=== PATIENT | female | born 1990 | race Hispanic/Latino ===

== ENCOUNTER 2018-04-21 14:01 | Emergency (ER) | payer BC, OTHER ==
[2018-04-21] MEDS ORDERED: IBUPROFEN 200 MG TAB PO ONE (15:35)
[2018-04-21] MEDS ORDERED: DEXAMETHASONE 10 MG/ML VIAL ONE (15:41)
--- NOTE | 2018-04-21 16:02 | EDPHYS ---
Physician Documentation [facility] Name: Domonique Mccurdy Age: 27 yrs Sex: Female : 1990 Arrival Date: 04/21/2018 Time: 14:05 Bed 28 Private MD: Deacon Cronin ED Physician Lev Thorpe HPI: 04/21 15:30 This 27 yrs old Female presents to ER via Ambulatory with complaints of ps1 Congestion, Sore Throat. 15:30 The patient presents with raw and voice change, headache, and sinus congestion. . pain ps1 rated as mild to moderate. Child has been sick with same symptoms. No remitting factors. Worse with swallowing. . 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 - Social history:: Smoking status: Patient/guardian denies using tobacco. - Ebola Screening: : Patient negative for fever greater than or equal to 101.5 degrees Fahrenheit, and additional compatible Ebola Virus Disease symptoms. ROS: 15:30 Constitutional: Negative for fever, chills, and weight loss, Eyes: Negative for injury, ps1 pain, redness, and discharge. 15:30 Cardiovascular: Negative for chest pain, palpitations, and edema, Respiratory: Negative for shortness of breath, cough, wheezing, and pleuritic chest pain, Abdomen/GI: Negative for abdominal pain, nausea, vomiting, diarrhea, and constipation, Back: Negative for injury and pain, Skin: Negative for injury, rash, and discoloration, Neuro: Negative for headache, weakness, numbness, tingling, and seizure, Psych: Negative for depression, anxiety, suicide ideation, homicidal ideation, and hallucinations. 15:30 ENT: Positive for hoarseness, sinus congestion, sore throat. Exam: 15:30 Constitutional: This is a well developed, well nourished patient who is awake, alert, ps1 and in no acute distress. Head/Face: Normocephalic, atraumatic. 15:30 Chest/axilla: Normal chest wall appearance and motion. Nontender with no deformity. No lesions are appreciated. Cardiovascular: Regular rate and rhythm. No gallops, murmurs, or rubs. Normal PMI, no JVD. No pulse deficits. Respiratory: Lungs have equal breath sounds bilaterally, clear to auscultation and percussion. No rales, rhonchi or wheezes noted. No increased work of breathing, no retractions or nasal flaring. Abdomen/GI: Soft, non-tender, with normal bowel sounds. No distension or tympany. No guarding or rebound. No evidence of tenderness throughout. Skin: Warm, dry with normal turgor. Normal color with no rashes, no lesions, and no evidence of cellulitis. MS/ Extremity: Pulses equal, no cyanosis. Neurovascular intact. Full, normal range of motion. Neuro: Awake and alert, GCS 15, oriented to person, place, time, and situation. Cranial nerves II-XII grossly intact. Sensory grossly intact. 15:30 ENT: Posterior pharynx: Tonsils: bilaterally enlarged, no exudate, no ulcerations, swelling, is not appreciated, erythema, that is moderate, exudate, is not appreciated, sinus pressure.. Vital Signs: 14:23 BP 99 / 72; Pulse 80; Resp 19; Temp 98.4; Pulse Ox 97% on R/A; Weight 57.61 kg; Height aj 5 ft. 1 in. (154.94 cm); 14:23 Body Mass Index 24.00 (57.61 kg, 154.94 cm) aj MDM: 15:30 Data reviewed: vital signs, nurses notes. ps1 16:00 Patient medically screened. ps1 04/21 15:29 Order name: Strep; Complete Time: 16:00 ps1 04/21 15:29 Order name: Throat Culture ps1 Administered Medications: 15:43 Drug: Decadron - Dexamethasone 10 mg Route: IVP; Site: Other; rk2 16:12 Follow up: Response: No adverse reaction rk2 15:43 Drug: Motrin 600 mg Route: PO; rk2 16:12 Follow up: Response: No adverse reaction rk2 Disposition: 04/21/18 16:02 Discharged to Home. Impression: Viral pharyngitis. - Condition is Stable. - Discharge Instructions: Pharyngitis. - Prescriptions for Anaprox DS 550 mg Oral Tablet - take 1 tablet by ORAL route every 12 hours As needed; 20 tablet. Prilosec 20 mg Oral Capsule - take 1 capsule by ORAL route once daily; 10 capsule. Zofran 4 mg Oral Tablet - take 1 tablet by ORAL route every 12 hours As needed; 20 tablet. - Medication Reconciliation Form, Thank You Letter, Antibiotic Education, Prescription Opioid Use form. - Follow up: Deacon Cronin MD; When: As needed; Reason: Recheck today's complaints, Continuance of care, Re-evaluation by your physician. Follow up: Emergency Department; When: As needed; Reason: Worsening of condition. - Problem is new. - Symptoms are unchanged. Signatures: Dispatcher [employer] EDRupal Ulrich RN RN Lev Rodriguez MD MD ps1 Maira Mendoza RN RN rk2 Corrections: (The following items were deleted from the chart) 16:13 16:02 04/21/2018 16:02 Discharged to Home. Impression: Viral pharyngitis. Condition is rk2 Stable. Forms are Medication Reconciliation Form, Thank You Letter, Antibiotic Education, Prescription Opioid Use. Follow up: Deacon Cronin; When: As needed; Reason: Recheck today's complaints, Continuance of care, Re-evaluation by your physician. Follow up: Emergency Department; When: As needed; Reason: Worsening of condition. Problem is new. Symptoms are unchanged. ps1
--- NOTE | 2018-04-21 16:02 | ER ---
Nurse's Notes [facility] Name: Domonique Mccurdy Age: 27 yrs Sex: Female : 1990 Arrival Date: 04/21/2018 Time: 14:05 Bed 28 Private MD: Deacon Cronin Diagnosis: Viral pharyngitis Presentation: 04/21 14:22 Presenting complaint: Patient states: Sore throat and congestion for 3 days. Transition aj of care: patient was not received from another setting of care. Onset of symptoms was April 18, 2018. Risk Assessment: Do you want to hurt yourself or someone else? Patient reports no desire to harm self or others. Care prior to arrival: None. 14:22 Method Of Arrival: Ambulatory aj 14:22 Acuity: ALVINO 4 aj 15:37 Initial Sepsis Screen: Does the patient meet any 2 criteria? No. Patient's initial rk2 sepsis screen is negative. Does the patient have a suspected source of infection? No. Patient's initial sepsis screen is negative. Triage Assessment: 14:23 General: Appears in no apparent distress. comfortable, Behavior is calm, cooperative, aj appropriate for age. Pain: Complains of pain in left aspect of posterior pharynx and right aspect of posterior pharynx. EENT: Reports nasal congestion nasal discharge pain when swallowing. Neuro: Level of Consciousness is awake, alert, obeys commands, Oriented to person, place, time, situation, Appropriate for age. Respiratory: Airway is patent Respiratory effort is even, unlabored, Respiratory pattern is regular, symmetrical, Breath sounds are clear. Respiratory: Reports cough that is. Derm: Skin is intact, is healthy with good turgor, Skin is pink, warm \T\ dry. normal. 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 - Social history:: Smoking status: Patient/guardian denies using tobacco. - Ebola Screening: : Patient negative for fever greater than or equal to 101.5 degrees Fahrenheit, and additional compatible Ebola Virus Disease symptoms. Screenin:36 Abuse screen: Denies threats or abuse. Nutritional screening: No deficits noted. rk2 Tuberculosis screening: No symptoms or risk factors identified. Fall Risk None identified. Assessment: 15:37 General: Appears in no apparent distress. well groomed, well developed, well nourished, rk2 Behavior is calm, cooperative. Pain: Complains of pain in right aspect of posterior pharynx and left aspect of posterior pharynx. Neuro: Level of Consciousness is alert, obeys commands, Oriented to person, place, time, situation. Cardiovascular: Rhythm is regular. Cardiovascular: Pulses. Cardiovascular: No deficits noted. Cardiovascular: Reports None. Cardiovascular: Denies. Cardiovascular: Denies shortness of breath. Respiratory: Airway is patent Respiratory effort is even, unlabored, Respiratory pattern is regular, symmetrical. Respiratory: Breath sounds are clear. EENT: Throat is pink Reports pain. Derm: Skin is pink, warm \T\ dry. Vital Signs: 14:23 BP 99 / 72; Pulse 80; Resp 19; Temp 98.4; Pulse Ox 97% on R/A; Weight 57.61 kg; Height aj 5 ft. 1 in. (154.94 cm); 14:23 Body Mass Index 24.00 (57.61 kg, 154.94 cm) aj ED Course: 14:05 Patient arrived in ED. bd 14:05 Deacon Cronin MD is Private Physician. mr 14:22 Triage completed. aj 14:23 Arm band placed on left wrist. Patient placed in waiting room. aj 15:02 Lev Thorpe MD is Attending Physician. ps1 15:22 Maira Mendoza RN is Primary Nurse. rk2 15:36 Patient has correct armband on for positive identification. Bed in low position. Call rk2 light in reach. 16:01 Deacon Cronin MD is Referral Physician. ps1 16:12 No provider procedures requiring assistance completed. Patient did not have IV access rk2 during this emergency room visit. Administered Medications: 15:43 Drug: Decadron - Dexamethasone 10 mg Route: IVP; Site: Other; rk2 16:12 Follow up: Response: No adverse reaction rk2 15:43 Drug: Motrin 600 mg Route: PO; rk2 16:12 Follow up: Response: No adverse reaction rk2 Outcome: 16:02 Discharge ordered by . ps1 16:12 Discharged to home ambulatory. rk2 16:12 Condition: good 16:12 Discharge instructions given to patient, Prescriptions given X 3. 16:13 Patient left the ED. rk2 Signatures: Harriet Sweeney Amanda, RN RN Madelin Chaparro Phillip, MD MD ps1 Maira Mendoza RN RN rk2
[2018-04-21 16:17] VITALS: BP 99/72; TEMP 98.4; O2SAT 97
== END 2018-04-21 16:13 | disposition home or self-care (01) ==
LOC: ER 14:01
DX: J02.8 Acute pharyngitis due to other specified organisms (principal)
CPT/HCPCS: 87070; 87081; 96374; 99283; J1100

== ENCOUNTER 2018-05-25 10:17 | Emergency (ER) | payer OTHER ==
[2018-05-25 11:21] LABS: Urine Blood TRACE (NEG); Urine Glucose NEGATIVE (NEG); Urine Protein NEGATIVE (NEG)
[2018-05-25 11:27] LABS: Urine Bacteria 20-50 /HPF (<20); Urine Culture Reflex Order NOT NEEDED; Urine Mucus HEAVY /HPF (NONE SEEN); Urine RBC <5 /HPF (NONE SEEN)
[2018-05-25] MEDS ORDERED: KETOROLAC 30 MG/ML INJ ONE (11:42)
[2018-05-25] MEDS ORDERED: CEFTRIAXONE 1000 MG/VIAL ONE (11:42)
--- NOTE | 2018-05-25 12:17 | RAD REPORT ---
EXAM DESCRIPTION: CT - Stone Protocol - 05/25/2018 12:06 pm CLINICAL HISTORY: Bilateral back and flank pain, dysuria, history of kidney stones COMPARISON: CT study April 2013 TECHNIQUE: Axial 5 mm thick images were obtained without oral or IV contrast. The [id number] span s the entirety of the system partially obscuring uppermost abdomen and lung bases. All CT scans are performed using dose optimization technique as appropriate and may include automated exposure control or mA/KV adjustment according to patient size. FINDINGS: No hydronephrosis is present. Bilateral nonobstructing caliceal calcifications are present 2-3 mm or less in size. Patient has medullary nephrocalcinosis as well. No calculi in the contracted bladder. No bladder wall thickening. No suspicious renal masses. Isodense masses and pyelonephritis are not excluded on a stone protocol CT scan. Calcifications in the pelvis are all believed to be phl eboliths although these are new from 2012. IUD is in place in a normal-sized uterus. No ovarian abnormality. Imaged portions of the liver, spleen and pancreas show no suspicious findings on non-contrast imaging . Cholecystectomy clips are present. No biliary tree dilatation. No significant adrenal finding. No active or acute bowel process. Moderate stool volume throughout the colon. No appendicitis finding s. No mass or bulky lymphadenopathy. Patient has a very small umbilical fat only hernia. No free air, fr ee fluid or inflammatory stranding. No significant bony abnormality. IMPRESSION: No hydronephrosis, obstructing calculus or acute finding. Isodense masses and pyelonephritis are not excluded on stone protocol technique. Patient has nephrocalcinosis and nonobstructing caliceal calcifications. No acute GI process.
[2018-05-25 13:44] LABS: Absolute Monocytes 0.6 K/uL (0.1-1.3); Absolute Neutrophil 4.9 K/uL (1.8-8.0); Basophils % 0.2 % (0-1.3); Eosinophils % 0.4 % (0-4.4); Hematocrit 40.6 % (36.0-45.0); Lymphocytes % 42.4 % (15.3-44.8); MCV 90.4 fL (80-100); MPV 7.2 fL (7.6-11.3); Monocytes % 6.1 % (3.3-12.3); RBC Red Blood Cell Count 4.49 M/uL (3.86-4.86)
[2018-05-25 14:05] LABS: BUN Blood Urea Nitrogen 12 mg/dL (7-18); Bicarbonate 26 mmol/L (21-32); Glucose Level 82 mg/dL (74-106); Potassium 3.1 mmol/L (3.5-5.1); Sodium Level 138 mmol/L (136-145)
--- NOTE | 2018-05-25 14:33 | EDPHYS ---
Physician Documentation [facility] Name: Domonique Mccurdy Age: 27 yrs Sex: Female : 1990 Arrival Date: 05/25/2018 Time: 10:19 Bed 19 Private MD: Deacon Cronin ED Physician Aidan Moore HPI: 05/25 11:28 This 27 yrs old Female presents to ER via Ambulatory with complaints of snw Possible Kidney Stone. 11:28 Onset: The symptoms/episode began/occurred 6 day(s) ago, and became persistent today. snw Associated signs and symptoms: Pertinent positives: right flank pain and then pain began wrapping around to low abd, perineal area. Modifying factors: the patient symptoms are aggravated by pressure. The patient has experienced similar episodes in the past. The patient has not recently seen a physician. last kidney stone in September 2017. 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 - Social history:: Smoking status: Patient/guardian denies using tobacco. - Ebola Screening: : Patient denies travel to an Ebola-affected area in the 21 days before illness onset. ROS: 11:28 Constitutional: Negative for fever, chills, and weight loss, Eyes: Negative for injury, snw pain, redness, and discharge, ENT: Negative for injury, pain, and discharge, Neck: Negative for injury, pain, and swelling, Cardiovascular: Negative for chest pain, palpitations, and edema, Respiratory: Negative for shortness of breath, cough, wheezing, and pleuritic chest pain, : Negative for injury, bleeding, discharge, and swelling, MS/Extremity: Negative for injury and deformity, Skin: Negative for injury, rash, and discoloration, Neuro: Negative for headache, weakness, numbness, tingling, and seizure. 11:28 Abdomen/GI: Positive for abdominal pain, nausea, of the suprapubic area. 11:28 Back: Positive for pain at rest, flank pain, on the right. Exam: 11:27 Constitutional: This is a well developed, well nourished patient who is awake, alert, snw and in no acute distress. Head/Face: Normocephalic, atraumatic. Eyes: Pupils equal round and reactive to light, extra-ocular motions intact. Lids and lashes normal. Conjunctiva and sclera are non-icteric and not injected. Cornea within normal limits. Periorbital areas with no swelling, redness, or edema. ENT: Nares patent. No nasal discharge, no septal abnormalities noted. Tympanic membranes are normal and external auditory canals are clear. Oropharynx with no redness, swelling, or masses, exudates, or evidence of obstruction, uvula midline. Mucous membranes moist. Neck: Trachea midline, no thyromegaly or masses palpated, and no cervical lymphadenopathy. Supple, full range of motion without nuchal rigidity, or vertebral point tenderness. No Meningismus. Chest/axilla: Normal chest wall appearance and motion. Nontender with no deformity. No lesions are appreciated. Cardiovascular: Regular rate and rhythm with a normal S1 and S2. No gallops, murmurs, or rubs. Normal PMI, no JVD. No pulse deficits. Respiratory: Lungs have equal breath sounds bilaterally, clear to auscultation and percussion. No rales, rhonchi or wheezes noted. No increased work of breathing, no retractions or nasal flaring. Skin: Warm, dry with normal turgor. Normal color with no rashes, no lesions, and no evidence of cellulitis. MS/ Extremity: Pulses equal, no cyanosis. Neurovascular intact. Full, normal range of motion. Neuro: Awake and alert, GCS 15, oriented to person, place, time, and situation. Cranial nerves II-XII grossly intact. Motor strength 5/5 in all extremities. Sensory grossly intact. Cerebellar exam normal. Normal gait. 11:27 Abdomen/GI: Inspection: abdomen appears normal, Bowel sounds: normal, Palpation: soft, in all quadrants, mild abdominal tenderness, moderate abdominal tenderness, in the suprapubic area. 11:27 Back: ROM is normal, CVA tenderness, that is mild, is noted on the right. Vital Signs: 10:50 BP 119 / 83; Pulse 62; Resp 16; Temp 98.2(O); Pulse Ox 98% on R/A; Weight 58.06 kg (R); aj1 Height 5 ft. 1 in. (154.94 cm) (R); Pain 6/10; 12:04 BP 125 / 80; Pulse 42; Resp 18; Pulse Ox 99% on R/A; Pain 7/10; em 12:56 BP 117 / 82; Pulse 77; Resp 18; Temp 98.2; Pulse Ox 100% on R/A; Pain 3/10; em 14:01 BP 117 / 78; Pulse 64; Resp 16; Pulse Ox 99% on R/A; em 10:50 Body Mass Index 24.19 (58.06 kg, 154.94 cm) aj1 MDM: 11:04 Patient medically screened. snw 14:33 Data reviewed: vital signs, nurses notes. Data interpreted: Pulse oximetry: on room air snw is 99 %. Interpretation: normal. Counseling: I had a detailed discussion with the patient and/or guardian regarding: the historical points, exam findings, and any diagnostic results supporting the discharge/admit diagnosis, lab results, radiology results, the need for outpatient follow up, to return to the emergency department if symptoms worsen or persist or if there are any questions or concerns that arise at home. Special discussion: Based on the patient's Hx, exam, and Dx evaluation, there is no indication for emergent surgery or inpatient Tx. It is understood by the patient/guardian that if the Sx's persist or worsen they need to return immediately for re-evaluation. Based on the history and exam findings, there is no indication for further emergent testing or inpatient evaluation. I discussed with the patient/guardian the need to see the primary care provider for further evaluation of the symptoms. I discussed with the patient/guardian the need to see the urologist for further evaluation of the symptoms. 05/25 11:04 Order name: Urine Culture snw 05/25 11:04 Order name: Urine Microscopic Only; Complete Time: 11: snw 05/25 11:08 Order name: Urine Dipstick--Ancillary (enter results); Complete Time: 11: em1 05/25 11:08 Order name: Urine --Ancillary (enter results); Complete Time: 11: em1 05/25 12:38 Order name: CBC with Diff; Complete Time: 13:56 snw 05/25 12:38 Order name: Pth,Intact; Complete Time: 15:06 snw 05/25 11:04 Order name: Urine Test (obtain specimen); Complete Time: 11:07 snw 05/25 11:04 Order name: Urine Dipstick-Ancillary (obtain specimen); Complete Time: 11:07 snw 05/25 11:26 Order name: Stone Protocol CT; Complete Time: 12:24 snw 05/25 12:38 Order name: TSH; Complete Time: 14:22 snw 05/25 12:38 Order name: Chem 7; Complete Time: 14:22 snw Administered Medications: 11:45 Drug: TORadol 60 mg Route: IM; Site: left gluteus; em 12:20 Follow up: Response: No adverse reaction; Pain is decreased em 12:11 Drug: Rocephin (cefTRIAXone) 1 grams Route: IM; Site: left gluteus; em 12:49 Follow up: Response: No adverse reaction em 14:58 Drug: K-Lyte Effervescent Tablet 50 mEq Route: PO; em 15:05 Follow up: Response: No adverse reaction em Disposition: 17:29 Co-signature as Attending Physician, Aidan Moore MD. rn Disposition: 05/25/18 14:32 Discharged to Home. Impression: Urinary tract infection, site not specified, Nephrocalcinosis. - Condition is Stable. - Discharge Instructions: Back Pain, Adult, Potassium Content of Foods, Urinary Tract Infection, Abdominal Pain, Women, Hypokalemia. - Prescriptions for Diclofenac Sodium 75 mg Oral Tablet Sustained Release - take 1 tablet by ORAL route 2 times per day; 30 tablet. cefpodoxime 200 mg Oral Tablet - take 1 tablet by ORAL route every 12 hours for 10 days with food; 20 tablet. - Medication Reconciliation Form, Thank You Letter, Antibiotic Education, Prescription Opioid Use form. - Follow up: Deacon Cronin MD; When: 2 - 3 days; Reason: Recheck today's complaints, Continuance of care, Re-evaluation by your physician. Follow up: Emergency Department; When: As needed; Reason: Worsening of condition. Signatures: Dispatcher [employer] Jhoana Wang RN RN aj1 Jeni Mcgee, POLITICAL CONSULTANT-C POLITICAL CONSULTANT-Csnw Edgar Bragg, MENTAL HEALTH CONSULTANT MENTAL HEALTH CONSULTANTAidan Gutiérrez MD MD pattern hanger: (The following items were deleted from the chart) 15:08 14:32 05/25/2018 14:32 Discharged to Home. Impression: Urinary tract infection, site em not specified; Nephrocalcinosis. Condition is Stable. Forms are Medication Reconciliation Form, Thank You Letter, Antibiotic Education, Prescription Opioid Use. Follow up: Deacon Cronin; When: 2 - 3 days; Reason: Recheck today's complaints, Continuance of care, Re-evaluation by your physician. Follow up: Emergency Department; When: As needed; Reason: Worsening of condition. snw
--- NOTE | 2018-05-25 14:33 | ER ---
Nurse's Notes [facility] Name: Domonique Mccurdy Age: 27 yrs Sex: Female : 1990 Arrival Date: 05/25/2018 Time: 10:19 Bed 19 Private MD: Deacon Cronin Diagnosis: Urinary tract infection, site not specified;Nephrocalcinosis Presentation: 05/25 10:47 Presenting complaint: Patient states: "I think I might have kidney stones, I've had aj1 them before" Reports back pain, dark urine and dysuria for the past week. Transition of care: patient was not received from another setting of care. Onset of symptoms was May 18, 2018. Risk Assessment: Do you want to hurt yourself or someone else? Patient reports no desire to harm self or others. Initial Sepsis Screen: Does the patient meet any 2 criteria? No. Patient's initial sepsis screen is negative. Does the patient have a suspected source of infection? No. Patient's initial sepsis screen is negative. Care prior to arrival: None. 10:47 Method Of Arrival: Ambulatory aj1 10:47 Acuity: ALVINO 3 aj1 Triage Assessment: 10:50 General: Appears in no apparent distress. uncomfortable, Behavior is calm, cooperative, aj1 appropriate for age. Pain: Pain currently is 6 out of 10 on a pain scale. GI: Reports nausea. : Reports burning with urination. 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 - Social history:: Smoking status: Patient/guardian denies using tobacco. - Ebola Screening: : Patient denies travel to an Ebola-affected area in the 21 days before illness onset. Screenin:52 Abuse screen: Denies threats or abuse. Nutritional screening: No deficits noted. em Tuberculosis screening: No symptoms or risk factors identified. Fall Risk None identified. Assessment: 11:20 General: Appears in no apparent distress. comfortable, Behavior is calm, cooperative. em Pain: Complains of pain in suprapubic area Pain does not radiate. Pain currently is 6 out of 10 on a pain scale. Neuro: Level of Consciousness is awake, alert, obeys commands, Oriented to person, place, time, situation. Cardiovascular: Capillary refill < 3 seconds Patient's skin is warm and dry. Respiratory: Airway is patent Respiratory effort is even, unlabored, Respiratory pattern is regular, symmetrical. GI: Abdomen is flat, Bowel sounds present X 4 quads. Abd is soft X 4 quads Abdomen is tender to palpation in right lower quadrant and left lower quadrant. : Urine is clear, Reports burning with urination, pain in suprapubic area urinary frequency, Patient is sexually active. EENT: No signs and/or symptoms were reported regarding the EENT system. Derm: Skin is intact, Skin is pink, warm \\T\\ dry. Musculoskeletal: Range of motion: intact in all extremities. 11:25 General: The previous assessment is accurate. Call light remains within reach. . ss 12:20 Reassessment: Patient appears in no apparent distress at this time. Patient and/or em family updated on plan of care and expected duration. Pain level reassessed. Patient is alert, oriented x 3, equal unlabored respirations, skin warm/dry/pink. pt wheeled to CT via wheelchair. 12:43 Reassessment: Patient appears in no apparent distress at this time. Patient and/or em family updated on plan of care and expected duration. Pain level reassessed. Patient is alert, oriented x 3, equal unlabored respirations, skin warm/dry/pink. rates pain 3/10. 13:40 Reassessment: Patient appears in no apparent distress at this time. Patient and/or em family updated on plan of care and expected duration. Pain level reassessed. Patient is alert, oriented x 3, equal unlabored respirations, skin warm/dry/pink. 14:40 Reassessment: Patient appears in no apparent distress at this time. Patient and/or em family updated on plan of care and expected duration. Pain level reassessed. Patient is alert, oriented x 3, equal unlabored respirations, skin warm/dry/pink. Patient states feeling better. Vital Signs: 10:50 BP 119 / 83; Pulse 62; Resp 16; Temp 98.2(O); Pulse Ox 98% on R/A; Weight 58.06 kg (R); aj1 Height 5 ft. 1 in. (154.94 cm) (R); Pain 6/10; 12:04 BP 125 / 80; Pulse 42; Resp 18; Pulse Ox 99% on R/A; Pain 7/10; em 12:56 BP 117 / 82; Pulse 77; Resp 18; Temp 98.2; Pulse Ox 100% on R/A; Pain 3/10; em 14:01 BP 117 / 78; Pulse 64; Resp 16; Pulse Ox 99% on R/A; em 10:50 Body Mass Index 24.19 (58.06 kg, 154.94 cm) aj1 ED Course: 10:19 Patient arrived in ED. as 10:21 Deacon Cronin MD is Private Physician. as 10:28 [facility] snw 10:28 Aidan Moore MD is Attending Physician. snw 10:50 Triage completed. aj1 10:50 Arm band placed on Patient placed in an exam room. aj1 10:58 Edgar Bragg LVN is Primary Nurse. em 11:20 Patient has correct armband on for positive identification. Placed in gown. Bed in low em position. Call light in reach. 11:20 No provider procedures requiring assistance completed. em 12:01 CT completed. Patient moved to CT via wheelchair. Patient moved back from CT. cw1 12:[address] In Process Unspecified. EDMS 13:00 Initial lab(s) drawn, by me, sent to lab. jp3 14:00 Initial lab(s) drawn, by me, sent to lab. Inserted saline lock: 22 gauge in left em antecubital area, using aseptic technique. Blood collected. 14:30 Deacon Cronin MD is Referral Physician. snw 15:04 IV discontinued, intact, bleeding controlled, No redness/swelling at site. Pressure em dressing applied. Administered Medications: 11:45 Drug: TORadol 60 mg Route: IM; Site: left gluteus; em 12:20 Follow up: Response: No adverse reaction; Pain is decreased em 12:11 Drug: Rocephin (cefTRIAXone) 1 grams Route: IM; Site: left gluteus; em 12:49 Follow up: Response: No adverse reaction em 14:58 Drug: K-Lyte Effervescent Tablet 50 mEq Route: PO; em 15:05 Follow up: Response: No adverse reaction em Outcome: 14:32 Discharge ordered by MD. butchre 15:04 Discharged to home ambulatory. em 15:04 Condition: good 15:04 Discharge instructions given to patient, Instructed on discharge instructions, follow up and referral plans. medication usage, Demonstrated understanding of instructions, follow-up care, medications, Prescriptions given X 2. 15:08 Patient left the ED. em Signatures: Dispatcher [employer] Jhoana Wang RN RN aj1 Jeni Mcgee, EMT I/85-C EMT I/85-Csnw Edgar Bragg, LUSTER APPLICATOR LUSTER APPLICATOR em Kassy Anton Shelby, RN RN Leatha Erazo cw1 Best Barraza jp3 Corrections: (The following items were deleted from the chart) 11:53 10:50 BP 119 / 83; Pulse 62bpm; Resp 16bpm; Pulse Ox 88% RA; Temp 98.2F Oral; 58.06 kg aj1 Reported; Height 5 ft. 1 in. Reported; BMI: 24.1; Pain 6/10; aj1
[2018-05-25] MEDS ORDERED: POTASSIUM 25 MEQ EFFERV TAB ONE (14:51)
[2018-05-25 15:18] VITALS: TEMP 98.2
[2018-05-25 15:21] VITALS: BP 117/78; O2SAT 99
== END 2018-05-25 15:08 | disposition home or self-care (01) ==
LOC: ER 10:17
DX: N39.0 Urinary tract infection, site not specified (principal); E83.59 Other disorders of calcium metabolism; N29 Other disorders of kidney and ureter in diseases classified elsewhere; Z87.442 Personal history of urinary calculi
CPT/HCPCS: 36415; 74176; 76377; 80048; 81003; 81015; 81025; 83970; 84443; 85025; 87086; 87088; 96372; 99284

== ENCOUNTER 2018-09-02 13:43 | Emergency (ER) | payer OTHER, SELFPAY ==
--- NOTE | 2018-09-02 15:28 | EDPHYS ---
Physician Documentation [facility] Name: Domonique Mccurdy Age: 28 yrs Sex: Female : 1990 Arrival Date: 09/02/2018 Time: 13:47 Bed 17 Private MD: Deacon Cronin ED Physician Joselito Galvez HPI: 09/02 15:15 This 28 yrs old Female presents to ER via Ambulatory with complaints of Cough, kb Congestion, Sore Throat. 15:15 The patient or guardian reports cough, that is intermittent, described as moderate, kb with no sputum. Onset: The symptoms/episode began/occurred 4 day(s) ago. Severity of symptoms: At their worst the symptoms were mild, moderate, in the emergency department the symptoms are unchanged. Modifying factors: The symptoms are alleviated by nothing, the symptoms are aggravated by nothing. Associated signs and symptoms: Pertinent positives: rhinorrhea, sore throat, Pertinent negatives: chest pain, diarrhea, ear ache, fever, nausea, vomiting. The patient has not experienced similar symptoms in the past. The patient has not recently seen a physician. 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 - Social history:: Smoking status: Patient/guardian denies using tobacco. - Ebola Screening: : No symptoms or risks identified at this time. ROS: 15:15 Constitutional: Negative for fever, chills, and weight loss, Neck: Negative for injury, kb pain, and swelling, Cardiovascular: Negative for chest pain, palpitations, and edema, Abdomen/GI: Negative for abdominal pain, nausea, vomiting, diarrhea, and constipation, Back: Negative for injury and pain, : Negative for injury, bleeding, discharge, and swelling, MS/Extremity: Negative for injury and deformity, Skin: Negative for injury, rash, and discoloration, Neuro: Negative for headache, weakness, numbness, tingling, and seizure. 15:15 ENT: Positive for rhinorrhea, sinus congestion. 15:15 Respiratory: Positive for cough, Negative for dyspnea on exertion, hemoptysis, orthopnea, pleurisy, shortness of breath, sputum production, wheezing. Exam: 15:27 Constitutional: This is a well developed, well nourished patient who is awake, alert, kb and in no acute distress. Head/Face: Normocephalic, atraumatic. ENT: Nares patent. No nasal discharge, no septal abnormalities noted. Tympanic membranes are normal and external auditory canals are clear. Oropharynx with no redness, swelling, or masses, exudates, or evidence of obstruction, uvula midline. Mucous membranes moist. Neck: Trachea midline, no thyromegaly or masses palpated, and no cervical lymphadenopathy. Supple, full range of motion without nuchal rigidity, or vertebral point tenderness. No Meningismus. Chest/axilla: Normal chest wall appearance and motion. Nontender with no deformity. No lesions are appreciated. Cardiovascular: Regular rate and rhythm with a normal S1 and S2. No gallops, murmurs, or rubs. Normal PMI, no JVD. No pulse deficits. Respiratory: Lungs have equal breath sounds bilaterally, clear to auscultation and percussion. No rales, rhonchi or wheezes noted. No increased work of breathing, no retractions or nasal flaring. Abdomen/GI: Soft, non-tender, with normal bowel sounds. No distension or tympany. No guarding or rebound. No evidence of tenderness throughout. Skin: Warm, dry with normal turgor. Normal color with no rashes, no lesions, and no evidence of cellulitis. MS/ Extremity: Pulses equal, no cyanosis. Neurovascular intact. Full, normal range of motion. Neuro: Awake and alert, GCS 15, oriented to person, place, time, and situation. Cranial nerves II-XII grossly intact. Motor strength 5/5 in all extremities. Sensory grossly intact. Cerebellar exam normal. Normal gait. 15:28 Head/face: Sinus tenderness, that is mild, is located over the right frontal sinus and kb left frontal sinus. Vital Signs: 14:00 BP 116 / 76; Pulse 96; Resp 16 S; Temp 98.4(TE); Pulse Ox 100% on R/A; Weight 62.14 kg aa5 (R); Height 5 ft. 1 in. (154.94 cm) (R); Pain 3/10; 15:27 BP 120 / 75; Pulse 82; Resp 16; Temp 98.2; Pulse Ox 100% ; jl7 14:00 Body Mass Index 25.89 (62.14 kg, 154.94 cm) aa5 MDM: 14:06 Patient medically screened. kb 15:27 Data reviewed: vital signs, nurses notes. Data interpreted: Pulse oximetry: on room air kb is 100 %. Interpretation: normal. Counseling: I had a detailed discussion with the patient and/or guardian regarding: the historical points, exam findings, and any diagnostic results supporting the discharge/admit diagnosis, lab results, the need for outpatient follow up, a family practitioner, to return to the emergency department if symptoms worsen or persist or if there are any questions or concerns that arise at home. 09/02 14:39 Order name: Flu; Complete Time: 15:14 kb 09/02 14:39 Order name: Strep; Complete Time: 15:04 kb 09/02 15:08 Order name: Throat Culture EDMS Administered Medications: No medications were administered Disposition: 09/03 07:33 Co-signature as Attending Physician, Joselito Galvez MD I agree with the assessment and philip plan of care. Disposition: 09/02/18 15:27 Discharged to Home. Impression: Acute sinusitis. - Condition is Stable. - Discharge Instructions: Sinusitis, Adult, [id number]. - Medication Reconciliation Form, Thank You Letter, Antibiotic Education, Prescription Opioid Use form. - Follow up: Emergency Department; When: As needed; Reason: Worsening of condition. Follow up: Private Physician; When: 2 - 3 days; Reason: Recheck today's complaints, Continuance of care, Re-evaluation by your physician. Signatures: Dispatcher [employer] EDWY Val Smith, LISA DAY-Joselito Benitez MD MD cha Calderon, Audri, RN RN aa5 Tay Romo RN RN jl7 Corrections: (The following items were deleted from the chart) 09/02 14:00 13:59 PMHx: IUD; aa5 aa5 15:35 15:27 09/02/2018 15:27 Discharged to Home. Impression: Acute sinusitis. Condition is jl7 Stable. Forms are Medication Reconciliation Form, Thank You Letter, Antibiotic Education, Prescription Opioid Use. Follow up: Emergency Department; When: As needed; Reason: Worsening of condition. Follow up: Private Physician; When: 2 - 3 days; Reason: Recheck today's complaints, Continuance of care, Re-evaluation by your physician. kb
--- NOTE | 2018-09-02 15:28 | ER ---
Nurse's Notes [facility] Name: Domonique Mccurdy Age: 28 yrs Sex: Female : 1990 Arrival Date: 09/02/2018 Time: 13:47 Bed 17 Private MD: Deacon Cronin Diagnosis: Acute sinusitis Presentation: 09/02 13:58 Presenting complaint: Patient states: cough, congestion, and sore throat that began aa5 . Pt states "I'm coughing up greenish stuff". Pt states "I've had a couple positive test". Transition of care: patient was not received from another setting of care. Onset of symptoms was August 2018. Risk Assessment: Do you want to hurt yourself or someone else? Patient reports no desire to harm self or others. Initial Sepsis Screen: Does the patient meet any 2 criteria? No. Patient's initial sepsis screen is negative. Does the patient have a suspected source of infection? No. Patient's initial sepsis screen is negative. Care prior to arrival: None. 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 - Social history:: Smoking status: Patient/guardian denies using tobacco. - Ebola Screening: : No symptoms or risks identified at this time. Screenin:20 Abuse screen: Denies threats or abuse. Denies injuries from another. Nutritional jl7 screening: No deficits noted. Tuberculosis screening: No symptoms or risk factors identified. Fall Risk None identified. Assessment: 14:20 General: Appears in no apparent distress. uncomfortable, Behavior is calm, cooperative, jl7 appropriate for age. Pain: Complains of pain in forehead, right eye, nose and left eye. Neuro: Level of Consciousness is awake, alert, obeys commands, Oriented to person, place, time, situation. Cardiovascular: Heart tones S1 S2 present Patient's skin is warm and dry. Respiratory: Airway is patent Respiratory effort is even, unlabored, Respiratory pattern is regular, symmetrical, Breath sounds are clear bilaterally. EENT: Throat is clear is reddened. Derm: Skin is pink, warm \\T\\ dry. 15:27 Reassessment: Patient appears in no apparent distress at this time. No changes from jl7 previously documented assessment. Patient and/or family updated on plan of care and expected duration. Pain level reassessed. Patient is alert, oriented x 3, equal unlabored respirations, skin warm/dry/pink. Vital Signs: 14:00 BP 116 / 76; Pulse 96; Resp 16 S; Temp 98.4(TE); Pulse Ox 100% on R/A; Weight 62.14 kg aa5 (R); Height 5 ft. 1 in. (154.94 cm) (R); Pain 3/10; 15:27 BP 120 / 75; Pulse 82; Resp 16; Temp 98.2; Pulse Ox 100% ; jl7 14:00 Body Mass Index 25.89 (62.14 kg, 154.94 cm) aa5 ED Course: 13:47 Patient arrived in ED. mr 13:48 Deacon Cronin MD is Private Physician. mr 13:58 Val Smith FNP-C is [facility]. kb 13:58 Joselito Galvez MD is Attending Physician. kb 13:59 Triage completed. aa5 13:59 Arm band placed on. aa5 14:03 Tay Romo RN is Primary Nurse. jl7 14:20 Patient has correct armband on for positive identification. Bed in low position. Call jl7 light in reach. Side rails up X 1. Pulse ox on. NIBP on. 14:20 Flu and/or RSV swab sent to lab. Strep swab sent to lab. jl7 15:34 No provider procedures requiring assistance completed. Patient did not have IV access jl7 during this emergency room visit. Administered Medications: No medications were administered Outcome: 15:27 Discharge ordered by MD. kb 15:34 Discharged to home ambulatory. jl7 15:34 Condition: stable 15:34 Discharge instructions given to patient, Instructed on discharge instructions, follow up and referral plans. Demonstrated understanding of instructions, follow-up care. 15:35 Patient left the ED. jl7 Signatures: Val Smith FNP-C FNP-Liseth Monahan Laxmi Montemayor RN RN aa5 Tay Romo RN RN jl7 Corrections: (The following items were deleted from the chart) : 13:58 Presenting complaint: Patient states: cough, congestion, and sore throat that aa5 began . Pt states "I'm coughing up greenish stuff" aa5 13:59 PMHx: IUD; aa5 aa5
[2018-09-02 15:46] VITALS: O2SAT 100
[2018-09-02 15:48] VITALS: BP 120/75; TEMP 98.2
== END 2018-09-02 15:35 | disposition home or self-care (01) ==
LOC: ER 13:43
DX: J01.90 Acute sinusitis, unspecified (principal)
CPT/HCPCS: 87070; 87081; 87804; 99283

== ENCOUNTER 2020-01-27 15:05 | Emergency (ER) | payer SELFPAY ==
--- OUTSIDE RECORDS SUMMARY | 2020-01-27 15:07 | XMS REPORT ---
:1990 [facility] Address [address] [place] [address] [address] [place] [address] Care Team Providers Name Role Phone Unavailable Unavailable Unavailable Problems This patient has no known problems. Allergies, Adverse Reactions, Alerts This patient has no known allergies or adverse reactions. Medications This patient has no known medications. Encounters Start End Encounter Admission Attending Care Care Encounter Date/Time Date/Time Type Type Clinicians Facility Department ID 2019-12-17 2019-12-17 Emergency E [id number] 13:20:00 13:20:00
--- OUTSIDE RECORDS SUMMARY | 2020-01-27 15:13 | XMS REPORT | Summary of Care ---
:1990 Author Organization [address] [address] Care Team Providers Name Role Phone Deacon Cronin [employer] Diamond Serrano MD Primary Care Provider Reason for Visit Reason Comments Refill Request Encounter Details Date Type Department Care Team Description 12/07/2019 Refill [facility] Domonique Malagon PA-C Refill Request [address] [place] [address] [place] [address] [place] [address] Allergies No Known Allergiesdocumented as of this encounter (statuses as of 12/09/2019) Medications Medication Sig Dispensed Refills Start Date End Date Status norethindrone-ethin Take 1 tablet 3 Package 3 09/01/2019 Active yl estradiol by mouth (LOESTRIN 1/20, daily. 21,) 1-20 mg-mcg per tablet buPROPion 75 mg Take 2 tabs 40 tablet 0 10/13/2019 Active tabletIndications: by mouth daily. depression clonazePAM 0.5 mg TAKE 1/2 TO 1 0 10/28/2019 Active tablet TABLET BY MOUTH TWICE A DAY NEEDED FOR ANXIETY benzonatate Take 2 60 capsule 0 11/28/2019 Active (TESSALON PERLES) capsules by 100 mg mouth 3 capsuleIndications: (three) times Rhinosinusitis daily as needed for Cough. FLUoxetine 20 mg Take 1 30 capsule 0 12/09/2019 Active capsuleIndications: capsule by mouth daily. depression FLUoxetine 20 mg Take 1 30 capsule 0 10/20/2019 12/09/19 Discontinued capsuleIndications: capsule by 20 (Reorder) mouth daily. depression documented as of this encounter (statuses as of 12/09/2019) Active Problems Problem Noted Date Encounter for IUD insertion 12/04/2019 Obesity (BMI 30-39.9) 05/04/2019 Urinary tract infection without hematuria, site unspecified 08/14/2017 Subacute vaginitis 03/20/2017 BV (bacterial vaginosis) 02/09/2017 History of herpes genitalis 10/21/2016 Vaginal discharge 07/28/2016 Vaginal itching 07/28/2016 Presence of of 52 mg levonorgestrel-releasing intrauterine device (IUD) 2015 documented as of this encounter (statuses as of 12/09/2019) Resolved Problems Problem Noted Date Resolved Date High-risk in third trimester 07/14/2019 08/21/2019 37 weeks gestation of 07/14/2019 10/14/2019 34 weeks gestation of 06/03/2019 10/14/2019 Decreased movements in third trimester 06/03/2019 10/14/2019 Previous delivery affecting 06/03/2019 10/14/2019 GDM, class A2 06/03/2019 10/14/2019 Headache in , antepartum, third trimester 06/03/2019 10/14/2019 Karol vaginitis 07/28/2016 02/08/2017 documented as of this encounter (statuses as of 12/09/2019) Immunizations Name Administration Dates Next Due Influenza Virus Vaccine - Whole 10/04/2009 TDAP (ADACEL) VACCINE 05/12/2019 Td 05/10/2018 documented as of this encounter Social History Tobacco Use Types Packs/Day Years Used Date Never Smoker Smokeless Tobacco: Never Used Alcohol Use Drinks/Week oz/Week Comments No 6 Standard drinks or equivalent 6.0 not while Financial Resource Strain Answer Date Recorded How hard is it for you to pay for the very basics like Not hard at all 2018 food, housing, medical care, and heating? Food Insecurity Answer Date Recorded Within the past 12 months, you worried that your food would Never true 2018 run out before you got money to buy more. Within the past 12 months, the food you bought just didn't Never true 2018 last and you didn't have money to get more. Transportation Needs Answer Date Recorded In the past 12 months, has lack of transportation kept you from No 07/14/2019 medical appointments or from getting medications? In the past 12 months, has lack of transportation kept you from No 07/14/2019 meetings, work, or getting things needed for daily living? Sex Assigned at Date Recorded Not on file Job Start Date Occupation Industry Not on file Not on file Not on file Travel History Travel Start Travel End No recent travel history available. documented as of this encounter Last Filed Vital Signs Not on filedocumented in this encounter Plan of Treatment Date Type Specialty Care Team Description 01/15/2020 Office Visit [facility] Vane Neri, CNP [address] [place], [place] [id number] Health Maintenance Due Date Last Done Comments EYE EXAM 2002 LDL-C 2002 URINE MICROALBUMIN 2002 FOOT EXAM 2010 PAP SMEAR 2013 09/28/2009 HgA1C 06/10/2019 12/11/2018, 08/09/2017 CREATININE (SERUM) 05/04/2020 05/04/2019, 01/15/2019, 12/06/2018, Additional history exists INFLUENZA VACCINE (#1) 2020 10/04/2009 Postponed from 07/27/2019 (Refused) PNEUMOCOCCAL 0-64 YEARS 12/04/2020 Postponed from COMBINED SERIES (1 of 1 - 1998 (Refused) PPSV23) DTaP,Tdap,and Td Vaccines 05/12/2029 05/12/2019, 05/10/2018 (2 - Td) documented as of this encounter Results Not on filedocumented in this encounter Visit Diagnoses Diagnosis depression Mental disorders of mother, complicating , childbirth, or the puerperium, unspecified as to episode of care documented in this encounter Insurance Payer Benefit Plan Subscriber ID Effective Phone Address Type / Group [facility] xxxxxxxxx 2019-Pres [phone] Medicaid WOMEN ent [address] [place] [address] documented as of this encounter
--- OUTSIDE RECORDS SUMMARY | 2020-01-27 15:13 | XMS REPORT | Summary of Care ---
:1990 Author Organization [facility] Address [address] [place] [address] Care Team Providers Name Role Phone Deacon Cornin Uziel Insurance Hmo Diamond Serrano MD Primary Care Provider Reason for Visit Reason Comments Assessment PP depression medicine not working Encounter Details Date Type Department Care Team Description 12/16/[address] [facility]- Vane Neri Assessment (PP Bessie Adorno, [facility] depression medicine [address] [place] not working) [facility] [address] [place], [place] [id number] Allergies No Known Allergiesdocumented as of this encounter (statuses as of 12/16/2019) Medications Medication Sig Dispensed Refills Start Date End Date Status norethindrone-ethinyl Take 1 tablet by 3 Package 3 09/01/2019 Active estradiol (LOESTRIN mouth daily. 12/15, ,) 1-20 mg-mcg per tablet buPROPion 75 mg Take 2 tabs by 40 tablet 0 10/13/2019 Active tabletIndications: mouth daily. depression clonazePAM 0.5 mg TAKE 1/2 TO 1 0 10/28/2019 Active tablet TABLET BY MOUTH TWICE A DAY NEEDED FOR ANXIETY benzonatate (TESSALON Take 2 capsules 60 capsule 0 11/28/2019 Active PERLES) 100 mg by mouth 3 capsuleIndications: (three) times Rhinosinusitis daily as needed for Cough. FLUoxetine 20 mg Take 1 capsule 30 capsule 0 12/09/2019 Active capsuleIndications: by mouth daily. depression documented as of this encounter (statuses as of 12/16/2019) Active Problems Problem Noted Date Encounter for IUD insertion 12/04/2019 Obesity (BMI 30-39.9) 05/04/2019 Urinary tract infection without hematuria, site unspecified 08/14/2017 Subacute vaginitis 03/20/2017 BV (bacterial vaginosis) 02/09/2017 History of herpes genitalis 10/21/2016 Vaginal discharge 07/28/2016 Vaginal itching 07/28/2016 Presence of of 52 mg levonorgestrel-releasing intrauterine device (IUD) 2015 documented as of this encounter (statuses as of 12/16/2019) Resolved Problems Problem Noted Date Resolved Date High-risk in third trimester 07/14/2019 08/21/2019 37 weeks gestation of 07/14/2019 10/14/2019 34 weeks gestation of 06/03/2019 10/14/2019 Decreased movements in third trimester 06/03/2019 10/14/2019 Previous delivery affecting 06/03/2019 10/14/2019 GDM, class A2 06/03/2019 10/14/2019 Headache in , antepartum, third trimester 06/03/2019 10/14/2019 Karol vaginitis 07/28/2016 02/08/2017 documented as of this encounter (statuses as of 12/16/2019) Immunizations Name Administration Dates Next Due Influenza [...] [facility]ell[facility] Vane Neri, CNP [address] [place] [address] [phone] Health Maintenance Due Date Last Done Comments [...] Results Not on filedocumented in this encounter Insurance Payer Benefit Plan Subscriber ID Effective Phone Address Type / Group Dates [facility] xxxxxxxxx 2019-Pres [phone] Medicaid WOMEN ent [address] [place] [address] documented as of this encounter
--- OUTSIDE RECORDS SUMMARY | 2020-01-27 15:13 | XMS REPORT | Summary of Care ---
:1990 Author Organization [facility] - [facility] Address [address] [place] [address] Care Team Providers Name Role Phone Deacon Cronin Insurance Hmo Diamond Serrano MD Primary Care Provider Reason for Referral Radiology Services (STAT) Status Reason Specialty Diagnoses / Referred By Referred To Procedures Contact Contact New Request Diagnostic Diagnoses Cough Malaise Aufderheide, Mickie Radiology Procedures XR CHEST 2 VW MD Shanti [address] [place] [address]. [place] [address] Reason for Visit Reason Comments Sore Throat Cough Auth/Cert Status Reason Specialty Diagnoses / Referred By Referred To Procedures Contact Contact [facility] [address] [place] [address] [place] [address] Encounter Details Date Type Department Care Team Description 01/13/2020 Emergency [facility]-Emergency Aufderheide, Mickie Cough (Primary Dx); Department MD iLnus Moser; [address] [place] [address] [place] [address]. Sore throat; [place], [place] [id number] [place] [address] Viral syndrome [phone] [address] Allergies No Known Allergiesdocumented as of this encounter (statuses as of 01/13/2020) Medications Medication Sig Dispensed Refills Start Date [...] as of this encounter (statuses as of 01/13/2020) Active Problems Problem Noted Date Encounter for IUD insertion 12/04/2019 Obesity (BMI 30-39.9) 05/04/2019 Urinary tract infection without hematuria, site unspecified 08/14/2017 Subacute vaginitis 03/20/2017 BV (bacterial vaginosis) 02/09/2017 History of herpes genitalis 10/21/2016 Vaginal discharge 07/28/2016 Vaginal itching 07/28/2016 Presence of of 52 mg levonorgestrel-releasing intrauterine device (IUD) 2015 documented as of this encounter (statuses as of 01/13/2020) Resolved Problems Problem Noted Date Resolved Date High-risk in third trimester 07/14/2019 08/21/2019 37 weeks gestation of 07/14/2019 10/14/2019 34 weeks gestation of 06/03/2019 10/14/2019 Decreased movements in third trimester 06/03/2019 10/14/2019 Previous delivery affecting 06/03/2019 10/14/2019 GDM, class A2 06/03/2019 10/14/2019 Headache in , antepartum, third trimester 06/03/2019 10/14/2019 Karol vaginitis 07/28/2016 02/08/2017 documented as of this encounter (statuses as of 01/13/2020) Immunizations Name Administration Dates Next Due Influenza [...] of this encounter Last Filed Vital Signs Vital Sign Reading Time Taken Comments Blood Pressure 119/75 01/13/2020 3:54 PM VACUUM CLEANER OPERATOR Pulse 104 01/13/2020 3:54 PM VACUUM CLEANER OPERATOR Temperature 36.8 C (98.2 F) 01/13/2020 3:54 PM VACUUM CLEANER OPERATOR Respiratory Rate 20 01/13/2020 3:54 PM VACUUM CLEANER OPERATOR Oxygen Saturation 98% 01/13/2020 3:54 PM VACUUM CLEANER OPERATOR Inhaled Oxygen Concentration - - Weight 65.3 kg (144 lb) 01/13/2020 3:54 PM VACUUM CLEANER OPERATOR Height - - Body Mass Index 27.21 12/04/2019 9:26 AM VACUUM CLEANER OPERATOR documented in this encounter Discharge Instructions InstructionsMickie Stevens MD - 01/13/2020DIAGNOSIS 1. Viral syndrome NO LIFE-THREATENING FINDINGS ON TODAY'S EXAM. RECOMMEND FOLLOW-UP WITH A PRIMARY CARE PROVIDER OR SPECIALIST IN 3-5 DAYS, ESPECIALLY IF NO IMPROVEMENT IN SYMPTOMS. MAY FOLLOW-UP WITH A PROVIDER OF YOUR CHOICE, SUCH : IF YOU WISH TO FOLLOW-UP WITHIN THE [facility], MAY TRY THESE OPTIONS (CLINIC APPOINTMENTS AVAILABLE ON [id number] BASIS): 1. SCHEDULE AN APPOINTMENT ONLINE AT [facility] 2. OR CALL THE [facility] ACCESS CENTER AT OR 3. OR CALL YOUR [facility] PHYSICIAN'S OFFICE DIRECTLY IF YOU ARE ALREADY AN ESTABLISHED [facility] PATIENT. RETURN TO ER FOR WORSENING OF SYMPTOMS. AttachmentsThe following attachments cannot be sent through Care Everywhere.Viral Syndrome (Adult) (Icelandic)documented in this encounter Plan of Treatment Date Type Specialty Care Team Description 01/15/2020 Office Visit [facility]ell[facility] Vane Neri, CNP [address] [place] [address] [phone] Name Type Priority Associated Diagnoses Date/Time THROAT CULTURE LAB STAT Cough 01/13/2020 4:08 PM VACUUM CLEANER OPERATOR Malaise Sore throat Name Type Priority Associated Diagnoses Order Schedule THROAT CULTURE LAB Routine Cough ONCE for 1 Occurrences Malaise starting 01/13/2020 until Sore throat 01/13/2020 Health Maintenance Due Date Last Done Comments [...] - Td) documented as of this encounter Procedures Procedure Name Priority Date/Time Associated Diagnosis Comments XR CHEST 2 VW STAT 01/13/2020 5:01 PM Cough Results for this VACUUM CLEANER OPERATOR Malaise procedure are in the results section. POCT TEST BEL 01/13/2020 4:41 PM Cough Results for this VACUUM CLEANER OPERATOR procedure are in the results section. ADC,CLC OR LCC ONLY STAT 01/13/2020 4:08 PM Cough Results for this - INFLUENZA A & B VACUUM CLEANER OPERATOR Malaise procedure are in DIRECT ANTIGEN the results section. RAPID STREP SCREEN STAT 01/13/2020 4:08 PM Cough Results for this FOR GROUP A VACUUM CLEANER OPERATOR Malaise procedure are in Sore throat the results section. NOTICE OF PRIVACY Routine 01/13/2020 3:45 PM PRACTICES VACUUM CLEANER OPERATOR CONSENT/REFUSAL FOR Routine 01/13/2020 3:44 PM DIAGNOSIS AND VACUUM CLEANER OPERATOR TREATMENT documented in this encounter Results XR CHEST 2 VW (01/13/2020 5:01 PM VACUUM CLEANER OPERATOR) Specimen Narrative Performed At HISTORY: Cough. PACS/VR/DOSE TECHNIQUE: PA and lateral views of the chest are obtained. Comparison is made with 11/20/2015 study. FINDINGS: No acute pneumonia detected. No pneumothorax or pleural effusion or pulmonary congestion. Cardiomediastinal contour appears normal. CONCLUSIONS: No signs of acute cardiopulmonary disease. Procedure Note [facility], Radiant Results Inft User - 01/13/2020 5:08 PM VACUUM CLEANER OPERATOR HISTORY: Cough. TECHNIQUE: PA and lateral views of the chest are obtained. Comparison is made with 11/20/2015 study. FINDINGS: No acute pneumonia detected. No pneumothorax or pleural effusion or pulmonary congestion. Cardiomediastinal contour appears normal. CONCLUSIONS: No signs of acute cardiopulmonary disease. Performing Organization Address [facility] [place] Phone Number PACS/VR/DOSE POCT TEST (01/13/2020 4:41 PM VACUUM CLEANER OPERATOR) POCT PREG Negative On board controls acceptable Yes with C Line POCT PREG LOT # [id number] POCT PREG TEST DATE 06/25/2021 Specimen Urine - URINE, CLEAN CATCH ADC,CLC OR LCC ONLY - INFLUENZA A & B DIRECT ANTIGEN (01/13/2020 4:08 PM VACUUM CLEANER OPERATOR) Influenza A Negative Negative [facility] Influenza B Negative Negative [facility] Specimen Swab - NARE, LEFT SIDE Performing Organization Address [facility]/Zipcode Phone Number [facility] CLIA: [id number], [address] [place] [address] RAPID STREP SCREEN FOR GROUP A (01/13/2020 4:08 PM VACUUM CLEANER OPERATOR) Streptococcus pyogenes Negative Negative [facility] (group A) antigen HOSPITAL LAB[facility]ORY Specimen Swab - THROAT Performing Organization Address [facility] Phone Number [facility] CLIA: [id number], [address] [place] [address] documented in this encounter Visit Diagnoses Diagnosis Cough - Primary Malaise Other malaise and fatigue Sore throat Acute pharyngitis Viral syndrome Unspecified viral infection, in conditions classified elsewhere and of unspecified site documented in this encounter Administered Medications Medication Order MAR Action Action Date Dose Rate Site acetaminophen (TYLENOL) tablet Given 01/13/2020 4:23 PM VACUUM CLEANER OPERATOR 1,000 mg 1,000 mg 1,000 mg, Oral, ONCE, 1 dose, 01/13/20 at 1730, BEL documented in this encounter
--- OUTSIDE RECORDS SUMMARY | 2020-01-27 15:13 | XMS REPORT | Summary of Care ---
:1990 Author Organization [facility] Address [address] [place] [address] Care Team Providers Name Role Phone Deacon Cronin Uziel Insurance Hmo Diamond Serrano MD Primary Care Provider Reason for Visit Auth/Cert Status Reason Specialty Diagnoses / Procedures Referred By Contact Referred To Contact [place] [facility] Rad Thr [address] [place] [address] Encounter Details Date Type Department Care Team Description 12/30/2019 Hospital Encounter [facility] Harley Posada MD CENTER [address] [facility] [id number] [address] [place] [address] [place] [address] Allergies No Known Allergiesdocumented as of this encounter (statuses as of 01/06/2020) Medications Medication Sig Dispensed Refills Start Date [...] as of this encounter (statuses as of 01/06/2020) Active Problems Problem Noted Date Encounter for IUD insertion 12/04/2019 Obesity (BMI 30-39.9) 05/04/2019 Urinary tract infection without hematuria, site unspecified 08/14/2017 Subacute vaginitis 03/20/2017 BV (bacterial vaginosis) 02/09/2017 History of herpes genitalis 10/21/2016 Vaginal discharge 07/28/2016 Vaginal itching 07/28/2016 Presence of of 52 mg levonorgestrel-releasing intrauterine device (IUD) 2015 documented as of this encounter (statuses as of 01/06/2020) Resolved Problems Problem Noted Date Resolved Date High-risk in third trimester 07/14/2019 08/21/2019 37 weeks gestation of 07/14/2019 10/14/2019 34 weeks gestation of 06/03/2019 10/14/2019 Decreased movements in third trimester 06/03/2019 10/14/2019 Previous delivery affecting 06/03/2019 10/14/2019 GDM, class A2 06/03/2019 10/14/2019 Headache in , antepartum, third trimester 06/03/2019 10/14/2019 Karol vaginitis 07/28/2016 02/08/2017 documented as of this encounter (statuses as of 01/06/2020) Immunizations Name Administration Dates Next Due Influenza [...] [facility]ellites Vane Neri, CNP [address] [place] [address] [phone] Health Maintenance Due Date Last Done Comments [...]
--- OUTSIDE RECORDS SUMMARY | 2020-01-27 15:13 | XMS REPORT | Summary of Care ---
:1990 Author Organization [facility] - [facility] Address [address] [place] [address] Care Team Providers Name Role Phone Deacon Cronin Uziel Insurance Hmo Diamond Serrano MD Primary Care Provider Encounter Details Date Type Department Care Team Description 12/30/2019 Orders Only [facility] Doctor Unassigned, No [address] [facility] [place] [address] [address] [place] [address] Allergies No Known Allergiesdocumented as of this encounter (statuses as of 01/07/2020) Medications Medication Sig Dispensed Refills Start Date [...] as of this encounter (statuses as of 01/07/2020) Active Problems Problem Noted Date Encounter for IUD insertion 12/04/2019 Obesity (BMI 30-39.9) 05/04/2019 Urinary tract infection without hematuria, site unspecified 08/14/2017 Subacute vaginitis 03/20/2017 BV (bacterial vaginosis) 02/09/2017 History of herpes genitalis 10/21/2016 Vaginal discharge 07/28/2016 Vaginal itching 07/28/2016 Presence of of 52 mg levonorgestrel-releasing intrauterine device (IUD) 2015 documented as of this encounter (statuses as of 01/07/2020) Resolved Problems Problem Noted Date Resolved Date High-risk in third trimester 07/14/2019 08/21/2019 37 weeks gestation of 07/14/2019 10/14/2019 34 weeks gestation of 06/03/2019 10/14/2019 Decreased movements in third trimester 06/03/2019 10/14/2019 Previous delivery affecting 06/03/2019 10/14/2019 GDM, class A2 06/03/2019 10/14/2019 Headache in , antepartum, third trimester 06/03/2019 10/14/2019 Karol vaginitis 07/28/2016 02/08/2017 documented as of this encounter (statuses as of 01/07/2020) Immunizations Name Administration Dates Next Due Influenza [...] [facility]ell[facility] Vane Neri, CNP [address] [place] [address] [phone] Health Maintenance Due Date Last Done Comments EYE EXAM 2002 LDL-C 2002 URINE MICROALBUMIN 2002 FOOT EXAM 2010 PAP SMEAR 2013 09/28/2009 HgA1C 06/10/2019 12/11/2018, 08/09/2017 CREATININE (SERUM) 05/04/2020 05/04/2019, 01/15/2019, 12/06/2018, Additional history exists INFLUENZA VACCINE (#1) 2020 10/04/2009 Postponed from 07/27/2019 (Refused) PNEUMOCOCCAL 0-64 YEARS 12/04/2020 Postponed from COMBINED SERIES (1 of - 1998 (Refused) PPSV23) DTaP,Tdap,and Td Vaccines 05/12/2029 05/12/2019, 05/10/2018 (2 - Td) documented as of this encounter Procedures Procedure Name Priority Date/Time Associated Diagnosis Comments NON [facility] Routine 12/30/2019 12:01 AM DOCUMENTATION PORCELAIN FINISHER documented in this encounter Results Not on filedocumented in this encounter Insurance Payer Benefit Plan Subscriber ID Effective Phone Address Type / Group Dates [facility] [place] [id number] xxxxxxxxx 2019-Pres [phone] [address] Medicaid WOMEN ent [address] [place] [address] documented as of this encounter
--- OUTSIDE RECORDS SUMMARY | 2020-01-27 15:14 | XMS REPORT | Summary of Care ---
:1990 Author Organization [facility] Address [address] [place] [address] Care Team Providers Name Role Phone Deacon Cronin Uziel Insurance H[employer] Diamond Serrano MD Primary Care Provider Reason for Visit Reason Comments INTRAUTERINE DEVICE Follow Up Encounter Details Date Type Department Care Team Description 01/15/2020 Office Visit [facility]- Vane Neri Other general counseling and advice for contraceptive management (Primary Dx); [facility] ([facility]) in place [address] [facility] [address] [facility] [address] [place], [place] [address] Allergies No Known Allergiesdocumented as of this encounter (statuses as of 01/15/2020) Medications Medication Sig Dispensed Refills Start Date End Date Status norethindrone-ethinyl Take 1 tablet by 3 Package 3 09/01/2019 Active estradiol (LOESTRIN mouth daily. 12/15, ,) 1-20 mg-mcg per tablet buPROPion 75 mg Take 2 tabs by 40 tablet 0 10/13/2019 Active tabletIndications: mouth daily. depression clonazePAM 0.5 mg TAKE 11/27 TO 1 0 10/28/2019 Active tablet TABLET [...] as of this encounter (statuses as of 01/15/2020) Active Problems Problem Noted Date Other general counseling and advice for contraceptive management 01/15/2020 IUD (intrauterine device) in place 12/04/2019 Obesity (BMI 30-39.9) 05/04/2019 Urinary tract infection without hematuria, site unspecified 08/14/2017 Subacute vaginitis 03/20/2017 BV (bacterial vaginosis) 02/09/2017 History of herpes genitalis 10/21/2016 Vaginal discharge 07/28/2016 Vaginal itching 07/28/2016 Presence of of 52 mg levonorgestrel-releasing intrauterine device (IUD) 2015 documented as of this encounter (statuses as of 01/15/2020) Resolved Problems Problem Noted Date Resolved Date High-risk in third trimester 07/14/2019 08/21/2019 37 weeks gestation of 07/14/2019 10/14/2019 34 weeks gestation of 06/03/2019 10/14/2019 Decreased movements in third trimester 06/03/2019 10/14/2019 Previous delivery affecting 06/03/2019 10/14/2019 GDM, class A2 06/03/2019 10/14/2019 Headache in , antepartum, third trimester 06/03/2019 10/14/2019 Karol vaginitis 07/28/2016 02/08/2017 documented as of this encounter (statuses as of 01/15/2020) Immunizations Name Administration Dates Next Due Influenza [...] Sign Reading Time Taken Comments Blood Pressure 114/72 01/15/2020 8:55 AM MANAGER ENVIRONMENTAL HEALTH Pulse 76 01/15/2020 8:55 AM MANAGER ENVIRONMENTAL HEALTH Temperature 36.6 C (97.8 F) 01/15/2020 8:55 AM MANAGER ENVIRONMENTAL HEALTH Respiratory Rate 16 01/15/2020 8:55 AM MANAGER ENVIRONMENTAL HEALTH Oxygen Saturation - - Inhaled Oxygen Concentration - - Weight 67.6 kg (149 lb 1 oz) 01/15/2020 8:55 AM MANAGER ENVIRONMENTAL HEALTH Height 154.9 cm (5' 1") 01/15/2020 8:55 AM MANAGER ENVIRONMENTAL HEALTH Body Mass Index 28.17 01/15/2020 8:55 AM MANAGER ENVIRONMENTAL HEALTH documented in this encounter Progress Notes Vane Neri, WHCNP - 01/15/2020 8:15 AM CST Chief complaint: Chief Complaint Patient presents with INTRAUTERINE DEVICE Follow Up HPI: the patient is here for IUD check. She reports she is doing well and is pleased with her form of control method. She does report that she has been bleeding since placement but reports old blood. Histories OB History Para Term AB Living 4 2 2 0 1 2 SAB TAB Ectopic Multiple Live Births 1 0 0 0 2 # Outcome Date GA Lbr Ashutosh/2nd Weight Sex Delivery Anes PTL Lv 4 Term 01/12/15 9 lb 13 oz (4.451 kg) F SEC MARILU Complications: Gestational diabetes 3 Term 05/19/10 7 lb 13 oz (3.544 kg) F VAGINAL Y MARILU 2 1 SAB Past Medical History: Diagnosis Date Anemia During Anxiety Karol vaginitis 07/28/2016 Chlamydia Cyst of ovary Genital herpes Gonorrhea HPV (human papilloma virus) anogenital infection Kidney infection kidney abscess in HS Ovarian cyst Pap smear abnormality of cervix HPV Pregestational diabetes mellitus, modified White class H in STD (sexually transmitted disease) Family History Problem Relation Age of Onset Other - see comments Mother Crohn's, ulcerative colitis, IBS Hypertension Father Other - see comments Brother IBS Diabetes Maternal Grandmother Cancer Maternal Grandmother Lung and Brain Psychiatry Maternal Grandmother Bipolar Depression Maternal Grandmother Lung Cancer Maternal Grandmother Brain Cancer Maternal Grandmother Diabetes Paternal Grandmother Diabetes Paternal Grandfather Arthritis NoFHx Asthma NoFHx defects NoFHx Genetic NoFHx Breast Cancer NoFHx Colon Cancer NoFHx Ovarian Cancer NoFHx Uterine Cancer NoFHx Heart NoFHx High cholesterol NoFHx Mental retardation NoFHx Neurological NoFHx Osteoporosis NoFHx Family Status Relation Name Status Mo Alive Fa Alive Bro (Not Specified) MGMo (Not Specified) PGMo (Not Specified) PGFa (Not Specified) NoFHx (Not Specified) Past Surgical History: Procedure Laterality Date SECTION 01/12/2015 CHOLECYSTECTOMY 05/19/2015 Social History Socioeconomic History Marital status: Single Spouse name: Not on file Number of children: 2 Years of education: Not on file Highest education level: Not on file Occupational History Not on file Social Needs Financial resource strain: Not hard at all Food insecurity: Worry: Never true Inability: Never true Transportation needs: Medical: No Non-medical: No Tobacco Use Smoking status: Never Smoker Smokeless tobacco: Never Used Substance and Sexual Activity Alcohol use: No Alcohol/week: 6.0 standard drinks Types: 6 Standard drinks or equivalent per week Comment: not while Drug use: No Sexual activity: Yes Partners: Male control/protection: IUD, None Comment: Robinson- boyfriend- 1 year Lifestyle Physical activity: Days per week: Not on file Minutes per session: Not on file Stress: Not on file Relationships Social connections: Talks on phone: Not on file Gets together: Not on file Attends congregation service: Not on file Active member of club or organization: Not on file Attends meetings of clubs or organizations: Not on file Relationship status: Not on file Intimate partner violence: Fear of current or ex partner: Not on file Emotionally abused: Not on file Physically abused: Not on file Forced sexual activity: Not on file Other Topics Concern Not on file Social History Narrative Denies domestic violence or abuse Social History Substance and Sexual Activity Sexual Activity Yes Partners: Male control/protection: IUD, None Comment: Robinson- boyfriend- 1 year Labs No new labs and Admission on 01/13/2020, Discharged on 01/13/2020 Component Date Value Streptococcus pyogenes (* 01/13/2020 Negative Influenza A 01/13/2020 Negative Influenza B 01/13/2020 Negative Throat Culture 01/13/2020 No Beta-Hemolytic Streptococcus isolated at 24 hours POCT PREG 01/13/2020 Negative On board controls accept* 01/13/2020 Yes POCT PREG LOT # 01/13/2020 [id number] POCT PREG TEST DA* 01/13/2020 06/25/2021 Office Visit on 12/04/2019 Component Date Value POCT PREG 12/04/2019 Negative On board controls accept* 12/04/2019 Yes Radiology No new radiology. Allergies Domonique has No Known Allergies. Medications Domonique has a current medication list which includes the following prescription(s): fluoxetine, benzonatate, clonazepam, bupropion, and norethindrone-ethinyl estradiol. Review of Systems Constitutional: Negative. HENT: Negative. Eyes: Negative. Respiratory: Negative. Breasts: Negative. Cardiovascular: Negative. Gastrointestinal: Negative. Genitourinary: Positive for vaginal bleeding. Musculoskeletal: Negative. Skin: Negative. Neurological: Negative. Psychiatric/Behavioral: Negative. Endocrine: Endocrine negative BP 114/72 (BP Location: Right arm, Patient Position: Sitting, BP CUFF SIZE: Adult Medium) | Pulse 76 | Temp 36.6 C (97.8 F) (Oral) | Resp 16 | Ht 5 ' 1" (1.549 m) | Wt 149 lb 1 oz (67.6 kg) | LMP 12/04/2019 (Approximate) | BMI 28.17 kg/m Pregravid BMI: Could not be calculated Physical Exam Vitals reviewed. Constitutional: She is oriented to person, place, and time. She appears well- developed and well-nourished. Her body habitus is normal. Cardiovascular: Regular rate and rhythm. No peripheral edema present. Pulmonary/Chest: Normal inspiratory effort. Neuro/Psychiatric: She has a normal mood and affect. She is oriented to person, place, and time. External genitalia: Normal external genitalia appropriate for age. Normal hair distribution. No labial lesion. Urethral meatus: Normal urethral meatus size, location and no lesion. No prolapse present. Normal urethral meatus Urethra: Normal urethra. No urethral tenderness, no mass and no urethral scarring palpated. Vagina:Normal vagina. No lesion inspected. Normal estrogen effect. Normal support. No abnormal vaginal discharge found. Scant old blood noted in vaginal canal Cervix: Normal cervix. No lesion. No tenderness and no discharge present. IUD strings present Uterus: Uterus is normal size, normal contour, normal position and non-tender. Normal uterus Assessment/Plan Return to clinic in 7 months for WWE or sooner as needed Other general counseling and advice for contraceptive management (primary encounter diagnosis) IUD (intrauterine device) in place Comment: i nplace Plan: as needed mgmt This visit did not involve counseling and coordination that comprised more than 50% of the visit time. ADRIAN Hassan 01/15/2020 9:46 AM documented in this encounter Plan of Treatment Date Type Specialty Care Team Description 08/16/2020 Office Visit [facility] Vane Neri [facility]NP [address] [place] [address] [phone] Health Maintenance Due Date Last Done Comments FOOT EXAM 2010 PAP SMEAR 2013 09/28/2009 HgA1C 06/10/2019 12/11/2018, 08/09/2017 EYE EXAM 01/16/2020 Postponed from 2002 (Alternative Guidelines) CREATININE (SERUM) 05/04/2020 05/04/2019, 01/15/2019, 12/06/2018, Additional history exists INFLUENZA VACCINE (#1) 2020 10/04/2009 Postponed from 07/27/2019 (Refused) PNEUMOCOCCAL 0-64 YEARS 12/04/2020 Postponed from COMBINED SERIES (1 of 1 - 1998 (Refused) PPSV23) LDL-C 01/15/2021 Postponed from 2002 (Alternative Guidelines) URINE MICROALBUMIN 01/15/2021 Postponed from 2002 (Alternative Guidelines) DTaP,Tdap,and Td Vaccines 05/12/2029 05/12/2019, 05/10/2018 (2 - Td) documented as of this encounter Results Not on filedocumented in this encounter Visit Diagnoses Diagnosis Other general counseling and advice for contraceptive management - Primary IUD (intrauterine device) in place Presence of intrauterine contraceptive device documented in this encounter Insurance Payer Benefit Plan Subscriber ID Effective Phone Address Type / Group Dates [facility] xxxxxxxxx 2019-Pres [phone] Medicaid WOMEN ent [address] [place] [address] (Work) documented as of this encounter
--- OUTSIDE RECORDS SUMMARY | 2020-01-27 15:14 | XMS REPORT | Summary of Care ---
:1990 Author Organization [facility] Address [address] [place] [address] Care Team Providers Name Role Phone Deacon Cronin Uziel Insurance Hmo Diamond Serrano MD Primary Care Provider Reason for Visit Reason Comments INTRAUTERINE DEVICE Follow Up Encounter Details Date Type Department Care Team Description 01/15/2020 Office Visit [facility]- Vane Neri Other general counseling and advice for contraceptive management (Primary Dx); [facility] ([facility]) in place [address] [facility] [address] [facility] [address] [place], [place] [address] Allergies No Known Allergiesdocumented as of this [...] Comments Blood Pressure 114/72 01/15/2020 8:55 AM UTILITY ASSEMBLER Pulse 76 01/15/2020 8:55 AM UTILITY ASSEMBLER Temperature 36.6 C (97.8 F) 01/15/2020 8:55 AM UTILITY ASSEMBLER Respiratory Rate 16 01/15/2020 8:55 AM UTILITY ASSEMBLER Oxygen Saturation - - Inhaled Oxygen Concentration - - Weight 67.6 kg (149 lb 1 oz) 01/15/2020 8:55 AM UTILITY ASSEMBLER Height 154.9 cm (5' 1") 01/15/2020 8:55 AM UTILITY ASSEMBLER Body Mass Index 28.17 01/15/2020 8:55 AM UTILITY ASSEMBLER documented in this encounter Progress Notes Vane [...] file Gets together: Not on file Attends samaritan service: Not on file Active member of [...] 01/13/2020 Yes POCT PREG LOT # 01/13/2020 [id number] POCT PREG TEST DA* 01/13/2020 06/25/2021 Office [...] Visit [facility] Vane Neri [facility] [address] [place] [address] [phone] Health Maintenance Due Date Last Done Comments [...] Effective Phone Address Type / Group Dates [facility] xxxxxxxxx 2019-Pres [phone] Medicaid WOMEN ent [address] [place] [address] (Work) documented as of this encounter
[2020-01-27] MEDS ORDERED: ONDANSETRON 4 MG (ODT) TAB ONE (15:59)
--- NOTE | 2020-01-27 16:43 | EDPHYS ---
Physician Documentation [facility] Name: Domonique Mccurdy Age: 29 yrs Sex: Female : 1990 Arrival Date: 01/27/2020 Time: 15:06 Bed 28 Private MD: Deacon Cronin ED Physician Zay Jiménez HPI: 01/26 16:00 This 29 yrs old Female presents to ER via Ambulatory with complaints of Fever, cp Vomiting/Diarrhea. 16:00 The patient reports fever, not measured (subjective). Onset: The symptoms/episode cp began/occurred this morning. Associated signs and symptoms: Pertinent positives: diarrhea, nausea, vomiting. Severity of symptoms: in the emergency department the symptoms are unchanged despite home interventions. 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 - Social history:: Smoking status: Patient denies any tobacco usage or history of. ROS: 16:05 Constitutional: Negative for fever. cp 16:05 Eyes: Negative for injury, pain, redness, and discharge. cp 16:05 ENT: Negative for drainage from ear(s), ear pain, sore throat, difficulty swallowing, difficulty handling secretions. 16:05 Cardiovascular: Negative for chest pain. 16:05 Respiratory: Negative for cough, shortness of breath, wheezing. 16:05 Abdomen/GI: Positive for nausea, vomiting, and diarrhea, Negative for constipation, hematemesis, black/tarry stool, rectal bleeding. 16:05 Skin: Negative for rash. 16:05 Neuro: Negative for altered mental status, headache, weakness. 16:05 All other systems are negative. Exam: 16:10 Constitutional: The patient appears in no acute distress, alert, awake, non-toxic, well cp developed, well nourished. 16:10 Head/Face: Normocephalic, atraumatic. cp 16:10 Eyes: Periorbital structures: appear normal, Conjunctiva: normal, no exudate, no injection, Sclera: no appreciated abnormality, Lids and lashes: appear normal, bilaterally. 16:10 ENT: External ear(s): are unremarkable, Ear canal(s): are normal, clear, TM's: are normal, no evidence of bulging, no erythema, Nose: is normal, Mouth: Lips: moist, Oral mucosa: pink and intact, moist, Posterior pharynx: is normal, airway is patent, no erythema, no exudate. 16:10 Neck: ROM/movement: is normal, is supple, without pain, no meningismus. 16:10 Chest/axilla: Inspection: normal, Palpation: is normal, no crepitus, no tenderness. 16:10 Cardiovascular: Rate: normal, Rhythm: regular. 16:10 Respiratory: the patient does not display signs of respiratory distress, Respirations: normal, no use of accessory muscles, no retractions, labored breathing, is not present, Breath sounds: are clear throughout, no decreased breath sounds, no stridor, no wheezing. 16:10 Abdomen/GI: Inspection: abdomen appears normal, Bowel sounds: active, all quadrants, Palpation: soft, in all quadrants, mild abdominal tenderness, in all quadrants, rebound tenderness, is not appreciated, voluntary guarding, is not appreciated, involuntary guarding, is not appreciated. 16:10 Back: pain, is absent, ROM is normal. 16:10 Skin: no rash present. Vital Signs: 15:29 BP 93 / 75; Pulse 98; Resp 17 S; Temp 97.2(O); Pulse Ox 97% on R/A; Weight 64.86 kg ca1 (R); Height 5 ft. 1 in. (154.94 cm) (R); 16:38 BP 101 / 68 Supine; Pulse 96; Resp 16; Pulse Ox 100% on R/A; Pain 5/10; ls4 16:39 BP 103 / 68 Sitting; Pulse 100; Resp 16; Pulse Ox 100% on R/A; ls4 16:40 BP 104 / 67 Standing; Pulse 98; Resp 16; Pulse Ox 99% on R/A; ls4 15:29 Body Mass Index 27.02 (64.86 kg, 154.94 cm) ca1 MDM: 15:52 Patient medically screened. cp 16:41 Data reviewed: vital signs, nurses notes, lab test result(s). cp 16:41 Counseling: I had a detailed discussion with the patient and/or guardian regarding: the cp historical points, exam findings, and any diagnostic results supporting the discharge/admit diagnosis, lab results, to return to the emergency department if symptoms worsen or persist or if there are any questions or concerns that arise at home. Response to treatment: the patient's symptoms have markedly improved after treatment, No vomiting observed while in ED. VSS. Orthostatics negative. Will discharge to home for continued monitoring. 01/26 15:46 Order name: Flu; Complete Time: 16:41 ls4 01/26 16:41 Interpretation: Reviewed. 01/26 16:11 Order name: Urine Dipstick--Ancillary (enter results); Complete Time: 16:30 bd 01/26 15:53 Order name: Urine Dipstick-Ancillary (obtain specimen); Complete Time: 16:03 01/26 15:53 Order name: Urine Test (obtain specimen); Complete Time: 16:03 cp 01/26 16:11 Order name: Urine --Ancillary (enter results); Complete Time: 16:30 bd 01/26 15:53 Order name: PO challenge; Complete Time: 16:09 cp 01/26 15:53 Order name: Orthostatics; Complete Time: 17:02 cp Administered Medications: 16:00 Drug: Zofran (Ondansetron) 4 mg Route: PO; ls4 Disposition: 01/27/20 16:42 Discharged to Home. Impression: Nausea and vomiting, Diarrhea, unspecified. - Condition is Stable. - Discharge Instructions: Food Choices to Help Relieve Diarrhea, Adult, Diarrhea, Adult, Nausea and Vomiting, Adult. - Prescriptions for Zofran 4 mg Oral Tablet - take 1 tablet by ORAL route every 12 hours As needed; 20 tablet. - Medication Reconciliation Form, Thank You Letter, Antibiotic Education, Prescription Opioid Use form. - Follow up: Private Physician; When: 1 - 2 days; Reason: Worsening of condition. - Problem is new. - Symptoms have improved. Addendum: 01/29/2020 10:53 Co-signature as Attending Physician, Zay Jiménez MD I agree with the assessment and t w4 plan of care. Signatures: Dispatcher [employer] Torrie Mobley RN RN iw Joselito Rivers PA PA cp Wadley, Terrence, MD MD tw4 Judy Jensen RN RN ls4 Haydee Cornell RN RN ca1 Corrections: (The following items were deleted from the chart) 01/26 17:41 16:42 01/27/2020 16:42 Discharged to Home. Impression: Nausea and vomiting; Diarrhea, iw unspecified. Condition is Stable. Forms are Medication Reconciliation Form, Thank You Letter, Antibiotic Education, Prescription Opioid Use. Follow up: Private Physician; When: 1 - 2 days; Reason: Worsening of condition. Problem is new. Symptoms have improved. cp
--- NOTE | 2020-01-27 16:43 | ER ---
Nurse's Notes [facility] Name: Domonique Mccurdy Age: 29 yrs Sex: Female : 1990 Arrival Date: 01/27/2020 Time: 15:06 Bed 28 Private MD: Deacon Cronin Diagnosis: Nausea and vomiting;Diarrhea, unspecified Presentation: 01/26 15:29 Chief complaint: Patient states: Vomiting and diarrhea since 0100 today. Fever at 10.1F ca1 this morning. Coronavirus screen: The patient has NOT traveled to [place] in the past 14 days. The patient has NOT had contact with known and/or suspected case of Coronavirus. Ebola Screen: Patient negative for fever greater than or equal to 101.5 degrees Fahrenheit, and additional compatible Ebola Virus Disease symptoms Patient denies exposure to infectious person. Patient denies travel to an Ebola-affected area in the 21 days before illness onset. No symptoms or risks identified at this time. Initial Sepsis Screen: Does the patient meet any 2 criteria? No. Patient's initial sepsis screen is negative. Does the patient have a suspected source of infection? No. Patient's initial sepsis screen is negative. Risk Assessment: Do you want to hurt yourself or someone else? Patient reports no desire to harm self or others. Onset of symptoms was January 27, 2020. 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 - Social history:: Smoking status: Patient denies any tobacco usage or history of. Vital Signs: 15:29 BP 93 / 75; Pulse 98; Resp 17 S; Temp 97.2(O); Pulse Ox 97% on R/A; Weight 64.86 kg ca1 (R); Height 5 ft. 1 in. (154.94 cm) (R); 16:38 BP 101 / 68 Supine; Pulse 96; Resp 16; Pulse Ox 100% on R/A; Pain 5/10; ls4 16:39 BP 103 / 68 Sitting; Pulse 100; Resp 16; Pulse Ox 100% on R/A; ls4 16:40 BP 104 / 67 Standing; Pulse 98; Resp 16; Pulse Ox 99% on R/A; ls4 15:29 Body Mass Index 27.02 (64.86 kg, 154.94 cm) ca1 ED Course: 15:06 Patient arrived in ED. rg4 15:07 Deacon Cronin MD is Private Physician. rg4 15:31 Triage completed. ca1 15:33 Arm band placed on right wrist. ca1 15:44 Joselito Rivers PA is PHCP. cp 15:44 Zay Jiménez MD is Attending Physician. cp 15:45 Judy Jensen, RN is Primary Nurse. ls4 17:02 Diet: Patient given water. Tolerated well. ls4 Administered Medications: 16:00 Drug: Zofran (Ondansetron) 4 mg Route: PO; ls4 Outcome: 16:42 Discharge ordered by MD. cp 17:41 Patient left the ED. iw Signatures: Torrie Quiñones, RN RN iw Joselito Rivers PA PA cp Garcia, Rubi rg4 Judy Jensen, RN RN ls4 Haydee Cornell RN RN ca1
[2020-01-27 17:45] LABS: Urine Blood NEGATIVE (NEG); Urine Glucose NEGATIVE (NEG); Urine Protein NEGATIVE (NEG); Urine Specific Gravity >1.030 (1.005-1.030)
[2020-01-27 18:43] VITALS: TEMP 97.2
[2020-01-27 18:46] VITALS: BP 104/67; O2SAT 99
== END 2020-01-27 17:41 | disposition home or self-care (01) ==
LOC: ER 15:05
DX: R19.7 Diarrhea, unspecified (principal); Z87.442 Personal history of urinary calculi
CPT/HCPCS: 81003; 81025; 87804; 99283

== ENCOUNTER 2020-06-06 07:35 | Emergency (ER) | payer SELFPAY ==
--- OUTSIDE RECORDS SUMMARY | 2020-06-06 07:37 | XMS REPORT | Continuity of Care Document ---
:1990 Author Organization [employer] Care Team Providers Name Role Phone [employer] Unavailable Un available Problems Problem Status Onset Classification Date Comments Sourc e Date Reported Suicidal 12/20/2019 [place] ideations 0 Other mental 12/20/2019 [facility] [place] disorders 0 complicating the puerperium [facility]AL [facility] 0 [place] Medications Medication Details Route Status Patient Ordering Order Source Instructions Provider Date Benadry Notes: Inactive MH (Same as: 020 [place] Benadryl) Haldol Notes: Inactive (Same as: 020 [place] Haldol) olanzapine 10 mg, Inactive Route: PO, 020 [place] Drug form: TAB, ONCE, Dosing Weight 63.636, kg, Start date: 12/17/19 21:36:00 COMB SETTER, Stop date: 12/17/19 21:36:00 COMB SETTER Ativan 1 mg, Inactive Route: PO, 020 [place] Drug form: TAB, ONCE, Dosing Weight 63.636, kg, Priority: STAT, Start date: 12/17/19 17:05:00 COMB SETTER, Stop date: 12/17/19 17:05:00 COMB SETTER Allergies, Adverse Reactions, Alerts Substance Category Reaction Severity Reaction Status Date Comments S ource type Reported No Known Assertion Drug MH Medication allergy Lawanda and Allergies Immunizations No Data Provided for This Section Results Order Name Results Value Reference Date Interpretation Comments Jojo rce Range CHEM PANEL Glucose Lvl 121 70 - 99 12/17 [place] CHEM PANEL BUN 10 7 - 22 12/17 [place] CHEM PANEL Creatinine 0.73 0.50 - 12/17 MH Lvl 1.40 [place] CHEM PANEL Sodium Lvl 139 135 - 145 12/17 [place] CHEM PANEL Potassium Lvl 3.5 3.5 - 5.1 12/17 [place] CHEM PANEL Chloride Lvl 107 95 - 109 12/17 [place] CHEM PANEL CO2 28 24 - 32 12/17 [place] CHEM PANEL Calcium Lvl 9.4 8.5 - 10.5 12/17 [place] CHEM PANEL Total Protein 8.0 6.4 - 8.4 12/17 [place] CHEM PANEL Albumin Lvl 4.1 3.5 - 5.0 12/17 [place] CHEM PANEL ALT 19 0 - 65 12/17 [place] CHEM PANEL AST 15 0 - 37 12/17 [place] CHEM PANEL Alk Phos 79 39 - 136 12/17 [place] CHEM PANEL Bili Total 0.3 0.2 - 1.3 12/17 [place] CHEM PANEL AGAP 7.5 10.0 - 12/17 MH 20.0 [place] CHEM PANEL B/C Ratio 14 6 - 25 12/17 [place] CHEM PANEL Globulin 3.9 2.7 - 4.2 12/17 [place] CHEM PANEL A/G Ratio 1.1 0.7 - 1.6 12/17 [place] CHEM PANEL eGFR 113 12/17 Result Comment: The [place] eGFR is calculated using the CKD-EPI formula. In most young, healthy individuals the eGFR will be >90 mL/min/1.73m2 . The eGFR declines with age. An eGFR of 60-89 may be normal in some populations, particularly the elderly, for whom the CKD-EPI formula has not been extensively validated. Use of the eGFR is not recommended in the following populations:< br/>
Mona viduals with unstable creatinine concentration s, including patients and those with serious co-morbid conditions.<b r/>
Patie nts with extremes in muscle mass or diet.

The data above are obtained from the National Kidney Disease Education Program (NKDEP) which additionally recommends that when the eGFR is used in patients with extremes of body mass index for purposes of drug dosing, the eGFR should be multiplied by the estimated BMI. DRUG SCREEN U Amph Scr Negative Negative 12/17 *NA* /2019 [place] (12/17/19 1:51 PM) DRUG SCREEN U Lorenza Scr Negative Negative 12/17 *NA* [place] (12/17/19 1:51 PM) DRUG SCREEN U Benzodiaz Negative Negative 12/17 MH Scr *NA* [place] (12/17/19 1:51 PM) DRUG SCREEN U Cocaine Scr Negative Negative 12/17 MH *NA* [place] (12/17/19 1:51 PM) DRUG SCREEN U Cannab Scr Negative Negative 12/17 MH *NA* [place] (12/17/19 1:51 PM) DRUG SCREEN U Opiate Scr Negative Negative 12/17 MH *NA* [place] (12/17/19 1:51 PM) DRUG SCREEN U Negative Negative 12/17 MH Phencyclidine *NA [place] Scr (12/17/19 1:51 PM) DRUG SCREEN UDS Note See Note 12/17 MH *NA* [place] (12/17/19 1:51 PM) HEMATOLOGY WBC 6.9 3.7 - 10.4 12/17 [place] HEMATOLOGY RBC 4.50 4.20 - 12/17 MH 5.40 [place] HEMATOLOGY Hgb 13.2 12.0 - 12/17 MH 16.0 [place] HEMATOLOGY Hct 39.6 36.0 - 12/17 MH 48.0 [place] HEMATOLOGY MCV 88.1 80.0 - 12/17 MH 98.0 [place] HEMATOLOGY MCH 29.4 27.0 - 12/17 MH 31.0 [place] HEMATOLOGY MCHC 33.4 32.0 - 12/17 MH 36.0 [place] HEMATOLOGY RDW 12.6 11.5 - 12/17 MH 14.5 [place] HEMATOLOGY Platelet 304 133 - 450 12/17 [place] HEMATOLOGY MPV 6.9 7.4 - 10.4 12/17 [place] HEMATOLOGY Segs 57.3 45.0 - 12/17 MH 75.0 [place] HEMATOLOGY Lymphocytes 36.8 20.0 - 12/17 MH 40.0 [place] HEMATOLOGY Monocytes 4.0 2.0 - 12.0 12/17 [place] HEMATOLOGY Eosinophils 1.5 0.0 - 4.0 12/17 [place] HEMATOLOGY Basophils 0.4 0.0 - 1.0 12/17 [place] HEMATOLOGY Neutrophils # 3.9 1.5 - 8.1 12/17 [place] HEMATOLOGY Lymphocytes # 2.5 1.0 - 5.5 12/17 [place] HEMATOLOGY Monocytes # 0.3 0.0 - 0.8 12/17 [place] HEMATOLOGY Eosinophils # 0.1 0.0 - 0.5 12/17 [place] TOXICOLOGY Acetaminoph <2 10 - 20 12/17 MH Lvl (12/17/19 1:51 PM) [place] TOXICOLOGY Ethanol Lvl <3 12/17 [place] TOXICOLOGY Etoh (%) <0.003 12/17 [place] TOXICOLOGY Salicylate <1.7 0.0 - 30.0 12/17 Lvl [place] URINE CHEM U Preg Negative Negative 12/17 (12/17/19 1:51 PM) [place] Pathology Reports No Data Provided for This Section Diagnostic Reports No Data Provided for This Section Consultation Notes No Data Provided for This Section Discharge Summaries No Data Provided for This Section History and Physicals No Data Provided for This Section Vital Signs Vital Sign Value Date Comments Source Systolic (mm Hg) 100 12/18/2019 [facility] Diastolic (mm Hg) 64 12/18/2019 [place] Respitory Rate 18 12/18/2019 [facility] Temperature Oral (F) 97.9 F 12/18/2019 [facility] Temperature Oral (F) 97.7 F 12/18/2019 [facility] Heart Rate 58 12/18/2019 [facility] Respitory Rate 16 12/18/2019 [facility] Systolic (mm Hg) 114 12/18/2019 [facility] Diastolic (mm Hg) 76 12/18/2019 [place] Temperature Oral (F) 98.5 F 12/18/2019 [facility] Heart Rate 80 12/18/2019 [place] Respitory Rate 16 12/18/2019 [facility] Systolic (mm Hg) 132 12/18/2019 [facility] Diastolic (mm Hg) 90 12/18/2019 [place] Heart Rate 76 12/18/2019 [facility] Height 154.94 cm 12/17/2019 [facility] BMI Calculated 26.51 12/17/2019 [facility] Weight 63.636 12/17/2019 [facility] Encounters Location Location Encounter Encounter Reason Attending ADM DC Stat us Source Details Type Number For Provider Date Date [facility] [id number] Jacqueline 12/17 12/18 LARRY Chu /2019 [facility] Outpatient [id number] Reggie 12/18 Active [facility] /2019 [place] Procedures No Data Provided for This Section Assessment and Plan No Data Provided for This Section Plan of Care No Data Provided for This Section Social History Social History Date Source Social History TypeResponse 12/18/2019 [facility] Alcohol Current Sexual Sexually active: No. Substance Abuse Use: None. Smoking Status Never smoker; Exposure to Tobacco Smoke None; Cigarette Smoking Last 365 Days No; Reg Smoking Cessation Counseling No entered on: 12/18/19 Family History No Data Provided for This Section Advance Directives No Data Provided for This Section Functional Status No Data Provided for This Section
--- OUTSIDE RECORDS SUMMARY | 2020-06-06 07:38 | XMS REPORT | Continuity of Care Document ---
:1990 Author Organization [facility] t Address [address] [place] [address] Care Team Providers Name Role Phone Kyree Gupta Attending Clinician Kimberley Attending Clinician Problems Condition Condition Condition Status Onset Resolution Last Treating Co mments Source Name Details Category Date Date Treatment Clinician Date SUICIIDAL Diagnosis Active 2019-12-17 [facility] IDEATION - 14:29:00 l 10:00: [place] SUICIIDAL 00 IDEATION Active 12/16/2019 [facility] S[place] Suicidal Problem 2019-12-20 2019-12-20 Memoria ideations 12-18 22:34:25 22:34:25 l Suicidal 18:00: Brett n ideations 00 12/18/2019 12/20/2019 Manuel Other Problem 2019-12-20 2019-12-20 M emoria mental 12-18 22:34:25 22:34:25 l disorders Other 18:00: Brett n complicati mental 00 ng the disorders puerperium complicati ng the puerperium 12/18/2019 12/20/2019 Manuel Allergies, Adverse Reactions, Alerts Allergy Allergy Status Severity Reaction(s) Onset Inactive Treating Comm ents Source Name Type Date Date Clinician No Known No Known Active Memori a Medicati Medicati l on on [place] Allergdelta Allergie s s Social History Social Habit Start Date Stop Date Quantity Comments Source Social History 2019-12-18 2019-12-18 [facility] Sara bolden 20:18:36 20:18:36 Medications Ordered Filled Start Stop Current Ordering Indication Dosage Frequency Signature Comments Components Source Medication Medication Date Date Medication? Clinician (SIG) Name Name Benadryl No Notes: Memoria 12-18 (Same as: l 07:40: Benadryl) [place] 00 Haldol No Notes: Memoria 12-18 (Same as: l 07:39: Haldol) olanzapine No 10 mg, Memor ia 12-18 Route: PO, l 03:36: Drug form: [place] 00 TAB, ONCE, Dosing Weight 63.636, kg, Start date: 12/17/19 21:36:00 COAL MINER, Stop date: 12/17/19 21:36:00 COAL MINER Ativan No 1 mg, Memoria 12-17 Route: PO, l 23:05: Drug form: [place] 00 TAB, ONCE, Dosing Weight 63.636, kg, Priority: STAT, Start date: 12/17/19 17:05:00 COAL MINER, Stop date: 12/17/19 17:05:00 COAL MIN[place] Vital Signs Vital Name Observation Time Observation Value Comments Source Systolic (mm Hg) 2019-12-18 17:15:00 Richard rial [place] Diastolic (mm Hg) 2019-12-18 17:15:00 Mem orial [place] Respitory Rate 2019-12-18 17:15:00 Memori al [place] Temperature Oral (F) 2019-12-18 17:15:00 97.9 F [facility] [place] Temperature Oral (F) 2019-12-18 08:30:00 97.7 F [facility] [place] Heart Rate 2019-12-18 08:30:00 [facility] [place] Respitory Rate 2019-12-18 08:30:00 Memori al [place] Systolic (mm Hg) 2019-12-18 08:30:00 Richard rial [place] Diastolic (mm Hg) 2019-12-18 08:30:00 Mem orial [place] Temperature Oral (F) 2019-12-18 04:52:00 98.5 F [facility] [place] Heart Rate 2019-12-18 04:52:00 [facility] [place] Respitory Rate 2019-12-18 04:52:00 Memori al [place] Systolic (mm Hg) 2019-12-18 04:52:00 Richard rial [place] Diastolic (mm Hg) 2019-12-18 04:52:00 Mino De León Heart Rate 2019-12-18 01:26:00 [place] Height 2019-12-17 19:28:00 154.94 cm [facility] [place] BMI Calculated 2019-12-17 19:28:00 Maik Swanann Weight 2019-12-17 19:28:00 [facility] [place] Procedures This patient has no known procedures. Encounters Start End Encounter Admission Attending Care Care Encounter Source Date/Time Date/Time Type Type Clinicians Facility Department ID 2020-01-15 2020-01-15 Office [facility], [facility] [id number] 08:41:20 09:23:33 Visit Vane Adorno [employer] [id number] [facility] [id number] MATERNAL [id number] & CHILD [address] [place] [address] 2019-12-17 2019-12-18 Outpatient [facility] [id number] 13:20:11 12:20:00 , Jacqueline 00 2019-12-17 2019-12-17 Emergency E [facility] [id number] [facility]BL 13:20:00 13:20:00 Results Test Description Test Time Test Comments Results Result Comments Source CHEM PANEL 2019-12-17 121 [facility] nn 19:51:00 CHEM PANEL 2019-12-17 10 [facility] nn 19:51:00 CHEM PANEL 2019-12-17 0.73 [facility] nn 19:51:00 CHEM PANEL 2019-12-17 139 [facility] nn 19:51:00 CHEM PANEL 2019-12-17 3.5 [facility] nn 19:51:00 CHEM PANEL 2019-12-17 107 [facility] nn 19:51:00 CHEM PANEL 2019-12-17 28 [facility] nn 19:51:00 CHEM PANEL 2019-12-17 9.4 [facility] nn 19:51:00 CHEM PANEL 2019-12-17 8.0 [facility] nn 19:51:00 CHEM PANEL 2019-12-17 4.1 [facility] nn 19:51:00 CHEM PANEL 2019-12-17 19 [facility] nn 19:51:00 CHEM PANEL 2019-12-17 15 [facility] nn 19:51:00 CHEM PANEL 2019-12-17 79 [facility] nn 19:51:00 CHEM PANEL 2019-12-17 0.3 [facility] nn 19:51:00 CHEM PANEL 2019-12-17 7.5 [facility] nn 19:51:00 CHEM PANEL 2019-12-17 19:51:00 Test Item Value Reference Range Interpretation Comme nts B/C Ratio (test code = B/C Ratio) 14 1 6-25 [facility] [id number] 19:51:003.9[facility]ann[facility] PANEL 2019-12-17 19:51:00 Test Item Value Reference Range Interpretation Comments A/G Ratio (test code = A/G Ratio) 1.1 1 0.7-1.6 [facility] [id number] 19:51:54371Hdxghiqj HermannDRUG SCREEN 2019-12-17 19:51:00Negative *NA*(12/17/19 1:51 PM)[facility] 2019-12-17 19:51:00Negative *NA*(12/17/19 1:51 PM)[facility] 2019-12-17 19:51:00Negative *NA*(12/17/19 1:51 PM)[facility] 2019-12-17 19:51:00Negative *NA*(12/17/19 1:51 PM)[facility] 2019-12-17 19:51:00Negative *NA*(12/17/19 1:51 PM)[facility] 2019-12-17 19:51:00Negative *NA*(12/17/19 1:51 PM)[facility]EN 2019-12-17 19:51:00Negative *NA*(12/17/19 1:51 PM)[facility] SCREEN 2019-12-17 19:51:00See Note *NA*(12/17/19 1:51 PM)[facility]annHEMATOLOGY 2019-12-17 19:51:006.9[facility] BpmdoswLJDJIYSCGG8141-92-09 19:51:004.50[facility] XlkudtrIDPDSRRUNF2021-08-84 19:51:0013.2[facility] IshcbxiJSNRHTYPEW2430-68-15 19:51:0039.6[facility] YimywqaAIPBYTEVHN7273-02-42 19:51:0088.1[facility] [place] [id number] 19:51:00 Test Item Value Reference Range Interpretation Comments MCH (test code = MCH) 29.4 pg 27.0-31.0 [facility] [id number] 19:51:0033.4[facility] HermannHEMATOLOGY 2019-12-17 19:51:0012.6[facility] ZxavzthNIAFURVEQG3353-64-27 19:51:68708Igroqhui MawbabwLANJMHBJLH0481-39-58 19:51:006.9[facility] HluppsfBKSSGFBGQJ9887-00-08 19:51:0057.3[facility] AxqmxrcLESBLYRBTB5252-71-93 19:51:0036.8[facility] [place] VWMFVISMRL8572-14-23 19:51:004.0[facility] BoreykuYJAHCZJTJT8389-36-95 19:51:001.5 [facility] YntwscyDURRJCWHAR2227-30-32 19:51:000.4[facility]annHEMATOLOGY 2019-12-17 19:51:003.9[facility] RitkxmvDCKKUCJPHD1023-36-56 19:51:002.5[facility] GqnsnadKTTHMVGONI5110-82-53 19:51:000.3[facility] VmbfgvbEFTIQQVASQ4694-03-89 19:51:000.1[facility] KbvofkvYVOSJZUCSS4218-58-12 19:51:00<2 (12/17/19 1:51 PM) [facility] XiwxvnhGPRTWIGEQP5322-53-02 19:51:00<3[facility] HermannTOXICOLOGY 2019-12-17 19:51:00<0.003[facility] NvioupvPCTHHRERLK4542-26-34 19:51:00<1.7 [facility] HermannURINE [id number] 19:51:00Negative (12/17/19 1:51 PM)[facility] [place]
[2020-06-06 08:18] LABS: Urine Blood TRACE (NEG); Urine Glucose TRACE (NEG); Urine Protein NEGATIVE (NEG); Urine Specific Gravity 1.025 (1.005-1.030)
--- NOTE | 2020-06-06 08:19 | EDPHYS ---
Physician Documentation [facility] Name: Domonique Mccurdy Age: 29 yrs Sex: Female : 1990 Arrival Date: 06/06/2020 Time: 07:36 Bed 23 Private MD: ED Physician Aidan Moore HPI: 06/06 08:06 This 29 yrs old Female presents to ER via Unassigned with complaints of rn Urinary Problem. 08:06 The patient presents with urinary symptoms, dysuria, frequency. Onset: The rn symptoms/episode began/occurred 3 day(s) ago. Modifying factors: The symptoms are alleviated by nothing, the symptoms are aggravated by urinating. Severity of symptoms: At their worst the symptoms were mild, in the emergency department the symptoms are unchanged. The patient has experienced similar episodes in the past. The patient has not recently seen a physician. Reports increased urinary frequency and urgency with dysuria, began 3 days ago, no fever or back pain, + suprapubic pain, taking AZO, feels like getting worse, no vomiting/diarrhea/anorexia. . Historical: - Allergies: 08:31 No Known Allergies; iw - PMHx: 08:31 Kidney stones; Post depression; iw - Immunization history:: Adult Immunizations up to date. - Family history:: not pertinent. - Social history:: Smoking status: Patient denies any tobacco usage or history of. - Hospitalizations: : No recent hospitalization is reported. ROS: 08:06 Constitutional: Negative for fever, chills, and weight loss, Abdomen/GI: Negative for rn nausea, vomiting, diarrhea, and constipation, Back: Negative for injury and pain, : Negative for injury, bleeding, discharge, and swelling. Exam: 08:06 Constitutional: This is a well developed, well nourished patient who is awake, alert, rn and in no acute distress. Ambulatory to room without difficulty or assistance. Abdomen/GI: soft, + mild suprapubic tenderness, no RLQ or LLQ tenderness/guarding/peritoneal signs. Vital Signs: 08:30 BP 113 / 79; Pulse 87; Resp 16 S; Temp 98.0; Pulse Ox 99% on R/A; iw MDM: 07:38 Patient medically screened. rn 08:17 Differential diagnosis: urinary tract infection. Data reviewed: vital signs, nurses rn notes, lab test result(s), urinalysis, and as a result, I will discharge patient. Counseling: I had a detailed discussion with the patient and/or guardian regarding: the historical points, exam findings, and any diagnostic results supporting the discharge/admit diagnosis, lab results, the need for outpatient follow up, to return to the emergency department if symptoms worsen or persist or if there are any questions or concerns that arise at home. Special discussion: I discussed with the patient/guardian in detail that at this point there is no indication for admission to the hospital. It is understood, however, that if the symptoms persist or worsen the patient needs to return immediately for re-evaluation. 06/06 08:06 Order name: Urine Culture rn 06/06 08:06 Order name: Urine Microscopic Only rn 06/06 08:06 Order name: Urine Test (obtain specimen); Complete Time: 08:18 rn 06/06 08:06 Order name: Urine Dipstick-Ancillary (obtain specimen); Complete Time: 08:18 rn 06/06 08:14 Order name: Urine --Ancillary (enter results) mt 06/06 08:14 Order name: Urine Dipstick--Ancillary (enter results) mt Administered Medications: No medications were administered Disposition: 06/06/20 08:18 Discharged to Home. Impression: Urinary tract infection, site not specified. - Condition is Stable. - Discharge Instructions: Urinary Tract Infection, Adult. - Prescriptions for Pyridium 200 mg Oral Tablet - take 1 tablet by ORAL route every 8 hours for 3 days; 9 tablet. Macrobid 100 mg Oral Capsule - take 1 capsule by ORAL route every 12 hours for 10 days; 20 capsule. - Medication Reconciliation Form, Thank You Letter, Antibiotic Education, Prescription Opioid Use form. - Follow up: Private Physician; When: As needed; Reason: Recheck today's complaints, Re-evaluation by your physician. - Problem is new. - Symptoms are unchanged. Signatures: Dispatcher [employer] Torrie Mobley RN RN iw Nieto, Roman, MD MD physician general internal medicine: (The following items were deleted from the chart) 08:31 08:18 06/06/2020 08:18 Discharged to Home. Impression: Urinary tract infection, site iw not specified. Condition is Stable. Discharge Instructions: Urinary Tract Infection, Adult. Prescriptions for Pyridium 200 mg Oral Tablet - take 1 tablet by ORAL route every 8 hours for 3 days; 9 tablet, Macrobid 100 mg Oral Capsule - take 1 capsule by ORAL route every 12 hours for 10 days; 20 capsule. and Forms are Medication Reconciliation Form, Thank You Letter, Antibiotic Education, Prescription Opioid Use. Follow up: Private Physician; When: As needed; Reason: Recheck today's complaints, Re-evaluation by your physician. Problem is new. Symptoms are unchanged. rn
--- NOTE | 2020-06-06 08:32 | ER ---
Nurse's Notes [facility] Name: Domonique Mccurdy Age: 29 yrs Sex: Female : 1990 Arrival Date: 06/06/2020 Time: 07:36 Bed 23 Private MD: Diagnosis: Urinary tract infection, site not specified Presentation: 06/06 08:30 Chief complaint: Patient states: burning with urination and frequency. Coronavirus iw screen: Proceed with normal triage. Patient denies a cough. Patient denies shortness of breath or difficulty breathing. Patient denies measured and/or subjective temperature greater than 100.4F prior to today's visit. Patient denies travel on a cruise ship or to a country the [facility] currently lists as an affected area. Patient denies contact with known and/or suspected case of COVID-19. Ebola Screen: Patient negative for fever greater than or equal to 101.5 degrees Fahrenheit, and additional compatible Ebola Virus Disease symptoms Patient denies exposure to infectious person. Patient denies travel to an Ebola-affected area in the 21 days before illness onset. No symptoms or risks identified at this time. Initial Sepsis Screen: Does the patient meet any 2 criteria? No. Patient's initial sepsis screen is negative. Does the patient have a suspected source of infection? No. Patient's initial sepsis screen is negative. Risk Assessment: Do you want to hurt yourself or someone else? Patient reports no desire to harm self or others. Onset of symptoms. 08:30 Method Of Arrival: Ambulatory iw 08:30 Acuity: ALVINO 4 iw Triage Assessment: 08:30 General: Appears in no apparent distress. Behavior is calm, cooperative. iw Historical: - Allergies: 08:31 No Known Allergies; iw - PMHx: 08:31 Kidney stones; Post depression; iw - Immunization history:: Adult Immunizations up to date. - Family history:: not pertinent. - Social history:: Smoking status: Patient denies any tobacco usage or history of. - Hospitalizations: : No recent hospitalization is reported. Screenin:30 Abuse screen: Denies threats or abuse. Denies injuries from another. Nutritional iw screening: No deficits noted. Tuberculosis screening: No symptoms or risk factors identified. Fall Risk None identified. Assessment: 08:15 General: Appears in no apparent distress. comfortable, Behavior is calm, cooperative. iw Pain: Complains of pain in suprapubic area. Neuro: Level of Consciousness is awake, alert, obeys commands, Oriented to person, place, time, situation, Moves all extremities. Full function. GI: Patient currently denies nausea, vomiting. : Reports burning with urination, pain in suprapubic area with urination. Derm: Skin is intact, is healthy with good turgor. Musculoskeletal: Range of motion: intact in all extremities. Vital Signs: 08:30 BP 113 / 79; Pulse 87; Resp 16 S; Temp 98.0; Pulse Ox 99% on R/A; iw ED Course: 07:36 Patient arrived in ED. as 07:37 Aidan Moore MD is Attending Physician. rn 08:05 Patient has correct armband on for positive identification. iw 08:15 Arm band placed on. iw 08:30 Torrie Quiñones RN is Primary Nurse. iw 08:30 No provider procedures requiring assistance completed. Patient did not have IV access iw during this emergency room visit. 19:44 Triage completed. iw Administered Medications: No medications were administered Outcome: 08:18 Discharge ordered by . rn 08:30 Discharged to home ambulatory. iw 08:30 Condition: good 08:30 Discharge instructions given to patient, Instructed on discharge instructions, follow up and referral plans. Demonstrated understanding of instructions, follow-up care, medications, Prescriptions given X 2. 08:31 Patient left the ED. iw Addendum: 06/09/2020 07:18 Addendum: Culture Results: Positive urine culture. No further action required. Bacteria e b sensitive to prescribed antibiotic. Signatures: Kassy Anton Irene, RN RN Aidan Moore MD MD rn Botello, Elizabeth eb
[2020-06-06 08:48] LABS: Urine Bacteria >50 /HPF (<20); Urine Culture Reflex Order NOT NEEDED; Urine RBC <5 /HPF (NONE SEEN)
[2020-06-06 09:06] VITALS: BP 113/79; TEMP 98; O2SAT 99
== END 2020-06-06 08:31 | disposition home or self-care (01) ==
LOC: ER 07:35
DX: N39.0 Urinary tract infection, site not specified (principal)
CPT/HCPCS: 81003; 81015; 81025; 87077; 87086; 87088; 87186; 99282

== ENCOUNTER 2020-08-27 23:07 | Emergency (ER) | payer SELFPAY ==
--- NOTE | 2020-08-27 23:28 | EDPHYS ---
Physician Documentation [facility] Name: Domonique Mccurdy Age: 30 yrs Sex: Female : 1990 Arrival Date: 08/27/2020 Time: 23:11 Bed Waiting Private MD: Deacon Cronin ED Physician Joselito Galvez HPI: 08/27 23:33 This 30 yrs old Female presents to ER via Ambulatory with complaints of jr8 Vaginal Itching. 23:33 Onset: The symptoms/episode began/occurred gradually, 1 day(s) ago. Modifying factors: jr8 The symptoms are alleviated by nothing, the symptoms are aggravated by nothing. Associated signs and symptoms: The patient has no apparent associated signs or symptoms. Severity of symptoms: At their worst the symptoms were mild, in the emergency department the symptoms are unchanged. The patient has not experienced similar symptoms in the past. The patient has been recently seen by a physician: the patient's primary care provider. Patient currently on Abx for infection. Stated that she is almost done with PCN course but now having vaginal itching with mild white discharge . 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 - Social history:: Smoking status: Patient denies any tobacco usage or history of. ROS: 23:33 Eyes: Negative for injury, pain, redness, and discharge, ENT: Negative for injury, jr8 pain, and discharge, Neck: Negative for injury, pain, and swelling, Cardiovascular: Negative for chest pain, palpitations, and edema, Respiratory: Negative for shortness of breath, cough, wheezing, and pleuritic chest pain, Abdomen/GI: Negative for abdominal pain, nausea, vomiting, diarrhea, and constipation, Back: Negative for injury and pain, MS/Extremity: Negative for injury and deformity, Skin: Negative for injury, rash, and discoloration, Neuro: Negative for headache, weakness, numbness, tingling, and seizure. 23:33 : Positive for vaginal discharge, vaginal itching. Exam: 23:33 Constitutional: This is a well developed, well nourished patient who is awake, alert, jr8 and in no acute distress. Cardiovascular: Regular rate and rhythm with a normal S1 and S2. No gallops, murmurs, or rubs. Normal PMI, no JVD. No pulse deficits. Respiratory: Lungs have equal breath sounds bilaterally, clear to auscultation and percussion. No rales, rhonchi or wheezes noted. No increased work of breathing, no retractions or nasal flaring. Abdomen/GI: Soft, non-tender, with normal bowel sounds. No distension or tympany. No guarding or rebound. No evidence of tenderness throughout. Back: No spinal tenderness. No costovertebral tenderness. Full range of motion. Skin: Warm, dry with normal turgor. Normal color with no rashes, no lesions, and no evidence of cellulitis. MS/ Extremity: Pulses equal, no cyanosis. Neurovascular intact. Full, normal range of motion. Neuro: Awake and alert, GCS 15, oriented to person, place, time, and situation. Cranial nerves II-XII grossly intact. Motor strength 5/5 in all extremities. Sensory grossly intact. Cerebellar exam normal. Normal gait. Vital Signs: 23:22 BP 130 / 77; Pulse 80; Resp 14 S; Temp 98.3(O); Pulse Ox 99% on R/A; bb MDM: 23:26 Data reviewed: vital signs, nurses notes, and as a result, I will discharge patient. [facility] Data interpreted: Pulse oximetry: on room air is 99 %. Interpretation: normal. Counseling: I had a detailed discussion with the patient and/or guardian regarding: the historical points, exam findings, and any diagnostic results supporting the discharge/admit diagnosis, the need for outpatient follow up, a family practitioner, to return to the emergency department if symptoms worsen or persist or if there are any questions or concerns that arise at home. 23:27 Patient medically screened. 8 Administered Medications: 23:31 Drug: DiFLUcan 150 mg Route: PO; bb Disposition: 08/27/20 23:27 Discharged to Home. Impression: Candidiasis of vulva and vagina. - Condition is Stable. - Discharge Instructions: Vaginal Yeast Infection, Adult. - Prescriptions for Clotrimazole 3 Day 2 % Vaginal Cream - insert 1 applicatorful by VAGINAL route At bedtime for 3 days; 3 Syringe. - Medication Reconciliation Form, Thank You Letter, Antibiotic Education, Prescription Opioid Use form. - Follow up: Deacon Cronin MD; When: As needed; Reason: Recheck today's complaints, Continuance of care, Re-evaluation by your physician. - Problem is new. - Symptoms are unchanged. Addendum: 08/30/2020 07:09 Co-signature as Attending Physician, Joselito Galvez MD I agree with the assessment and c marcus plan of care. Signatures: Joselito Galvez MD MD cha Ballard, Brenda, RN RN bb Cesar Martinez, PA PA jr8 Corrections: (The following items were deleted from the chart) 08/27 23:31 23:27 08/27/2020 23:27 Discharged to Home. Impression: Candidiasis of vulva and vagina. bb Condition is Stable. Forms are Medication Reconciliation Form, Thank You Letter, Antibiotic Education, Prescription Opioid Use. Follow up: Deacon Cronin; When: As needed; Reason: Recheck today's complaints, Continuance of care, Re-evaluation by your physician. Problem is new. Symptoms are unchanged. jr8
--- NOTE | 2020-08-27 23:28 | ER ---
Nurse's Notes [facility] Name: Domonique Mccurdy Age: 30 yrs Sex: Female : 1990 Arrival Date: 08/27/2020 Time: 23:11 Bed Waiting Private MD: Deacon Cronin Diagnosis: Candidiasis of vulva and vagina Presentation: 08/27 23:22 Chief complaint: Patient states: she is on penicillian and thinks she has a yeast bb infection with a lot of itching and thick cottage-cheese like discharge. Coronavirus screen: At this time, the client does not indicate any symptoms associated with coronavirus-19. Ebola Screen: No symptoms or risks identified at this time. Initial Sepsis Screen: Does the patient meet any 2 criteria? No. Patient's initial sepsis screen is negative. Does the patient have a suspected source of infection? No. Patient's initial sepsis screen is negative. Risk Assessment: Do you want to hurt yourself or someone else? Patient reports no desire to harm self or others. Onset of symptoms was August 27, 2020. 23:22 Method Of Arrival: Ambulatory bb 23:22 Acuity: ALVINO 5 bb Triage Assessment: 23:25 General: Appears in no apparent distress. Behavior is calm, cooperative. Pain: Denies bb pain. Neuro: Level of Consciousness is awake, alert, obeys commands, Oriented to person, place, time, situation. Cardiovascular: No deficits noted. Respiratory: Respiratory effort is even, unlabored, Respiratory pattern is regular. GI: No signs and/or symptoms were reported involving the gastrointestinal system. : Reports vaginal itching. Derm: Skin is pink, warm \T\ dry. Musculoskeletal: Circulation, motion, and sensation intact. 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 - Social history:: Smoking status: Patient denies any tobacco usage or history of. Screenin:26 Abuse screen: Denies threats or abuse. Nutritional screening: No deficits noted. bb Tuberculosis screening: No symptoms or risk factors identified. Fall Risk None identified. Assessment: 23:26 Reassessment: No changes from previously documented assessment. see triage assessment. bb Cesar MOY in triage for pt evaluation. Vital Signs: 23:22 BP 130 / 77; Pulse 80; Resp 14 S; Temp 98.3(O); Pulse Ox 99% on R/A; bb ED Course: 23:11 Patient arrived in ED. am2 23:11 Deacon Cronin MD is Private Physician. am2 23:24 Triage completed. bb 23:25 Arm band placed on . bb 23: Cesar Martinez PA is PHCP. jr8 23: Joselito Galvez MD is Attending Physician. jr8 23: Deacon Cronin MD is Referral Physician. jr8 23: Patient has correct armband on for positive identification. bb 23:26 No provider procedures requiring assistance completed. Patient did not have IV access bb during this emergency room visit. Administered Medications: : Drug: DiFLUcan 150 mg Route: PO; bb Outcome: :27 Discharge ordered by . jr8 23: Discharged to home ambulatory. bb 23:31 Condition: stable 23:31 Discharge instructions given to patient, Instructed on discharge instructions, follow up and referral plans. medication usage, Demonstrated understanding of instructions, follow-up care, medications, Prescriptions given X 1. 23:31 Patient left the ED. bb Signatures: Trudi Ye RN RN Cesar Stephens PA PA jr8 Rupal Begum am2
[2020-08-27] MEDS ORDERED: FLUCONAZOLE 100 MG TAB ONE (23:41)
[2020-08-27 23:46] VITALS: BP 130/77; TEMP 98.3; O2SAT 99
--- OUTSIDE RECORDS SUMMARY | 2020-09-01 22:14 | XMS REPORT | Continuity of Care Document ---
:1990 Author Organization [employer] Care Team Providers Name Role Phone [employer] Unavailable Un available Problems Problem Status Onset Classification Date Comments Sourc e Date Reported Suicidal 12/20/2019 [place] ideations 0 Other mental 12/20/2019 [facility] [place] disorders 0 complicating the puerperium SU[facility]IIDAL [facility] 0 [place] Medications Medication Details Route Status Patient Ordering Order Source Instructions Provider Date Benadry Notes: Inactive MH (Same as: [address] [place] Benadryl) Haldol Notes: Inactive (Same as: [address] [place] Haldol) olanzapine 10 mg, Inactive Route: PO, [address] [place] Drug form: TAB, ONCE, Dosing Weight 63.636, kg, Start date: 12/17/19 21:36:00 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 PRODUCT 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, Stop date: 12/17/19 21:36:00 SENIOR PRODUCT CONSULTANT Ativan 1 mg, Inactive Route: PO, 0[address] [place] Drug form: TAB, ONCE, Dosing Weight 63.636, kg, Priority: STAT, Start date: 12/17/19 17:05:00 SENIOR PRODUCT CONSULTANT, Stop date: 12/17/19 17:05:00 SENIOR PRODUCT CONSULTANT Allergies, Adverse Reactions, Alerts Substance Category Reaction Severity Reaction Status Date Comments S ource type Reported No Known Assertion Drug MH Medication allergy Lawanda and Allergies Immunizations No Data Provided for This Section Results Order Name Results Value Reference Date Interpretation Comments Jojo rce Range CHEM PANEL Glucose Lvl 121 70 - 99 12/17 [place] CHEM PANEL BUN 10 7 - 22 12/17 [place] CHEM PANEL Creatinine 0.73 0.50 - 12/17 MH Lvl 1.40 [place] CHEM PANEL Sodium Lvl 139 135 - 145 12/17 [place] CHEM PANEL Potassium Lvl 3.5 3.5 - 5.1 12/17 [place] CHEM PANEL Chloride Lvl 107 95 - 109 12/17 [place] CHEM PANEL CO2 28 24 - 32 12/17 [place] CHEM PANEL Calcium Lvl 9.4 8.5 - 10.5 12/17 [place] CHEM PANEL Total Protein 8.0 6.4 - 8.4 12/17 [place] CHEM PANEL Albumin Lvl 4.1 3.5 - 5.0 12/17 [place] CHEM PANEL ALT 19 0 - 65 12/17 [place] CHEM PANEL AST 15 0 - 37 12/17 [place] CHEM PANEL Alk Phos 79 39 - 136 12/17 [place] CHEM PANEL Bili Total 0.3 0.2 - 1.3 12/17 [place] CHEM PANEL AGAP 7.5 10.0 - 12/17 MH 20.0 /2019 [place] CHEM PANEL B/C Ratio 14 6 - 25 12/17 [place] CHEM PANEL Globulin 3.9 2.7 - 4.2 12/17 [place] CHEM PANEL A/G Ratio 1.1 0.7 - 1.6 12/17 [place] CHEM PANEL eGFR 113 12/17 Result Comment: The [place] eGFR is calculated using the CKD-EPI formula. [...] Amph Scr Negative Negative 12/17 *NA* /2019 [place] (12/17/19 1:51 PM) DRUG SCREEN U Lorenza Scr Negative Negative 12/17 MH *NA* [place] (12/17/19 1:51 PM) DRUG SCREEN U Benzodiaz Negative Negative 12/17 MH Scr *NA* [place] (12/17/19 1:51 PM) DRUG SCREEN U Cocaine Scr Negative Negative 12/17 MH *NA* [place] (12/17/19 1:51 PM) DRUG SCREEN U Cannab Scr Negative Negative 12/17 MH *NA* [place] (12/17/19 1:51 PM) DRUG SCREEN U Opiate Scr Negative Negative 12/17 MH *NA* [place] (12/17/19 1:51 PM) DRUG SCREEN U Negative Negative 12/17 MH Phencyclidine *NA [place] Scr (12/17/19 1:51 PM) DRUG SCREEN UDS Note See Note 12/17 MH *NA* [place] (12/17/19 1:51 PM) HEMATOLOGY WBC 6.9 3.7 - 10.4 12/17 [place] HEMATOLOGY RBC 4.50 4.20 - 12/17 MH 5.40 [place] HEMATOLOGY Hgb 13.2 12.0 - 12/17 MH 16.0 [place] HEMATOLOGY Hct 39.6 36.0 - 12/17 MH 48.0 [place] HEMATOLOGY MCV 88.1 80.0 - 12/17 MH 98.0 [place] HEMATOLOGY MCH 29.4 27.0 - 12/17 MH 31.0 [place] HEMATOLOGY MCHC 33.4 32.0 - 12/17 MH 36.0 [place] HEMATOLOGY RDW 12.6 11.5 - 12/17 MH 14.5 [place] HEMATOLOGY Platelet 304 133 - 450 12/17 [place] HEMATOLOGY MPV 6.9 7.4 - 10.4 12/17 [place] HEMATOLOGY Segs 57.3 45.0 - 12/17 MH 75.0 [place] HEMATOLOGY Lymphocytes 36.8 20.0 - 12/17 MH 40.0 [place] HEMATOLOGY Monocytes 4.0 2.0 - 12.0 12/17 [place] HEMATOLOGY Eosinophils 1.5 0.0 - 4.0 12/17 [place] HEMATOLOGY Basophils 0.4 0.0 - 1.0 12/17 [place] HEMATOLOGY Neutrophils # 3.9 1.5 - 8.1 12/17 [place] HEMATOLOGY Lymphocytes # 2.5 1.0 - 5.5 12/17 [place] HEMATOLOGY Monocytes # 0.3 0.0 - 0.8 12/17 [place] HEMATOLOGY Eosinophils # 0.1 0.0 - 0.5 12/17 [place] TOXICOLOGY Acetaminoph <2 10 - 20 12/17 Lvl (12/17/19 1:51 PM) [facility] nd TOXICOLOGY Ethanol Lvl <3 12/17 [place] TOXICOLOGY Etoh (%) <0.003 12/17 [place] TOXICOLOGY Salicylate <1.7 0.0 - 30.0 12/17 Lvl [place] URINE CHEM U Preg Negative Negative 12/17 (12/17/19 1:51 PM) [place] [facility] Pathology Reports No Data Provided for This Section Diagnostic Reports No Data Provided for This Section Consultation Notes No Data Provided for This Section Discharge Summaries No Data Provided for This Section History and Physicals No Data Provided for This Section Vital Signs Vital Sign Value Date Comments Source Systolic (mm Hg) 100 12/18/2019 [facility] Diastolic (mm Hg) 64 12/18/2019 [place] Respitory Rate 18 12/18/2019 [facility] Temperature Oral (F) 97.9 F 12/18/2019 [facility] Temperature Oral (F) 97.7 F 12/18/2019 [facility] Heart Rate 58 12/18/2019 [facility] Respitory Rate 16 12/18/2019 [facility] Systolic (mm Hg) 114 12/18/2019 [facility] Diastolic (mm Hg) 76 12/18/2019 [place] Temperature Oral (F) 98.5 F 12/18/2019 [facility] Heart Rate 80 12/18/2019 [place] Respitory Rate 16 12/18/2019 [facility] Systolic (mm Hg) 132 12/18/2019 [facility] Diastolic (mm Hg) 90 12/18/2019 [place] Heart Rate 76 12/18/2019 [facility] Height 154.94 cm 12/17/2019 [facility] BMI Calculated 26.51 12/17/2019 [facility] Weight 63.636 12/17/2019 [facility] Encounters Location Location Encounter Encounter Reason Attending ADM DC Stat us Source Details Type Number For Provider Date Date [facility] [id number] Jacqueline 12/17 12/18 LARRY Chu /2019 [facility] Outpatient [id number] Reggie 12/18 Active [facility] /2019 [place] Procedures No Data Provided for This Section Assessment and Plan No Data Provided for This Section Plan of Care No Data Provided for This Section Social History Social History Date Source Social History TypeResponse 12/18/2019 [facility] Alcohol Current Sexual Sexually active: No. Substance [...]
--- OUTSIDE RECORDS SUMMARY | 2020-09-01 22:14 | XMS REPORT | Continuity of Care Document ---
:1990 Author Organization [facility] t Address [address] [place] [address] Care Team Providers Name Role Phone Kyree Gupta Attending Clinician Kimberley Attending Clinician Problems Condition Condition Condition Status Onset Resolution Last Treating Co mments Source Name Details Category Date Date Treatment Clinician Date SUICIIDAL Diagnosis Active 2019-12-17 [facility] IDEATION 12-16 14:29:00 l 10:00: Sarthak SUICIIDAL 00 IDEATION Active 12/16/2019 [facility] [place] Suicidal Problem 2019-12-20 2019-12-20 [facility] ideations 1- 22:34:25 22:34:25 l Suicidal 18:00: Brett n ideations 00 12/18/2019 12/20/2019 Manuel Other Problem 2019-12-20 2019-12-20 M emoria mental - 22:34:25 22:34:25 l disorders Other 18:00: Brett n complicati mental 00 ng the disorders puerperium complicati ng the puerperium 12/18/2019 12/20/2019 [facility] Allergies, Adverse Reactions, Alerts Allergy Allergy Status Severity Reaction(s) Onset Inactive Treating Comm ents Source Name Type Date Date Clinician No Known No Known Active [facility] a Medicati Medicati l on on Sarthak Jacobo s s Social History Social Habit Start Date Stop Date Quantity Comments Source Social History 2019-12-18 2019-12-18 [facility] 20:18:36 20:18:36 Medications Ordered Filled Start Stop Current Ordering Indication Dosage Frequency Signature Comments Components Source Medication Medication Date Date Medication? 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, Stop date: 12/17/19 21:36:00 KILN BURNER HELPER Ativan No 1 mg, [facility] 12-17 Route: PO, l 23:05: Drug form: [place] 00 TAB, ONCE, Dosing Weight 63.636, kg, Priority: STAT, Start date: 12/17/19 17:05:00 KILN BURNER HELPER, Stop date: 12/17/19 17:05:00 KILN BURNER HELPER Vital Signs Vital Name Observation Time Observation Value Comments Source Systolic (mm Hg) 2019-12-18 17:15:00 Richard rial [place] Diastolic (mm Hg) 2019-12-18 17:15:00 Mem orial [place] Respitory Rate 2019-12-18 17:15:00 [facility] [place] Temperature Oral (F) 2019-12-18 17:15:00 97.9 F [facility] Temperature Oral (F) 2019-12-18 08:30:00 97.7 F [facility] [place] Heart Rate 2019-12-18 08:30:00 [facility] Respitory Rate 2019-12-18 08:30:00 Memori al [place] Systolic (mm Hg) 2019-12-18 08:30:00 Richard rial [place] Diastolic (mm Hg) 2019-12-18 08:30:00 Mem orial [place] Temperature Oral (F) 2019-12-18 04:52:00 98.5 F [facility] [place] Heart Rate 2019-12-18 04:52:00 [facility] [place] Respitory Rate 2019-12-18 04:52:00 Memori al [place] Systolic (mm Hg) 2019-12-18 04:52:00 Richard zora [place] Diastolic (mm Hg) 2019-12-18 04:52:00 Mem en [place] Heart Rate 2019-12-18 01:26:00 [facility] Height 2019-12-17 19:28:00 154.94 cm [facility] [place] BMI Calculated 2019-12-17 19:28:00 Maik al [place] Weight 2019-12-17 19:28:00 [facility] Procedures This patient has no known procedures. 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 [id number] [facility] [id number] MATERNAL [id number] & CHILD 107 [facility] 2019-12-17 2019-12-18 Outpatient V[facility] [id number] 13:20:11 12:20:00 , Jacqueline 00 2019-12-17 2019-12-17 [...] B/C Ratio) 14 1 6-25 [facility] [id number] 19:51:003.9[facility] PANEL 2019-12-17 19:51:00 Test Item Value Reference Range Interpretation Comments A/G Ratio (test code = A/G Ratio) 1.1 1 0.7-1.6 [facility] [id number] 19:51:25816[facility] HermannDRUG SCREEN 2019-12-17 19:51:00Negative *NA*(12/17/19 1:51 PM)[facility] 2019-12-17 19:51:00Negative *NA*(12/17/19 1:51 PM)[facility] 2019-12-17 19:51:00Negative *NA*(12/17/19 1:51 PM)[facility] 2019-12-17 19:51:00Negative *NA*(12/17/19 1:51 PM)[facility] SCREEN 2019-12-17 19:51:00Negative *NA*(12/17/19 1:51 PM)[facility] 2019-12-17 19:51:00Negative *NA*(12/17/19 1:51 PM)[facility] SCREEN 2019-12-17 19:51:00Negative *NA*(12/17/19 1:51 PM)[facility]ann[facility] SCREEN 2019-12-17 19:51:00See Note *NA*(12/17/19 1:51 PM)[facility]ann[facility]MATOLOGY 2019-12-17 19:51:006.9[facility] [id number] 19:51:004.50[facility] IhmfmvuMWSCRCIVKE7787-37-28 19:51:0013.2[facility] PcbhpzhEKTAYDYBOY2155-36-16 19:51:0039.6[facility] MaturfzVFICSRYRIP2298-13-33 19:51:0088.1[facility] [place] [id number] 19:51:00 Test Item Value Reference Range Interpretation Comments MCH (test code = MCH) 29.4 pg 27.0-31.0 [facility] [id number] 19:51:0033.4[facility]annHEMATOLOGY 2019-12-17 19:51:0012.6[facility] NeejwxoBFAAIPBALE3261-40-41 19:51:53664Shxwjkzd PtjvxljPAIRULLQGZ0531-25-75 19:51:006.9[facility] OzpvdilPPTBOKRAIE2347-51-67 19:51:0057.3[facility] RbnqpwnSCTYVOXBAH7482-53-43 19:51:0036.8[facility] GSGQVHLKUL3822-72-61 19:51:004.0[facility] QqlihqmELFUVBGIUI7057-98-45 19:51:001.5 [facility] GzjkjagBXKQTITVBN1394-32-06 19:51:000.4[facility] HermannHEMATOLOGY 2019-12-17 19:51:003.9[facility] VrwzijzBLFAVXKSFC5616-98-20 19:51:002.5[facility] QjamgfzPANWNKDXZB2350-43-01 19:51:000.3[facility] JivkettGSLSRFFHZM8889-50-56 19:51:000.1[facility] WqrcsnqBYUYLEDGKY4888-85-40 19:51:00<2 (12/17/19 1:51 PM) [facility] UfzhlsiQFRHTTQBHE5931-84-65 19:51:00<3[facility] HermannTOXICOLOGY 2019-12-17 19:51:00<0.003[facility] XqxpqhfRFHEYKDSUL9528-92-92 19:51:00<1.7 [facility] HermannURINE [id number] 19:51:00Negative (12/17/19 1:51 PM)[facility] [place]
== END 2020-08-27 23:31 | disposition home or self-care (01) ==
LOC: ER 23:07
DX: B37.3 Candidiasis of vulva and vagina (principal)
CPT/HCPCS: 99283

== ENCOUNTER 2021-02-16 15:27 | Emergency (ER) | payer SELFPAY ==
--- OUTSIDE RECORDS SUMMARY | 2021-02-16 15:30 | XMS REPORT | Continuity of Care Document ---
:1990 Author Organization [facility] t Address [address] [place] [address] Care Team Providers Name Role Phone Abhinav Ontiveros DO Attending Clinician Floresita Umana Attending Clinician Kimberley Attending Clinician Problems Condition Condition Condition Status Onset Resolution Last Treating Co mments Source Name Details Category Date Date Treatment Clinician Date SUICIIDAL Diagnosis Active 2019-12-17 Memoria IDEATION 12-16 14:29:00 l 10:00: Sarthak SUICIIDAL 00 IDEATION Active 12/16/2019 Linden De León History of Past Illness Condition Condition Condition Status Onset Resolution Last Treating Co mments Source Name Details Category Date Date Treatment Clinician Date Suicidal Problem 2019-12-20 2019-12-20 Memoria ideations 12-18 22:34:25 22:34:25 l Suicidal 18:00: Brett n ideations 00 12/18/2019 12/20/2019 Manuel Other Problem 2019-12-20 2019-12-20 M emoria mental 12-18 22:34:25 22:34:25 l disorders Other 18:00: Brett n complicati mental 00 ng the disorders puerperium complicati ng the puerperium 12/18/2019 12/20/2019 LARRY Jackson Allergies, Adverse Reactions, Alerts Allergy Allergy Status Severity Reaction(s) Onset Inactive Treating Comm ents Source Name Type Date Date Clinician No Known No Known Active Maik a Medicati Medicati l on on Sarthak Allergie Allergdelta s s Social History Social Habit Start Date Stop Date Quantity Comments Source Social History 2019-12-18 2019-12-18 [facility] 20:18:36 20:18:36 Medications Ordered Filled Start Stop Current Ordering Indication Dosage Frequency Signature Comments Components Source Medication Medication Date Date Medication? 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 RETOUCHER, Stop date: 12/17/19 21:36:00 PHOTOGRAPH RETOUCHER Ativan No 1 mg, Memoria 12-17 Route: PO, l 23:05: Drug form: Sarthak 00 TAB, ONCE, Dosing Weight 63.636, kg, Priority: STAT, Start date: 12/17/19 17:05:00 PHOTOGRAPH RETOUCHER, Stop date: 12/17/19 17:05:00 PHOTOGRAPH RETOUCHER Vital Signs Vital Name Observation Time Observation Value Comments Source Systolic (mm Hg) 2019-12-18 17:15:00 Richard rial [facility] Diastolic (mm Hg) 2019-12-18 17:15:00 Mem orial [facility] Respitory Rate 2019-12-18 17:15:00 Memori al [facility] Temperature Oral (F) 2019-12-18 17:15:00 97.9 F [facility] Temperature Oral (F) 2019-12-18 08:30:00 97.7 F [facility] Heart Rate 2019-12-18 08:30:00 [facility] Sarthak Respitory Rate 2019-12-18 08:30:00 Memori al Sarthak Systolic (mm Hg) 2019-12-18 08:30:00 Richard rial Sarthak Diastolic (mm Hg) 2019-12-18 08:30:00 Mem orial [facility] Temperature Oral (F) 2019-12-18 04:52:00 98.5 F [facility] Heart Rate 2019-12-18 04:52:00 [facility] Respitory Rate 2019-12-18 04:52:00 Memadalberto al Sarthak Systolic (mm Hg) 2019-12-18 04:52:00 Richard zora Sarthak Diastolic (mm Hg) 2019-12-18 04:52:00 Mem orial [facility] Heart Rate 2019-12-18 01:26:00 [facility] S[facility] Height 2019-12-17 19:28:00 154.94 cm [facility] BMI Calculated 2019-12-17 19:28:00 Maik al [facility] Weight 2019-12-17 19:28:00 [facility] Procedures This patient has no known procedures. Encounters Start End Encounter Admission Attending Care Care Encounter Source Date/Time Date/Time Type Type Clinicians Facility Department ID 2021-02-15 2021-02-15 Patient Weston [facility] [id number] 00:00:00 00:00:00 Outreach [facility] [id number] [facility] [id number] [place] [id number] 2021-02-07 2021-02-07 [facility] [id number] 00:00:00 00:00:00 Jose Armando Canas [employer] [id number] [facility] [id number] MATERNAL [id number] & CHILD [address] [place] [address] 2019-12-17 2019-12-18 Outpatient Kimberley [facility] [id number] 13:20:11 12:20:00 , Jacqueline 00 2019-12-17 2019-12-17 [...] B/C Ratio) 14 1 6-25 [facility] [id number] 19:51:003.9[facility] PANEL 2019-12-17 19:51:00 Test Item Value Reference Range Interpretation Comments A/G Ratio (test code = A/G Ratio) 1.1 1 0.7-1.6 [facility] [id number] 19:51:13740Alqlkxun HermannDRUG SCREEN 2019-12-17 19:51:00Negative *NA*(12/17/19 1:51 PM)[facility] 2019-12-17 19:51:00Negative *NA*(12/17/19 1:51 PM)[facility] 2019-12-17 19:51:00Negative *NA*(12/17/19 1:51 PM)[facility] 2019-12-17 19:51:00Negative *NA*(12/17/19 1:51 PM)[facility] 2019-12-17 19:51:00Negative *NA*(12/17/19 1:51 PM)[facility] 2019-12-17 19:51:00Negative *NA*(12/17/19 1:51 PM)[facility] 2019-12-17 19:51:00Negative *NA*(12/17/19 1:51 PM)[facility] SCRE[facility] 2019-12-17 19:51:00See Note *NA*(12/17/19 1:51 PM)[facility]MATOLOGY 2019-12-17 19:51:006.9[facility] ZaotwpoKDNSWHUFYV0094-75-02 19:51:004.50[facility] ViwzcdwRQBNIIVTTC9285-81-34 19:51:0013.2[facility] AqafkgkZKSNFSMEBT0445-14-01 19:51:0039.6[facility] JkwgvyoTXFOHVMVZK0293-87-15 19:51:0088.1[facility] Sarthak FORITWSFVM5624-17-27 19:51:00 Test Item Value Reference Range Interpretation Comments MCH (test code = MCH) 29.4 pg 27.0-31.0 [facility] [id number] 19:51:0033.4[facility]annHEMATOLOGY 2019-12-17 19:51:0012.6[facility] PftkjzwMUICHMVTWU3211-94-42 19:51:05119Midyjsdu NoduapgBJPCJVUSCZ7048-44-42 19:51:006.9[facility] LqvjkcbNKTKAQYLWH8498-89-11 19:51:0057.3[facility] BkfxttnCKMZMCSCTF8093-10-63 19:51:0036.8[facility] Sarthak [id number] 19:51:004.0[facility] AkdxksgAKRRSMLZAF7829-88-68 19:51:001.5 [facility] AxgqwmwVYPWAFJSQR8721-14-93 19:51:000.4[facility]annHEMATOLOGY 2019-12-17 19:51:003.9[facility] TcfcwzwOMWUZWPCFL4287-29-15 19:51:002.5[facility] MddgbwcLRHGMTIUXB8373-71-20 19:51:000.3[facility] JtvywueWCADGBQWQB0309-55-85 19:51:000.1[facility] XsinckuIKNVHCJVNQ3828-18-33 19:51:00<2 (12/17/19 1:51 PM) [facility] LzfzgcdUOKLCDXKCQ9055-81-06 19:51:00<3[facility] HermannTOXICOLOGY 2019-12-17 19:51:00<0.003[facility] YbjrvgvFWETQLMZMZ2008-62-80 19:51:00<1.7 [facility] [id number] 19:51:00Negative (12/17/19 1:51 PM)Linden De León
[2021-02-16 20:24] LABS: Urine Blood NEGATIVE (NEG); Urine Glucose NEGATIVE (NEG); Urine Protein NEGATIVE (NEG); Urine pH 6.5 (5.0-7.0)
--- NOTE | 2021-02-16 20:34 | RAD REPORT ---
EXAM DESCRIPTION: CT - Stone Protocol - 02/16/2021 8:22 pm CLINICAL HISTORY: FLANK PAIN COMPARISON: CT stone study April 2018 TECHNIQUE: Axial 3 mm thick images were obtained without oral or IV contrast. The mbyxw-xf-ohuv span s the entirety of the system including uppermost abdomen and lung bases. All CT scans are performed using dose optimization technique as appropriate and may include automated exposure control or mA/KV adjustment according to patient size. FINDINGS: No hydronephrosis is present and no obstructing ureteral calculi. Patient has bilateral no nobstructing calyx calculi and minimal nephrocalcinosis. No perinephric stranding or edema. No suspic ious renal masses. Isodense masses and pyelonephritis are not excluded on a stone protocol CT scan. N o significant adrenal finding. Urinary bladder is mostly contracted limiting evaluation. No gross beau dence for bladder wall thickening or edema. Uterus and ovaries show no suspicious findings. Ovarian d etail is limited. Trace physiologic quantity of free fluid seen. Imaged portions of the liver, spleen and pancreas show no suspicious findings on non-contrast imaging . Cholecystectomy clips are present. No biliary tree dilatation. No suspicious bowel findings. Appendix is normal. No mass or bulky lymphadenopathy. A small 12 millimeter fat only umbilical hernia present. No free ai r, pneumatosis or inflammatory stranding. No significant bony abnormality. IMPRESSION: No hydronephrosis, obstructing calculus or acute finding. Isodense masses and pyelonephritis are not excluded on stone protocol technique. Appendix is normal. No acute GI or HEEL CUTTER process.
[2021-02-16] MEDS ORDERED: KETOROLAC 30 MG/ML INJ ONE (20:46)
[2021-02-16] MEDS ORDERED: NA CHLORIDE 0.9% 500 ML ONE (20:46)
[2021-02-16 20:51] LABS: ALT/SGPT 40 U/L (12-78); AST/SGOT 28 U/L (15-37); Albumin 4.5 g/dL (3.4-5.0); Alkaline Phosphatase 62 U/L (45-117); BUN Blood Urea Nitrogen 6 mg/dL (7-18); Bicarbonate 27 mmol/L (21-32); Bilirubin Direct 0.2 mg/dL (0-0.2); Bilirubin Total 0.7 mg/dL (0.2-1.0); Glucose Level 91 mg/dL (74-106); Lipase 169 U/L (73-393); Potassium 4.1 mmol/L (3.5-5.1); Protein, Total 8.7 g/dL (6.4-8.2); Sodium Level 137 mmol/L (136-145)
[2021-02-16 21:09] LABS: Absolute Lymphocytes (CBC) 2.6 K/uL (0.7-4.9); Basophils % 0.2 % (0-1.3); Hematocrit 41.6 % (36.0-45.0); Lymphocytes % 33.6 % (15.3-44.8); MPV 7.3 fL (7.6-11.3); RBC Red Blood Cell Count 4.68 M/uL (3.86-4.86)
--- NOTE | 2021-02-16 21:18 | EDPHYS ---
Physician Documentation [facility] Name: Domonique Mccurdy Age: 30 yrs Sex: Female : 1990 Arrival Date: 02/16/2021 Time: 15:31 Bed 20 Private MD: ED Physician Joselito Galvez HPI: 02/16 21:12 This 30 yrs old Female presents to ER via Ambulatory with complaints of Flank jr8 Pain, Pelvic Pain, Nausea, Urinary Problem. 21:12 Onset: The symptoms/episode began/occurred acutely, today. Modifying factors: The jr8 symptoms are alleviated by nothing. the symptoms are aggravated by nothing. Associated signs and symptoms: The patient has no apparent associated signs or symptoms. Severity of pain: At its worst the pain was moderate in the emergency department the pain is unchanged. The patient has experienced a previous episode. The patient has been recently seen by a physician:. Patient stated that she just finished a round of Macrobid for UTI. Finished 2 days ago. Stated that she woke up this AM with bladder pressure again and now back pain. History of renal stones in past . 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 - Social history:: Smoking status: Patient denies any tobacco usage or history of. ROS: 21:12 Eyes: Negative for injury, pain, redness, and discharge, ENT: Negative for injury, jr8 pain, and discharge, Neck: Negative for injury, pain, and swelling, Cardiovascular: Negative for chest pain, palpitations, and edema, Respiratory: Negative for shortness of breath, cough, wheezing, and pleuritic chest pain, Abdomen/GI: Negative for abdominal pain, nausea, vomiting, diarrhea, and constipation, MS/Extremity: Negative for injury and deformity, Skin: Negative for injury, rash, and discoloration, Neuro: Negative for headache, weakness, numbness, tingling, and seizure. 21:12 Back: Positive for flank pain, bilaterally. 21:12 : Positive for urinary symptoms, Negative for vaginal bleeding, vaginal discharge, vaginal itching, menstrual abnormality. Exam: 21:12 Eyes: Pupils equal round and reactive to light, extra-ocular motions intact. Lids and jr8 lashes normal. Conjunctiva and sclera are non-icteric and not injected. Cornea within normal limits. Periorbital areas with no swelling, redness, or edema. ENT: Nares patent. No nasal discharge, no septal abnormalities noted. Tympanic membranes are normal and external auditory canals are clear. Oropharynx with no redness, swelling, or masses, exudates, or evidence of obstruction, uvula midline. Mucous membranes moist. Neck: Trachea midline, no thyromegaly or masses palpated, and no cervical lymphadenopathy. Supple, full range of motion without nuchal rigidity, or vertebral point tenderness. No Meningismus. Cardiovascular: Regular rate and rhythm with a normal S1 and S2. No gallops, murmurs, or rubs. Normal PMI, no JVD. No pulse deficits. Respiratory: Lungs have equal breath sounds bilaterally, clear to auscultation and percussion. No rales, rhonchi or wheezes noted. No increased work of breathing, no retractions or nasal flaring. Abdomen/GI: Soft, non-tender, with normal bowel sounds. No distension or tympany. No guarding or rebound. No evidence of tenderness throughout. Skin: Warm, dry with normal turgor. Normal color with no rashes, no lesions, and no evidence of cellulitis. MS/ Extremity: Pulses equal, no cyanosis. Neurovascular intact. Full, normal range of motion. Neuro: Awake and alert, GCS 15, oriented to person, place, time, and situation. Cranial nerves II-XII grossly intact. Motor strength 5/5 in all extremities. Sensory grossly intact. Cerebellar exam normal. Normal gait. 21:12 Back: CVA tenderness, that is mild, is noted on the left. Vital Signs: 16:16 BP 109 / 69; Pulse 74; Resp 16 S; Temp 97.3(TE); Pulse Ox 99% on R/A; Weight 61.23 kg ca1 (R); Height 5 ft. 1 in. (154.94 cm) (R); Pain 4/10; 21:23 BP 110 / 70; Pulse 81; Resp 18; Pulse Ox 99% ; ea 16:16 Body Mass Index 25.51 (61.23 kg, 154.94 cm) ca1 MDM: 19:52 Patient medically screened. philip 21:12 Data reviewed: vital signs, nurses notes, lab test result(s), radiologic studies, CT jr8 scan, and as a result, I will discharge patient. Data interpreted: Pulse oximetry: on room air is 99 %. Interpretation: normal. Counseling: I had a detailed discussion with the patient and/or guardian regarding: the historical points, exam findings, and any diagnostic results supporting the discharge/admit diagnosis, lab results, radiology results, the need for outpatient follow up, a family practitioner, to return to the emergency department if symptoms worsen or persist or if there are any questions or concerns that arise at home. Response to treatment: the patient's symptoms have markedly improved after treatment. 02/16 18:29 Order name: Urine Dipstick--Ancillary (enter results); Complete Time: 20:39 02/16 18:29 Order name: Urine --Ancillary (enter results); Complete Time: 20:39 02/16 20:11 Order name: Basic Metabolic Panel 02/16 20:11 Order name: CBC with Diff 02/16 20:11 Order name: Hepatic Function 02/16 20:11 Order name: Lipase 02/16 20:11 Order name: IV Saline Lock; Complete Time: 20:12 02/16 20:12 Order name: Stone Protocol CT; Complete Time: 20:39 02/16 20:12 Order name: Basic Metabolic Panel; Complete Time: 21:11 EDKS 02/16 20:12 Order name: Liver (Hepatic) Function; Complete Time: 21:11 EDKS 02/16 20:12 Order name: Lipase; Complete Time: 21:11 EDKS 02/16 20:12 Order name: CBC with Automated Diff; Complete Time: 21:23 EDKS 02/16 20:11 Order name: Labs collected and sent; Complete Time: 20:12 ea Administered Medications: 20:47 Drug: NS 0.9% 500 ml Route: IV; Rate: bolus; Site: right antecubital; ea 21:24 Follow up: Response: No adverse reaction; IV Status: Completed infusion; IV Intake: ea 500ml 20:48 Drug: TORadol - Ketorolac 15 mg Route: IVP; Site: right antecubital; ea 21:24 Follow up: Response: No adverse reaction ea Disposition: 02/17 07:54 Co-signature as Attending Physician, Joselito Galvez MD I agree with the assessment and philip plan of care. Disposition: 02/16/21 21:17 Discharged to Home. Impression: Dysuria, Flank pain. - Condition is Stable. - Discharge Instructions: Dysuria. - Prescriptions for Ibuprofen 800 mg Oral Tablet - take 1 tablet by ORAL route every 8 hours As needed take with food; 30 tablet. - Medication Reconciliation Form, Thank You Letter, Antibiotic Education, Prescription Opioid Use form. - Follow up: Private Physician; When: 2 - 3 days; Reason: Recheck today's complaints, Continuance of care, Re-evaluation by your physician. - Problem is new. - Symptoms have improved. Signatures: Dispatcher [employer] EDJoselito Zapata MD MD cha Roszak, Josh, PA PA jr8 Margarette Grijalva RN RN ea Acob, Cheryl, RN RN ca1 Corrections: (The following items were deleted from the chart) 02/16 21:22 21:17 02/16/2021 21:17 Discharged to Home. Impression: Dysuria. Condition is Stable. jr8 Forms are Medication Reconciliation Form, Thank You Letter, Antibiotic Education, Prescription Opioid Use. Follow up: Private Physician; When: 2 - 3 days; Reason: Recheck today's complaints, Continuance of care, Re-evaluation by your physician. Problem is new. Symptoms have improved. jr8 21:31 21:22 02/16/2021 21:17 Discharged to Home. Impression: Dysuria; Flank pain. Condition ea is Stable. Forms are Medication Reconciliation Form, Thank You Letter, Antibiotic Education, Prescription Opioid Use. Follow up: Private Physician; When: 2 - 3 days; Reason: Recheck today's complaints, Continuance of care, Re-evaluation by your physician. Problem is new. Symptoms have improved. jr8
--- NOTE | 2021-02-16 21:18 | ER ---
Nurse's Notes [facility] Name: Domonique Mccurdy Age: 30 yrs Sex: Female : 1990 Arrival Date: 02/16/2021 Time: 15:31 Bed 20 Private MD: Diagnosis: Dysuria;Flank pain Presentation: 02/16 16:16 Chief complaint: Patient states: at 0600 today, started with suprapubic pain, now on ca1 erinn flank pain. Was diagnosed of UTI 2 weeks ago, completed Macrobid . Denies fever. Coronavirus screen: Client denies travel out of the [place] in the last 14 days. At this time, the client does not indicate any symptoms associated with coronavirus-19. Ebola Screen: Patient negative for fever greater than or equal to 101.5 degrees Fahrenheit, and additional compatible Ebola Virus Disease symptoms Patient denies exposure to infectious person. Patient denies travel to an Ebola-affected area in the 21 days before illness onset. No symptoms or risks identified at this time. Initial Sepsis Screen: Does the patient meet any 2 criteria? No. Patient's initial sepsis screen is negative. Does the patient have a suspected source of infection? No. Patient's initial sepsis screen is negative. Risk Assessment: Do you want to hurt yourself or someone else? Patient reports no desire to harm self or others. Onset of symptoms was February 16, 2021. 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 - Social history:: Smoking status: Patient denies any tobacco usage or history of. Screenin:12 Abuse screen: Denies threats or abuse. Nutritional screening: No deficits noted. ea Tuberculosis screening: No symptoms or risk factors identified. Fall Risk IV access (20 points). Assessment: 20:13 General: Appears uncomfortable, Behavior is appropriate for age. Pain: Complains of ea pain in posterior aspect of right lateral abdomen, posterior aspect of left lateral abdomen and suprapubic area. Neuro: Level of Consciousness is awake, alert, obeys commands, Oriented to person, place, time. Cardiovascular: Patient's skin is warm and dry. Respiratory: Airway is patent Respiratory effort is even, unlabored, Respiratory pattern is regular, symmetrical. GI: Abdomen is non-distended. Derm: Skin is pink, warm \T\ dry. 21:21 Reassessment: Provider at bedside updating pt on plan of care. ea 21:30 Reassessment: Patient and/or family updated on plan of care and expected duration. Pain ea level reassessed. Patient is alert, oriented x 3, equal unlabored respirations, skin warm/dry/pink. Discharge instruction given to patient verbalized the understanding of instruction. Vital Signs: 16:16 BP 109 / 69; Pulse 74; Resp 16 S; Temp 97.3(TE); Pulse Ox 99% on R/A; Weight 61.23 kg ca1 (R); Height 5 ft. 1 in. (154.94 cm) (R); Pain 4/10; 21:23 BP 110 / 70; Pulse 81; Resp 18; Pulse Ox 99% ; ea 16:16 Body Mass Index 25.51 (61.23 kg, 154.94 cm) ca1 ED Course: 15:31 Patient arrived in ED. as 16:19 Triage completed. ca1 16:19 Arm band placed on right wrist. ca1 19:52 Joselito Galvez MD is Attending Physician. [facility] 19:52 Cesar Martinez [facility] jr8 19:52 Joselito Galvez MD is Attending Physician. jr8 20:00 Margarette Grijalva, SHON is Primary Nurse. ea 20:12 Patient has correct armband on for positive identification. Placed in gown. Bed in low ea position. Call light in reach. 20:12 Inserted saline lock: 22 gauge in right antecubital area, using aseptic technique. ea Blood collected. 20:[address] In Process Unspecified. EDMS 21:30 No provider procedures requiring assistance completed. IV discontinued, intact, ea bleeding controlled, No redness/swelling at site. Pressure dressing applied. Administered Medications: 20:47 Drug: NS 0.9% 500 ml Route: IV; Rate: bolus; Site: right antecubital; ea 21:24 Follow up: Response: No adverse reaction; IV Status: Completed infusion; IV Intake: ea 500ml 20:48 Drug: TORadol - Ketorolac 15 mg Route: IVP; Site: right antecubital; ea 21:24 Follow up: Response: No adverse reaction ea Intake: 21:24 IV: 500ml; Total: 500ml. ea Outcome: 21:17 Discharge ordered by MD. swift 21:30 Discharged to home ambulatory. ea 21:30 Condition: stable 21:30 Discharge instructions given to patient, Instructed on discharge instructions, follow up and referral plans. medication usage, Demonstrated understanding of instructions, follow-up care, medications. 21:31 Patient left the ED. ea Signatures: Dispatcher [employer] EDJoselito Zapata MD MD cha Martinez, Amelia as Roszak, Josh, PA PA jrMargarette Haile, RN RN Haydee Vences RN RN ca1
[2021-02-17 00:36] VITALS: BP 110/70; O2SAT 99
[2021-02-17 00:37] VITALS: TEMP 97.3
== END 2021-02-16 21:31 | disposition home or self-care (01) ==
LOC: ER 15:27
DX: R30.0 Dysuria (principal); Z87.442 Personal history of urinary calculi
CPT/HCPCS: 36415; 74176; 76377; 80048; 80076; 81003; 81025; 83690; 85025; 96361; 96374; 99284; J7040

== ENCOUNTER 2021-03-16 18:15 | Emergency (ER) | payer SELFPAY ==
--- OUTSIDE RECORDS SUMMARY | 2021-03-16 18:18 | XMS REPORT | Continuity of Care Document ---
:1990 Author Organization [facility] t Address [address] [place] [address] Care Team Providers Name Role Phone Kyree Gupta Attending Clinician Kimberley Attending Clinician Problems Condition Condition Condition Status Onset Resolution Last Treating Co mments Source Name Details Category Date Date Treatment Clinician Date SUICIIDAL Diagnosis Active 2019-12-17 Memoria IDEATION 1- 14:29:00 l 10:00: Sarthak SUICIIDAL 00 IDEATION Active 12/16/2019 [facility] Sarthak History of Past Illness Condition Condition Condition Status Onset Resolution Last Treating Co mments Source Name Details Category Date Date Treatment Clinician Date Suicidal Problem 2019-12-20 2019-12-20 Memoria ideations 1- 22:34:25 22:34:25 l Suicidal 18:00: Brett n ideations 00 12/18/2019 12/20/2019 Manuel Other Problem 2019-2019-12-20 2019-12-20 M emoria mental 1- 22:34:25 22:34:25 l disorders Other 18:00: Brett raymond complicati mental 00 ng the disorders puerperium complicati ng the puerperium 12/18/2019 12/20/2019 Manuel Allergies, Adverse Reactions, Alerts Allergy Allergy Status Severity Reaction(s) Onset Inactive Treating Comm ents Source Name Type Date Date Clinician No Known No Known Active Memori a Medicati Medicati l on on Sarthak Allergie Allergie s s Social History Social Habit Start Date Stop Date Quantity Comments Source Social History 2019-12-18 2019-12-18 [facility] 20:18:36 20:18:36 Medications Ordered Filled Start Stop Current Ordering Indication Dosage Frequency Signature Comments Components Source Medication Medication Date Date Medication? Clinician (SIG) Name Name Benadryl No Notes: Memoria 12-18 (Same as: l 07:40: Benadryl) [place] Haldol No Notes: Memoria 12-18 (Same as: l 07:39: Haldol) olanzapine No 10 mg, Memor ia 12-18 Route: PO, l 03:36: Drug form: [place] 00 TAB, ONCE, Dosing Weight 63.636, kg, Start date: 12/17/19 21:36:00 MOLDER PUNCH, Stop date: 12/17/19 21:36:00 MOLDER PUNCH Ativan No 1 mg, Memoria 12-17 Route: PO, l 23:05: Drug form: [place] 00 TAB, ONCE, Dosing Weight 63.636, kg, Priority: STAT, Start date: 12/17/19 17:05:00 MOLDER PUNCH, Stop date: 12/17/19 17:05:00 MOLDER PUNCH Vital Signs Vital Name Observation Time Observation Value Comments Source Systolic (mm Hg) 2019-12-18 17:15:00 Richard rial Sarthak Diastolic (mm Hg) 2019-12-18 17:15:00 Mem orial [place] Respitory Rate 2019-12-18 17:15:00 Memori al Sarthak Temperature Oral (F) 2019-12-18 17:15:00 97.9 F [facility] [place] Temperature Oral (F) 2019-12-18 08:30:00 97.7 F [facility] [place] Heart Rate 2019-12-18 08:30:00 [facility] S[place] Respitory Rate 2019-12-18 08:30:00 Memori al S[place] Systolic (mm Hg) 2019-12-18 08:30:00 Richard rial [place] Diastolic (mm Hg) 2019-12-18 08:30:00 Mem orial [place] Temperature Oral (F) 2019-12-18 04:52:00 98.5 F [facility] [place] Heart Rate 2019-12-18 04:52:00 [facility] [place] Respitory Rate 2019-12-18 04:52:00 Maik astudillo [place] Systolic (mm Hg) 2019-12-18 04:52:00 Richard blakely [place] Diastolic (mm Hg) 2019-12-18 04:52:00 Mino gatica [place] Heart Rate 2019-12-18 01:26:00 [facility] [place] Height 2019-12-17 19:28:00 154.94 cm [facility] [place] BMI Calculated 2019-12-17 19:28:00 Maik astudillo [place] Weight 2019-12-17 19:28:00 [facility] S[facility] Procedures This patient has no known procedures. Encounters Start End Encounter Admission Attending Care Care Encounter Source Date/Time Date/Time Type Type Clinicians Facility Department ID 2021-03-16 2021-03-16 Initial [place], [facility] [id number] 13:44:39 14:45:16 Vane C MORTGAGE PROTECTION SPECIALIST [id number] Visit [facility] [id number] MATERNAL [id number] & CHILD [address] [place] [address] 2019-12-17 2019-12-18 Outpatient Vishnyakova MHPL MHPL [id number] 13:20:11 12:20:00 , Jacqueline 00 2019-12-17 2019-12-17 [...] B/C Ratio) 14 1 6-25 [facility] [id number] 19:51:003.9[facility]annCHEM PANEL 2019-12-17 19:51:00 Test Item Value Reference Range Interpretation Comments A/G Ratio (test code = A/G Ratio) 1.1 1 0.7-1.6 [facility]ann[facility]M [id number] 19:51:90169Qcdurhrh HermannDRUG SCREEN 2019-12-17 19:51:00Negative *NA*(12/17/19 1:51 PM)[facility]ann[facility] SCREEN 2019-12-17 19:51:00Negative *NA*(12/17/19 1:51 PM)[facility]ann[facility] SCREEN 2019-12-17 19:51:00Negative *NA*(12/17/19 1:51 PM)[facility]ann[facility] SCREEN 2019-12-17 19:51:00Negative *NA*(12/17/19 1:51 PM)[facility]ann[facility] SCREEN 2019-12-17 19:51:00Negative *NA*(12/17/19 1:51 PM)[facility]ann[facility] SCREEN 2019-12-17 19:51:00Negative *NA*(12/17/19 1:51 PM)[facility]annDR[facility] SCREEN 2019-12-17 19:51:00Negative *NA*(12/17/19 1:51 PM)[facility]annDRUG SCREEN 2019-12-17 19:51:00See Note *NA*(12/17/19 1:51 PM)[facility] HermannHEMATOLOGY 2019-12-17 19:51:006.9[facility] TatktbnUCGGBSKDAQ8738-39-76 19:51:004.50[facility] OrljvefKHYAXJUNMT1321-42-06 19:51:0013.2[facility] HfrxxuzNDCAPLWFPK5250-40-40 19:51:0039.6[facility] OzxurvdNMREANBSXQ6398-86-89 19:51:0088.1[facility] [place] EGFSYJYVYP6757-57-75 19:51:00 Test Item Value Reference Range Interpretation Comments MCH (test code = MCH) 29.4 pg 27.0-31.0 [facility] UsljfpyDRBYCNFSWF5185-31-25 19:51:0033.4[facility] HermannHEMATOLOGY 2019-12-17 19:51:0012.6[facility] DqddgzmUPHMZHWKZU5586-90-50 19:51:13862Kcfputqv YweggreHECKYQKHKS3562-87-68 19:51:006.9[facility] RzyssurMTMZBWWJOB8351-83-45 19:51:0057.3[facility] BlgugvzRJWMHRKLRP4612-80-44 19:51:0036.8[facility] YHVOEJZWWF9632-89-74 19:51:004.0[facility] XvvwndmMNAEQLWOHF1658-26-99 19:51:001.5 Memorial RjonoiaXHWXIFVHNJ6520-43-33 19:51:000.4[facility] HermannHEMATOLOGY 2019-12-17 19:51:003.9[facility] BxkzhpgEAJKUWVUNT1017-10-32 19:51:002.5[facility] BqdundoKIISDUPSVU3608-35-64 19:51:000.3[facility] JowjugsWYKZTTWAWW7531-41-03 19:51:000.1[facility] ExqfetnSZVCQYBIAP6794-90-43 19:51:00<2 (12/17/19 1:51 PM) Memorial LpgdeagOFUJVIDOYP9466-24-61 19:51:00<3[facility] HermannTOXICOLOGY 2019-12-17 19:51:00<0.003[facility] YfrcahjQUTNBNEFVB3307-01-95 19:51:00<1.7 [facility] HermannURINE [id number] 19:51:00Negative (1/22/20 1:51 PM)[facility]
--- NOTE | 2021-03-16 20:35 | ER ---
Nurse's Notes [facility] Name: Domonique Mccurdy Age: 30 yrs Sex: Female : 1990 Arrival Date: 03/16/2021 Time: 18:16 Bed Waiting Private MD: Diagnosis: Presentation: 03/16 18:32 Chief complaint: Patient states: Just found out she was last weekend. G4, P3. ll1 LUQ abd pain started last night at 8 pm. + nausea. No fever. L upper chest pain started at 3 pm today, constant. Coronavirus screen: Client denies travel out of the [place] in the last 14 days. At this time, the client does not indicate any symptoms associated with coronavirus-19. Ebola Screen: Patient denies travel to an Ebola-affected area in the 21 days before illness onset. Initial Sepsis Screen: Does the patient meet any 2 criteria? HR > 90 bpm. No. Patient's initial sepsis screen is negative. Does the patient have a suspected source of infection? Yes: Acute abdominal pain. Risk Assessment: Do you want to hurt yourself or someone else? Patient reports no desire to harm self or others. Onset of symptoms was March 15, 2021. 18:32 Method Of Arrival: Ambulatory ll1 18:32 Acuity: ALVINO 3 ll1 Historical: - Allergies: 18:35 No Known Allergies; ll1 - PMHx: 18:35 Kidney stones; Post depression; ll1 - PSHx: 18:35 ; Cholecystectomy; ll1 - Immunization history:: Flu vaccine is not up to date. - Social history:: Smoking status: Patient denies any tobacco usage or history of. Vital Signs: 18:32 BP 120 / 83; Pulse 93; Resp 17; Temp 97.3; Pulse Ox 97% ; Weight 60.33 kg; Height 5 ft. ll1 1 in. (154.94 cm); Pain 6/10; 18:32 Body Mass Index 25.13 (60.33 kg, 154.94 cm) ll1 ED Course: 18:16 Patient arrived in ED. as 18:35 Triage completed. ll1 18:36 Arm band placed on. ll1 18:50 EKG completed in triage. Results shown to MD. ll1 20:33 Patient's name was called from ER lobby. No response. Unable to locate patient. Will ca1 disposition as left without being seen by a provider. Administered Medications: No medications were administered Outcome: 20:34 Patient left the ED. ca1 Signatures: Kassy Anton Cheryl, RN RN ca1 Otf Pisano RN RN ll1
[2021-03-16 20:38] VITALS: BP 120/83; TEMP 97.3; O2SAT 97
== END 2021-03-16 20:34 | disposition left against medical advice (07) ==
LOC: ER 18:15
DX: Z02.9 Encounter for administrative examinations, unspecified (principal)
CPT/HCPCS: 93005; 99281

== ENCOUNTER 2021-03-31 16:29 | Emergency (ER) | payer OTHER ==
--- OUTSIDE RECORDS SUMMARY | 2021-03-31 16:33 | XMS REPORT | Continuity of Care Document ---
:1990 Author Organization [facility] t Address [address] [place] [address] Care Team Providers Name Role Phone Kyree Gupta Primary Care Physician Kyree Gupta Attending Clinician Kimberley Attending Clinician Payers Payer Name Policy Type Policy Effective Date Expiration Source Number Date MEDICAID PENDING 2021 [facility] PENDINGMEDICAID 00:00:00 [place] [facility] ical PENDINGPENDING Bran [id number] [place] [id number] [id number] 2019 [facility]-RMCHPxxxxx0 00:00:00 [facility] 954 2018-Present Bran ch [phone] [id number], [place] [address]Medicaid [place] [id number] 2021 [id number] 00:00:00 [facility] Medical [phone] Bran ch [address], [place] [address]Medicaid Problems Condition Condition Condition Status Onset Resolution Last Treating Co mments Source Name Details Category Date Date Treatment Clinician Date Multiparit Multiparit Disease Active U nivers y y 4-21 ity of 00:00: [place] [facility] History of History of Disease Active Overview : Univers gestationa gestationa 4-21 In prior ity of l diabetes l diabetes 00:00: pregnanci [place] 00 es Medical Branch History of History of Disease Active U nivers miscarriag miscarriag - it y of e e 00:00: [place] [id number] Medical Branch History of History of Disease Active Overview : Univers successful successful 03-16 Desires i ty of vaginal vaginal 00:00: repeat [place] 00 Medical after after Branch , , currently currently UTI in UTI in Disease Active Overview: Univer s - Reports ity of 00:00: currently [place] 00 on meds Medical Branch Prophylact Prophylact Disease Active U nivers ic ic 3-10 [place]y of antibiotic [place] BMI BMI Disease Active Univers 25.0-25.9, 25.0-25.9, 3-10 it y of adult adult 00:00: [place] 00 [facility] Branch SUICIIDAL Diagnosis Active 2019-12-17 Memoria IDEATION 1-21 14:29:00 l 10:00: Sarthak SUICIIDAL 00 IDEATION Active 12/16/2019 [facility] History of History of Disease Active 2015-11 U nivers herpes herpes 1-26 ity of genitalis genitalis [place] Dysuria Dysuria Disease Resolve 2021-03-16 2021-03-16 Univers d 3-10 00:00:00 19:14:51 ity of 00:00: [place] 00 Medical Branch Encounter Encounter Disease Resolve 2019-112021-03-16 2021-03-16 Univers for for d 0-28 00:00:00 19:14:53 [place]y of contracept contracept [place] paige paige 00 Medical management management Br anch , , unspecifie unspecifie d type d type Yeast Yeast Disease Resolve 2019-112021-03-16 2021-03-16 Univers vaginitis vaginitis d 0-28 00:00:00 19:14:36 ity of 00:00: [place] [address] Medical [place] Other Other Disease Resolve 2021-03-16 2021-03-16 Univers general general d 2-20 00:00:00 19:15:01 ity of counseling counseling 00:00[place] and advice and advice 00 Me dical for [facility] Branch contracept contracept paige paige management management Encounter Encounter Disease Resolve 2021-03-16 2021-03-16 Univers for IUD for IUD d 1- 00:00:00 19:14:54 ity of removal removal 00:00: [address] Obesity Obesity Disease Resolve 2021-03-16 2021-03-16 Univers (BMI (BMI d - 00:00:00 19:15:00 ity of 30-39.9) 30-39.9) 00:00: [address] Urinary Urinary Disease Resolve 2021-03-16 2021-03-16 Univers tract tract d - 00:00:00 19:14:39 [place] of infection [place] without without 00 Medical hematuria, hematuria, Br anch site site unspecifie unspecifie d d Subacute Subacute Disease Resolve 2021-03-16 2021-03-16 Univers vaginitis vaginitis d 4-25 00:00:00 19:14:40 ity of 00:00: [address] BV BV Disease Resolve 2021-03-16 2021-03-16 Univers (bacterial (bacterial d 3-17 00:00:00 19:14:41 ity of vaginosis) vaginosis) [place] 00 [facility] Vaginal Vaginal Disease Resolve 2021-03-16 2021-03-16 Univers discharge discharge d 07-28 00:00:00 19:14:38 ity of 00:: [place] [facility] Vaginal Vaginal Disease Resolve 2021-03-16 2021-03-16 Univers itching itching d 07-28 00:00:00 19:14:37 ity of 00:00: [address] Branch Presence Presence Disease Resolve 2021-03-16 2021-03-16 Univers of of 52 of of 52 d 07-28 00:00:00 19:15:04 it y of mg mg 00:00: [place] levonorges levonorges 00 Me dical trel-relea trel-relea Br anch sing sing intrauteri intrauteri ne device ne device (IUD) (IUD) 37 weeks 37 weeks Disease Resolve 2019-10-14 2019-10-14 Univers gestation gestation d 8- 00:00:00 21:22:24 ity of of of 00:00: [place] 00 [facility] 34 weeks 34 weeks Disease Resolve 2019-10-14 2019-10-14 Univers gestation gestation d 7 00:00:00 21:22:19 ity of of of 00:00: [place] 00 [facility] Decreased Decreased Disease Resolve 2019-10-14 2019-10-14 Univers d 06-03 00:00:00 21:22:29 ity of movements movements 00:00[place] in third in third 00 Medica l trimester trimester Bran ch Previous Previous Disease Resolve 2019-10-14 2019-10-14 Univers d 06-03 00:00:00 21:22:27 it y of delivery delivery 00:00: [place] affecting affecting 00 [facility] Bran ch GDM, class GDM, class Disease Resolve 2019-10-14 2019-10-14 Univers A2 A2 d 06-03 00:00:00 21:22:23 ity of 00:00: [place] 00 Medical Branch Headache Headache Disease Resolve 2019-10-14 2019-10-14 Univers in in d 06-03 00:00:00 21:22:25 ity of , , [place]:00[place] antepartum antepartum 00 Me dical , third , third Branch trimester trimester High-risk High-risk Disease Resolve 2019-08-21 2019-08-21 Univers d 8- 00:00:00 20:12:16 ity of in third in third 00:00: [place] trimester trimester 00 [facility] Karol Karol Disease Resolve 2015-0 2017-02-08 2017-02-08 Univers vaginitis vaginitis d - 00:00:00 15:08:10 ity of 00:00: [place] 00 Medical Branch History of Past Illness Condition Condition Condition Status Onset Resolution Last Treating Co mments Source Name Details Category Date Date Treatment Clinician Date Suicidal Problem 2019-12-20 2019-12-20 Memoria ideations 12-18 22:34:25 22:34:25 l Suicidal 18:00: Brett raymond ideations 00 12/18/2019 12/20/2019 [place] Other Problem 2019-12-20 2019-12-20 M emoria mental 12-18 22:34:25 22:34:25 l disorders Other 18:00: Brett raymond complicati mental 00 ng the disorders puerperium complicati ng the puerperium 12/18/2019 12/20/2019 [facility] Allergies, Adverse Reactions, Alerts Allergy Allergy Status Severity Reaction(s) Onset Inactive Treating Comm ents Source Name Type Date Date Clinician No Known No Known Active Memori a Medicati Medicati l on on [place] Allergie Allergie s s Social History Social Habit Start Date Stop Date Quantity Comments Source ASSERTION 2021-03-06 [facility] 00:00:00 [facility] Exposure to Not sure [facility] SARS-CoV-2 [facility] (event) [place] Tobacco use and 2021-03-18 2021-03-18 Never used Universit y of exposure 00:00:00 00:00:00 [facility] Alcohol intake 2021-03-18 2021-03-18 Ex-drinker [facility] 00:00:00 00:00:00 (finding) [facility] Social History 2019-12-18 2019-12-18 [facility] kimi 20:18:36 20:18:36 History [facility] 2019-07-14 2019-07-14 2 University o f Transport Non-Med 00:00:00 00:00:00 [facility] edical Branch History [facility] 2019-07-14 2019-07-14 5 University o f Financial 00:00:00 00:00:00 [place] [facility] [place] History [facility] Food 2019-07-14 2019-07-14 1 Univers ity of Worry 00:00:00 00:00:00 [place] [facility] History [facility] Food 2019-07-14 2019-07-14 1 Univers ity of Scarcity 00:00:00 00:00:00 [place] [facility] [place] History [facility] 2019-07-14 2019-07-14 2 University o f Transport Med 00:00:00 00:00:00 [place] Medic al Branch Sex [birth year] Universit y of 00:00:00 00:00:00 [facility] Smoking Status Start Date Stop Date Source Never smoker [facility] Branch Medications Ordered Filled Start Stop Current Ordering Indication Dosage Frequency Signature Comments Components Source Medication Medication Date Date Medication? Clinician (SIG) Name Name ondansetron Yes Abdominal 4mg Take 1 Univers (ZOFRAN 4-23 pain tablet by itboom of ODT) 4 mg 00:00: affecting mouth [place] disintegrat every 8 Medical ing tablet (eight) Branch hours as needed for Nausea and Vomiting (N/V). Benadryl No Notes: Memoria - (Same as: l 07:40: Benadryl) Sarthak Haldol No Notes: Memoria - (Same as: l 07:39: Haldol) Sarthak 00 olanzapine No 10 mg, Memor ia 12-18 Route: PO, l 03:36: Drug form: Sarthak 00 TAB, ONCE, Dosing Weight 63.636, kg, Start date: 12/17/19 21:36:00 TUBE FORMER OPERATOR, Stop date: 12/17/19 21:36:00 TUBE FORMER OPERATOR Ativan No 1 mg, Memoria 12-17 Route: PO, l 23:05: Drug form: Sarthak 00 TAB, ONCE, Dosing Weight 63.636, kg, Priority: STAT, Start date: 12/17/19 17:05:00 TUBE FORMER OPERATOR, Stop date: 12/17/19 17:05:00 TUBE FORMER OPERATOR Immunizations Ordered Filled Immunization Date Status Comments [facility] e Immunization Name Name TDAP (ADACEL) 2019-05-12 Completed University of VACCINE 00:00:00 [facility] Td 2018-05-10 Completed [facility] 00:00:00 [facility] Influenza Virus 2009-10-04 Completed [facility] y of Vaccine - Whole 00:00:00 [facility] [place] Vital Signs Vital Name Observation Time Observation Value Comments Source Systolic (mm Hg) 2019-12-18 17:15:00 Richard zora De León Diastolic (mm Hg) 2019-12-18 17:15:00 Mem orial S[place] Respitory Rate 2019-12-18 17:15:00 Memori al [place] Temperature Oral (F) 2019-12-18 17:15:00 97.9 F [facility] [place] Temperature Oral (F) 2019-12-18 08:30:00 97.7 F [facility] [place] Heart Rate 2019-12-18 08:30:00 [facility] [place] Respitory Rate 2019-12-18 08:30:00 Memori al [place] Systolic (mm Hg) 2019-12-18 08:30:00 Richard rial [place] Diastolic (mm Hg) 2019-12-18 08:30:00 Mem orial [place] Temperature Oral (F) 2019-12-18 04:52:00 98.5 F [facility] [place] Heart Rate 2019-12-18 04:52:00 [facility] [place] Respitory Rate 2019-12-18 04:52:00 Memori al [place] Systolic (mm Hg) 2019-12-18 04:52:00 Richard rial [place] Diastolic (mm Hg) 2019-12-18 04:52:00 Mem orial [place] Heart Rate 2019-12-18 01:26:00 [facility] [place] Height 2019-12-17 19:28:00 154.94 cm [facility] [place] BMI Calculated 2019-12-17 19:28:00 Memori al [place] Weight 2019-12-17 19:28:00 [facility] This patient has no known procedures. Plan of Care Planned Activity Planned Date Details Comments Source Future Scheduled 2029-05-12 DTaP,Tdap,and Td Univers [facility] [place] [facility] Test 00:00:00 Vaccines (2 - Td) Medical Br anch [code = DTaP,Tdap,and Td Vaccines (2 - Td)] Future Scheduled 2023-09-22 Screening for [facility] Test 00:00:00 malignant neoplasm Medical [place] of cervix (procedure) [code = 684300799] Future Scheduled 2022-02-02 Depression screening [facility] Test 00:00:00 (procedure) [code = Medical Branch 724665091] Future Scheduled 2021-07-27 [facility]00 (Season Ended) [code Medical Branch = INFLUENZA VACCINE (Season Ended)] Future Scheduled 2008 SARS-CoV-2 [facility] Test 00:00:00 (COVID-19) Vaccine [facility] [place] (1) [code = SARS-CoV-2 (COVID-19) Vaccine (1)] Encounters Start End Encounter Admission Attending Care Care Encounter Source Date/Time Date/Time Type Type Clinicians Facility Department ID 2021-03-31 2021-03-31 Telephone [facility] [id number] 00:00:00 00:00:00 Vane Adorno BILL COLLECTOR [id number] [facility] [id number] MATERNAL [id number] & CHILD 107 [facility] 2021-03-29 2021-03-29 Telephone [facility] [id number] 00:00:00 00:00:00 Vane Kyree BILL COLLECTOR [id number] [facility] [id number] MATERNAL [id number] & CHILD 107 [facility] 2019-12-17 2019-12-18 Outpatient Vishnyakova MHPL MHPL [id number] 13:20:11 12:20:00 , Jacqueline 00 2019-12-17 2019-12-17 [...] B/C Ratio) 14 1 6-25 [facility]annCHEM [id number] 19:51:003.9[facility] HermannCHEM PANEL 2019-12-17 19:51:00 Test Item Value Reference Range Interpretation Comments A/G Ratio (test code = A/G Ratio) 1.1 1 0.7-1.6 [facility]annCHEM [id number] 19:51:08925Ifwavwok HermannDRUG SCREEN 2019-12-17 19:51:00Negative *NA*(12/17/19 1:51 PM)[facility] HermannDRUG SCREEN 2019-12-17 19:51:00Negative *NA*(12/17/19 1:51 PM)[facility] HermannDRUG SCREEN 2019-12-17 19:51:00Negative *NA*(12/17/19 1:51 PM)[facility] HermannDRUG SCREEN 2019-12-17 19:51:00Negative *NA*(12/17/19 1:51 PM)[facility] HermannDRUG SCREEN 2019-12-17 19:51:00Negative *NA*(12/17/19 1:51 PM)[facility] HermannDRUG SCREEN 2019-12-17 19:51:00Negative *NA*(12/17/19 1:51 PM)[facility] HermannDRUG SCREEN 2019-12-17 19:51:00Negative *NA*(12/17/19 1:51 PM)[facility] HermannDRUG SCREEN 2019-12-17 19:51:00See Note *NA*(12/17/19 1:51 PM)[facility] HermannHEMATOLOGY 2019-12-17 19:51:006.9[facility]orial JlgvcwcVJIGXWEEER0520-00-94 19:51:004.50[facility] LaghavjSZGLDIRSDI2915-00-19 19:51:0013.2[facility] ZjmwoufRJFMFAAMLW9885-79-92 19:51:0039.6[facility] RenmudhFLHODHPVHR2385-18-48 19:51:0088.1[facility] [place] PDPWGXIBAX0905-41-31 19:51:00 Test Item Value Reference Range Interpretation Comments MCH (test code = MCH) 29.4 pg 27.0-31.0 Memorial PjeomevKVAKRNVQVP4582-44-59 19:51:0033.4[facility] HermannHEMATOLOGY 2019-12-17 19:51:0012.6[facility]orial EacktrvNDVZHJBFWG4148-26-26 19:51:32847Wdyiyokr ShwtpoiFZZMRYHPMQ5261-46-51 19:51:006.9[facility] EajeggbUITFEHTSTN1629-75-41 19:51:0057.3[facility]orial FqcwqzmRFLBLZEVWG9113-71-12 19:51:0036.8[facility] [place] ATCJWKESFY4141-17-74 19:51:004.0[facility]orial QnlquxlFLVOTXRWOU6582-30-80 19:51:001.5 Memorial HvpqthdBIXHZYVMZP8546-34-44 19:51:000.4[facility] HermannHEMATOLOGY 2019-12-17 19:51:003.9[facility] ApqljkvFLPDRDITCP5584-26-10 19:51:002.5[facility] QzodwgbWMOMRZYPFE2340-57-46 19:51:000.3[facility]orial FgwsgfzCMBJBSRVTT4984-92-37 19:51:000.1[facility] JqfcxmuOGGDPFJUDX4358-98-50 19:51:00<2 (12/17/19 1:51 PM) Memorial BsncsonVOZVOGWVZM2817-40-45 19:51:00<3[facility] HermannTOXICOLOGY 2019-12-17 19:51:00<0.003[facility] JrezqrqNNKHBXRJSU8183-44-00 19:51:00<1.7 [facility] HermannURINE [id number] 19:51:00Negative (12/17/19 1:51 PM)[facility] [place]
[2021-03-31 18:26] LABS: Urine Blood 2+ (Negative); Urine Glucose Negative (Negative); Urine Protein Negative (Negative); Urine Specific Gravity 1.025 (1.005-1.030); Urine pH 6.5 (5.0-7.0)
[2021-03-31 19:18] LABS: Absolute Lymphocytes (CBC) 2.4 K/uL (0.7-4.9); Basophils % 0.4 % (0-1.3); Hematocrit 39.2 % (36.0-45.0); Lymphocytes % 24.4 % (15.3-44.8); RBC Red Blood Cell Count 4.42 M/uL (3.86-4.86)
--- NOTE | 2021-03-31 19:43 | RAD REPORT ---
EXAM DESCRIPTION: US - Transvaginal OB - 03/31/2021 7:25 pm CLINICAL HISTORY: with vaginal bleeding COMPARISON: None. FINDINGS: The uterus measures 10 x 5 x 6 centimeters. A normal appearing gestational sac is present within the endometrium. Within this is a yolk sac and pole with a crown-rump length 4 millimet ers. Cardiac activity 113 beats per minute Right and left ovary appear normal. . The right and left adnexa unremarkable No significant free fluid is seen. IMPRESSION: Single live intrauterine with an estimated gestational age 6 weeks 2 days MEI 11/22/2021
[2021-03-31 19:46] LABS: BUN Blood Urea Nitrogen 11 mg/dL (7-18); Bicarbonate 27 mmol/L (21-32); Glucose Level 99 mg/dL (74-106); HCG, Quantitative 44204 mIU/mL (1-3); Potassium 3.9 mmol/L (3.5-5.1); Sodium Level 138 mmol/L (136-145)
--- NOTE | 2021-03-31 20:21 | ER ---
Nurse's Notes [facility] Name: Domonique Mccurdy Age: 30 yrs Sex: Female : 1990 Arrival Date: 03/31/2021 Time: 16:44 Bed 6 Private MD: Diagnosis: Threatened Presentation: 03/31 16:49 Chief complaint: Patient states: 6 weeks , vaginal bleeding since last night ca1 and cramping. Coronavirus screen: Client denies travel out of the [place] in the last 14 days. At this time, the client does not indicate any symptoms associated with coronavirus-19. Ebola Screen: Patient negative for fever greater than or equal to 101.5 degrees Fahrenheit, and additional compatible Ebola Virus Disease symptoms Patient denies exposure to infectious person. Patient denies travel to an Ebola-affected area in the 21 days before illness onset. No symptoms or risks identified at this time. Initial Sepsis Screen: Does the patient meet any 2 criteria? No. Patient's initial sepsis screen is negative. Does the patient have a suspected source of infection? No. Patient's initial sepsis screen is negative. Risk Assessment: Do you want to hurt yourself or someone else? Patient reports no desire to harm self or others. Onset of symptoms was March 31, 2021. 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 Flu vaccine is not up to date. - Social history:: Smoking status: Patient denies any tobacco usage or history of. Screenin:49 Abuse screen: Denies threats or abuse. Denies injuries from another. Nutritional ld1 screening: No deficits noted. Tuberculosis screening: No symptoms or risk factors identified. Fall Risk None identified. Assessment: 18:49 Obstetrical Assessment: General assessment: awake and alert, skin warm and dry, ld1 respirations even and unlabored, Patient reports abdominal cramping. General: Appears in no apparent distress. comfortable, Behavior is calm, cooperative, appropriate for age. Pain: Denies pain. Neuro: Level of Consciousness is awake, alert, obeys commands, Oriented to person, place, time. Cardiovascular: Capillary refill < 3 seconds Patient's skin is warm and dry. Respiratory: Airway is patent Respiratory effort is even, unlabored, Respiratory pattern is regular, symmetrical. GI: Abdomen is flat, non-distended, Reports lower abdominal pain. : Reports cramping, vaginal bleeding that is light flow, Dark kelechi colored blood. EENT: No signs and/or symptoms were reported regarding the EENT system. Derm: No signs and/or symptoms reported regarding the dermatologic system. Musculoskeletal: No signs and/or symptoms reported regarding the musculoskeletal system. 19:00 Reassessment: Patient appears in no apparent distress at this time. Patient and/or jb4 family updated on plan of care and expected duration. Pain level reassessed. Patient is alert, oriented x 3, equal unlabored respirations, skin warm/dry/pink. 20:26 Reassessment: Patient appears in no apparent distress at this time. Patient and/or jb4 family updated on plan of care and expected duration. Pain level reassessed. Patient is alert, oriented x 3, equal unlabored respirations, skin warm/dry/pink. Vital Signs: 16:49 BP 98 / 57; Pulse 85; Resp 16 S; Temp 98.9(O); Pulse Ox 100% on R/A; Weight 60.33 kg ca1 (R); Height 5 ft. 1 in. (154.94 cm) (R); Pain 4/10; 18:49 BP 110 / 73; Pulse 82; Resp 18; Temp 98.5(O); Pulse Ox 100% on R/A; Pain 0/10; ld1 20:25 Pulse 68; Resp 18; Pulse Ox 98% on R/A; jb4 16:49 Body Mass Index 25.13 (60.33 kg, 154.94 cm) ca1 ED Course: 16:44 Patient arrived in ED. ds1 16:50 Triage completed. ca1 16:50 Arm band placed on right wrist. ca1 18:11 Patient placed in an exam room, on a stretcher. ll1 18:13 Joselito Rivers PA is PHCP. cp 18:13 Joselito Galvez MD is Attending Physician. cp 18:49 Patient has correct armband on for positive identification. Bed in low position. Call ld1 light in reach. Side rails up X 1. Pulse ox on. NIBP on. Door closed. Noise minimized. Warm blanket given. 18:49 No provider procedures requiring assistance completed. ld1 18:54 Inserted saline lock: 22 gauge in right forearm, using aseptic technique. Blood ld1 collected. 19:02 Carol Ann Gaspar, SHON is Primary Nurse. ld1 19:18 Primary Nurse role handed off by Carol Ann Gaspar, SHON jb4 19:18 Yariel Stauffer, RN is Primary Nurse. jb4 19:19 Hayder Rob MD is Attending Physician. cp 19:25 US Transvaginal Ob In Process Unspecified. EDMS 20:26 IV discontinued, intact, bleeding controlled, No redness/swelling at site. Pressure jb4 dressing applied. Administered Medications: No medications were administered Outcome: 20:20 Discharge ordered by MD. cp 20:26 Discharged to home ambulatory. jb4 20:26 Condition: stable 20:26 Discharge instructions given to patient, Instructed on discharge instructions, follow up and referral plans. Demonstrated understanding of instructions, follow-up care. 20:26 Patient left the ED. jb4 Signatures: Dispatcher [employer] EDGA Paulina Ruth ds1 Joselito Rivers PA PA cp Yariel Stauffer RN RN jb4 Haydee Cornell RN RN ca1 Otf Pisano RN RN ll1 Carol Ann Gaspar RN RN ld1 Corrections: (The following items were deleted from the chart) 20:26 19:00 Reassessment: Patient appears in no apparent distress at this time. Patient jb4 and/or family updated on plan of care and expected duration. Pain level reassessed. Patient is alert, oriented x 3, equal unlabored respirations, skin warm/dry/pink. jb4
--- NOTE | 2021-03-31 20:21 | EDPHYS ---
Physician Documentation [facility] Name: Domonique Mccurdy Age: 30 yrs Sex: Female : 1990 Arrival Date: 03/31/2021 Time: 16:44 Bed 6 Private MD: ED Physician Hayder Rob HPI: 03/31 18:30 This 30 yrs old Female presents to ER via Ambulatory with complaints of cp Vaginal Bleeding, + Preg <12wks. 18:30 The patient presents to the emergency department with vaginal bleeding, that is light. cp The estimated gestational age is 6 weeks. course: care: private OB physician, Leakage of Fluid: none appreciated, Ultrasound: the patient has not had an ultrasound. Previous pregnancies: in previous pregnancies patient has had vaginal delivery, , no complications. 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 Flu vaccine is not up to date. - Social history:: Smoking status: Patient denies any tobacco usage or history of. ROS: 18:35 Constitutional: Negative for body aches, chills, fever, poor PO intake. cp 18:35 Eyes: Negative for injury, pain, redness, and discharge. cp 18:35 ENT: Negative for ear pain, sore throat, difficulty swallowing, difficulty handling secretions. 18:35 Cardiovascular: Negative for chest pain, edema, palpitations. 18:35 Respiratory: Negative for cough, shortness of breath, wheezing. 18:35 Abdomen/GI: Positive for abdominal pain, Negative for nausea, vomiting, and diarrhea. 18:35 Back: Negative for pain at rest, pain with movement, radiated pain. 18:35 : Positive for vaginal bleeding, Negative for urinary symptoms. 18:35 Neuro: Negative for dizziness, headache, weakness. 18:35 All other systems are negative. Exam: 18:40 Constitutional: The patient appears in no acute distress, alert, awake, comfortable, cp non-toxic, well developed, well nourished. 18:40 Head/Face: Normocephalic, atraumatic. cp 18:40 Eyes: Periorbital structures: appear normal, Conjunctiva: normal, no exudate, no injection, Sclera: no appreciated abnormality, Lids and lashes: appear normal, bilaterally. 18:40 ENT: External ear(s): are unremarkable, Nose: is normal, Posterior pharynx: Airway: no evidence of obstruction, patent. 18:40 Chest/axilla: Inspection: normal. 18:40 Cardiovascular: Rate: normal. 18:40 Respiratory: the patient does not display signs of respiratory distress, Respirations: normal, no use of accessory muscles, no retractions, labored breathing, is not present, Breath sounds: are clear throughout, no decreased breath sounds, no stridor, no wheezing. 18:40 Abdomen/GI: Inspection: abdomen appears normal, Bowel sounds: active, all quadrants, Palpation: soft, in all quadrants, mild abdominal tenderness, in the right lower quadrant and left lower quadrant, rebound tenderness, is not appreciated, voluntary guarding, is not appreciated, involuntary guarding, is not appreciated. 18:40 Back: pain, is absent, ROM is normal. Vital Signs: 16:49 BP 98 / 57; Pulse 85; Resp 16 S; Temp 98.9(O); Pulse Ox 100% on R/A; Weight 60.33 kg ca1 (R); Height 5 ft. 1 in. (154.94 cm) (R); Pain 4/10; 18:49 BP 110 / 73; Pulse 82; Resp 18; Temp 98.5(O); Pulse Ox 100% on R/A; Pain 0/10; ld1 20:25 Pulse 68; Resp 18; Pulse Ox 98% on R/A; jb4 16:49 Body Mass Index 25.13 (60.33 kg, 154.94 cm) ca1 MDM: 18:16 Patient medically screened. philip 19:00 Differential diagnosis: STD, ectopic . cp 20:19 Data reviewed: vital signs, nurses notes, lab test result(s), radiologic studies, cp ultrasound. Counseling: I had a detailed discussion with the patient and/or guardian regarding: the historical points, exam findings, and any diagnostic results supporting the discharge/admit diagnosis, lab results, radiology results, the need for outpatient follow up, an OB/Gyne specialist, to return to the emergency department if symptoms worsen or persist or if there are any questions or concerns that arise at home. 03/31 18:20 Order name: Quantitative Hcg 03/31 18:20 Order name: Abo/rh Typing; Complete Time: 20:16 03/31 18:20 Order name: Basic Metabolic Panel; Complete Time: 20:11 03/31 20:13 Interpretation: Reviewed. 03/31 18:20 Order name: CBC with Diff; Complete Time: 19:46 03/31 19:46 Interpretation: Normal except: MPV 7.0. 03/31 18:20 Order name: HCG, Quantitative; Complete Time: 20:11 EDMS 03/31 18:25 Order name: Urine Dipstick-Ancillary; Complete Time: 19:46 EDMS 03/31 19:46 Interpretation: Normal except: UKET 2+; UBLD 2+. 03/31 18:20 Order name: Urine Test (obtain specimen); Complete Time: 18:20 03/31 18:20 Order name: IV Saline Lock; Complete Time: 18:54 03/31 18:20 Order name: Labs collected and sent; Complete Time: 18:54 03/31 18:20 Order name: NPO; Complete Time: 19:02 03/31 18:20 Order name: Urine Dipstick-Ancillary (obtain specimen); Complete Time: 18:20 03/31 18:20 Order name: US Transvaginal Ob; Complete Time: 19:46 03/31 19:46 Interpretation: Report reviewed. cp Administered Medications: No medications were administered Disposition: 04/01 06:32 Co-signature as Attending Physician, Hayder Rob MD. [email or web address] Disposition: 03/31/21 20:20 Discharged to Home. Impression: Threatened . - Condition is Stable. - Discharge Instructions: Threatened Miscarriage, Vaginal Bleeding During , First Trimester, Pelvic Rest. - Medication Reconciliation Form, Thank You Letter, Antibiotic Education, Prescription Opioid Use form. - Follow up: Private Physician; When: 1 week; Reason: Recheck today's complaints. - Problem is new. - Symptoms have improved. Signatures: Dispatcher [employer] EDJoselito Zapata MD MD cha Page, Corey, PA PA cp Bryson, James, RN RN jb4 Haydee Cornell RN RN [facility] Hayder Rob MD MD [email or web address] Corrections: (The following items were deleted from the chart) 03/31 20:26 20:20 03/31/2021 20:20 Discharged to Home. Impression: Threatened . Condition jb4 is Stable. Forms are Medication Reconciliation Form, Thank You Letter, Antibiotic Education, Prescription Opioid Use. Follow up: Private Physician; When: 1 week; Reason: Recheck today's complaints. Problem is new. Symptoms have improved. cp
[2021-03-31 20:40] VITALS: BP 110/73; TEMP 98.5
[2021-03-31 20:42] VITALS: O2SAT 98
== END 2021-03-31 20:26 | disposition home or self-care (01) ==
LOC: ER 16:29
DX: O20.0 Threatened abortion (principal); Z87.442 Personal history of urinary calculi
CPT/HCPCS: 36415; 76817; 80048; 81003; 84702; 85025; 86900; 86901; 99284

== ENCOUNTER 2023-06-12 19:42 | Emergency (ER) | payer OTHER ==
[2023-06-12 20:15] LABS: Specific Gravity 1.016 (1.005-1.030)
[2023-06-12 20:27] LABS: Specific Gravity 1.016 (1.005-1.030); Urine Bacteria None Seen /HPF (<20); Urine Bilirubin NEGATIVE (Negative); Urine Blood Negative (Negative); Urine Clarity Extremely Turbid (Clear); Urine Color Light-Yellow (Yellow); Urine Crystals Unidentified Few /HPF (None Seen); Urine Glucose NEGATIVE (Negative); Urine Protein NEGATIVE (Negative); Urine RBC <5 /HPF (None Seen); Urine Urobilinogen Normal (Normal)
--- OUTSIDE RECORDS SUMMARY | 2023-06-12 20:31 | XMS REPORT | Continuity of Care Document ---
:1990 Author Organization [facility] t Address [address] [place] [address] [place] [id number] Care Team Providers Name Role Phone PCP, PATIENT DOES NOT HAVE A Primary Care Physician UnavailHarley Kyle Attending Clinician Unavailable Harley Posada Attending Clinician Unavailable IRMA MCGILL Attending Clinician Unavailable IRMA MCGILL Attending Clinician Unavailable KAYLYN MCGUIRE Attending Clinician Unavailable KAYLYN MCGUIRE Attending Clinician Unavailable Lab, Ang - Db Attending Clinician Unavailable Alyssa Dunne Attending Clinician Doctor Unassigned, [place] Attending Clinician Unavailable Tina Gupta Attending Clinician [phone] TINA NERI Attending Clinician Unavailable Kirit Benitez Attending Clinician Unavailable RUPAL MAYA Attending Clinician Unavailable Rupal Maya MD Attending Clinician Unknown, Attending Attending Clinician Unavailable JOSE ARMANDO SU Attending Clinician Unavailable ANSHU_BERNARDO_Khalif_G Attending Clinician Unavailable Rufino Cuadra Attending Clinician Unavailable Khalif Rufino Ann Attending Clinician [phone] ANSHU_SWHATBIC_Crissylazaro Attending Clinician Unavailable OMAGHOMI, OMAYEMI Attending Clinician Unavailable Omaghomi FOREST FIRE FIGHTER, Omayemi Attending Clinician Mana FOREST FIRE FIGHTER, Lizz Uziel Attending Clinician Kristina Mcdonald MD Attending Clinician Jame Smith MD Attending Clinician Ishmael SOL, Patricia Triplett Attending Clinician Trudy DISTILLERY WORKER GENERAL, Kaylynn Ramey Attending Clinician Yousuf Ontiveros DO Attending Clinician Georges FOREST FIRE FIGHTER, Jose Armando Canas Attending Clinician UNKNOWN, ATTENDING Attending Clinician Unavailable Stephen ULLOAP, Madelin Attending Clinician Gaudencio FOREST FIRE FIGHTER, Lesia Attending Clinician PEDRITO EDWARDS Attending Clinician Unavailable VETO LIM Attending Clinician Unavailable Rodney AIKEN, Veto Moser Attending Clinician [phone] Harley Posada MD Attending Clinician Jacqueline Chu Attending Clinician Domonique Malagon PA-C Attending Clinician Ulices Cardoza MD Attending Clinician Aamir Ruiz Attending Clinician Alba Caro RN Attending Clinician Unavailable 1, [facility] Room Attending Clinician Unavailable Sven AIKEN, Liseth Doran Attending Clinician Tiffanie AIKEN, Yariel Berg Attending Clinician Ana Lopez RN Attending Clinician Unavailable Daniel FOREST FIRE FIGHTER, Maggie Scott Attending Clinician [phone] Yasemin MCKINNEY, Yanna Canas Attending Clinician Harley Posada Admitting Clinician Unavailable IRMA MCGILL Admitting Clinician Unavailable Rufino Cuadra Admitting Clinician Unavailable ANSHU_BERNARDO_Khalif_Tanvir Admitting Clinician Unavailable ANSHU_Mary Admitting Clinician Unavailable Kristina Mcdonald MD Admitting Clinician VETO LIMA Admitting Clinician Unavailable Ulices Cardoza MD Admitting Clinician Payers Payer Name Policy Type Policy Number Effective Date Expiration Date S sanjuana MEDICAID [facility] [id number] 2021 00:00:00 MEDICAID PENDING PENDING 2021 00:00:00 [facility] [id number] 2021 CHOICE [place] STAR 00:00:00 [facility] [id number] CHOICE (MEDICAID REPLACEMENT - HMO) Problems Condition Condition Condition Status Onset Resolution Last Treating Co mments Source Name Details Category Date Date Treatment Clinician Date Early Early Disease Active Univers syphilis, syphilis, 4-20 ity of genital genital 00:00: [place] (primary) (primary) [address] [place] [address] Anxiety Anxiety Disease Active Univers about about 4-20 ity of health health 00:00: [place] [address] Medical Branch Vulval Vulval Disease Active Univers lesion lesion 4-15 ity of 00:00: [address] Branch Lymphedema Lymphedema Disease Active U nivers of of 4-15 ity of genitalia genitalia 00:00: [place] [facility] Vulvar Vulvar Disease Active Univers ulcer ulcer 4-15 ity of 00:00: [place] [address] Medical Branch Anemia Anemia Problem Active [facility] 5-21 Medical 00:00: 00 Problem Active [facility] Medical 00:00: 00 Multiparit Multiparit Disease Active U nivers y y 4-21 ity of 00:00: [place] [address] Medical Branch History of History of Disease Active Overview : Univers gestationa gestationa 4-21 Formattin ity of l diabetes l diabetes 00:00: g of this [place] 00 note Medical might be Branch different from the original. In prior pregnanci es History of History of Disease Active U nivers miscarriag miscarriag - it y of e e 00:00: Medical Branch History of History of Disease Active Overview : Univers successful successful 03-16 Formattin ity of vaginal vaginal 00:00: g of this [place] 00 note Medical after after might be Branch , , different currently currently from the original. Desires repeat UTI in UTI in Disease Active Overview: Univer s 03-16 Formattin i ty of 00:00: g of this [place] 00 note Medical might be Branch different from the original. Reports currently on meds Prophylact Prophylact Disease Active U nivers ic ic 3-10 [place] antibiotic [place] [facility] [place] BMI BMI Disease Active Univers 25.0-25.9, 25.0-25.9, 3-10 it y of adult adult 00:00: [place] [facility] BMI BMI Disease Active Univers 26.0-26.9, 26.0-26.9, 3-10 it y of adult adult 00:00: [place] [facility] Recurrent Recurrent Disease Active 2019-11 Uni vers candidiasi candidiasi 0-28 it y of s of s of 00:00: [place] vagina vagina 00 Medical Branch SUICIIDAL Diagnosis Active 2019-12-17 [facility] IDEATION SUICIIDAL 12-16 14:29:00 l IDEATION 10:00: Daniel Active 00 12/16/2019 [facility] History of History of Disease Active 2015-11 U nivers herpes herpes 1- it[place] of genital[place] genitalis [place] Vaginal Vaginal Disease Active Univers discharge discharge 9- ity of 00:00: [place] [facility] History of Past Illness Condition Condition Condition Status Onset Resolution Last Treating Co mments Source Name Details Category Date Date Treatment Clinician Date Suicidal Suicidal Problem 2019-12-20 2019-12-20 [facility] ideations ideations 1-23 22:34:25 22:34:25 l 12/18/2019 18:00: Brett raymond 12/20/2019 00 Manuel Other Other Problem 2019-12-20 2019-12-20 [facility] mental mental 1-23 22:34:25 22:34:25 l disorders disorders 18:00: Herm nabila complicati complicati 00 ng the ng the puerperium puerperium 12/18/2019 12/20/2019 [facility] Allergies, Adverse Reactions, Alerts Allergy Allergy Status Severity Reaction(s) Onset Inactive Treating Comm ents Source Name Type Date Date Clinician No Known DA Active U 2021-11 [facility] 1[facility]11 [place] [facility] No Known DA Active U 2020-11 [facility] Allergie 2-06 [place] [facility] 00:00: d 00 [facility] No Known DA Active U [facility]- [facility] l [facility] No Known DA Active U [facility] Allergie 4- [facility] 00:[facility]: [facility] 00 [facility] No Known Drug [facility] No Known No Known Active Memori a Medicati Medicati l on on Sarthak Allergie Allergie s s NO KNOWN Drug Active [facility] ALLERGIE Class ity of S [facility] Social History Social Habit Start Date Stop Date Quantity Comments Source ASSERTION 2021-03-06 [facility] 00:00:00 [facility] Alcohol intake 2023-05-06 2023-05-06 Ex-drinker [facility] 00:00:00 00:00:00 (finding) [facility] Branch Exposure to 2023-03-17 2023-03-27 Not sure [facility]-CoV-2 00:00:00 13:42:00 [facility] (event) Branch Tobacco use and 2022-09-11 2022-09-11 Smokeless tobacco Un iversity of exposure 00:00:00 00:00:00 non-user [facility] Branch Social History 2019-12-18 2019-12-18 [facility] kimi 20:18:36 20:18:36 History SDOH 2019-07-14 2019-07-14 5 University o f Financial 00:00:00 00:00:00 [place] [facility] History SDOH Food 2019-07-14 2019-07-14 1 Univers ity of Worry 00:00:00 00:00:00 [place] [facility] History SDID Food 2019-07-14 2019-07-14 1 Univers ity of Scarcity 00:00:00 00:00:00 [place] [facility] History [facility] 2019-07-14 2019-07-14 2 University o f Transport Med 00:00:00 00:00:00 [place] Medic al Branch History [facility] 2019-07-14 2019-07-14 2 University o f Transport Non-Med 00:00:00 00:00:00 [facility] edical Branch Sex Ass[birth year] At [birth year] Universit y of 00:00:00 00:00:00 [facility] Smoking Status Start Date Stop Date Source Never smoked tobacco [facility] Medications Ordered Filled Start Stop Current Ordering Indication Dosage Frequency Signature Comments Components Source Medication Medication Date Date Medication? Clinician (SIG) Name Name hydrOXYzine 2022-0 Yes [id number] May take Univers 25 mg 4-18 1-2 ity of tablet 00:00: tablets, [place] 00 orally, Medical every 6 Branch hours as needed for anxiety. hydrOXYzine 2022-0 Yes [id number] May take Univers 25 mg 4-18 1-2 ity of tablet 00:00: tablets, [place] 00 orally, Medical every 6 Branch hours as needed for anxiety. hydrOXYzine 2022-0 Yes [id number] May take Univers 25 mg 4-18 1-2 ity of tablet 00:00: tablets, [place] 00 orally, Medical every 6 Branch hours as needed for anxiety. hydrOXYzine 2022-0 Yes [id number] May take Univers 25 mg 4-18 1-2 ity of tablet 00:00: tablets, [place] 00 orally, Medical every 6 Branch hours as needed for anxiety. hydrOXYzine 2022-0 Yes [id number] May take Univers 25 mg 4-18 1-2 ity of tablet 00:00: tablets, [place] 00 orally, Medical every 6 Branch hours as needed for anxiety. hydrOXYzine 2022-0 Yes [id number] May take Univers 25 mg 4-18 1-2 ity of tablet 00:00: tablets, [place] 00 orally, Medical every 6 Branch hours as needed for anxiety. valACYclovi 3-0 Yes [id number] 1g Take 1 Univers r (VALTREX) 4-12 tablet by ity of 1 gram 00:00: mouth in [place] tablet 00 the Medical morning Branch and 1 tablet in the evening. lidocaine 2 2022-0 Yes [id number] 1mL Apply 0.5 Univers % mucosal 4-12 Inches to ity o f jelly 00:00: area(s) 3 [place] 00 (three) Medical times Branch daily as needed for Pain (scale 4-6). valACYclovi 2022-0 Yes [id number] 1g Take 1 Univers r (VALTREX) 4-12 tablet by ity of 1 gram 00:00: mouth in [place] tablet 00 the Medical morning Branch and 1 tablet in the evening. lidocaine 2 2022-0 Yes [id number] 1mL Apply 0.5 Univers % mucosal 4-12 Inches to ity o f jelly 00:00: area(s) 3 [place] 00 (three) Medical times Branch daily as needed for Pain (scale 4-6). valACYclovi 2022-0 Yes [id number] 1g Take 1 Univers r (VALTREX) 4-12 tablet by ity of 1 gram 00:00: mouth in [place] tablet 00 the Medical morning Branch and 1 tablet in the evening. lidocaine 2 2022-0 Yes [id number] 1mL Apply 0.5 Univers % mucosal 4-12 Inches to ity o f jelly 00:00: area(s) 3 [place] 00 (three) Medical times Branch daily as needed for Pain (scale 4-6). valACYclovi 2022-0 Yes [id number] 1g Take 1 Univers r (VALTREX) 4-12 tablet by ity of 1 gram 00:00: mouth in [place] tablet 00 the Medical morning Branch and 1 tablet in the evening. lidocaine 2 2022-0 Yes [id number] 1mL Apply 0.5 Univers % mucosal 4-12 Inches to ity o f jelly 00:00: area(s) 3 [place] 00 (three) Medical times Branch daily as needed for Pain (scale 4-6). valACYclovi 2022-0 Yes [id number] 1g Take 1 Univers r (VALTREX) 4-12 tablet by ity of 1 gram 00:00: mouth in [place] tablet 00 the Medical morning Branch and 1 tablet in the evening. lidocaine 2 2022-0 Yes [id number] 1mL Apply 0.5 Univers % mucosal 4-12 Inches to ity o f jelly 00:00: area(s) 3 [place] 00 (three) Medical times Branch daily as needed for Pain (scale 4-6). valACYclovi 2022-0 Yes [id number] 1g Take 1 Univers r (VALTREX) 4-12 tablet by ity of 1 gram 00:00: mouth in [place] tablet 00 the Medical morning Branch and 1 tablet in the evening. lidocaine 2 2022-0 Yes [id number] 1mL Apply 0.5 Univers % mucosal 4-12 Inches to ity o f jelly 00:00: area(s) 3 [place] 00 (three) Medical times Branch daily as needed for Pain (scale 4-6). valACYclovi 2022-0 Yes [id number] 1g Take 1 Univers r (VALTREX) 4-12 tablet by ity of 1 gram 00:00: mouth in [place] tablet 00 the Medical morning Branch and 1 tablet in the evening. lidocaine 2 2022-0 Yes [id number] 1mL Apply 0.5 Univers % mucosal 4-12 Inches to ity o f jelly 00:00: area(s) 3 [place] 00 (three) Medical times Branch daily as needed for Pain (scale 4-6). valACYclovi 2022-0 Yes [id number] 1g Take 1 Univers r (VALTREX) 4-12 tablet by ity of 1 gram 00:00: mouth in [place] tablet 00 the Medical morning Branch and 1 tablet in the evening. lidocaine 2 2022-0 Yes [id number] 1mL Apply 0.5 Univers % mucosal 4-12 Inches to ity o f jelly 00:00: area(s) 3 [place] 00 (three) Medical times Branch daily as needed for Pain (scale 4-6). valACYclovi 2022-0 Yes [id number] 1g Take 1 Univers r (VALTREX) 4-12 tablet by ity of 1 gram 00:00: mouth in [place] tablet 00 the Medical morning Branch and 1 tablet in the evening. lidocaine 2 2022-0 Yes [id number] 1mL Apply 0.5 Univers % mucosal 4-12 Inches to ity o f jelly 00:00: area(s) 3 [place] 00 (three) Medical times Branch daily as needed for Pain (scale 4-6). valACYclovi 2022-0 Yes [id number] 1g Take 1 Univers r (VALTREX) 4-12 tablet by ity of 1 gram 00:00: mouth in [place] tablet 00 the Medical morning Branch and 1 tablet in the evening. lidocaine 2 2022-0 Yes [id number] 1mL Apply 0.5 Univers % mucosal 4-12 Inches to ity o f jelly 00:00: area(s) 3 [place] 00 (three) Medical times Branch daily as needed for Pain (scale 4-6). valACYclovi 2022-0 Yes [id number] 1g Take 1 Univers r (VALTREX) 4-12 tablet by ity of 1 gram 00:00: mouth in [place] tablet 00 the Medical morning Branch and 1 tablet in the evening. lidocaine 2 2022-0 Yes [id number] 1mL Apply 0.5 Univers % mucosal 4-12 Inches to ity o f jelly 00:00: area(s) 3 [place] 00 (three) Medical times Branch daily as needed for Pain (scale 4-6). valACYclovi 2022-0 Yes [id number] 1g Take 1 Univers r (VALTREX) 4-12 tablet by ity of 1 gram 00:00: mouth in [place] tablet 00 the Medical morning Branch and 1 tablet in the evening. lidocaine 2 2022-0 Yes [id number] 1mL Apply 0.5 Univers % mucosal 4-12 Inches to ity o f jelly 00:00: area(s) 3 [place] 00 (three) Medical times Branch daily as needed for Pain (scale 4-6). valACYclovi 2022-0 Yes [id number] 1g Take 1 Univers r (VALTREX) 4-12 tablet by ity of 1 gram 00:00: mouth in [place] tablet 00 the Medical morning Branch and 1 tablet in the evening. lidocaine 2 2022-0 Yes [id number] 1mL Apply 0.5 Univers % mucosal 4-12 Inches to ity o f jelly 00:00: area(s) 3 [place] 00 (three) Medical times Branch daily as needed for Pain (scale 4-6). valACYclovi 2022-0 Yes [id number] 1g Take 1 Univers r (VALTREX) 4-12 tablet by ity of 1 gram 00:00: mouth in [place] tablet 00 the Medical morning Branch and 1 tablet in the evening. lidocaine 2 2022-0 Yes [id number] 1mL Apply 0.5 Univers % mucosal 4-12 Inches to ity o f jelly 00:00: area(s) 3 [place] 00 (three) Medical times Branch daily as needed for Pain (scale 4-6). valACYclovi 2022-0 Yes [id number] 1g Take 1 Univers r (VALTREX) 4-12 tablet by ity of 1 gram 00:00: mouth in [place] tablet 00 the Medical morning Branch and 1 tablet in the evening. lidocaine 2 Yes [id number] 1mL Apply 0.5 Univers % mucosal 4-12 Inches to ity o f jelly 00:00: area(s) 3 [place] 00 (three) Medical times Branch daily as needed for Pain (scale 4-6). valACYclovi Yes [id number] 1g Take 1 Univers r (VALTREX) 4-12 tablet by ity of 1 gram 00:00: mouth in [place] tablet 00 the Medical morning Branch and 1 tablet in the evening. lidocaine 2 Yes [id number] 1mL Apply 0.5 Univers % mucosal 4-12 Inches to ity o f jelly 00:00: area(s) 3 [place] 00 (three) Medical times Branch daily as needed for Pain (scale 4-6). valACYclovi Yes [id number] 1g Take 1 Univers r (VALTREX) 4-12 tablet by ity of 1 gram 00:00: mouth in [place] tablet 00 the Medical morning Branch and 1 tablet in the evening. valACYclovi 0 Yes [id number] 1g Take 1 Univers r (VALTREX) 4-12 tablet by ity of 1 gram 00:00: mouth in [place] tablet 00 the Medical morning Branch and 1 tablet in the evening. lidocaine 2 2022- No [id number] 1mL Apply 0.5 Univers % mucosal 4-12 06-07 Inches to ity of jelly 00:00: 00:00 area(s) 3 [place] 00 :00 (three) Medical times Branch daily as needed for Pain (scale 4-6). lidocaine 2 2022- No [id number] 1mL Apply 0.5 Univers % mucosal 4-12 06-07 Inches to ity of jelly 00:00: 00:00 area(s) 3 [place] 00 :00 (three) Medical times Branch daily as needed for Pain (scale 4-6). promethazin 2021-11 Yes [id number] 5mL Take 5 mL Univers e-dextromet 0-17 by mouth 4 it y of horphan 00:00: (four) [place] 6.25-15 00 times Medical mg/5 mL daily as Branch syrup needed for Cough. albuterol 2021-11 Yes [id number] 2.5mg Inhale 3 Univers 2.5 mg /3 0-17 mL every 4 ity of mL (0.083 00:00: (four) [place] %) 00 hours as Medical nebulizer needed for Bran ch solution Shortness of Breath. budesonide 2021-11 Yes [id number] 1mg Use 2 mL Univers 1 mg/2 mL 0-17 as ity of nebulizer 00:00: [place] solution 00 in the Medical morning. Branch promethazin 2021-11 Yes [id number] 5mL Take 5 mL Univers e-dextromet 0-17 by mouth 4 it y of horphan 00:00: (four) [place] 6.25-15 00 times Medical mg/5 mL daily as Branch syrup needed for Cough. albuterol 2021-11 Yes [id number] 2.5mg Inhale 3 Univers 2.5 mg /3 0-17 mL every 4 ity of mL (0.083 00:00: (four) [place] %) 00 hours as Medical nebulizer needed for Bran ch solution Shortness of Breath. budesonide 2021-11 Yes [id number] 1mg Use 2 mL Univers 1 mg/2 mL 0-17 as ity of nebulizer 00:00: directed [place] solution 00 in the Medical morning. Branch promethazin 2021-11 Yes [id number] 5mL Take 5 mL Univers e-dextromet 0-17 by mouth 4 it y of horphan 00:00: (four) [place] 6.25-15 00 times Medical mg/5 mL daily as Branch syrup needed for Cough. albuterol 2021-11 Yes [id number] 2.5mg Inhale 3 Univers 2.5 mg /3 0-17 mL every 4 ity of mL (0.083 00:00: (four) [place] %) 00 hours as Medical nebulizer needed for Bran ch solution Shortness of Breath. budesonide 2021-11 Yes [id number] 1mg Use 2 mL Univers 1 mg/2 mL 0-17 as ity of nebulizer 00:00: directed [place] solution 00 in the Medical morning. Branch promethazin 2021-11 Yes [id number] 5mL Take 5 mL Univers e-dextromet 0-17 by mouth 4 it y of horphan 00:00: (four) [place] 6.25-15 00 times Medical mg/5 mL daily as Branch syrup needed for Cough. albuterol 2021-11 Yes [id number] 2.5mg Inhale 3 Univers 2.5 mg /3 0-17 mL every 4 ity of mL (0.083 00:00: (four) [place] %) 00 hours as Medical nebulizer needed for Bran ch solution Shortness of Breath. budesonide 2021-11 Yes [id number] 1mg Use 2 mL Univers 1 mg/2 mL 0-17 as ity of nebulizer 00:00: directed [place] solution 00 in the Medical morning. Branch promethazin 2021-11 Yes [id number] 5mL Take 5 mL Univers e-dextromet 0-17 by mouth 4 it y of horphan 00:00: (four) [place] 6.25-15 00 times Medical mg/5 mL daily as Branch syrup needed for Cough. albuterol 2021-11 Yes [id number] 2.5mg Inhale 3 Univers 2.5 mg /3 0-17 mL every 4 ity of mL (0.083 00:00: (four) [place] %) 00 hours as Medical nebulizer needed for Bran ch solution Shortness of Breath. budesonide 2021-11 Yes [id number] 1mg Use 2 mL Univers 1 mg/2 mL 0-17 as ity of nebulizer 00:00: directed [place] solution 00 in the Medical morning. Branch promethazin 2021-11 Yes [id number] 5mL Take 5 mL Univers e-dextromet 0-17 by mouth 4 it y of horphan 00:00: (four) [place] 6.25-15 00 times Medical mg/5 mL daily as Branch syrup needed for Cough. albuterol 2021-11 Yes [id number] 2.5mg Inhale 3 Univers 2.5 mg /3 0-17 mL every 4 ity of mL (0.083 00:00: (four) [place] %) 00 hours as Medical nebulizer needed for Bran ch solution Shortness of Breath. budesonide 2021-11 Yes [id number] 1mg Use 2 mL Univers 1 mg/2 mL 0-17 as ity of nebulizer 00:00: directed [place] solution 00 in the Medical morning. Branch promethazin 2021-11 Yes [id number] 5mL Take 5 mL Univers e-dextromet 0-17 by mouth 4 it y of horphan 00:00: (four) [place] 6.25-15 00 times Medical mg/5 mL daily as Branch syrup needed for Cough. albuterol 2021-11 Yes [id number] 2.5mg Inhale 3 Univers 2.5 mg /3 0-17 mL every 4 ity of mL (0.083 00:00: (four) [place] %) 00 hours as Medical nebulizer needed for Bran ch solution Shortness of Breath. budesonide 2021-11 Yes [id number] 1mg Use 2 mL Univers 1 mg/2 mL 0-17 as ity of nebulizer 00:00: [place] solution 00 in the Medical morning. [place] promethazin 2021-11 Yes [id number] 5mL Take 5 mL Univers e-dextromet 0-17 by mouth 4 it y of horphan 00:00: (four) [place] 6.25-15 00 times Medical mg/5 mL daily as Branch syrup needed for Cough. albuterol 2021-11 Yes [id number] 2.5mg Inhale 3 Univers 2.5 mg /3 0-17 mL every 4 ity of mL (0.083 00:00: (four) [place] %) 00 hours as Medical nebulizer needed for Bran ch solution Shortness of Breath. budesonide 2021-11 Yes [id number] 1mg Use 2 mL Univers 1 mg/2 mL 0-17 as ity of nebulizer 00:00: directed [place] solution 00 in the Medical morning. [place] promethazin 2021-11 Yes [id number] 5mL Take 5 mL Univers e-dextromet 0-17 by mouth 4 it y of horphan 00:00: (four) [place] 6.25-15 00 times Medical mg/5 mL daily as Branch syrup needed for Cough. albuterol 2021-11 Yes [id number] 2.5mg Inhale 3 Univers 2.5 mg /3 0-17 mL every 4 ity of mL (0.083 00:00: (four) [place] %) 00 hours as Medical nebulizer needed for Bran ch solution Shortness of Breath. budesonide 2021-11 Yes [id number] 1mg Use 2 mL Univers 1 mg/2 mL 0-17 as ity of nebulizer 00:00: directed [place] solution 00 in the Medical morning. Branch promethazin 2021-11 Yes [id number] 5mL Take 5 mL Univers e-dextromet 0-17 by mouth 4 it y of horphan 00:00: (four) [place] 6.25-15 00 times Medical mg/5 mL daily as Branch syrup needed for Cough. albuterol 2021-11 Yes [id number] 2.5mg Inhale 3 Univers 2.5 mg /3 0-17 mL every 4 ity of mL (0.083 00:00: (four) [place] %) 00 hours as Medical nebulizer needed for Bran ch solution Shortness of Breath. budesonide 2021-11 Yes [id number] 1mg Use 2 mL Univers 1 mg/2 mL 0-17 as ity of nebulizer 00:00: directed [place] solution 00 in the Medical morning. Branch promethazin 2021-11 Yes [id number] 5mL Take 5 mL Univers e-dextromet 0-17 by mouth 4 it y of horphan 00:00: (four) [place] 6.25-15 00 times Medical mg/5 mL daily as Branch syrup needed for Cough. albuterol 2021-11 Yes [id number] 2.5mg Inhale 3 Univers 2.5 mg /3 0-17 mL every 4 ity of mL (0.083 00:00: (four) [place] %) 00 hours as Medical nebulizer needed for Bran ch solution Shortness of Breath. budesonide 2021-11 Yes [id number] 1mg Use 2 mL Univers 1 mg/2 mL 0-17 as ity of nebulizer 00:00: directed [place] solution 00 in the Medical morning. Branch promethazin 2021-11 Yes [id number] 5mL Take 5 mL Univers e-dextromet 0-17 by mouth 4 it y of horphan 00:00: (four) [place] 6.25-15 00 times Medical mg/5 mL daily as Branch syrup needed for Cough. albuterol 2021-11 Yes [id number] 2.5mg Inhale 3 Univers 2.5 mg /3 0-17 mL every 4 ity of mL (0.083 00:00: (four) [place] %) 00 hours as Medical nebulizer needed for Bran ch solution Shortness of Breath. budesonide 2021-11 Yes [id number] 1mg Use 2 mL Univers 1 mg/2 mL 0-17 as ity of nebulizer 00:00: directed [place] solution 00 in the Medical morning. Branch promethazin 2021-11 Yes [id number] 5mL Take 5 mL Univers e-dextromet 0-17 by mouth 4 it y of horphan 00:00: (four) [place] 6.25-15 00 times Medical mg/5 mL daily as Branch syrup needed for Cough. albuterol 2021-11 Yes [id number] 2.5mg Inhale 3 Univers 2.5 mg /3 0-17 mL every 4 ity of mL (0.083 00:00: (four) [place] %) 00 hours as Medical nebulizer needed for Bran ch solution Shortness of Breath. budesonide 2021-11 Yes [id number] 1mg Use 2 mL Univers 1 mg/2 mL 0-17 as ity of nebulizer 00:00: directed [place] solution 00 in the Medical morning. Branch promethazin 2021-11 Yes [id number] 5mL Take 5 mL Univers e-dextromet 0-17 by mouth 4 it y of horphan 00:00: (four) [place] 6.25-15 00 times Medical mg/5 mL daily as Branch syrup needed for Cough. albuterol 2021-11 Yes [id number] 2.5mg Inhale 3 [facility] 2.5 mg /3 0-17 mL every 4 ity of mL (0.083 00:00: (four) [place] %) 00 hours as Medical nebulizer needed for Bran ch solution Shortness of Breath. budesonide 2021-11 Yes [id number] 1mg Use 2 mL [facility] 1 mg/2 mL 0-17 [place] of nebulizer 00:00[place] 00 in [place] [facility] morning. Branch promethazin 2021-11 Yes [id number] 5mL Take 5 mL [facility] e-dextromet 0-17 by mouth 4 it y of horphan 00:00: (four) [place] 6.25-15 00 times Medical mg/5 mL daily as Branch syrup needed for Cough. albuterol 2021-11 Yes [id number] 2.5mg Inhale 3 [facility] 2.5 mg /3 0-17 mL every 4 ity of mL (0.083 00:00: (four) [place] %) 00 hours as Medical nebulizer needed for Bran ch solution Shortness of Breath. budesonide 2021-11 Yes [id number] 1mg Use 2 mL [facility] 1 mg/2 mL 0-17 as [place] of nebulizer 00:00: [place] solution 00 in the Medical morning. Branch promethazin 2021-11 Yes [id number] 5mL Take 5 mL [facility] e-dextromet 0-17 by mouth 4 it y of horphan 00:00: (four) [place] 6.25-15 00 times Medical mg/5 mL daily as Branch syrup needed for Cough. albuterol 2021-11 Yes [id number] 2.5mg Inhale 3 [facility] 2.5 mg /3 0-17 mL every 4 ity of mL (0.083 00:00: (four) [place] %) 00 hours as Medical nebulizer needed for Bran ch solution Shortness of Breath. budesonide 2021-11 Yes [id number] 1mg Use 2 mL [facility] 1 mg/2 mL 0-17 as [facility] of nebulizer 00:00: directed [place] solution 00 in the Medical morning. Branch promethazin 2021-11 Yes [id number] 5mL Take 5 mL [facility] e-dextromet 0-17 by mouth 4 it y of horphan 00:00: (four) [place] 6.25-15 00 times Medical mg/5 mL daily as Branch syrup needed for Cough. albuterol 2021-11 Yes [id number] 2.5mg Inhale 3 [facility] 2.5 mg /3 0-17 mL every 4 ity of mL (0.083 00:00: (four) [place] %) 00 hours as Medical nebulizer needed for Bran ch solution Shortness of Breath. budesonide 2021-11 Yes [id number] 1mg Use 2 mL [facility] 1 mg/2 mL 0-17 as [place] of nebulizer 00:00: [place] solution 00 in the Medical morning. Branch promethazin 2021-11 Yes [id number] 5mL Take 5 mL [facility] e-dextromet 0-17 by mouth 4 it y of horphan 00:00: (four) [place] 6.25-15 00 times Medical mg/5 mL daily as Branch syrup needed for Cough. albuterol 2021-11 Yes [id number] 2.5mg Inhale 3 [facility] 2.5 mg /3 0-17 mL every 4 ity of mL (0.083 00:00: (four) [place] %) 00 hours as Medical nebulizer needed for Bran ch solution Shortness of Breath. budesonide 2021-11 Yes [id number] 1mg Use 2 mL [facility] 1 mg/2 mL 0-17 as [facility] of nebulizer 00:00: directed [place] solution 00 in the Medical morning. Branch promethazin 2021-11 Yes [id number] 5mL Take 5 mL [facility] e-dextromet 0-17 by mouth 4 it y of horphan 00:00: (four) [place] 6.25-15 00 times Medical mg/5 mL daily as Branch syrup needed for Cough. albuterol 2021-11 Yes [id number] 2.5mg Inhale 3 [facility] 2.5 mg /3 0-17 mL every 4 ity of mL (0.083 00:00: (four) [place] %) 00 hours as Medical nebulizer needed for Bran ch solution Shortness of Breath. budesonide 2021-11 Yes [id number] 1mg Use 2 mL [facility] 1 mg/2 mL 0-17 as [facility] of nebulizer 00:00: directed [place] solution 00 in the Medical morning. Branch promethazin 2021-11 Yes [id number] 5mL Take 5 mL [facility] e-dextromet 0-17 by mouth 4 it y of horphan 00:00: (four) [place] 6.25-15 00 times Medical mg/5 mL daily as Branch syrup needed for Cough. albuterol 2021-11 Yes [id number] 2.5mg Inhale 3 [facility] 2.5 mg /3 0-17 mL every 4 ity of mL (0.083 00:00: (four) [place] %) 00 hours as Medical nebulizer needed for Bran ch solution Shortness of Breath. budesonide 2021-11 Yes [id number] 1mg Use 2 mL [facility] 1 mg/2 mL 0-17 as ity of nebulizer 00:00: directed [place] solution 00 in the Medical morning. Branch promethazin 2021-11 Yes [id number] 5mL Take 5 mL [facility] e-dextromet 0-17 by mouth 4 it y of horphan 00:00: (four) [place] 6.25-15 00 times Medical mg/5 mL daily as Branch syrup needed for Cough. albuterol 2021-11 Yes [id number] 2.5mg Inhale 3 [facility] 2.5 mg /3 0-17 mL every 4 ity of mL (0.083 00:00: (four) [place] %) 00 hours as Medical nebulizer needed for Bran ch solution Shortness of Breath. budesonide 2021-11 Yes [id number] 1mg Use 2 mL [facility] 1 mg/2 mL 0-17 as ity of nebulizer 00:00: directed [place] solution 00 in the Medical morning. Branch promethazin 2021-11 Yes [id number] 5mL Take 5 mL [facility] e-dextromet 0-17 by mouth 4 it y of horphan 00:00: (four) [place] 6.25-15 00 times Medical mg/5 mL daily as Branch syrup needed for Cough. albuterol 2021-11 Yes [id number] 2.5mg Inhale 3 [facility] 2.5 mg /3 0-17 mL every 4 ity of mL (0.083 00:00: (four) [place] %) 00 hours as Medical nebulizer needed for Bran ch solution Shortness of Breath. budesonide 2021-11 Yes [id number] 1mg Use 2 mL [facility] 1 mg/2 mL 0-17 as ity of nebulizer 00:00: directed [place] solution 00 in the Medical morning. Branch promethazin 2021-11 Yes [id number] 5mL Take 5 mL [facility] e-dextromet 0-17 by mouth 4 it y of horphan 00:00: (four) [place] 6.25-15 00 times Medical mg/5 mL daily as Branch syrup needed for Cough. albuterol 2021-11 Yes [id number] 2.5mg Inhale 3 [facility] 2.5 mg /3 0-17 mL every 4 ity of mL (0.083 00:00: (four) [place] %) 00 hours as Medical nebulizer needed for Bran ch solution Shortness of Breath. budesonide 2021-11 Yes [id number] 1mg Use 2 mL [facility] 1 mg/2 mL 0-17 as ity of nebulizer 00:00: directed [place] solution 00 in the Medical morning. Branch amoxicillin 2021-11- No [id number] 1{tbl} Take 1 [facility] -clavulanat 0-17 10-25 tablet by it y of e 00:00: 04:59 mouth in [place] (AUGMENTIN) 00 :00 the Medical 875-125 mg morning Branch per tablet and 1 tablet in the evening. Do all this for 7 days. fluconazole 2021-11- No [id number] 150mg Take 1 [facility] (DIFLUCAN) 0-17 10-18 tablet by ity of 150 mg 00:00: 04:59 mouth [place] tablet 00 :00 now for 1 Medical dose. Branch fluticasone 2020-11 Yes [id number] 1{spray Use 1 [facility] propionate 1-30 } [place] in ity o f 50 00:00: each [place] mcg/actuati 00 nostril Medic al on nasal daily. Branch spray fluticasone 2020-11 Yes [id number] 1{spray Use 1 [facility] propionate 1-30 } [place] in ity o f 50 00:00: each [place] mcg/actuati 00 nostril Medic al on nasal daily. Branch spray fluticasone 2020-11 Yes [id number] 1{spray Use 1 [facility] propionate 1-30 } [place] in ity o f 50 00:00: each [place] mcg/actuati 00 nostril Medic al on nasal daily. Branch spray fluticasone 2020-11 Yes [id number] 1{spray Use 1 [facility] propionate 1-30 } [place] in ity o f 50 00:00: each [place] mcg/actuati 00 nostril Medic al on nasal daily. Branch spray fluticasone 2020-11 Yes [id number] 1{spray Use 1 [facility] propionate 1-30 } [place] in ity o f 50 00:00: each [place] mcg/actuati 00 nostril Medic al on nasal daily. Branch spray fluticasone 2020-11 Yes [id number] 1{spray Use 1 [facility] propionate 1-30 } [place] in ity o f 50 00:00: each [place] mcg/actuati 00 nostril Medic al on nasal daily. Branch spray fluticasone 2020-11 Yes [id number] 1{spray Use 1 [facility] propionate 1-30 } [place] in ity o f 50 00:00: each [place] mcg/actuati 00 nostril Medic al on nasal daily. Branch spray fluticasone 2020-11 Yes [id number] 1{spray Use 1 [facility] propionate 1-30 } [place] in ity o f 50 00:00: each [place] mcg/actuati 00 nostril Medic al on nasal daily. Branch spray fluticasone 2020-11 Yes [id number] 1{spray Use 1 [facility] propionate 1-30 } [place] in ity o f 50 00:00: each [place] mcg/actuati 00 nostril Medic al on nasal daily. Branch spray fluticasone 2020-11 Yes [id number] 1{spray Use 1 [facility] propionate 1-30 } [place] in ity o f 50 00:00: each [place] mcg/actuati 00 nostril Medic al on nasal daily. Branch spray fluticasone 2020-11 Yes [id number] 1{spray Use 1 [facility] propionate 1-30 } [place] in ity o f 50 00:00: each [place] mcg/actuati 00 nostril Medic al on nasal daily. Branch spray fluticasone 2020-11 Yes [id number] 1{spray Use 1 [facility] propionate 1-30 } [place] in ity o f 50 00:00: each [place] mcg/actuati 00 nostril Medic al on nasal daily. Branch spray fluticasone 2020-11 Yes [id number] 1{spray Use 1 [facility] propionate 1-30 } [place] in ity o f 50 00:00: each [place] mcg/actuati 00 nostril Medic al on nasal daily. Branch spray fluticasone 2020-11 Yes [id number] 1{spray Use 1 [facility] propionate 1-30 } [place] in ity o f 50 00:00: each [place] mcg/actuati 00 nostril Medic al on nasal daily. Branch spray fluticasone 2020-11 Yes [id number] 1{spray Use 1 [facility] propionate 1-30 } [place] in ity o f 50 00:00: each [place] mcg/actuati 00 nostril Medic al on nasal daily. Branch spray fluticasone 2020-11 Yes [id number] 1{spray Use 1 [facility] propionate 1-30 } [place] in ity o f 50 00:00: each [place] mcg/actuati 00 nostril Medic al on nasal daily. Branch spray fluticasone 2020-11 Yes [id number] 1{spray Use 1 [facility] propionate 1-30 } [place] in ity o f 50 00:00: each [place] mcg/actuati 00 nostril Medic al on nasal daily. Branch spray fluticasone 2020-11 Yes [id number] 1{spray Use 1 [facility] propionate 1-30 } [place] in ity o f 50 00:00: each [place] mcg/actuati 00 nostril Medic al on nasal daily. Branch spray fluticasone 2020-11 Yes [id number] 1{spray Use 1 [facility] propionate 1-30 } [place] in ity o f 50 00:00: each [place] mcg/actuati 00 nostril Medic al on nasal daily. Branch spray fluticasone 2020-11 Yes [id number] 1{spray Use 1 [facility] propionate 1-30 } [place] in ity o f 50 00:00: each [place] mcg/actuati 00 nostril Medic al on nasal daily. Branch spray fluticasone 2020-11 Yes [id number] 1{spray Use 1 [facility] propionate 1-30 } [place] in ity o f 50 00:00: each [place] mcg/actuati 00 nostril Medic al on nasal daily. Branch spray fluticasone 2020-11 Yes [id number] 1{spray Use 1 [facility] propionate 1-30 } [place] in ity o f 50 00:00: each [place] mcg/actuati 00 nostril Medic al on nasal daily. Branch spray fluticasone 2020-11 Yes [id number] 1{spray Use 1 [facility] propionate 1-30 } [place] in ity o f 50 00:00: each [place] mcg/actuati 00 nostril Medic al on nasal daily. Branch spray fluticasone 2020-11 Yes [id number] 1{spray Use 1 [facility] propionate 1-30 } [place] in ity o f 50 00:00: each [place] mcg/actuati 00 nostril Medic al on nasal daily. Branch spray fluticasone 2020-11- No [id number] 1{spray Use 1 [facility] propionate 1-30 06-07 } [place] in ity of 50 00:00: 00:00 each [place] mcg/actuati 00 :00 nostril Medic al on nasal daily. Branch spray fluticasone 2020-11- No [id number] 1{spray Use 1 [facility] propionate 1-30 06-07 } [place] in ity of 50 00:00: 00:00 each [place] mcg/actuati 00 :00 nostril Medic al on nasal daily. Branch spray amoxicillin 2020-11- No [id number] 1{tbl} Take 1 [facility] -clavulanat 1-30 12-08 tablet by it y of e 00:00: 05:59 mouth 2 [place] (AUGMENTIN) 00 :00 (two) Medical 875-125 mg times Branch per tablet daily for 7 days. citalopram 2020-11 Yes Univers 20 mg 0-08 ity of tablet 00:00: [place] [facility] citalopram 2020-11 Yes Univers 20 mg 0-08 ity of tablet 00:00: [place] [facility] citalopram 2020-11 Yes Univers 20 mg 0-08 ity of tablet 00:00: [place] [facility] citalopram 2020-11 Yes Univers 20 mg 0-08 ity of tablet 00:00: [place] [facility] citalopram 2020-11 Yes Univers 20 mg 0-08 ity of tablet 00:00: [place] [facility] citalopram 2020-11 Yes Univers 20 mg 0-08 ity of tablet 00:00: [place] [facility] citalopram 2020-11 Yes Univers 20 mg 0-08 ity of tablet 00:00: [place] [facility] citalopram 2020-11 Yes Univers 20 mg 0-08 ity of tablet 00:00: [place] [facility] citalopram 2020-11 Yes Univers 20 mg 0-08 ity of tablet 00:00: [place] [facility] citalopram 2020-11 Yes Univers 20 mg 0-08 ity of tablet 00:00: [place] [facility] citalopram 2020-11 Yes Univers 20 mg 0-08 ity of tablet 00:00: [place] [facility] citalopram 2020-11 Yes Univers 20 mg 0-08 ity of tablet 00:00: [place] [facility] citalopram 2020-11 Yes Univers 20 mg 0-08 ity of tablet 00:00: [place] [facility] citalopram 2020-11 Yes Univers 20 mg 0-08 ity of tablet 00:00: [place] [facility] citalopram 2020-11 Yes Univers 20 mg 0-08 ity of tablet 00:00: [place] 00 Medical Branch citalopram 2020-11 Yes Univers 20 mg 0-08 ity of tablet 00:00: Medical Branch citalopram 2020-11 Yes Univers 20 mg 0-08 ity of tablet 00:00: Medical Branch citalopram 2020-11 Yes [facility] 20 mg 0-08 ity of tablet 00:00: Medical Branch citalopram 2020-11 Yes [facility] 20 mg 0-08 ity of tablet 00:00: Medical Branch citalopram 2020-11 Yes [facility] 20 mg 0-08 ity of tablet 00:00: Medical Branch citalopram 2020-11 Yes [facility] 20 mg 0-08 ity of tablet 00:00: Medical Branch citalopram 2020-11 Yes [facility] 20 mg 0-08 ity of tablet 00:00: Medical Branch citalopram 2020-11 Yes Univers 20 mg 0-08 ity of tablet 00:00: [facility] Branch citalopram 2020-11 Yes Univers 20 mg 0-08 ity of tablet 00:00: Medical Branch citalopram 2020-11- No Univer s 20 mg 0-08 06-07 ity of tablet 00:00: 00:00 [place] 00 :00 Medical Branch citalopram 2020-11- No Univer s 20 mg 0-08 06-07 ity of tablet 00:00: 00:00 [place] 00 :00 [facility] Branch ondansetron Yes [id number] 4mg Take 1 Univers (ZOFRAN 4-23 tablet by ity of ODT) 4 mg 00:00: mouth [place] disintegrat 00 every 8 Medic al ing tablet (eight) Branch hours as needed for Nausea and Vomiting (N/V). ondansetron Yes [id number] 4mg Take 1 [facility] (ZOFRAN 4-23 tablet by ity of ODT) 4 mg 00:00: mouth [place] disintegrat 00 every 8 Medic al ing tablet (eight) Branch hours as needed for Nausea and Vomiting (N/V). ondansetron Yes [id number] 4mg Take 1 [facility] (ZOFRAN 4-23 tablet by ity of ODT) 4 mg 00:00: mouth [place] disintegrat 00 every 8 Medic al ing tablet (eight) Branch hours as needed for Nausea and Vomiting (N/V). ondansetron 2020-0 Yes [id number] 4mg Take 1 [facility] (ZOFRAN 4-23 tablet by ity of ODT) 4 mg 00:00: mouth [place] disintegrat 00 every 8 Medic al ing tablet (eight) Branch hours as needed for Nausea and Vomiting (N/V). ondansetron 2020-0 Yes [id number] 4mg Take 1 [facility] (ZOFRAN 4-23 tablet by ity of ODT) 4 mg 00:00: mouth [place] disintegrat 00 every 8 Medic al ing tablet (eight) Branch hours as needed for Nausea and Vomiting (N/V). ondansetron 2020-0 Yes [id number] 4mg Take 1 [facility] (ZOFRAN 4-23 tablet by ity of ODT) 4 mg 00:00: mouth [place] disintegrat 00 every 8 Medic al ing tablet (eight) Branch hours as needed for Nausea and Vomiting (N/V). ondansetron 2020-0 Yes [id number] 4mg Take 1 Univers (ZOFRAN 4-23 tablet by ity of ODT) 4 mg 00:00: mouth [place] disintegrat 00 every 8 Medic al ing tablet (eight) Branch hours as needed for Nausea and Vomiting (N/V). ondansetron 2020-0 Yes [id number] 4mg Take 1 [facility] (ZOFRAN 4-23 tablet by ity of ODT) 4 mg 00:00: mouth [place] disintegrat 00 every 8 Medic al ing tablet (eight) Branch hours as needed for Nausea and Vomiting (N/V). ondansetron 2020-0 Yes [id number] 4mg Take 1 Univers (ZOFRAN 4-23 tablet by ity of ODT) 4 mg 00:00: mouth [place] disintegrat 00 every 8 Medic al ing tablet (eight) Branch hours as needed for Nausea and Vomiting (N/V). ondansetron 1-0 Yes [id number] 4mg Take 1 Univers (ZOFRAN 4-23 tablet by ity of ODT) 4 mg 00:00: mouth [place] disintegrat 00 every 8 Medic al ing tablet (eight) Branch hours as needed for Nausea and Vomiting (N/V). ondansetron 2020-0 Yes [id number] 4mg Take 1 [facility] (ZOFRAN 4-23 tablet by ity of ODT) 4 mg 00:00: mouth [place] disintegrat 00 every 8 Medic al ing tablet (eight) Branch hours as needed for Nausea and Vomiting (N/V). ondansetron 2020-0 Yes [id number] 4mg Take 1 [facility] (ZOFRAN 4-23 tablet by ity of ODT) 4 mg 00:00: mouth [place] disintegrat 00 every 8 Medic al ing tablet (eight) Branch hours as needed for Nausea and Vomiting (N/V). ondansetron 2020-0 Yes [id number] 4mg Take 1 Univers (ZOFRAN 4-23 tablet by ity of ODT) 4 mg 00:00: mouth [place] disintegrat 00 every 8 Medic al ing tablet (eight) Branch hours as needed for Nausea and Vomiting (N/V). ondansetron 2020-0 Yes [id number] 4mg Take 1 [facility] (ZOFRAN 4-23 tablet by ity of ODT) 4 mg 00:00: mouth [place] disintegrat 00 every 8 Medic al ing tablet (eight) Branch hours as needed for Nausea and Vomiting (N/V). ondansetron 2020-0 Yes [id number] 4mg Take 1 [facility] (ZOFRAN 4-23 tablet by ity of ODT) 4 mg 00:00: mouth [place] disintegrat 00 every 8 Medic al ing tablet (eight) Branch hours as needed for Nausea and Vomiting (N/V). ondansetron 2020-0 Yes [id number] 4mg Take 1 [facility] (ZOFRAN 4-23 tablet by ity of ODT) 4 mg 00:00: mouth [place] disintegrat 00 every 8 Medic al ing tablet (eight) Branch hours as needed for Nausea and Vomiting (N/V). ondansetron 2020-0 Yes [id number] 4mg Take 1 Univers (ZOFRAN 4-23 tablet by ity of ODT) 4 mg 00:00: mouth [place] disintegrat 00 every 8 Medic al ing tablet (eight) Branch hours as needed for Nausea and Vomiting (N/V). ondansetron 2020-0 Yes [id number] 4mg Take 1 Univers (ZOFRAN 4-23 tablet by ity of ODT) 4 mg 00:00: mouth [place] disintegrat 00 every 8 Medic al ing tablet (eight) Branch hours as needed for Nausea and Vomiting (N/V). ondansetron 2020-0 Yes [id number] 4mg Take 1 [facility] (ZOFRAN 4-23 tablet by ity of ODT) 4 mg 00:00: mouth [place] disintegrat 00 every 8 Medic al ing tablet (eight) Branch hours as needed for Nausea and Vomiting (N/V). ondansetron 2020-0 Yes [id number] 4mg Take 1 [facility] (ZOFRAN 4-23 tablet by ity of ODT) 4 mg 00:00: mouth [place] disintegrat 00 every 8 Medic al ing tablet (eight) Branch hours as needed for Nausea and Vomiting (N/V). ondansetron 2020-0 Yes [id number] 4mg Take 1 Univers (ZOFRAN 4-23 tablet by ity of ODT) 4 mg 00:00: mouth [place] disintegrat 00 every 8 Medic al ing tablet (eight) Branch hours as needed for Nausea and Vomiting (N/V). ondansetron 2020-0 Yes [id number] 4mg Take 1 [facility] (ZOFRAN 4-23 tablet by ity of ODT) 4 mg 00:00: mouth [place] disintegrat 00 every 8 Medic al ing tablet (eight) Branch hours as needed for Nausea and Vomiting (N/V). ondansetron 2020-0 Yes [id number] 4mg Take 1 [facility] (ZOFRAN 4-23 tablet by ity of ODT) 4 mg 00:00: mouth [place] disintegrat 00 every 8 Medic al ing tablet (eight) Branch hours as needed for Nausea and Vomiting (N/V). ondansetron 2020-0 Yes [id number] 4mg Take 1 [facility] (ZOFRAN 4-23 tablet by ity of ODT) 4 mg 00:00: mouth [place] disintegrat 00 every 8 Medic al ing tablet (eight) Branch hours as needed for Nausea and Vomiting (N/V). ondansetron 1-0 2023- No [id number] 4mg Take 1 [facility] (ZOFRAN 4-23 06-07 tablet by ity of ODT) 4 mg 00:00: 00:00 mouth [place] disintegrat 00 :00 every 8 Medic al ing tablet (eight) Branch hours as needed for Nausea and Vomiting (N/V). ondansetron 2022- No [id number] 4mg Take 1 Univers (ZOFRAN 4-05-02 tablet by lizz of YASMANYT) 4 mg 00:00: 00:00 mouth [place] disintegrat 00 :00 every 8 Medic al ing tablet (eight) Branch hours as needed for Nausea and Vomiting (N/V). Benadryl No Notes: [facility] 1-23 (Same as: l 07:40: Benadryl) Benadryl No Notes: [facility] 1-23 (Same as: l 07:40: Benadryl) Benadryl No Notes: [facility] 1-23 (Same as: l 07:40: Benadryl) Benadryl No Notes: [facility] 1-23 (Same as: l 07:40: Benadryl) Benadryl No Notes: [facility] 1-23 (Same as: l 07:40: Benadryl) Benadryl No Notes: [facility] 1-23 (Same as: l 07:40: Benadryl) Benadryl No Notes: [facility] 1-23 (Same as: l 07:40: Benadryl) Benadryl No Notes: [facility] 1-23 (Same as: l 07:40: Benadryl) Benadryl No Notes: [facility] 1-23 (Same as: l 07:40: Benadryl) Daniel 00 Benadryl No Notes: [facility] 1-23 (Same as: l 07:40: Benadryl) Haldol No Notes: [facility] 1-23 (Same as: l 07:39: Haldol) [place] 00 Haldol No Notes: [facility] 1-23 (Same as: l 07:39: Haldol) Haldol 0 No Notes: [facility] 1-23 (Same as: l 07:39: Haldol) [place] 00 Haldol 0 No Notes: [facility] 1-23 (Same as: l 07:39: Haldol) [place] 00 Haldol No Notes: [facility] 1-23 (Same as: l 07:39: Haldol) Sarthak 00 Haldol No Notes: [facility] 1-23 (Same as: l 07:39: Haldol) [place] 00 Haldol No Notes: [facility] 1-23 (Same as: l 07:39: Haldol) Sarthak 00 Haldol 0 No Notes: [facility] 1-23 (Same as: l 07:39: Haldol) Daniel 00 Haldol No Notes: [facility] 1-23 (Same as: l 07:39: Haldol) [place] 00 Haldol No Notes: [facility] 1-23 (Same as: l 07:39: Haldol) olanzapine 2020-0 No 10 mg, Memor ia 1 Route: PO, l 03:36: Drug form: [place] 00 TAB, ONCE, Dosing Weight 63.636, kg, Start date: 12/17/19 21:36:00 [employer]MER, Stop date: 12/17/19 21:36:00 [employer] olanzapine 2020-0 No 10 mg, Memor ia 12-18 Route: PO, l 03:36: Drug form: [place] 00 TAB, ONCE, Dosing Weight 63.636, kg, Start date: 12/17/19 21:36:00 [employer]AG SKIMMER, Stop date: 12/17/19 21:36:00 [employer] olanzapine 2020-0 No 10 mg, Memor ia 12-18 Route: PO, l 03:36: Drug form: [place] 00 TAB, ONCE, Dosing Weight 63.636, kg, Start date: 12/17/19 21:36:00 SLAG SKIMMER, Stop date: 12/17/19 21:36:00 [employer] olanzapine 2020-0 No 10 mg, Memor ia 12-18 Route: PO, l 03:36: Drug form: [place] 00 TAB, ONCE, Dosing Weight 63.636, kg, Start date: 12/17/19 21:36:00 SLAG SKIMMER, Stop date: 12/17/19 21:36:00 [employer] olanzapine 2020-0 No 10 mg, Memor ia 1-23 Route: PO, l 03:36: Drug form: [place] 00 TAB, ONCE, Dosing Weight 63.636, kg, Start date: 12/17/19 21:36:00 SL[employer] SKIMMER, Stop date: 12/17/19 21:36:00 [employer] olanzapine 2020-0 No 10 mg, Memor [facility] 1-23 Route: PO, l 03:36: Drug form: [place] 00 TAB, ONCE, Dosing Weight 63.636, kg, Start date: 12/17/19 21:36:00 [employer]IM[employer], Stop date: 12/17/19 21:36:00 [employer] olanzapine 2020-0 No 10 mg, Memor ia 1-23 Route: PO, l 03:36: Drug form: [place] 00 TAB, ONCE, Dosing Weight 63.636, kg, Start date: 12/17/19 21:36:00 [employer] SKIMMER, Stop date: 12/17/19 21:36:00 [employer] olanzapine 2020-0 No 10 mg, Memor ia 1-23 Route: PO, l 03:36: Drug form: [place] 00 TAB, ONCE, Dosing Weight 63.636, kg, Start date: 12/17/19 21:36:00 SL[employer] SKIMMER, Stop date: 12/17/19 21:36:00 [employer] olanzapine 2020-0 No 10 mg, Memor [facility] 1-23 Route: PO, l 03:36: Drug form: [place] 00 TAB, ONCE, Dosing Weight 63.636, kg, Start date: 12/17/19 21:36:00 SL[employer] SKIMMER, Stop date: 12/17/19 21:36:00 [employer] olanzapine 2020-0 No 10 mg, [facility] 1-23 Route: PO, l 03:36: Drug form: Daniel 00 TAB, ONCE, Dosing Weight 63.636, kg, Start date: 12/17/19 21:36:00 [employer] SKIMMER, Stop date: 12/17/19 21:36:00 [employer] Ativan 2020-0 No 1 mg, [facility] 1-22 Route: PO, l 23:05: Drug form: [place] 00 TAB, ONCE, Dosing Weight 63.636, kg, Priority: STAT, Start date: 12/17/19 17:05:00 [employer] SKIMMER, Stop date: 12/17/19 17:05:00 [employer] Ativan 2020-0 No 1 mg, [facility] 1-22 Route: PO, l 23:05: Drug form: [place] 00 TAB, ONCE, Dosing Weight 63.636, kg, Priority: STAT, Start date: 12/17/19 17:05:00 [employer] SKIMMER, Stop date: 12/17/19 17:05:00 [employer] Ativan 2020-0 No 1 mg, [facility] 1-22 Route: PO, l 23:05: Drug form: [place] 00 TAB, ONCE, Dosing Weight 63.636, kg, Priority: STAT, Start date: 12/17/19 17:05:00 [employer] SKIMMER, Stop date: 12/17/19 17:05:00 [employer] Ativan 2020-0 No 1 mg, [facility] 1-22 Route: PO, l 23:05: Drug form: [place] 00 TAB, ONCE, Dosing Weight 63.636, kg, Priority: STAT, Start date: 12/17/19 17:05:00 SLAG SKIMMER, Stop date: 12/17/19 17:05:00 [employer] Ativan 2020-0 No 1 mg, [facility] 1-22 Route: PO, l 23:05: Drug form: Daniel 00 TAB, ONCE, Dosing Weight 63.636, kg, Priority: STAT, Start date: 12/17/19 17:05:00 SLAG SKIMMER, Stop date: 12/17/19 17:05:00 [employer] Ativan 2020-0 No 1 mg, [facility] 1-22 Route: PO, l 23:05: Drug form: [place] 00 TAB, ONCE, Dosing Weight 63.636, kg, Priority: STAT, Start date: 12/17/19 17:05:00 SLAG SKIMMER, Stop date: 12/17/19 17:05:00 [employer] Ativan 2020-0 No 1 mg, [facility] 1-22 Route: PO, l 23:05: Drug form: [place] 00 TAB, ONCE, Dosing Weight 63.636, kg, Priority: STAT, Start date: 12/17/19 17:05:00 SLAG SKIMMER, Stop date: 12/17/19 17:05:00 [employer]MER Ativan 2020-0 No 1 mg, [facility] 1-22 Route: PO, l 23:05: Drug form: [place] 00 TAB, ONCE, Dosing Weight 63.636, kg, Priority: STAT, Start date: 12/17/19 17:05:00 SLAG SKIMMER, Stop date: 12/17/19 17:05:00 SL[employer]IMMER Ativan 2020-0 No 1 mg, [facility] 12-17 Route: PO, l 23:05: Drug form: Sarthak 00 TAB, ONCE, Dosing Weight 63.636, kg, Priority: STAT, Start date: 12/17/19 17:05:00 SLAG SKIMMER, Stop date: 12/17/19 17:05:00 SLAG SKIMMER Ativan 2020-0 No 1 mg, Memoria 12-17 Route: PO, l 23:05: Drug form: Sarthak 00 TAB, ONCE, Dosing Weight 63.636, kg, Priority: STAT, Start date: 12/17/19 17:05:00 SLAG SKIMMER, Stop date: 12/17/19 17:05:00 SLAG SKIMMER amoxicillin amoxicillin No amoxicilli [facility] [phone] [phone] Medical mg-potassiu mg-potassiu mg-potassi m m um clavulanate clavulanate clavulanat 125 mg 125 mg e 125 mg tablet tablet tablet citalopram citalopram No citalopram [facility] 20 mg 20 mg 20 mg Medical tablet Take tablet Take tablet 1 tablet 1 tablet Take 1 every day every day tablet by oral by oral every day route. route. by oral route. fluticasone fluticasone No fluticason [facility] propionate propionate e Med ical 50 50 propionate mcg/actuati mcg/actuati 50 on nasal on nasal mcg/actuat spray,suspe spray,suspe ion nasal nsion nsion spray,susp ension glyburide glyburide No glyburide [facility] 2.5 mg 2.5 mg 2.5 mg Medical tablet TAKE tablet TAKE tablet 1 TABLET BY 1 TABLET BY TAKE 1 MOUTH EVERY MOUTH EVERY TABLET BY DAY DAY MOUTH EVERY DAY nitrofurant nitrofurant No nitrofuran [facility] oin oin toin Medical macrocrysta macrocrysta macrocryst l 100 mg l 100 mg al 100 mg capsule capsule capsule ondansetron ondansetron No ondansetro [facility] HCl 4 mg HCl 4 mg n HCl 4 mg M edical tablet Take tablet Take tablet 1 tablet 1 tablet Take 1 every 8 every 8 tablet hours by hours by every 8 oral route oral route hours by as needed. as needed. oral route as needed. No Gemma via Medical promethazin promethazin No 1 Q8H promethazi [facility] e 25 mg e 25 mg ne 25 mg Medic al tablet Take tablet Take tablet 1 tablet 1 tablet Take 1 every 8 every 8 tablet hours by hours by every 8 oral route. oral route. hours by oral route. sertraline sertraline No sertraline [facility] 25 mg 25 mg 25 mg Medical tablet TAKE tablet TAKE tablet 1 TABLET BY 1 TABLET BY TAKE 1 MOUTH EVERY MOUTH EVERY TABLET BY DAY DAY MOUTH EVERY DAY Immunizations Ordered Filled Immunization Date Status Comments [facility] e Immunization Name Name SARS-COV-2 COVID-19 2021-07-06 Completed Unive rsity of PFIZER VACCINE 00:00:00 [facility] SARS-COV-2 COVID-19 2021-07-06 Completed Unive rsity of PFIZER VACCINE 00:00:00 [facility] SARS-COV-2 COVID-19 2021-07-06 Completed Unive rsity of PFIZER VACCINE 00:00:00 [facility] SARS-COV-2 COVID-19 2021-07-06 Completed Unive rsity of PFIZER VACCINE 00:00:00 [facility] SARS-COV-2 COVID-19 2021-07-06 Completed Unive rsity of PFIZER VACCINE 00:00:00 [facility] SARS-COV-2 COVID-19 2021-07-06 Completed Unive rsity of PFIZER VACCINE 00:00:00 [facility] SARS-COV-2 COVID-19 2021-07-06 Completed Unive rsity of PFIZER VACCINE 00:00:00 [facility] SARS-COV-2 COVID-19 2021-07-06 Completed Unive rsity of PFIZER VACCINE 00:00:00 [facility] SARS-COV-2 COVID-19 2021-07-06 Completed Unive rsity of PFIZER VACCINE 00:00:00 [facility] SARS-COV-2 COVID-19 2021-07-06 Completed Unive rsity of PFIZER VACCINE 00:00:00 [facility] SARS-COV-2 COVID-19 2021-07-06 Completed Unive rsity of PFIZER VACCINE 00:00:00 [facility] SARS-COV-2 COVID-19 2021-07-06 Completed Unive rsity of PFIZER VACCINE 00:00:00 [facility] SARS-COV-2 COVID-19 2021-07-06 Completed Unive rsity of PFIZER VACCINE 00:00:00 [facility] SARS-COV-2 COVID-19 2021-07-06 Completed Unive rsity of PFIZER VACCINE 00:00:00 [facility] SARS-COV-2 COVID-19 2021-07-06 Completed Unive rsity of PFIZER VACCINE 00:00:00 [facility] SARS-COV-2 COVID-19 2021-07-06 Completed Unive rsity of PFIZER VACCINE 00:00:00 [facility] SARS-COV-2 COVID-19 2021-07-06 Completed Unive rsity of PFIZER VACCINE 00:00:00 [facility] SARS-COV-2 COVID-19 2021-07-06 Completed Unive rsity of PFIZER VACCINE 00:00:00 [facility] SARS-COV-2 COVID-19 2021-07-06 Completed Unive rsity of PFIZER VACCINE 00:00:00 [facility] SARS-COV-2 COVID-19 2021-07-06 Completed Unive rsity of PFIZER VACCINE 00:00:00 [facility] SARS-COV-2 COVID-19 2021-07-06 Completed Unive rsity of PFIZER VACCINE 00:00:00 [facility] SARS-COV-2 COVID-19 2021-07-06 Completed Unive rsity of PFIZER VACCINE 00:00:00 [facility] TDAP (ADACEL) 2019-05-12 Completed University of VACCINE 00:00:00 [facility] TDAP (ADACEL) 2019-05-12 Completed University of VACCINE 00:00:00 [facility] TDAP (ADACEL) 2019-05-12 Completed University of VACCINE 00:00:00 [facility] TDAP (ADACEL) 2019-05-12 Completed University of VACCINE 00:00:00 [facility] TDAP (ADACEL) 2019-05-12 Completed University of VACCINE 00:00:00 [facility] TDAP (ADACEL) 2019-05-12 Completed University of VACCINE 00:00:00 [facility] TDAP (ADACEL) 2019-05-12 Completed University of VACCINE 00:00:00 [facility] TDAP (ADACEL) 2019-05-12 Completed University of VACCINE 00:00:00 [facility] TDAP (ADACEL) 2019-05-12 Completed University of VACCINE 00:00:00 [facility] TDAP (ADACEL) 2019-05-12 Completed University of VACCINE 00:00:00 [facility] TDAP (ADACEL) 2019-05-12 Completed University of VACCINE 00:00:00 [facility] TDAP (ADACEL) 2019-05-12 Completed University of VACCINE 00:00:00 [facility] TDAP (ADACEL) 2019-05-12 Completed University of VACCINE 00:00:00 [facility] TDAP (ADACEL) 2019-05-12 Completed University of VACCINE 00:00:00 [facility] TDAP (ADACEL) 2019-05-12 Completed University of VACCINE 00:00:00 [facility] TDAP (ADACEL) 2019-05-12 Completed University of VACCINE 00:00:00 [facility] TDAP (ADACEL) 2019-05-12 Completed University of VACCINE 00:00:00 [facility] TDAP (ADACEL) 2019-05-12 Completed University of VACCINE 00:00:00 [facility] TDAP (ADACEL) 2019-05-12 Completed University of VACCINE 00:00:00 [facility] TDAP (ADACEL) 2019-05-12 Completed University of VACCINE 00:00:00 [facility] TDAP (ADACEL) 2019-05-12 Completed University of VACCINE 00:00:00 [facility] TDAP (ADACEL) 2019-05-12 Completed University of VACCINE 00:00:00 [facility] TDAP (ADACEL) 2019-05-12 Completed University of VACCINE 00:00:00 [facility] TDAP (ADACEL) 2019-05-12 Completed University of VACCINE 00:00:00 [facility] TDAP (ADACEL) 2019-05-12 Completed University of VACCINE 00:00:00 [facility] TDAP (ADACEL) 2019-05-12 Completed University of VACCINE 00:00:00 [facility] Td 2018-05-10 Completed University of 00:00:00 [facility] Td 2018-05-10 Completed University of 00:00:00 [facility] Td 2018-05-10 Completed University of 00:00:00 [facility] Td 2018-05-10 Completed University of 00:00:00 [facility] Td 2018-05-10 Completed University of 00:00:00 [facility] Td 2018-05-10 Completed University of 00:00:00 [facility] Td 2018-05-10 Completed University of 00:00:00 [facility] TD, NOS 2018-05-10 Completed University of 00:00:00 [facility] TD, NOS 2018-05-10 Completed University of 00:00:00 [facility] TD, NOS 2018-05-10 Completed University of 00:00:00 [facility] TD, NOS 2018-05-10 Completed University of 00:00:00 [facility] TD, NOS 2018-05-10 Completed University of 00:00:00 [facility] TD, NOS 2018-05-10 Completed University of 00:00:00 [facility] TD, NOS 2018-05-10 Completed University of 00:00:00 [facility] TD, NOS 2018-05-10 Completed University of 00:00:00 [facility] TD, NOS 2018-05-10 Completed University of 00:00:00 [facility] TD, NOS 2018-05-10 Completed University of 00:00:00 [facility] TD, NOS 2018-05-10 Completed University of 00:00:00 [facility] TD, NOS 2018-05-10 Completed University of 00:00:00 [facility] TD, NOS 2018-05-10 Completed University of 00:00:00 [facility] TD, NOS 2018-05-10 Completed University of 00:00:00 [facility] TD, NOS 2018-05-10 Completed University of 00:00:00 [facility] TD, NOS 2018-05-10 Completed University of 00:00:00 [facility] TD, NOS 2018-05-10 Completed University of 00:00:00 [facility] TD, NOS 2018-05-10 Completed University of 00:00:00 [facility] TD, NOS 2018-05-10 Completed University of 00:00:00 [facility] Influenza Virus 2009-10-04 Completed Universit y of Vaccine - Whole 00:00:00 [facility] Influenza Virus 2009-10-04 Completed Universit y of Vaccine - Whole 00:00:00 [facility] Influenza Virus 2009-10-04 Completed Universit y of Vaccine - Whole 00:00:00 [facility] Influenza Virus 2009-10-04 Completed Universit y of Vaccine - Whole 00:00:00 [facility] Influenza Virus 2009-10-04 Completed Universit y of Vaccine - Whole 00:00:00 [facility] Influenza Virus 2009-10-04 Completed Universit y of Vaccine - Whole 00:00:00 [facility] Influenza Virus 2009-10-04 Completed Universit y of Vaccine - Whole 00:00:00 [facility] Vital Signs Vital Name Observation Time Observation Value Comments Source Height/Length 2019-12-31 00:22:20 Measured Systolic blood 2023-05-02 13:57:00 110 mm[Hg] Univer sity of pressure [facility] Diastolic blood 2023-05-02 13:57:00 74 mm[Hg] Unive rsity of pressure [facility] Heart rate 2023-05-02 13:57:00 76 /min Universi ty of [facility] Body temperature 2023-05-02 13:57:00 36.78 Estefanía Univ ersity of [facility] Respiratory rate 2023-05-02 13:57:00 16 /min Univ ersity of [facility] Body height 2023-05-02 13:57:00 157.5 cm Universi ty of [facility] [place] Body weight 2023-05-02 13:57:00 62.687 kg Universi ty of [facility] BMI 2023-05-02 13:57:00 25.28 kg/m2 Universi ty of [facility] Oxygen saturation in 2023-05-02 13:57:00 99 /min University Arterial blood by [facility] Pulse oximetry Branch Systolic blood 2023-03-14 17:53:00 124 mm[Hg] Univer sity of pressure [facility] Diastolic blood 2023-03-14 17:53:00 83 mm[Hg] Unive rsity of pressure [facility] Heart rate 2023-03-14 17:53:00 69 /min Universi ty of [facility] Respiratory rate 2023-03-14 17:53:00 18 /min Univ ersity of [facility] Body height 2023-03-14 17:53:00 154.9 cm Universi ty of [facility] Body weight 2023-03-14 17:53:00 62.46 kg Universi ty of [facility] BMI 2023-03-14 17:53:00 26.02 kg/m2 Universi ty of [facility] Systolic blood 2023-03-07 19:48:00 122 mm[Hg] Univer sity of pressure [facility] Diastolic blood 2023-03-07 19:48:00 85 mm[Hg] Unive rsity of pressure [facility] Heart rate 2023-03-07 19:48:00 94 /min Universi ty of [facility] Respiratory rate 2023-03-07 19:48:00 18 /min Univ ersity of [facility] Body height 2023-03-07 19:48:00 154.9 cm Universi ty of [facility] Body weight 2023-03-07 19:48:00 62.143 kg Universi ty of [facility] BMI 2023-03-07 19:48:00 25.89 kg/m2 Universi ty of [facility] Systolic blood 2022-10-26 20:09:00 135 mm[Hg] Univer sity of pressure [facility] Diastolic blood 2022-10-26 20:09:00 78 mm[Hg] Unive rsity of pressure [facility] Heart rate 2022-10-26 20:09:00 76 /min Universi ty of [facility] Body temperature 2022-10-26 20:09:00 36.78 Estefanía Univ ersity of [facility] Respiratory rate 2022-10-26 20:09:00 18 /min Univ ersity of [facility] Body height 2022-10-26 20:09:00 154.9 cm Universi ty of [facility] Body weight 2022-10-26 20:09:00 60.782 kg Universi ty of [facility] BMI 2022-10-26 20:09:00 25.32 kg/m2 Universi ty of [facility] Systolic blood 2022-09-11 18:21:00 113 mm[Hg] Univer sity of pressure [facility] Diastolic blood 2022-09-11 18:21:00 81 mm[Hg] Unive rsity of pressure [facility] Heart rate 2022-09-11 18:21:00 92 /min Universi ty of [facility] Body temperature 2022-09-11 18:21:00 36.94 Estefanía Univ ersity of [facility] Body height 2022-09-11 18:21:00 154.9 cm Universi ty of [facility] Body weight 2022-09-11 18:21:00 57.153 kg Universi ty of [facility] [place] BMI 2022-09-11 18:21:00 23.81 kg/m2 Universi ty of [facility] Oxygen saturation in 2022-09-11 18:21:00 99 /min University of Arterial blood by [facility] Pulse oximetry Branch BP Diastolic 2021-11-04 00:00:00 82 mm[Hg] Judson faulkner Height 2021-11-04 00:00:00 61 [in_i] Judson faulkner BMI (Body Mass 2021-11-04 00:00:00 32.6 kg/m2 [facility] Index) BP Systolic 2021-11-04 00:00:00 148 mm[Hg] Judson faulkner Body Weight 2021-11-04 00:00:00 172.4 [lb_av] [facility] Systolic blood 2021-10-25 15:37:00 152 mm[Hg] Univer sity of pressure [facility] Diastolic blood 2021-10-25 15:37:00 115 mm[Hg] Unive rsity of pressure [facility] Heart rate 2021-10-25 15:37:00 112 /min Universi ty of [facility] Body temperature 2021-10-25 15:37:00 37.11 Estefanía [facility] ersity of [facility] Respiratory rate 2021-10-25 15:37:00 18 /min Univ ersity of [facility] Body height 2021-10-25 15:37:00 154.9 cm Universi ty of [facility] Body weight 2021-10-25 15:37:00 76.295 kg Universi ty of [facility] BMI 2021-10-25 15:37:00 31.78 kg/m2 Universi ty of [facility] Oxygen saturation in 2021-10-25 15:37:00 97 /min University of Arterial blood by [facility] Pulse oximetry Branch Height/Length 2021-12-13 09:04:51 154.9 cm Measured Weight Dosing 2021-12-13 09:04:51 62.50 kg Height/Length 2021-12-13 09:00:41 154.9 cm Measured Weight Dosing 2021-12-13 09:00:41 62.50 kg Height/Length 2021-12-13 08:56:56 154.9 cm Measured Weight Dosing 2021-12-13 08:56:56 62.50 kg Height/Length 2021-12-13 08:56:39 154.9 cm Measured Weight Dosing 2021-12-13 08:56:39 62.50 kg Height/Length 2021-12-13 08:56:23 154.9 cm Measured Weight Dosing 2021-12-13 08:56:23 62.50 kg Systolic (mm Hg) 2019-12-18 17:15:00 Richard rial Daniel Diastolic (mm Hg) 2019-12-18 17:15:00 Mem orial Daniel Respitory Rate 2019-12-18 17:15:00 Memori al Sarthak Temperature Oral (F) 2019-12-18 17:15:00 97.9 F [facility] Temperature Oral (F) 2019-12-18 08:30:00 97.7 F [facility] Heart Rate 2019-12-18 08:30:00 [facility] Sarthak Respitory Rate 2019-12-18 08:30:00 Memori al Daniel Systolic (mm Hg) 2019-12-18 08:30:00 Richard rial Daniel Diastolic (mm Hg) 2019-12-18 08:30:00 Mem orial Daniel Temperature Oral (F) 2019-12-18 04:52:00 98.5 F [facility] Heart Rate 2019-12-18 04:52:00 [facility] Sarthak Respitory Rate 2019-12-18 04:52:00 Memori al Sarthak Systolic (mm Hg) 2019-12-18 04:52:00 Richard rial Sarthak Diastolic (mm Hg) 2019-12-18 04:52:00 Mem orial Daniel Heart Rate 2019-12-18 01:26:00 [facility] Height 2019-12-17 19:28:00 154.94 cm [facility] BMI Calculated 2019-12-17 19:28:00 Memori al Daniel Weight 2019-12-17 19:28:00 [facility] Procedures Procedure Date / Time Performing Clinician Source Performed GC & CHLAMYDIA 2023-05-02 14:10:00 [facility] HPV-THIN PREP 2023-05-02 14:10:00 Irma Mcgill [facility] TRICHOMONAS AMPLIFIED 2023-05-02 14:10:00 [facility] PAP SMEAR-LIQUID 2023-05-02 14:10:00 Irma Mcgill [facility] BASED-CP Medical Branch US PELVIS LIMITED 2023-03-27 19:25:31 Irma Mcgill [facility] HSV 1&2, VZV NAAT 2023-03-07 20:57:00 Irma Mcgill [facility] PATIENT FINANCIAL 2023-03-07 19:38:56 Doctor Unassigned, No [facility] POLICY Name [facility] ASSIGNMENT OF BENEFITS 2022-09-11 18:11:53 Doctor Unassigned, No [facility] [id number] 2021-11-07 00:00:00 [facility] [id number] 2021-11-07 00:00:00 [facility] POCT GRP A STREP 2021-10-25 00:00:00 Kaitlin Nickerson [facility] (MOLECULAR) [facility] ABDOMINAL ULTRASOUND OF 2021-10-14 00:00:00 [facility] UTERUS (GREATER OR EQUAL TO 14 WEEKS 0 DAYS) SINGLE OR FIRST FETUS Plan of Care Planned Activity Planned Date Details Comments Source Diagnostic Test 2021-11-04 00:00:00 urinalysis, dipstick [facility] Pending [code = urinalysis, dipstick] Encounters Start End Encounter Admission Attending Care Care Encounter Source Date/Time Date/Time Type Type Clinicians Facility Department ID 2021-09-26 Emergency [facility] [id number] Univers 22:39:04 ity [facility] 2021-09-25 Emergency [facility] [id number] Univers 15:07:36 ity [facility] 2021-09-25 Emergency [facility] [id number] Univers 14:51:52 ity [facility] 2021-09-25 Emergency [facility] [id number] Univers 13:38:07 ity [facility] 2021-09-24 Emergency [facility] [id number] Univers 00:52:47 ity [facility] 2019-12-30 Inpatient 1 Harley Posada [facility] [id number] 16:46:00 Halrey Posada -[id number] 4 [facility] 2023-05-02 2023-05-02 Outpatient R IRMA MCGILL [facility] B [id number] Univers 09:00:00 09:19:58 IRMA MCGILL [facility] 2023-05-02 2023-05-02 Office Nano [facility] 1.2.840.114 [id number] Univers 09:00:00 09:19:58 Visit Irma CHIANG [id number] it y of [facility] [id number] [facility] [id number] [facility] [address] Branch 2023-04-12 2023-04-12 Outpatient R KAYLYN MCGUIRE [facility] U [facility] [id number] Univers 15:00:00 15:00:00 KAYLYN MCGUIRE [facility] 2023-04-05 2023-04-05 Outpatient R IRMA MCGILL [facility] B [id number] Univers 14:00:00 14:00:00 IRMA MCGILL [facility] 2023-03-27 2023-03-27 Outpatient R IRMA MCGILL [facility] B [id number] Univers 13:42:43 23:59:00 IRMA MCGILL [facility] 2023-03-27 2023-03-27 [facility] 1.2.840.114 [id number] Univers 13:42:43 23:59:00 Encounter Irma MURPHY [id number] ity [facility] [id number] [facility] [id number] [facility] 806 Branch 2023-03-21 2023-03-21 Outpatient R IRMA MCGILL [facility] B [id number] Univers 13:00:00 13:00:00 IRMA MCGILL [facility] 2023-03-14 2023-03-14 [facility] 1.2.840.114 [id number] Univers 16:00:00 16:00:00 Visit Irma CHIANG [id number] it [place] [id number] [id number] [address] 2023-03-14 2023-03-14 Outpatient R NANOIRMA [facility] B [id number] Univers 16:00:00 13:16:03 [facility] 2023-03-13 2023-03-13 Telephone [facility] 1.2.840.11 [id number] Univers 00:00:00 00:00:00 Irma CHIANG [id number] it y [place] [facility] [id number] [facility] [id number] [address] 2023-03-13 2023-03-13 Telephone [facility] 1.2.840.11 [id number] Univers 00:00:00 00:00:00 Irma CHIANG [id number] it [id number] [id number] [address] 2023-03-13 2023-03-13 Telephone [facility] 1.2.840.11 4 [id number] Univers 00:00:00 00:00:00 Irma CHIANG [id number] it y [id number] [facility] [id number] [address] 2023-03-13 2023-03-13 Telephone [facility] 1.2.840.11 4 [id number] Univers 00:00:00 00:00:00 Irma CHIANG [id number] it y [place] [id number] [facility] [id number] [address] 2023-03-12 2023-03-12 [facility], Ang - Db [facility] 1.2.840.1 14 [id number] Univers 12:30:00 12:45:00 Visit Alyssa Lozano [id number] ity of Irma Mcgill [id number] [facility] Hospital[facility]?BLEA [id number] Ct ashely [address] MEDICAL OFFICE BUILDING 2023-03-12 2023-03-12 Outpatient R IRMA MCGILL [facility] B [id number] Univers 12:30:00 12:30:00 TRIIRMA FERNANDO itboom of [facility] 2023-03-09 2023-03-09 Patient Nano [facility] LISBETH 1.2.840.114 [id number] Univers 00:00:00 00:00:00 Secure Msg Irma CHIANG [id number] [facility] [id number] [id number] [address] 2023-03-07 2023-03-07 Outpatient R IRMA MCGILL [facility] B [id number] Univers 14:45:00 15:29:46 DULCE MARIAIRMA FERNANDO [facility] 2023-03-07 2023-03-07 Office Dulce Mariajay [facility] 1.2.840.114 [id number] Univers 14:45:00 15:29:46 Visit Irma CHIANG [id number] it y [id number] [id number] [address] 2023-03-07 2023-03-07 Orders Doctor YULY 1.2.840.114 [id number] Univers 00:00:00 00:00:00 Only Unassigned, ADRI [id number] ity of [facility] [id number] [place] [id number] [place] [address] Branch 2022-11-02 2022-11-02 [facility], Ang - Db [facility] 1.2.840.1 14 [id number] Univers 13:30:00 13:45:00 Visit Tina Neri HEALTH [id number]. 10 ity of [place] [id number] [place] as SARA?BLEA [id number] Ct ashely [address] MEDICAL OFFICE BUILDING 2022-11-02 2022-11-02 Outpatient R DARON [facility] [id number] Univers 13:30:00 13:30:00 TINA ity o f [facility] 2022-10-26 2022-10-26 Outpatient R AAKASHJASKARANJENNIFER IRMA [facility] B [id number] Univers 13:30:00 14:14:22 IRMA MCGILL [facility] 2022-10-26 2022-10-26 [facility] 1.2.840.114 [id number] Univers 13:30:00 14:14:22 Visit Irma MARIIA [id number] it [id number] [id number] [facility] [address] 2022-10-06 2022-10-06 Emergency EM Kirit Benitez [facility] [id number] [facility] 12:56:00 15:34:00 07 [facility] 2022-09-11 2022-09-11 Outpatient [facility] [id number] Univers 13:00:00 13:32:16 RUPAL zamudio [facility] 2022-09-11 2022-09-11 Urgent Rupal Maya [facility] 1.2.840.114 [id number] Univers 13:00:00 13:32:16 Care Unknown, Attending HEALTH 350.1.13.10 ity of [place] 4.2.7.2.686 Golden as SARA?BLEA [phone] Ct ashely GERMAN [address] MEDICAL OFFICE BUILDING 2022-09-11 2022-09-11 Orders Doctor YULY 1.2.840.114 [id number] Univers 00:00:00 00:00:00 Only Unassigned, ADRI 350.1.13.10 ity of [place] [facility] 4.2.7.2.686 Golden as [phone] [place] [address] [address] 2022-02-07 2022-02-07 Outpatient R GEORGES [facility] [id number] Univers 13:45:00 13:45:00 BRIANTATYLexi ity o f [facility] 2021-11-21 2021-11-21 Outpatient GC_SWHAOMC_ PRIV PRIV 506 [id number] [facility] 09:50:00 09:50:00 Anselmo [id number] [facility] 2021-11-16 2021-11-16 Jeevan [facility] 1.2.840.114 [id number] Univers 00:00:00 00:00:00 [facility] 350.1.13.10 it y of [place] 4.2.7.2.686 Golden as SARA?BLEA [id number] [address] MEDICAL OFFICE BUILDING 2021-11-04 2021-11-12 Inpatient EM RUPINDER Cuadra OBPP [id number] [facility] 20:12:00 17:41:00 [facility]ufino [facility] 2021-11-05 2021-11-05 Outpatient GC_SWHAOMC_ PRIV PRIV 506 [id number] [facility] 01:46:00 01:46:00 Anselmo [id number] [facility] 2021-11-04 2021-11-04 Outpatient GC_SWHAOMC_ PRIV PRIV 506 [id number] [facility] 02:41:00 02:41:00 Anselmo [id number] [facility] 2021-11-04 2021-11-04 Rufino [facility] [id number] [facility] 00:00:00 00:00:00 [facility] wilda Cuadra GC_BERNARDO_ MD: [address], [address], [place] [address] , Ph. 2021-11-04 2021-11-04 Outpatient Khalif, PRIV PRIV [id number] 00:00:00 00:00:00 Rufino [id number] Seth [id number] [id number] 2021-11-03 2021-11-03 Outpatient GC_SWHATBIC PRIV PRIV 506 [id number] [facility] 09:34:00 09:34:00 _Khalif [id number] Medic al 2021-10-31 2021-10-31 Emergency EL LIO Cuadra ELIANE [id number] [facility] 13:53:00 18:35:00 [facility] 2021-10-28 2021-10-28 Rufino [facility] [id number] [facility] 00:00:00 00:00:00 [facility] MIGDALIA Edwards MD: [address], [place] [address] , Ph. 2021-10-25 2021-10-25 Outpatient [facility] [id number] Univers 09:20:00 09:55:47 [facility] 2021-10-25 2021-10-25 Urgent [facility] 1.2.840.114 [id number] Univers 09:16:49 09:55:47 Care [facility] 350.1.13.10 it y [facility] 4.2.7.2.686 Golden as SARA?BLEA [phone] [address] MEDICAL OFFICE [facility] 2021-10-23 2021-10-23 Outpatient R [facility] [id number] Univers 12:40:00 13:48:12 SHERRY ity [facility] 2021-10-23 2021-10-23 Urgent Sherry Mcknight [facility] 1.2.840. 114 [id number] Univers 12:37:30 13:48:12 Care Lizz Adair [facility] 350..13.10 ity [facility] 4.2.7.2.686 Golden as SARA?BLEA [id number] [address] MEDICAL OFFICE [facility] 2021-10-15 2021-10-15 Outpatient ANSHU_BERNARDO_ PRIV PRIV [id number] [facility] 02:21:00 02:21:00 Anselmo [id number] [facility] 2021-10-14 2021-10-14 Rufino [facility] [id number] [facility] 00:00:00 00:00:00 [facility] MIGDALIA Edwards MD: [address], [place] [address] , Ph. 2021-08-17 2021-08-17 Inpatient WENDY Cuadra [facility] ELIANE [id number] [facility] 09:22:00 14:45:00 Rufino Monzon [facility] 2021-08-09 2021-08-09 Hospital Kristina Mcdonald [facility] 1.2.840.114 [id number] Univers 23:19:00 23:58:00 Encounter Katherine 350.1.13.10 ity of [place] 4.2.7.2.686 [facility] [id number] [facility] [address] 2021-06-06 2021-06-06 Orders Doctor YULY 1.2.840.114 [id number] [facility] 00:00:00 00:00:00 Only Unassigned, ADRI 350.1.13.10 ity of [place] [facility] 4.2.7.2.686 Golden as [phone] [facility] [address] 2021-04-13 2021-04-13 Outpatient R DARON [facility] [id number] [facility] 10:45:00 10:45:00 TINA presleyy o f [facility] 2021-03-31 2021-03-31 Telephone [facility] 1.2.840.114 [id number] 00:00:00 00:00:00 Tina C CONTRACT PREPARER 350.1.13.10 REGIONAL 4.2.7.2.686 MATERNAL [phone] & CHILD [address] [place] [address] 2021-03-31 2021-03-31 Telephone [facility] 1.2.840.114 [id number] Univers 00:00:00 00:00:00 Tina C CONTRACT PREPARER 350.1.13.[address] [facility] 4.2.7.2.686 Golden as MATERNAL [phone] Med ical & CHILD [address] [place] [address] 2021-03-29 2021-03-29 Telephone [facility] 1.2.840.114 [id number] 00:00:00 00:00:00 Tina C CONTRACT PREPARER 350.1.13.10 REGIONAL 4.2.7.2.686 MATERNAL [phone] & [address] 2021-03-29 2021-03-29 Telephone [facility] 1.2.840.114 [id number] Univers 00:00:00 00:00:00 Tina C CONTRACT PREPARER 350.1.13.10 ity of REGIONAL 4.2.7.2.686 Golden as MATERNAL [id number] [facility] & CHILD [address] [place] [address] 2021-03-20 2021-03-20 Emergency [facility] 1.2.371.059 [id number] Univers 16:32:00 20:26:00 Jame Katherine 350.1.13.10 i ty of [place] 4.2.7.2.686 [facility] [id number] [address] 2021-03-18 2021-03-18 Emergency [facility] 1.2.840.114 [id number] Univers 10:14:00 12:03:00 Patricia Murphy 350.1.13.10 ity of [place] 4.2.7.2.686 [facility] [phone] [address] 2021-03-18 2021-03-18 Telephone [facility] 1.2.840.114 [id number] Univers 00:00:00 00:00:00 Tina C CONTRACT PREPARER 350.1.13.10 ity of REGIONAL 4.2.7.2.686 [place] as MATERNAL [id number] [facility] & CHILD [address] [place] [address] 2021-03-16 2021-03-16 Initial [facility] 1.2.745.409 [id number] Univers 13:44:39 14:45:16 Tina C CONTRACT PREPARER 350.1.13.10 ity of Visit REGIONAL 4.2.7.2.686 [place] as MATERNAL [id number] [facility] & CHILD [address] [place] [address] 2021-03-16 2021-03-16 Outpatient R DARON [facility] [id number] Univers 13:30:00 13:30:00 TINA ity o f [facility] 2021-03-16 2021-03-16 Outpatient R DARON [facility] [id number] Univers 13:00:00 13:00:00 TINA ity o f [facility] 2021-03-16 2021-03-16 Orders Doctor YULY 1.2.840.114 [id number] Univers 00:00:00 00:00:00 Only Unassigned, ADRI 350.1.13.10 ity of [place] [facility] 4.2.7.2.686 Golden as [phone] [facility] [address] 2021-03-13 2021-03-13 Emergency [facility] 1.2.299.484 [id number] Univers 12:00:00 14:19:00 Kaylynn Ramey [place] 350.1.13.10 ity of [place].2.7.2.686 [place] [phone] [facility] [address] 2021-03-13 2021-03-13 Orders Doctor YULY 1.2.840.114 [id number] Univers 00:00:00 00:00:00 Only Unassigned, ADRI 350.1.13.10 ity of [place] [facility]OSPITAL 4.2.7.2.686 Golden as [id number] [facility] [address] 2021-02-15 2021-02-15 Patient [facility] 1.2.840.114 [id number] Univers 00:00:00 00:00:00 Outreach Yousuf PRIMARY 350.1.13.10 i ty of [facility] 4.2.7.2.686 [place] [phone] Ct dical [address] 2021-02-07 2021-02-07 Telephone [facility] 1.2.077.822 [id number] Univers 00:00:00 00:00:00 Roshunda R CONTRACT PREPARER 350.1.13.[address] [facility] 4.2.7.2.686 Golden as MATERNAL [phone] Med ical & CHILD 107 [facility] 2021-02-07 2021-02-07 Telephone [facility] 1.2.501.491 [id number] Univers 00:00:00 00:00:00 Roshunda R CONTRACT PREPARER 350.1.13.10 ity of REGIONAL 4.2.7.2.686 [place] as MATERNAL [phone] [facility] CH[facility] [address] [place] [address] 2021-02-05 2021-02-05 Outpatient R FRANCESCO [facility] [id number] Univers 16:00:00 16:00:00 ATTENDING ity of [facility] 2021-02-05 2021-02-05 Telemedici Stephen Madelin Villareal 1.2.84 0.114 [id number] Univers 15:09:01 15:39:01 ne Visit Unknown, Attending Pediatric 350.1.13 .10 ity of [place] and 4.2.7.2.686 [place] [phone] [address] 2021-02-04 2021-02-04 Telephone [facility] 1.2.840.114 [id number] Univers 00:00:00 00:00:00 Tina Adorno CONTRACT PREPARER 350.1.13.10 ity of REGIONAL 4.2.7.2.686 [place] as MATERNAL [phone] [facility] ical & CHILD [address] [place] [address] 2021-02-02 2021-02-02 Office Georges [facility] 1.2.840.114 [id number] Univers 13:44:44 14:45:42 Visit Kandimeka Floresita CONTRACT PREPARER 350.1.13.10 ity of REGIONAL 4.2.7.2.686 [place] as MATERNAL [id number] [facility] & CHILD [address] [place] [address] 2021-02-02 2021-02-02 Outpatient R GEORGES [facility] [id number] Univers 13:45:00 13:45:00 [facility] 2021-02-02 2021-02-02 Orders Doctor EMERY 1.2.840.114 [id number] Univers 00:00:00 00:00:00 Only Unassigned, ADRI 350.1.13.10 ity of [place] [facility] 4.2.7.2.686 Golden as [id number] [place] [address] [address] 2021-01-13 2021-01-13 Telephone [facility] 1.2.840.114 [id number] Univers 00:00:00 00:00:00 Tina C CONTRACT PREPARER 350.1.13.[address] [facility] 4.2.7.2.686 Golden as MATERNAL [phone] [facility] ical & CHILD [address] [place] [address] 2020-10-06 2020-10-06 Telephone [facility] 1.2.840.114 [id number] Univers 00:00:00 00:00:00 Tina C CONTRACT PREPARER 350.1.13.[address] [facility] 4.2.7.2.686 Golden as MATERNAL [id number] [facility] & [address] 2020-09-22 2020-09-22 Office [facility] 1.2.774.014 [id number] Univers 08:18:29 09:15:13 Visit Tina C CONTRACT PREPARER 350.1.13.[address] [facility] 4.2.7.2.686 Golden as MATERNAL [phone] [facility] & CHILD [address] [place] [address] 2020-09-22 2020-09-22 Outpatient R [facility] [id number] Univers 08:00:00 08:00:00 TINA ity o f [facility] 2020-09-18 2020-09-19 Emergency [facility] 1.2.840.114 [id number] Univers 18:19:00 00:41:00 [facility] 350.1.13.[address] [facility] 4.2.7.2.686 [place] [facility] [phone] [place] [address] [place] 2020-09-17 2020-09-17 Outpatient R [facility] [id number] Univers 12:45:00 12:45:00 TINA ity o f [facility] 2020-09-03 2020-09-03 Telephone [facility] 1.2.604.227 [id number] Univers 00:00:00 00:00:00 Roshunda R CONTRACT PREPARER 350.1.13.[address] [facility] 4.2.7.2.686 Golden as MATERNAL [phone] [facility] [address] [place] [address] 2020-09-02 2020-09-02 Outpatient R PEDRITO EDWARDS [facility] [id number] Univers 14:30:00 14:30:00 ity of [facility] 2020-09-02 2020-09-02 Office [facility] 1.2.840.114 [id number] Univers 09:22:30 10:03:49 Visit Jose Armando Canas CONTRACT PREPARER 350.1.13.[address] [facility] 4.2.7.2.686 Golden as MATERNAL [phone] [address] 2020-09-02 2020-09-02 Outpatient R SU [facility] [id number] Univers 09:15:00 09:15:00 JOSE ARMANDO zamudio o [facility] 2020-08-16 2020-08-16 Outpatient R [facility] [id number] Univers 09:00:00 09:00:00 TINA farooq [facility] 2020-01-15 2020-01-15 [facility] 1.2.057.424 [id number] Univers 08:41:20 09:23:33 Visit Tina Adorno CONTRACT PREPARER 350.1.13.[address] [facility] 4.2.7.2.686 Golden as MATERNAL [phone] [address] 2020-01-13 2020-01-13 Emergency X AUFDERHEIDE [facility] ERT [id number] Univers 15:56:36 18:20:00 , VETO ity of [facility] 2020-01-13 2020-01-13 [facility] 1.2.840.114 [id number] Univers 15:56:36 18:20:00 , Veto [place] 350.1.13.10 i ty of Mirella Mason 4.2.7.2.686 [facility] [phone] [address] 2019-12-30 2019-12-30 [facility] 1.2.840.114 [id number] Univers 14:44:17 23:59:00 Encounter Harley [facility]ER'S 350.1.13.10 ity of [facility] 4.2.7.2.[address] [place] [address] [phone] [facility] [address] 2019-12-30 2019-12-30 Emergency [facility] [id number] 16:46:00 16:46:00 Health system 2019-12-30 2019-12-30 Orders Doctor YULY 1.2.840.114 [id number] Univers 00:00:00 00:00:00 Only Unassigned, ADRI 350.1.13.10 it[facility] 4.2.7.2.686 [place] as [phone] [facility] [address] 2019-12-17 2019-12-18 Emergency [facility] [id number] Memoria 19:20:11 18:20:00 r Sarthak 00 l [facility] 2019-12-17 2019-12-18 Emergency [facility] [id number] Memoria 19:20:11 18:20:00 r Sarthak 00 [facility] 2019-12-18 2019-12-18 Outpatient MHIE MHIE [id number] Memoria 12:47:00 12:47:00 00 [facility] [place] 2019-12-18 2019-12-18 Outpatient MHIE MHIE [id number] Memoria 12:47:00 12:47:00 00 [facility] [place] 2019-12-17 2019-12-18 Outpatient Vishnyakova MHPL MHPL [id number] 13:20:11 12:20:00 , Jacqueline 00 2019-12-17 2019-12-17 Emergency E MHBL MHBL 7500 MHBL 13:20:00 13:20:00 2019-12-16 2019-12-16 Telephone [facility] 1.2.840.114 [id number] Univers 00:00:00 00:00:00 Tina Adorno CONTRACT PREPARER 350.1.13.[address] [facility] 4.2.7.2.686 Golden as MATERNAL [phone] Med ical & CHILD [address] [place] [address] 2019-12-07 2019-12-07 BOB Rey 1.2.456.617 [id number] Univers 00:00:00 00:00:00 Domonique SERNA 350.1.13.10 ity of [facility] 4.2.7.2.686 [place] [phone] [facility] [address] 2019-08-12 2019-08-12 Telephone [facility] 1.2.840.114 [id number] Univers 00:00:00 00:00:00 [facility] 350.1.13.10 i ty of CLINICS 4.2.7.2.686 [place] [id number] [place] [address] [place] 2019-07-17 2019-07-17 Telephone [facility] 1.2.840.114 [id number] Univers 00:00:00 00:00:00 [facility] 350.1.13.10 i ty of CLINICS 4.2.7.2.686 [place] [id number] [place] [address] [address] 2019-07-17 2019-07-17 Telephone [facility] 1.2.840.114 [id number] Univers 00:00:00 00:00:00 [facility] 350.1.13.10 i ty of CLINICS 4.2.7.2.686 [place] [id number] [place] [address] [place] 2019-07-13 2019-07-16 [facility] YULY 1.2.840.1 14 [id number] [facility] 22:23:00 12:50:00 Encounter Aamir Ruiz 350.1.13.10 ity of HOSPITAL 4.2.7.2.686 [place] as [id number] [facility] [address] 2019-07-13 2019-07-13 Nurse Roberta EMERY 1.2.840.114 [id number] Univers 00:00:00 00:00:00 Triage dAlba 350.1.13.10 ity of HOSPITAL 4.2.7.2.686 [place] as [id number] [facility] [address] 2019-07-13 2019-07-13 Orders Doctor EMERY 1.2.840.[id number] [place] [address] 00:00:00 00:00:00 Only Unassigned, ADRI 350.1.13.10 ity of [place] [facility] 4.2.7.2.686 Golden as [id number] [facility] [address] 2019-07-11 2019-07-11 Routine Cardoza, UNIVERSIT 1.2.840.114 [id number] [facility] 14:22:26 16:23:58 Ulices Berg Y HEALTH 350.1.13.10 ity of Visit CLINICS 4.2.7.2.686 [place] [id number] [facility] [address] 2019-07-11 2019-07-11 Draft Roller Picker 1, [facility] Us Room UNIVERSIT 1 .2.840.114 [id number] Univers 13:31:26 14:01:26 Visit Liseth Machuca Y HEALTH 350.1.1 3.10 ity of CLINICS 4.2.7.2.686 [place] [id number] [facility] [address] 2019-07-08 2019-07-08 Routine JAYSHREE MorenoIT 1.2.188.793 [id number] [facility] 14:17:02 16:52:35 Yariel Dove HEALTH 350.1.13.10 ity of Visit CLINICS 4.2.7.2.686 [place] [id number] [place] 619935 [place] 2019-07-06 2019-07-06 Ana Ragland 1.2.840.114 [id number] Univers 00:00:00 00:00:00 Triage ADRI 350.1.13.10 it y of HOSPITAL 4.2.7.2.686 [place] as [id number] [facility] [address] 2019-07-04 2019-07-04 Routine Ulices Cardoza UNIVERSIT 1.2.840. 114 [id number] [facility] 13:59:50 16:07:27 Maggie Sanchez Y HEALTH 350.1 .13.10 ity of Visit CLINICS 4.2.7.2.686 [place] [id number] [facility] [address] 2019-07-04 2019-07-04 Orders Doctor EMERY 1.2.840.114 [id number] Univers 00:00:00 00:00:00 Only Unassigned, ADRI 350.1.13.10 ity of [place] [facility] 4.2.7.2.686 Golden as [id number] [facility] [address] 2019-07-02 2019-07-02 Telephone Daniel UNIVERSIT 1.2.840.114 [id number] Univers 00:00:00 00:00:00 Maggie Y HEALTH 350.1.13.10 i ty of [place] CLINICS 4.2.7.2.686 [place] as [id number] [address] 2019-07-01 2019-07-01 Routine Sanchez, [facility] 1.2.840.114 [id number] Univers 13:19:01 13:34:01 Maggie Y HEALTH 350.1.13.10 ity of Visit [facility] 4.2.7.2.686 [place] as [id number] [address] 2019-06-27 2019-06-27 Routine [facility] 1.2.840.114 [id number] [facility] 14:55:33 16:20:27 Ulices W Y HEALTH 350.1.13.10 ity of Visit CLINICS 4.2.7.2.686 [place] [id number] [address] 2019-06-24 2019-06-24 [facility] 1.2.215.481 [id number] [facility] 12:02:00 13:15:00 Encounter Ulices Berg ADRI 350.1.13.10 ity of [place] 4.2.7.2.686 [place] [phone] [address] 2019-06-24 2019-06-24 Routine Yasemin, UNIVERSIT 1.2.840.114 [id number] [facility] 10:15:46 10:30:46 Yanna R Y HEALTH 350.1.13.10 ity of Visit CLINICS 4.2.7.2.686 [place] [id number] [address] 2019-06-20 2019-06-20 Routine Sanchez, UNIVERSIT 1.2.840.114 [id number] Univers 13:34:12 14:44:31 Maggie Y HEALTH 350.1.13.10 ity of Visit [place] [facility] 4.2.7.2.686 Golden as [phone] [address] Results Test Description Test Time Test Comments Results Result Comments Source UA RFLX MICR CULT IF INDICATED 2022-10-06 14:23:00 Test Item Value Reference Range Interpretation Comme nts UA COLOR (test code = COLU) YELLOW discript YEL/STRAW UA APPEARANCE (test code = APPU) CLEAR discript CLEAR UA GLUCOSE DIPSTICK (test code = DGLUU) NEGATIVE mg/dL NEG UA BILIRUBIN DIPSTICK (test code = BILU) NEGATIVE mg/dL NEG UA KETONE DIPSTICK (test code = KETU) NEGATIVE mg/dL NEG UA SPECIFIC GRAVITY (test code = SGU) >=1.030 SG 1.005-1.030 A UA BLOOD DIPSTICK (test code = TABBY) NEGATIVE mg/DL NEG UA PH DIPSTICK (test code = JOSEPH) 6.0 pH UNITS 5.0-7.0 UA PROTEIN DIPSTICK (test code = PROU) NEGATIVE mg/dL NEG UA UROBILINIOGEN DIPSTICK (test code = URO) 0.2 mg/dL <2.0 UA NITRITE DIPSTICK (test code = RITIKA) NEGATIVE SCREEN NEG UA LEUKOCYTE ESTERASE DIPSTICK (test code = LEUU) NEGATIVE Leuk/mcL NEGATIVE UA CULTURE NEEDED? (test code = UACULT) Criteria Culture CHK Indication for culture: Dysuria/[id number] 05:53:00 Test Item Value Reference Range Interpretation Comments GLUBED (test code = GLUBED) 88 mg/dL 65-110 N [id number] 06:17:00 Test Item Value Reference Range Interpretation Comments GLUBED (test code = GLUBED) 88 mg/dL 65-110 N [id number] 06:32:00 Test Item Value Reference Range Interpretation Comments GLUBED (test code = GLUBED) 76 mg/dL 65-110 N [id number] 14:30:00 Test Item Value Reference Range Interpretation Comments CREATININE (test code = CREAT) 0.5 mg/dL 0.5-1.0 N [id number] 14:30:00 Test Item Value Reference Range Interpretation Comments SGOT/AST (test code = AST) 34 units/L 15-37 N [id number] 14:30:00 Test Item Value Reference Range Interpretation Comments SGPT/ALT (test code = ALT) 26 units/L 12-78 N CBC W/AUTO [id number] 13:41:00 Test Item Value Reference Range Interpretation Comments WHITE BLOOD CELL (test code = WBC) 8.9 K/mm3 6.5-12.3 N RED BLOOD CELL (test code = RBC) 3.32 M/mm3 3.51-4.69 L HEMOGLOBIN (test code = HGB) 8.1 g/dL 10.1-13.8 L HEMATOCRIT (test code = HCT) 27.7 % 32.5-41.8 L MEAN CELL VOLUME (test code = MCV) 83.4 fL 84.6-96.6 L MEAN CELL HGB (test code = MCH) 24.4 pg 27.3-33.9 L MEAN CELL HGB CONCETRATION (test 29.2 gm/dL 32.0-34.2 L code = MCHC) RED CELL DISTRIBUTION WIDTH (test 14.2 % 12.2-16.3 N code = RDW) PLATELET COUNT (test code = PLT) 276 K/mm3 134-363 N MEAN PLATELET VOLUME (test code = 10.0 fL 9.2-12.7 N MPV) NEUTROPHIL % (test code = NT%) 50.5 % 57.9-77.3 L LYMPHOCYTE % (test code = LY%) 40.1 % 14.5-29.7 H MONOCYTE % (test code = MO%) 7.8 % 3.6-10.2 N EOSINOPHIL % (test code = EO%) 0.9 % 0.0-3.0 N BASOPHIL % (test code = BA%) 0.3 % 0.1-0.9 N NEUTROPHIL # (test code = NT#) 4.5 K/mm3 LYMPHOCYTE # (test code = LY#) 3.6 K/mm3 MONOCYTE # (test code = MO#) 0.7 K/mm3 EOSINOPHIL # (test code = EO#) 0.08 K/mm3 BASOPHIL # (test code = BA#) 0.0 K/mm3 RBC MORPHOLOGY REQUIRED (test code NORMAL NORMAL = RBCM) PLATELET MORPHOLOGY REQUIRED (test NORMAL NORMAL code = PLTMR) [id number] 05:45:00 Test Item Value Reference Range Interpretation Comments GLUBED (test code = GLUBED) 100 mg/dL 65-110 N HGB [id number] 07:27:00 Test Item Value Reference Range Interpretation Comments HEMOGLOBIN (test code = HGB) 8.2 g/dL 10.1-13.8 L HEMATOCRIT (test code = HCT) 27.1 % 32.5-41.8 L [id number] 06:28:00 Test Item Value Reference Range Interpretation Comments GLUBED (test code = GLUBED) 86 mg/dL 65-110 N [id number] 13:53:00 Test Item Value Reference Range Interpretation Comments GLUBED (test code = GLUBED) 76 mg/dL 65-110 N RUBELLA [id number] 11:54:00 Test Item Value Reference Range Interpretation Comments RUBELLA SCREEN 63.5 IUnit/ml Results >10. 0IUnits/ml (test code = are considered positive RUBSC) inaccordance wi th the CLSI guidelines and based on the [employer] S tandard for Anti-Rubell a serum as anindicator of immune status and a br eakpoint to detect mostseropositiv e persons. CBC W/AUTO [id number] 11:26:00 Test Item Value Reference Range Interpretation Comments WHITE BLOOD CELL (test code = WBC) 8.2 K/mm3 6.5-12.3 N RED BLOOD CELL (test code = RBC) 3.41 M/mm3 3.51-4.69 L HEMOGLOBIN (test code = HGB) 8.4 g/dL 10.1-13.8 L HEMATOCRIT (test code = HCT) 27.3 % 32.5-41.8 L MEAN CELL VOLUME (test code = MCV) 80.1 fL 84.6-96.6 L MEAN CELL HGB (test code = MCH) 24.6 pg 27.3-33.9 L MEAN CELL HGB CONCETRATION (test 30.8 gm/dL 32.0-34.2 L code = MCHC) RED CELL DISTRIBUTION WIDTH (test 14.0 % 12.2-16.3 N code = RDW) PLATELET COUNT (test code = PLT) 276 K/mm3 134-363 N MEAN PLATELET VOLUME (test code = 10.3 fL 9.2-12.7 N MPV) NEUTROPHIL % (test code = NT%) 64.8 % 57.9-77.3 N LYMPHOCYTE % (test code = LY%) 26.0 % 14.5-29.7 N MONOCYTE % (test code = MO%) 8.1 % 3.6-10.2 N EOSINOPHIL % (test code = EO%) 0.5 % 0.0-3.0 N BASOPHIL % (test code = BA%) 0.2 % 0.1-0.9 N NEUTROPHIL # (test code = NT#) 5.3 K/mm3 LYMPHOCYTE # (test code = LY#) 2.1 K/mm3 MONOCYTE # (test code = MO#) 0.7 K/mm3 EOSINOPHIL # (test code = EO#) 0.04 K/mm3 BASOPHIL # (test code = BA#) 0.0 K/mm3 RBC MORPHOLOGY REQUIRED (test code NORMAL NORMAL = RBCM) PLATELET MORPHOLOGY REQUIRED (test NORMAL NORMAL code = PLTMR) [id number] 09:48:00 Test Item Value Reference Range Interpretation Comments GLUBED (test code = GLUBED) 90 mg/dL 65-110 N [id number] 05:55:00 Test Item Value Reference Range Interpretation Comments GLUBED (test code = GLUBED) 80 mg/dL 65-110 N [id number] 20:43:00 Test Item Value Reference Range Interpretation Comments GLUBED (test code = GLUBED) 108 mg/dL 65-110 N [id number] 15:11:00 Test Item Value Reference Range Interpretation Comments GLUBED (test code = GLUBED) 111 mg/dL 65-110 H [id number] 09:57:00 Test Item Value Reference Range Interpretation Comments GLUBED (test code = GLUBED) 106 mg/dL 65-110 N [id number] 05:50:00 Test Item Value Reference Range Interpretation Comments GLUBED (test code = GLUBED) 97 mg/dL 65-110 N UR CREATININE CLEARANCE [id number] 01:25:00 Test Item Value Reference Range Interpretation Comments CREATININE CLEARANCE RESULT (test 160 ml/min 70-120 H code = CREATCLR) CREATININE (test code = CREAT) 0.5 mg/dL 0.5-1.0 N UR CREATININE RANDOM (test code = 89.3 mg/dL CREATU) UR VOLUME (test code = VOL) 1300 ML UR PROTEIN [id number] 01:25:00 Test Item Value Reference Range Interpretation Comments UR PROTEIN RANDOM 33.4 mg/dL (test code = PROTU) UR PROTEIN 24HR (test 434 mg/24HR 20-150 HH RESULT S CALLED TO code = [id number]) [place].READ BACK & CONFIRME D? Y.BY FDelonLAB.LGL0 11/06/21 0123.U nits for 24 HR Urine Protein have ch anged: New Units = MG/ 24HR [id number] 20:33:00 Test Item Value Reference Range Interpretation Comments GLUBED (test code = GLUBED) 112 mg/dL 65-110 H [id number] 17:05:00 Test Item Value Reference Range Interpretation Comments GLUBED (test code = GLUBED) 99 mg/dL 65-110 N [id number] 12:12:00 Test Item Value Reference Range Interpretation Comments GLUBED (test code = GLUBED) 98 mg/dL 65-110 N [id number] 08:03:00 Test Item Value Reference Range Interpretation Comments GLUBED (test code = GLUBED) 82 mg/dL 65-110 N [id number] 22:39:00 Test Item Value Reference Range Interpretation Comments GLUBED (test code = GLUBED) 83 mg/dL 65-110 N AG HEPATITIS B [id number] 21:53:00 Test Item Value Reference Range Interpretation Comments AG HEPATITIS B SURFACE (test code NONREACTIVE NONREACTIVE = HBSAG) AB HEPATITIS C [id number] 21:53:00 Test Item Value Reference Range Interpretation Comments AB HEPATITIS C (test code = NONREACTIVE NONREACTIVE HCVAB) SIGNAL TO CUTOFF (test code = <0.02 <0.80 N CUTOFF) AB [id number] 21:53:00 Test Item Value Reference Range Interpretation Comments AB TREPONEMA (test code = TREPAB) NONREACTIVE NONREACTIVE AB HIV 1 21:53:00 Test Item Value Reference Range Interpretation Comments AB HIV 1 2 (test NONREACTIVE NONREACTIVE [id number] 4th Gen HIV Ag/Ab Combo Screen COVID 19 Asymptomatic IH [id number] 21:30:00 Test Item Value Reference Range Interpretation Comments COVID 19 NEGATIVE NEGATIVE This test has b een Asymptomatic IH AG authorize d only for the (test code = detection ofpro teins from COVNONPUIAG) SARS-CoV-2, not for any other viruses orpathogens. Ne gative results should be treated as presumptive andconfirmed wi th a molecular assay , if necessary for patientmanageme nt. Negative result s do not rule out COVID- 19 andshould not b e used as the sole basis for treatment orpat ient management deci sions, including infec tion controldecision s. Negative result s should be considered i n thecontext of a patient's recent exposure s, history and thepresence of clinical signs and symptoms consis tent withCOVID-19. T his test has not been FD A cleared or approved; th e test hasbeen authori zed by FDA under an Emerge ncy Use Authorization(E UA) for use by laborato ebony certified under the CLIA thatmeet the re quirements to perform mode rate, high or waivedcomple xity tests. This hugh t is authorized for use at thePoint of Car e (POC), i.e., in patien t care settingsoperati ng under a CLIA Certificat e of Waiver, Certifi sampson ofCompliance, o r Certificate of Accreditation. This test is only authori zed for the duration of thedeclaration that circumstances e xist justifying theauthorizatio n of emergency use o f in vitro diagnostic test sfor detection and/o r diagnosis of CO VID-19 under Mrjjgwf41 4(b)(1) of the Act, 21 U.S .C. 360bbb-3(b)(1), unless theauthorizatio n is terminated or r evoked sooner. [id number] 16:04:00 Test Item Value Reference Range Interpretation Comments CREATININE (test code = CREAT) 0.5 mg/dL 0.5-1.0 N [id number] 16:04:00 Test Item Value Reference Range Interpretation Comments SGOT/AST (test code = AST) 31 units/L 15-37 N [id number] 16:04:00 Test Item Value Reference Range Interpretation Comments SGPT/ALT (test code = ALT) 28 units/L 12-78 N CBC W/AUTO [id number] 15:46:00 Test Item Value Reference Range Interpretation Comments WHITE BLOOD CELL (test code = WBC) 7.0 K/mm3 6.5-12.3 N RED BLOOD CELL (test code = RBC) 3.43 M/mm3 3.51-4.69 L HEMOGLOBIN (test code = HGB) 8.7 g/dL 10.1-13.8 L HEMATOCRIT (test code = HCT) 27.9 % 32.5-41.8 L MEAN CELL VOLUME (test code = MCV) 81.3 fL 84.6-96.6 L MEAN CELL HGB (test code = MCH) 25.4 pg 27.3-33.9 L MEAN CELL HGB CONCETRATION (test 31.2 gm/dL 32.0-34.2 L code = MCHC) RED CELL DISTRIBUTION WIDTH (test 13.8 % 12.2-16.3 N code = RDW) PLATELET COUNT (test code = PLT) 300 K/mm3 134-363 N MEAN PLATELET VOLUME (test code = 10.5 fL 9.2-12.7 N MPV) NEUTROPHIL % (test code = NT%) 67.1 % 57.9-77.3 N LYMPHOCYTE % (test code = LY%) 25.6 % 14.5-29.7 N MONOCYTE % (test code = MO%) 6.2 % 3.6-10.2 N EOSINOPHIL % (test code = EO%) 0.4 % 0.0-3.0 N BASOPHIL % (test code = BA%) 0.1 % 0.1-0.9 N NEUTROPHIL # (test code = NT#) 4.7 K/mm3 LYMPHOCYTE # (test code = LY#) 1.8 K/mm3 MONOCYTE # (test code = MO#) 0.4 K/mm3 EOSINOPHIL # (test code = EO#) 0.03 K/mm3 BASOPHIL # (test code = BA#) 0.0 K/mm3 RBC MORPHOLOGY REQUIRED (test code NORMAL NORMAL = RBCM) PLATELET MORPHOLOGY REQUIRED (test NORMAL NORMAL code = PLTMR) Urinalysis macro (dipstick) panel - [id number] 14:15:57 Test Item Value Reference Range Interpretation Comments Protein (test code = Protein) Trace Glucose (test code = Glucose) Negative [facility] MedicalStreptococcus agalactiae [Presence] in Unspecified specimen by Organism specific [id number] 00:00:00 Test Item Value Reference Range Interpretation Comments Benzthiazide [Mass/volume] in Urine positive negative A (test code = 3400-9) [facility] MedicalCOMPREHENSIVE METABOLIC [id number] 18:13:00 Test Item Value Reference Range Interpretation Comments SODIUM (test code = NA) 135 mEq/L 135-145 N POTASSIUM (test code = K) 4.2 mEq/L 3.5-5.0 N CHLORIDE (test code = CL) 101 mEq/L 100-115 N CARBON DIOXIDE (test code = CO2) 24 mEq/L 22-31 N ANION GAP (test code = GAP) 14.10 10-20 N GLUCOSE (test code = GLU) 75 mg/dL 65-110 N BLOOD UREA NITROGEN (test code = 9 mg/dL 7-18 N BUN) GLOMERULAR FILTRATION RATE (test 146 ml/min >60 N code = GFR) CREATININE (test code = CREAT) 0.5 mg/dL 0.5-1.0 N TOTAL PROTEIN (test code = PROT) 6.6 gm/dL 6.3-8.2 N ALBUMIN (test code = ALB) 2.3 gm/dL 3.4-4.8 L CALCIUM (test code = CA) 8.6 mg/dL 8.4-10.2 N BILIRUBIN TOTAL (test code = 0.3 mg/dL 0.2-1.0 N BILT) SGOT/AST (test code = AST) 22 units/L 15-37 N SGPT/ALT (test code = ALT) 18 units/L 12-78 N ALKALINE PHOSPHATASE TOTAL (test 517 units/L 46-116 H code = ALKP) URIC [id number] 18:13:00 Test Item Value Reference Range Interpretation Comments URIC ACID (test code = URIC) 4.8 mg/dL 2.6-6.0 N LACTIC DEHYDROGENASE(LDH)[id number] 18:13:00 Test Item Value Reference Range Interpretation Comments LACTIC DEHYDROGENASE(LDH) (test 267 units/L 81-234 H code = LDH) URINALYSIS [id number] 17:54:00 Test Item Value Reference Range Interpretation Comments UA COLOR (test code = COLU) YELLOW YELLOW UA APPEARANCE (test code = CLEAR CLEAR APPU) UA GLUCOSE DIPSTICK (test code NEGATIVE NEG = DGLUU) UA BILIRUBIN DIPSTICK (test NEGATIVE NEG code = BILU) UA KETONE DIPSTICK (test code NEGATIVE NEG = KETU) UA SPECIFIC GRAVITY (test code 1.015 1.001-1.035 N = SGU) UA BLOOD DIPSTICK (test code = NEG NEG TABBY) UA PH DIPSTICK (test code = 6.0 5-9 JOSEPH) UA PROTEIN DIPSTICK (test code NEGATIVE NEG = PROU) UA UROBILINIOGEN DIPSTICK NEGATIVE mg/dL NEG (test code = URO) UA NITRITE DIPSTICK (test code NEG NEG = RITIKA) UA LEUKOCYTE ESTERASE DIPSTICK NEG NEG (test code = LEUU) UA WBC (test code = WBCU) 0-2 #/hpf NONE SEEN UA RBC (test code = RBCU) 0-2 #/hpf NONE SEEN UA EPITHELIAL CELLS (test code RARE #/HPF RARE-FEW = EPIU) UA BACTERIA (test code = BACU) FEW /HPF RARE-FEW UA MUCUS (test code = MUCU) RARE NONE SEEN URINE SAMPLE: CLEAN CATCHUR PROTEIN/CREATININE [id number] 17:54:00 Test Item Value Reference Range Interpretation Comments UR PROTEIN RANDOM (test code = 19.1 mg/dL PROTU) UR CREATININE RANDOM (test 78.7 mg/dL code = CREATU) PROTEIN/CREATININE RATIO (test 242.6 mg/gcrea <200 H code = P/CRATIO) URINE SAMPLE: CLEAN CATCHCBC W/AUTO [id number] 17:40:00 Test Item Value Reference Range Interpretation Comments WHITE BLOOD CELL (test code = WBC) 8.0 K/mm3 6.5-12.3 N RED BLOOD CELL (test code = RBC) 3.66 M/mm3 3.51-4.69 N HEMOGLOBIN (test code = HGB) 9.3 g/dL 10.1-13.8 L HEMATOCRIT (test code = HCT) 29.8 % 32.5-41.8 L MEAN CELL VOLUME (test code = MCV) 81.4 fL 84.6-96.6 L MEAN CELL HGB (test code = MCH) 25.4 pg 27.3-33.9 L MEAN CELL HGB CONCETRATION (test 31.2 gm/dL 32.0-34.2 L code = MCHC) RED CELL DISTRIBUTION WIDTH (test 13.4 % 12.2-16.3 N code = RDW) PLATELET COUNT (test code = PLT) 281 K/mm3 134-363 N MEAN PLATELET VOLUME (test code = 10.2 fL 9.2-12.7 N MPV) NEUTROPHIL % (test code = NT%) 67.8 % 57.9-77.3 N LYMPHOCYTE % (test code = LY%) 24.8 % 14.5-29.7 N MONOCYTE % (test code = MO%) 6.5 % 3.6-10.2 N EOSINOPHIL % (test code = EO%) 0.1 % 0.0-3.0 N BASOPHIL % (test code = BA%) 0.3 % 0.1-0.9 N NEUTROPHIL # (test code = NT#) 5.4 K/mm3 LYMPHOCYTE # (test code = LY#) 2.0 K/mm3 MONOCYTE # (test code = MO#) 0.5 K/mm3 EOSINOPHIL # (test code = EO#) 0.01 K/mm3 BASOPHIL # (test code = BA#) 0.0 K/mm3 RBC MORPHOLOGY REQUIRED (test code NORMAL NORMAL = RBCM) PLATELET MORPHOLOGY REQUIRED (test NORMAL NORMAL code = PLTMR) Urinalysis macro (dipstick) panel - [id number] 13:49:32 Test Item Value Reference Range Interpretation Comments Protein (test code = Protein) Negative Glucose (test code = Glucose) Negative [facility] MedicalHIV 1+2 Ab+HIV1 p24 Ag [Presence] in Serum or Plasma by [id number] 00:00:00 Test Item Value Reference Range Interpretation Comments ethnicity: (test code = other ethnicity:) race: (test code = race:) white () HIV Ag/Ab (test code = HIV non-reactive non-reactive Ag/Ab) [facility] MedicalReagin Ab [Presence] in Serum by [id number] 00:00:00 Test Item Value Reference Range Interpretation Comments ethnicity: (test code = other ethnicity:) race: (test code = race:) other RPR (test code = RPR) non-reactive non-reactive [facility] MedicalPOCT GRP A STREP (MOLECULAR)2021-10-25 15:42:00 Test Item Value Reference Range Interpretation Comments POCT GP A STREP (test code = negative Negative - Negative 54600-2) [facility] - Urine 2021-10-14 14:45:15 Test Item Value Reference Range Interpretation Comments Protein (test code = Protein) Trace Glucose (test code = Glucose) Normal [facility] [id number] 12:09:00 Test Item Value Reference Range Interpretation Comments LIPASE (test code = LIP) 134 units/L 73-393 N COMPREHENSIVE METABOLIC [id number] 12:09:00 Test Item Value Reference Range Interpretation Comments SODIUM (test code = NA) 139 mEq/L 135-145 N POTASSIUM (test code = K) 3.9 mEq/L 3.5-5.0 N CHLORIDE (test code = CL) 105 mEq/L 100-115 N CARBON DIOXIDE (test code = CO2) 25 mEq/L 22-31 N ANION GAP (test code = GAP) 12.80 10-20 N GLUCOSE (test code = GLU) 94 mg/dL 65-110 N BLOOD UREA NITROGEN (test code = 8 mg/dL 7-18 N BUN) GLOMERULAR FILTRATION RATE (test 189 ml/min >60 N code = GFR) CREATININE (test code = CREAT) 0.4 mg/dL 0.5-1.0 L TOTAL PROTEIN (test code = PROT) 6.2 gm/dL 6.3-8.2 L ALBUMIN (test code = ALB) 2.7 gm/dL 3.4-4.8 L CALCIUM (test code = CA) 8.0 mg/dL 8.4-10.2 L BILIRUBIN TOTAL (test code = 0.2 mg/dL 0.2-1.0 N BILT) SGOT/AST (test code = AST) 15 units/L 15-37 N SGPT/ALT (test code = ALT) 17 units/L 12-78 N ALKALINE PHOSPHATASE TOTAL (test 100 units/L 46-116 N code = ALKP) [id number] 12:09:00 Test Item Value Reference Range Interpretation Comments AMYLASE (test code = MITCHELL) 68 units/L 30-110 N URINALYSIS [id number] 10:59:00 Test Item Value Reference Range Interpretation Comments UA COLOR (test code = COLU) YELLOW YELLOW UA APPEARANCE (test code = Slightly-Cloudy CLEAR APPU) UA GLUCOSE DIPSTICK (test NEGATIVE NEG code = DGLUU) UA BILIRUBIN DIPSTICK (test NEGATIVE NEG code = BILU) UA KETONE DIPSTICK (test code NEGATIVE NEG = KETU) UA SPECIFIC GRAVITY (test 1.024 1.001-1.035 N code = SGU) UA BLOOD DIPSTICK (test code NEG NEG = TABBY) UA PH DIPSTICK (test code = 6.0 5-9 JOSEPH) UA PROTEIN DIPSTICK (test NEGATIVE NEG code = PROU) UA UROBILINIOGEN DIPSTICK 4.0 mg/dL NEG A (test code = URO) UA NITRITE DIPSTICK (test NEG NEG code = RITIKA) UA LEUKOCYTE ESTERASE NEG NEG DIPSTICK (test code = LEUU) UA WBC (test code = WBCU) 3-5 #/hpf NONE SEEN A UA RBC (test code = RBCU) 3-5 #/hpf NONE SEEN A UA EPITHELIAL CELLS (test RARE #/HPF RARE-FEW code = EPIU) UA BACTERIA (test code = FEW /HPF RARE-FEW BACU) UA MUCUS (test code = MUCU) 1+ NONE SEEN URINE SAMPLE: CLEAN CATCHCBC W/AUTO [id number] 10:39:00 Test Item Value Reference Range Interpretation Comments WHITE BLOOD CELL (test code = WBC) 7.2 K/mm3 6.5-12.3 N RED BLOOD CELL (test code = RBC) 3.76 M/mm3 3.51-4.69 N HEMOGLOBIN (test code = HGB) 11.4 g/dL 10.1-13.8 N HEMATOCRIT (test code = HCT) 34.2 % 32.5-41.8 N MEAN CELL VOLUME (test code = MCV) 91.0 fL 84.6-96.6 N MEAN CELL HGB (test code = MCH) 30.3 pg 27.3-33.9 N MEAN CELL HGB CONCETRATION (test 33.3 gm/dL 32.0-34.2 N code = MCHC) RED CELL DISTRIBUTION WIDTH (test 12.2 % 12.2-16.3 N code = RDW) PLATELET COUNT (test code = PLT) 258 K/mm3 134-363 N MEAN PLATELET VOLUME (test code = 8.6 fL 9.2-12.7 L MPV) NEUTROPHIL % (test code = NT%) 73.1 % 57.9-77.3 N LYMPHOCYTE % (test code = LY%) 18.5 % 14.5-29.7 N MONOCYTE % (test code = MO%) 7.7 % 3.6-10.2 N EOSINOPHIL % (test code = EO%) 0.3 % 0.0-3.0 N BASOPHIL % (test code = BA%) 0.1 % 0.1-0.9 N NEUTROPHIL # (test code = NT#) 5.3 K/mm3 LYMPHOCYTE # (test code = LY#) 1.3 K/mm3 MONOCYTE # (test code = MO#) 0.6 K/mm3 EOSINOPHIL # (test code = EO#) 0.02 K/mm3 BASOPHIL # (test code = BA#) 0.0 K/mm3 RBC MORPHOLOGY REQUIRED (test code NORMAL NORMAL = RBCM) PLATELET MORPHOLOGY REQUIRED (test NORMAL NORMAL code = PLTMR) - US FET BIO PH [place] W/O [id number] 00:00:00 [facility] 1990 Sex: F Patient Name: DOMONIQUE CAPPS Unit No: [id number] EXAMS: CPT CODE: [id number] US FET BIO PH [place] W/O NST 28546 PROCEDURE INFORMATION: Exam: US Biophysical Profile Without Non-Stress Test Exam date and time: 08/17/2021 12:38 PM Age: 31 years old Clinical indication: Other: decals in office; ; Additional info: 26 weeks heart deceleration TECHNIQUE: Imaging protocol: US biophysical profile without non-stress testing. COMPARISON: CT ABD PELVIS W/O CONT 03/27/2017 10:27 AM FINDINGS: Presentation: Patel viable intrauterine gestation is demonstrated in breech presentation. Spontaneous movement is noted with regular heart rhythm and a heart rate of 128 bpm. Amniotic fluid index: The biophysical profile score of 8/8 is normal. The amniotic fluid index is 18.5 cm with the deepest pocket measuring 5.7 cm. BIOPHYSICAL PROFILE: Breathin/2 Gross body movements: 2/2 tone: 2/2 Qualitative amniotic fluid: 2/2 Biophysical Profile Score: 8/8 MATERNAL ANATOMY: Cervix: The cervical length measures 3.2 cm. The cervix is closed. IMPRESSION: The biophysical profile score of 8/8 is normal. at 1317 Reported and signed by: Noam Castillo MD CC: Fernando Bermudez III, MD; Rufino Cuadra Technologist:Mayra Sosa RDMS Probe: Trnscrbd D/ (1317) GCD.CPS Orig Print D/T: S: 08/17/2021 (13 17) [facility] NAME: LAMBERT CAPPSELLE Radiology Department PHYS: Fernando Means III, MD [address] : 1990 AGE: 31 SEX: F [place] [address] LOC: NiaELIANE PHONE #: [phone] EXAM DATE: 08/17/2021 STATUS: REG ER FAX #: [phone] RAD NO: Page 1 Signed Report Patient Name: DOMONIQUE CAPPS Unit No: [id number] EXAMS: CPT CODE: [id number] FET BIO PHPR W/O NST 49006 (Continued) [facility] NAME: KEE CAPPSDOMONIQUE Radiology DepartmentPHYS: Fernando Means III, MD [address] : 1990 AGE: 31 SEX: F [place] [address] LOC: NiaELIANE PHONE #: [phone] EXAM DATE: 08/17/2021 STATUS: REG ER FAX #: [phone] RAD NO: Page 2 Signed ReportDETW[facility] [id number] 19:51:00 Test Item Value Reference Range Interpretation Comments eGFR (test code = eGFR) 113 [facility] [id number] 19:51:00 Test Item Value Reference Range Interpretation Comments U Amph Scr (test code Negative *NA*(12/17/19 = U Amph Scr) 1:51 PM) [facility] [id number] 19:51:00 Test Item Value Reference Range Interpretation Comments U Lorenza Scr (test code Negative *NA*(12/17/19 = U Lorenza Scr) 1:51 PM) [facility] [id number] 19:51:00 Test Item Value Reference Range Interpretation Comments U Benzodiaz Scr (test Negative *NA*(12/17/19 code = U Benzodiaz Scr) 1:51 PM) [facility] [id number] 19:51:00 Test Item Value Reference Range Interpretation Comments U Cocaine Scr (test Negative *NA*(12/17/19 code = U Cocaine Scr) 1:51 PM) [facility] [id number] 19:51:00 Test Item Value Reference Range Interpretation Comments U Cannab Scr (test Negative *NA*(12/17/19 code = U Cannab Scr) 1:51 PM) [facility] [id number] 19:51:00 Test Item Value Reference Range Interpretation Comments U Opiate Scr (test Negative *NA*(12/17/19 code = U Opiate Scr) 1:51 PM) [facility] [id number] 19:51:00 Test Item Value Reference Range Interpretation Comments U Phencyclidine Scr (test Negative code = U Phencyclidine *NA*(12/17/19 1:51 Scr) PM) [facility] [id number] 19:51:00 Test Item Value Reference Range Interpretation Comments UDS Note (test code = See Note *NA*(12/17/19 UDS Note) 1:51 PM) [facility] [id number] 19:51:00 Test Item Value Reference Range Interpretation Comments WBC (test code = WBC) 6.9 3.7-10.4 [facility] [id number] 19:51:00 Test Item Value Reference Range Interpretation Comments RBC (test code = RBC) 4.50 4.20-5.40 [place] [id number] 19:51:00 Test Item Value Reference Range Interpretation Comments Hgb (test code = Hgb) 13.2 12.0-16.0 [place] 153230-01-22 19:51:00 Test Item Value Reference Range Interpretation Comments Hct (test code = Hct) 39.6 36.0-48.0 [place] 153230-01-22 19:51:00 Test Item Value Reference Range Interpretation Comments MCV (test code = MCV) 88.1 80.0-98.0 [place] 153230-01-22 19:51:00 Test Item Value Reference Range Interpretation Comments MCH (test code = MCH) 29.4 pg 27.0-31.0 [facility] [id number] 19:51:00 Test Item Value Reference Range Interpretation Comments MCHC (test code = MCHC) 33.4 32.0-36.0 [place] 153230-01-22 19:51:00 Test Item Value Reference Range Interpretation Comments RDW (test code = RDW) 12.6 11.5-14.5 [place] 153230-01-22 19:51:00 Test Item Value Reference Range Interpretation Comments Platelet (test code = Platelet) 304 133-450 [facility] C[id number] 19:51:00 Test Item Value Reference Range Interpretation Comments MPV (test code = MPV) 6.9 7.4-10.4 [place] 153230-01-22 19:51:00 Test Item Value Reference Range Interpretation Comments Segs (test code = Segs) 57.3 45.0-75.0 [facility] [id number] 19:51:00 Test Item Value Reference Range Interpretation Comments Lymphocytes (test code = Lymphocytes) 36.8 20.0-40.0 [place] 153230-01-22 19:51:00 Test Item Value Reference Range Interpretation Comments Monocytes (test code = Monocytes) 4.0 2.0-12.0 [place] [id number] 19:51:00 Test Item Value Reference Range Interpretation Comments Eosinophils (test code = 1.5 See_Comment [A utomated message] The Eosinophils) system which ge nerated this result tra nsmitted reference range : <=4.0. The reference r danyell was not used to int erpret this result as normal/abnormal . [facility] Cent[id number] 19:51:00 Test Item Value Reference Range Interpretation Comments Basophils (test code = 0.4 See_Comment [Aut omated message] The Basophils) system which ge nerated this result tra nsmitted reference range : <=1.0. The reference r danyell was not used to int erpret this result as normal/abnormal . [facility] C[id number] 19:51:00 Test Item Value Reference Range Interpretation Comments Neutrophils # (test code = Neutrophils 3.9 1.5-8.1 #) [facility] [id number] 19:51:00 Test Item Value Reference Range Interpretation Comments Lymphocytes # (test code = Lymphocytes 2.5 1.0-5.5 #) [facility] C[id number] 19:51:00 Test Item Value Reference Range Interpretation Comments Monocytes # (test code 0.3 See_Comment [Aut omated message] The = Monocytes #) system which generated this result tra nsmitted reference range : <=0.8. The reference r danyell was not used to int erpret this result as normal/abnormal . [facility] CenterWserrrzPMLWCDYHBH8416-03-94 19:51:00 Test Item Value Reference Range Interpretation Comments Eosinophils # (test code 0.1 See_Comment [A utomated message] The = Eosinophils #) system whic h generated this result tra nsmitted reference range : <=0.5. The reference r danyell was not used to int erpret this result as normal/abnormal . [id number] 19:51:00 Test Item Value Reference Range Interpretation Comments Acetaminoph Lvl (test code (12/17/19 1:51 PM) 10-20 = Acetaminoph Lvl) [place] [id number] 19:51:00 Test Item Value Reference Range Interpretation Comments Ethanol Lvl (test code = Ethanol Lvl) no gt [place] [id number] 19:51:00 Test Item Value Reference Range Interpretation Comments Etoh (%) (test code = Etoh (%)) no gt [id number] 19:51:00 Test Item Value Reference Range Interpretation Comments Salicylate Lvl (test no gt See_Comment [Autom ated message] The code = Salicylate Lvl) syste m which generated this result tra nsmitted reference range : <=30.0. The reference r danyell was not used to int erpret this result as normal/abnormal . [facility] [id number] 19:51:00 Test Item Value Reference Range Interpretation Comments U Preg (test code = U Negative (12/17/19 1:51 Preg) PM) [facility] [id number] 19:51:00 Test Item Value Reference Range Interpretation Comments Glucose Lvl (test code = Glucose Lvl) 121 70-99 [facility] [id number] 19:51:00 Test Item Value Reference Range Interpretation Comments BUN (test code = BUN) 10 7-22 [facility] LakewayAztek NetworksFORMERLY [facility], [facility] [id number] 19:51:00 Test Item Value Reference Range Interpretation Comments Creatinine Lvl (test code = Creatinine 0.73 0.50-1.40 Lvl) [facility] LakewayMorpho Technologies [id number] 19:51:00 Test Item Value Reference Range Interpretation Comments Sodium Lvl (test code = Sodium Lvl) 139 135-145 [facility]wayM[facility] [id number] 19:51:00 Test Item Value Reference Range Interpretation Comments Potassium Lvl (test code = Potassium 3.5 3.5-5.1 Lvl) [facility]wayM[facility] [id number] 19:51:00 Test Item Value Reference Range Interpretation Comments Chloride Lvl (test code = Chloride Lvl) 107 95-109 [facility] LakewayM[facility] [id number] 19:51:00 Test Item Value Reference Range Interpretation Comments CO2 (test code = CO2) 28 24-32 [facility]wayM[facility] [id number] 19:51:00 Test Item Value Reference Range Interpretation Comments Calcium Lvl (test code = Calcium Lvl) 9.4 8.5-10.5 [facility]way[facility] [id number] 19:51:00 Test Item Value Reference Range Interpretation Comments Total Protein (test code = Total 8.0 6.4-8.4 Protein) [facility]wayM[facility] [id number] 19:51:00 Test Item Value Reference Range Interpretation Comments Albumin Lvl (test code = Albumin Lvl) 4.1 3.5-5.0 [facility] [employer] [id number] 19:51:00 Test Item Value Reference Range Interpretation Comments ALT (test code = ALT) 19 See_Comment [Auto mated message] The system which ge nerated this result transmit leandro reference range : <=65. The reference range was not used to interpr et this result as elsie l/abnormal. [facility] [employer] [id number] 19:51:00 Test Item Value Reference Range Interpretation Comments AST (test code = AST) 15 See_Comment [Auto mated message] The system which ge nerated this result transmit leandro reference range : <=37. The reference range was not used to interpr et this result as elsie l/abnormal. [facility] [employer] [id number] 19:51:00 Test Item Value Reference Range Interpretation Comments Alk Phos (test code = Alk Phos) 79 39-136 [facility] [employer] [id number] 19:51:00 Test Item Value Reference Range Interpretation Comments Bili Total (test code = Bili Total) 0.3 0.2-1.3 [facility] [employer] [id number] 19:51:00 Test Item Value Reference Range Interpretation Comments AGAP (test code = AGAP) 7.5 10.0-20.0 [facility] [employer] [id number] 19:51:00 Test Item Value Reference Range Interpretation Comments B/C Ratio (test code = B/C Ratio) 14 1 6-25 [facility] [employer] [id number] 19:51:00 Test Item Value Reference Range Interpretation Comments Globulin (test code = Globulin) 3.9 2.7-4.2 [facility] [employer] [id number] 19:51:00 Test Item Value Reference Range Interpretation Comments A/G Ratio (test code = A/G Ratio) 1.1 1 0.7-1.6 [facility] [employer] [id number] 19:51:00 Test Item Value Reference Range Interpretation Comments eGFR (test code = eGFR) 113 [facility] LakewayAztek NetworksDRUG [id number] 19:51:00 Test Item Value Reference Range Interpretation Comments U Amph Scr (test code Negative *NA*(12/17/19 = U Amph Scr) 1:51 PM) [facility]wayannDR[facility] [id number] 19:51:00 Test Item Value Reference Range Interpretation Comments U Lorenza Scr (test code Negative *NA*(12/17/19 = U Lorenza Scr) 1:51 PM) [facility]wayannDR[facility] [id number] 19:51:00 Test Item Value Reference Range Interpretation Comments U Benzodiaz Scr (test Negative *NA*(12/17/19 code = U Benzodiaz Scr) 1:51 PM) [facility]wayannDR[facility] [id number] 19:51:00 Test Item Value Reference Range Interpretation Comments U Cocaine Scr (test Negative *NA*(12/17/19 code = U Cocaine Scr) 1:51 PM) [facility] [id number] 19:51:00 Test Item Value Reference Range Interpretation Comments U Cannab Scr (test Negative *NA*(12/17/19 code = U Cannab Scr) 1:51 PM) [facility] HospitalDR[facility] [id number] 19:51:00 Test Item Value Reference Range Interpretation Comments U Opiate Scr (test Negative *NA*(12/17/19 code = U Opiate Scr) 1:51 PM) [facility] HospitalDR[facility] [id number] 19:51:00 Test Item Value Reference Range Interpretation Comments U Phencyclidine Scr (test Negative code = U Phencyclidine *NA*(12/17/19 1:51 Scr) PM) [facility] HospitalDR[facility] [id number] 19:51:00 Test Item Value Reference Range Interpretation Comments UDS Note (test code = See Note *NA*(12/17/19 UDS Note) 1:51 PM) [facility] HospitalExrcsbsJXCEIGAFRU2223-12-15 19:51:00 Test Item Value Reference Range Interpretation Comments WBC (test code = WBC) 6.9 3.7-10.4 [facility] [id number] 19:51:00 Test Item Value Reference Range Interpretation Comments RBC (test code = RBC) 4.50 4.20-5.40 [facility] [id number] 19:51:00 Test Item Value Reference Range Interpretation Comments Hgb (test code = Hgb) 13.2 12.0-16.0 [facility] Hos[id number] 19:51:00 Test Item Value Reference Range Interpretation Comments Hct (test code = Hct) 39.6 36.0-48.0 [place] 153230-01-22 19:51:00 Test Item Value Reference Range Interpretation Comments MCV (test code = MCV) 88.1 80.0-98.0 [place] 153230-01-22 19:51:00 Test Item Value Reference Range Interpretation Comments MCH (test code = MCH) 29.4 pg 27.0-31.0 [place] 153230-01-22 19:51:00 Test Item Value Reference Range Interpretation Comments MCHC (test code = MCHC) 33.4 32.0-36.0 [place] 153230-01-22 19:51:00 Test Item Value Reference Range Interpretation Comments RDW (test code = RDW) 12.6 11.5-14.5 [place] [address]-01-22 19:51:00 Test Item Value Reference Range Interpretation Comments Platelet (test code = Platelet) 304 133-450 [facility] C[id number] 19:51:00 Test Item Value Reference Range Interpretation Comments MPV (test code = MPV) 6.9 7.4-10.4 [place] 153230-01-22 19:51:00 Test Item Value Reference Range Interpretation Comments Segs (test code = Segs) 57.3 45.0-75.0 [facility] [id number] 19:51:00 Test Item Value Reference Range Interpretation Comments Lymphocytes (test code = Lymphocytes) 36.8 20.0-40.0 [place] 153230-01-22 19:51:00 Test Item Value Reference Range Interpretation Comments Monocytes (test code = Monocytes) 4.0 2.0-12.0 [place] [address]-01-22 19:51:00 Test Item Value Reference Range Interpretation Comments Eosinophils (test code = 1.5 See_Comment [A utomated message] The Eosinophils) system which ge nerated this result tra nsmitted reference range : <=4.0. The reference r danyell was not used to int erpret this result as normal/abnormal . [place] 153230-01-22 19:51:00 Test Item Value Reference Range Interpretation Comments Basophils (test code = 0.4 See_Comment [Aut omated message] The Basophils) system which ge nerated this result tra nsmitted reference range : <=1.0. The reference r danyell was not used to int erpret this result as normal/abnormal . [facility] [id number] 19:51:00 Test Item Value Reference Range Interpretation Comments Neutrophils # (test code = Neutrophils 3.9 1.5-8.1 #) [facility] [id number] 19:51:00 Test Item Value Reference Range Interpretation Comments Lymphocytes # (test code = Lymphocytes 2.5 1.0-5.5 #) [facility] [id number] 19:51:00 Test Item Value Reference Range Interpretation Comments Monocytes # (test code 0.3 See_Comment [Aut omated message] The = Monocytes #) system which generated this result tra nsmitted reference range : <=0.8. The reference r danyell was not used to int erpret this result as normal/abnormal . [facility] C[id number] 19:51:00 Test Item Value Reference Range Interpretation Comments Eosinophils # (test code 0.1 See_Comment [A utomated message] The = Eosinophils #) system whic h generated this result tra nsmitted reference range : <=0.5. The reference r danyell was not used to int erpret this result as normal/abnormal . [place] [id number] 19:51:00 Test Item Value Reference Range Interpretation Comments Acetaminoph Lvl (test code (12/17/19 1:51 PM) 10-20 = Acetaminoph Lvl) [place] [id number] 19:51:00 Test Item Value Reference Range Interpretation Comments Ethanol Lvl (test code = Ethanol Lvl) no gt [id number] 19:51:00 Test Item Value Reference Range Interpretation Comments Etoh (%) (test code = Etoh (%)) no gt [facility] HospitalYbomzhjJDELLHMPSM1048-75-03 19:51:00 Test Item Value Reference Range Interpretation Comments Salicylate Lvl (test no gt See_Comment [Autom ated message] The code = Salicylate Lvl) syste m which generated this result tra nsmitted reference range : <=30.0. The reference r danyell was not used to int erpret this result as normal/abnormal . [facility] [id number] 19:51:00 Test Item Value Reference Range Interpretation Comments U Preg (test code = U Negative (12/17/19 1:51 Preg) PM) [place] [id number] 19:51:00 Test Item Value Reference Range Interpretation Comments Glucose Lvl (test code = Glucose Lvl) 121 70-99 [place] 279860-01-22 19:51:00 Test Item Value Reference Range Interpretation Comments BUN (test code = BUN) 10 7-22 [facility]2020-01-22 19:51:00 Test Item Value Reference Range Interpretation Comments Creatinine Lvl (test code = Creatinine 0.73 0.50-1.40 Lvl) [facility]2020-01-22 19:51:00 Test Item Value Reference Range Interpretation Comments Sodium Lvl (test code = Sodium Lvl) 139 135-145 [facility]2020-01-22 19:51:00 Test Item Value Reference Range Interpretation Comments Potassium Lvl (test code = Potassium 3.5 3.5-5.1 Lvl) [facility]2020-01-22 19:51:00 Test Item Value Reference Range Interpretation Comments Chloride Lvl (test code = Chloride Lvl) 107 95-109 [facility]2020-01-22 19:51:00 Test Item Value Reference Range Interpretation Comments CO2 (test code = CO2) 28 24-32 [place] 279860-01-22 19:51:00 Test Item Value Reference Range Interpretation Comments Calcium Lvl (test code = Calcium Lvl) 9.4 8.5-10.5 [facility]2020-01-22 19:51:00 Test Item Value Reference Range Interpretation Comments Total Protein (test code = Total 8.0 6.4-8.4 Protein) [facility]2020-01-22 19:51:00 Test Item Value Reference Range Interpretation Comments Albumin Lvl (test code = Albumin Lvl) 4.1 3.5-5.0 [facility]2020-01-22 19:51:00 Test Item Value Reference Range Interpretation Comments ALT (test code = ALT) 19 See_Comment [Auto mated message] The system which ge nerated this result transmit leandro reference range : <=65. The reference range was not used to interpr et this result as elsie l/abnormal. [employer] [id number] 19:51:00 Test Item Value Reference Range Interpretation Comments AST (test code = AST) 15 See_Comment [Auto mated message] The system which ge nerated this result transmit leandro reference range : <=37. The reference range was not used to interpr et this result as elsie l/abnormal. [employer] [id number] 19:51:00 Test Item Value Reference Range Interpretation Comments Alk Phos (test code = Alk Phos) 79 39-136 [facility]2020-01-22 19:51:00 Test Item Value Reference Range Interpretation Comments Bili Total (test code = Bili Total) 0.3 0.2-1.3 [facility]2020-01-22 19:51:00 Test Item Value Reference Range Interpretation Comments AGAP (test code = AGAP) 7.5 10.0-20.0 [facility]2020-01-22 19:51:00 Test Item Value Reference Range Interpretation Comments B/C Ratio (test code = B/C Ratio) 14 1 6-25 [facility]2020-01-22 19:51:00 Test Item Value Reference Range Interpretation Comments Globulin (test code = Globulin) 3.9 2.7-4.2 [facility] [employer]2020-01-22 19:51:00 Test Item Value Reference Range Interpretation Comments A/G Ratio (test code = A/G Ratio) 1.1 1 0.7-1.6 [facility] [employer] [id number] 19:51:00 Test Item Value Reference Range Interpretation Comments eGFR (test code = eGFR) 113 [facility] [employer] [id number] 19:51:00 Test Item Value Reference Range Interpretation Comments U Amph Scr (test code Negative *NA*(12/17/19 = U Amph Scr) 1:51 PM) [facility] [employer] [id number] 19:51:00 Test Item Value Reference Range Interpretation Comments U Lorenza Scr (test code Negative *NA*(12/17/19 = U Lorenza Scr) 1:51 PM) [facility] [id number] 19:51:00 Test Item Value Reference Range Interpretation Comments U Benzodiaz Scr (test Negative *NA*(12/17/19 code = U Benzodiaz Scr) 1:51 PM) [facility] [id number] 19:51:00 Test Item Value Reference Range Interpretation Comments U Cocaine Scr (test Negative *NA*(12/17/19 code = U Cocaine Scr) 1:51 PM) [facility]DR[facility] [id number] 19:51:00 Test Item Value Reference Range Interpretation Comments U Cannab Scr (test Negative *NA*(12/17/19 code = U Cannab Scr) 1:51 PM) [facility] [id number] 19:51:00 Test Item Value Reference Range Interpretation Comments U Opiate Scr (test Negative *NA*(12/17/19 code = U Opiate Scr) 1:51 PM) [facility]annDR[facility] [id number] 19:51:00 Test Item Value Reference Range Interpretation Comments U Phencyclidine Scr (test Negative code = U Phencyclidine *NA*(12/17/19 1:51 Scr) PM) [facility] [id number] 19:51:00 Test Item Value Reference Range Interpretation Comments UDS Note (test code = See Note *NA*(12/17/19 UDS Note) 1:51 PM) [facility] Ho[id number] 19:51:00 Test Item Value Reference Range Interpretation Comments WBC (test code = WBC) 6.9 3.7-10.4 [facility] HospitalRvaqhwtLBZIUEUESP6318-98-84 19:51:00 Test Item Value Reference Range Interpretation Comments RBC (test code = RBC) 4.50 4.20-5.40 [facility] LakewayRwmekmxMTGGBFMGNR4785-65-03 19:51:00 Test Item Value Reference Range Interpretation Comments Hgb (test code = Hgb) 13.2 12.0-16.0 [facility] LakewayOcumbcsHCMTSASGCH4279-24-06 19:51:00 Test Item Value Reference Range Interpretation Comments Hct (test code = Hct) 39.6 36.0-48.0 [facility] LakewayVyvssxaLCDGMPMNXP1066-04-14 19:51:00 Test Item Value Reference Range Interpretation Comments MCV (test code = MCV) 88.1 80.0-98.0 [facility] CenterKcawqqiIROSJRBSGG7074-06-66 19:51:00 Test Item Value Reference Range Interpretation Comments MCH (test code = MCH) 29.4 pg 27.0-31.0 [facility] CenterFheciyxTEOGETWEYK6453-68-65 19:51:00 Test Item Value Reference Range Interpretation Comments MCHC (test code = MCHC) 33.4 32.0-36.0 [facility] CenterOijeuyqCRFDIHNWOT8331-78-36 19:51:00 Test Item Value Reference Range Interpretation Comments RDW (test code = RDW) 12.6 11.5-14.5 [place] 153230-01-22 19:51:00 Test Item Value Reference Range Interpretation Comments Platelet (test code = Platelet) 304 133-450 [facility] CenterZgrymruMDLDLFBOAL2919-05-23 19:51:00 Test Item Value Reference Range Interpretation Comments MPV (test code = MPV) 6.9 7.4-10.4 [facility] CenterYtzknylBHEQPIFELI6395-99-02 19:51:00 Test Item Value Reference Range Interpretation Comments Segs (test code = Segs) 57.3 45.0-75.0 [facility] CenterUxkskktSSWNEJBCCN1628-35-58 19:51:00 Test Item Value Reference Range Interpretation Comments Lymphocytes (test code = Lymphocytes) 36.8 20.0-40.0 [facility] CenterFmhlwloEEDLAZNHBS0366-54-21 19:51:00 Test Item Value Reference Range Interpretation Comments Monocytes (test code = Monocytes) 4.0 2.0-12.0 [facility] CenterYgyjzkcKPXWKAFGSP6680-20-62 19:51:00 Test Item Value Reference Range Interpretation Comments Eosinophils (test code = 1.5 See_Comment [A utomated message] The Eosinophils) system which ge nerated this result tra nsmitted reference range : <=4.0. The reference r danyell was not used to int erpret this result as normal/abnormal . [place] 153230-01-22 19:51:00 Test Item Value Reference Range Interpretation Comments Basophils (test code = 0.4 See_Comment [Aut omated message] The Basophils) system which ge nerated this result tra nsmitted reference range : <=1.0. The reference r danyell was not used to int erpret this result as normal/abnormal . [place] 153230-01-22 19:51:00 Test Item Value Reference Range Interpretation Comments Neutrophils # (test code = Neutrophils 3.9 1.5-8.1 #) [facility] HospitalNurworrWQJWTJJYGC1470-31-29 19:51:00 Test Item Value Reference Range Interpretation Comments Lymphocytes # (test code = Lymphocytes 2.5 1.0-5.5 #) [facility] HospitalZkmqwzyQXOVZONELT0674-03-99 19:51:00 Test Item Value Reference Range Interpretation Comments Monocytes # (test code 0.3 See_Comment [Aut omated message] The = Monocytes #) system which generated this result tra nsmitted reference range : <=0.8. The reference r danyell was not used to int erpret this result as normal/abnormal . [facility] HospitalQoyumnaSKPOSNZLIJ2265-46-98 19:51:00 Test Item Value Reference Range Interpretation Comments Eosinophils # (test code 0.1 See_Comment [A utomated message] The = Eosinophils #) system whic h generated this result tra nsmitted reference range : <=0.5. The reference r danyell was not used to int erpret this result as normal/abnormal . [facility] HospitalVkfdfkgBEPABRAQTV4161-82-91 19:51:00 Test Item Value Reference Range Interpretation Comments Acetaminoph Lvl (test code (12/17/19 1:51 PM) 10-20 = Acetaminoph Lvl) [facility] HospitalHwyzbaxUTSAWZSQRF1879-61-50 19:51:00 Test Item Value Reference Range Interpretation Comments Ethanol Lvl (test code = Ethanol Lvl) no gt [facility] LakewayVzfkxecZKRCDLNAUT2858-92-81 19:51:00 Test Item Value Reference Range Interpretation Comments Etoh (%) (test code = Etoh (%)) no gt [facility] LakewayPusgtqlSGPZODISDM1523-36-56 19:51:00 Test Item Value Reference Range Interpretation Comments Salicylate Lvl (test no gt See_Comment [Autom ated message] The code = Salicylate Lvl) syste m which generated this result tra nsmitted reference range : <=30.0. The reference r danyell was not used to int erpret this result as normal/abnormal . [facility] HospitalURINE [id number] 19:51:00 Test Item Value Reference Range Interpretation Comments U Preg (test code = U Negative (12/17/19 1:51 Preg) PM) [place] 279860-01-22 19:51:00 Test Item Value Reference Range Interpretation Comments Glucose Lvl (test code = Glucose Lvl) 121 70-99 [place] 279860-01-22 19:51:00 Test Item Value Reference Range Interpretation Comments BUN (test code = BUN) 10 7-22 [place] 279860-01-22 19:51:00 Test Item Value Reference Range Interpretation Comments Creatinine Lvl (test code = Creatinine 0.73 0.50-1.40 Lvl) [facility]2020-01-22 19:51:00 Test Item Value Reference Range Interpretation Comments Sodium Lvl (test code = Sodium Lvl) 139 135-145 [place] 279860-01-22 19:51:00 Test Item Value Reference Range Interpretation Comments Potassium Lvl (test code = Potassium 3.5 3.5-5.1 Lvl) [place] 279860-01-22 19:51:00 Test Item Value Reference Range Interpretation Comments Chloride Lvl (test code = Chloride Lvl) 107 95-109 [facility]2020-01-22 19:51:00 Test Item Value Reference Range Interpretation Comments CO2 (test code = CO2) 28 24-32 [place] 279860-01-22 19:51:00 Test Item Value Reference Range Interpretation Comments Calcium Lvl (test code = Calcium Lvl) 9.4 8.5-10.5 [facility]2020-01-22 19:51:00 Test Item Value Reference Range Interpretation Comments Total Protein (test code = Total 8.0 6.4-8.4 Protein) [place] 279860-01-22 19:51:00 Test Item Value Reference Range Interpretation Comments Albumin Lvl (test code = Albumin Lvl) 4.1 3.5-5.0 [place] 279860-01-22 19:51:00 Test Item Value Reference Range Interpretation Comments ALT (test code = ALT) 19 See_Comment [Auto mated message] The system which ge nerated this result transmit leandro reference range : <=65. The reference range was not used to interpr et this result as elsie l/abnormal. [place] 279860-01-22 19:51:00 Test Item Value Reference Range Interpretation Comments AST (test code = AST) 15 See_Comment [Auto mated message] The system which ge nerated this result transmit leandro reference range : <=37. The reference range was not used to interpr et this result as elsie l/abnormal. [facility] [employer] [id number] 19:51:00 Test Item Value Reference Range Interpretation Comments Alk Phos (test code = Alk Phos) 79 39-136 [facility] [employer] [id number] 19:51:00 Test Item Value Reference Range Interpretation Comments Bili Total (test code = Bili Total) 0.3 0.2-1.3 [facility] [employer] [id number] 19:51:00 Test Item Value Reference Range Interpretation Comments AGAP (test code = AGAP) 7.5 10.0-20.0 [facility] [employer] [id number] 19:51:00 Test Item Value Reference Range Interpretation Comments B/C Ratio (test code = B/C Ratio) 14 1 6-25 [facility] [employer] [id number] 19:51:00 Test Item Value Reference Range Interpretation Comments Globulin (test code = Globulin) 3.9 2.7-4.2 [facility] [employer] [id number] 19:51:00 Test Item Value Reference Range Interpretation Comments A/G Ratio (test code = A/G Ratio) 1.1 1 0.7-1.6 [facility] [employer] [id number] 19:51:00 Test Item Value Reference Range Interpretation Comments eGFR (test code = eGFR) 113 [facility] [employer] [id number] 19:51:00 Test Item Value Reference Range Interpretation Comments U Amph Scr (test code Negative *NA*(12/17/19 = U Amph Scr) 1:51 PM) [facility] [employer] [id number] 19:51:00 Test Item Value Reference Range Interpretation Comments U Lorenza Scr (test code Negative *NA*(12/17/19 = U Lorenza Scr) 1:51 PM) [facility] [employer] [id number] 19:51:00 Test Item Value Reference Range Interpretation Comments U Benzodiaz Scr (test Negative *NA*(12/17/19 code = U Benzodiaz Scr) 1:51 PM) [facility] [employer] [id number] 19:51:00 Test Item Value Reference Range Interpretation Comments U Cocaine Scr (test Negative *NA*(12/17/19 code = U Cocaine Scr) 1:51 PM) [facility] [id number] 19:51:00 Test Item Value Reference Range Interpretation Comments U Cannab Scr (test Negative *NA*(12/17/19 code = U Cannab Scr) 1:51 PM) [facility]DR[facility] [id number] 19:51:00 Test Item Value Reference Range Interpretation Comments U Opiate Scr (test Negative *NA*(12/17/19 code = U Opiate Scr) 1:51 PM) [facility] [id number] 19:51:00 Test Item Value Reference Range Interpretation Comments U Phencyclidine Scr (test Negative code = U Phencyclidine *NA*(12/17/19 1:51 Scr) PM) [facility]DR[facility] [id number] 19:51:00 Test Item Value Reference Range Interpretation Comments UDS Note (test code = See Note *NA*(12/17/19 UDS Note) 1:51 PM) [facility] HospitalDpljxctTHEMQHEVYZ4073-80-36 19:51:00 Test Item Value Reference Range Interpretation Comments WBC (test code = WBC) 6.9 3.7-10.4 [facility]XwnepxsKRJWVSTMSI5185-79-36 19:51:00 Test Item Value Reference Range Interpretation Comments RBC (test code = RBC) 4.50 4.20-5.40 [facility]PjciplbWISGNLTWEG2202-84-44 19:51:00 Test Item Value Reference Range Interpretation Comments Hgb (test code = Hgb) 13.2 12.0-16.0 [facility] HospitalXtsfmxgHOXMRFYXNO9795-66-77 19:51:00 Test Item Value Reference Range Interpretation Comments Hct (test code = Hct) 39.6 36.0-48.0 [facility] LakewayIwdssqnSRRCYSQIMS5711-83-53 19:51:00 Test Item Value Reference Range Interpretation Comments MCV (test code = MCV) 88.1 80.0-98.0 [facility] HospitalDxlznreLFXWIISAGL9890-76-21 19:51:00 Test Item Value Reference Range Interpretation Comments MCH (test code = MCH) 29.4 pg 27.0-31.0 [facility] HospitalDytfsysZDXURULXNE6665-73-85 19:51:00 Test Item Value Reference Range Interpretation Comments MCHC (test code = MCHC) 33.4 32.0-36.0 [place] 153230-01-22 19:51:00 Test Item Value Reference Range Interpretation Comments RDW (test code = RDW) 12.6 11.5-14.5 [place] 153230-01-22 19:51:00 Test Item Value Reference Range Interpretation Comments Platelet (test code = Platelet) 304 133-450 [place] 153230-01-22 19:51:00 Test Item Value Reference Range Interpretation Comments MPV (test code = MPV) 6.9 7.4-10.4 [place] 153230-01-22 19:51:00 Test Item Value Reference Range Interpretation Comments Segs (test code = Segs) 57.3 45.0-75.0 [place] 153230-01-22 19:51:00 Test Item Value Reference Range Interpretation Comments Lymphocytes (test code = Lymphocytes) 36.8 20.0-40.0 [place] 153230-01-22 19:51:00 Test Item Value Reference Range Interpretation Comments Monocytes (test code = Monocytes) 4.0 2.0-12.0 [facility] CenterJhvrrijPIBJQHXECU1558-24-79 19:51:00 Test Item Value Reference Range Interpretation Comments Eosinophils (test code = 1.5 See_Comment [A utomated message] The Eosinophils) system which ge nerated this result tra nsmitted reference range : <=4.0. The reference r danyell was not used to int erpret this result as normal/abnormal . [facility] CenterRjuoqmyNNIDWVJYKE6490-60-53 19:51:00 Test Item Value Reference Range Interpretation Comments Basophils (test code = 0.4 See_Comment [Aut omated message] The Basophils) system which ge nerated this result tra nsmitted reference range : <=1.0. The reference r danyell was not used to int erpret this result as normal/abnormal . [place] 153230-01-22 19:51:00 Test Item Value Reference Range Interpretation Comments Neutrophils # (test code = Neutrophils 3.9 1.5-8.1 #) [facility] CenterEkthgdgEAVGHCRAEH9257-35-88 19:51:00 Test Item Value Reference Range Interpretation Comments Lymphocytes # (test code = Lymphocytes 2.5 1.0-5.5 #) [facility] HospitalLjzqvegBZFHNDJCAR3403-67-57 19:51:00 Test Item Value Reference Range Interpretation Comments Monocytes # (test code 0.3 See_Comment [Aut omated message] The = Monocytes #) system which generated this result tra nsmitted reference range : <=0.8. The reference r danyell was not used to int erpret this result as normal/abnormal . [facility] LakewayYcvoxtzKGLDVYJOXK5242-90-90 19:51:00 Test Item Value Reference Range Interpretation Comments Eosinophils # (test code 0.1 See_Comment [A utomated message] The = Eosinophils #) system whic h generated this result tra nsmitted reference range : <=0.5. The reference r danyell was not used to int erpret this result as normal/abnormal . [facility] HospitalKyyiooqYUTDFMPDIY1705-55-96 19:51:00 Test Item Value Reference Range Interpretation Comments Acetaminoph Lvl (test code (12/17/19 1:51 PM) 10-20 = Acetaminoph Lvl) [facility] HospitalGfvpwepUHIXTBNAHH4709-98-21 19:51:00 Test Item Value Reference Range Interpretation Comments Ethanol Lvl (test code = Ethanol Lvl) no gt [facility] LakewayUqggyrqUWGUTEPSUJ4871-27-20 19:51:00 Test Item Value Reference Range Interpretation Comments Etoh (%) (test code = Etoh (%)) no gt [facility] LakewayPkyzbhqSRSXSXBRHU1849-31-45 19:51:00 Test Item Value Reference Range Interpretation Comments Salicylate Lvl (test no gt See_Comment [Autom ated message] The code = Salicylate Lvl) syste m which generated this result tra nsmitted reference range : <=30.0. The reference r danyell was not used to int erpret this result as normal/abnormal . [facility] LakewayAztek NetworksURINE [id number] 19:51:00 Test Item Value Reference Range Interpretation Comments U Preg (test code = U Negative (12/17/19 1:51 Preg) PM) [facility] LakewayAztek NetworksCHEM [id number] 19:51:00 Test Item Value Reference Range Interpretation Comments Glucose Lvl (test code = Glucose Lvl) 121 70-99 [facility] LakewayMorpho Technologies [id number] 19:51:00 Test Item Value Reference Range Interpretation Comments BUN (test code = BUN) 10 7-22 [place] 279860-01-22 19:51:00 Test Item Value Reference Range Interpretation Comments Creatinine Lvl (test code = Creatinine 0.73 0.50-1.40 Lvl) [place] 279860-01-22 19:51:00 Test Item Value Reference Range Interpretation Comments Sodium Lvl (test code = Sodium Lvl) 139 135-145 [place] 279860-01-22 19:51:00 Test Item Value Reference Range Interpretation Comments Potassium Lvl (test code = Potassium 3.5 3.5-5.1 Lvl) [place] 279860-01-22 19:51:00 Test Item Value Reference Range Interpretation Comments Chloride Lvl (test code = Chloride Lvl) 107 95-109 [place] 279860-01-22 19:51:00 Test Item Value Reference Range Interpretation Comments CO2 (test code = CO2) 28 24-32 [place] 279860-01-22 19:51:00 Test Item Value Reference Range Interpretation Comments Calcium Lvl (test code = Calcium Lvl) 9.4 8.5-10.5 [place] 279860-01-22 19:51:00 Test Item Value Reference Range Interpretation Comments Total Protein (test code = Total 8.0 6.4-8.4 Protein) [place] 279860-01-22 19:51:00 Test Item Value Reference Range Interpretation Comments Albumin Lvl (test code = Albumin Lvl) 4.1 3.5-5.0 [place] 279860-01-22 19:51:00 Test Item Value Reference Range Interpretation Comments ALT (test code = ALT) 19 See_Comment [Auto mated message] The system which ge nerated this result transmit leandro reference range : <=65. The reference range was not used to interpr et this result as elsie l/abnormal. [place] 279860-01-22 19:51:00 Test Item Value Reference Range Interpretation Comments AST (test code = AST) 15 See_Comment [Auto mated message] The system which ge nerated this result transmit leandro reference range : <=37. The reference range was not used to interpr et this result as elsie l/abnormal. [place] 279860-01-22 19:51:00 Test Item Value Reference Range Interpretation Comments Alk Phos (test code = Alk Phos) 79 39-136 [facility] LakewayMorph[facility] Technologies [id number] 19:51:00 Test Item Value Reference Range Interpretation Comments Bili Total (test code = Bili Total) 0.3 0.2-1.3 [facility]wayM[facility] [id number] 19:51:00 Test Item Value Reference Range Interpretation Comments AGAP (test code = AGAP) 7.5 10.0-20.0 [facility] LakewayMorph[facility] Technologies [id number] 19:51:00 Test Item Value Reference Range Interpretation Comments B/C Ratio (test code = B/C Ratio) 14 1 6-25 [facility] LakewayMorph[facility] Technologies [id number] 19:51:00 Test Item Value Reference Range Interpretation Comments Globulin (test code = Globulin) 3.9 2.7-4.2 [facility]wayM[facility] [id number] 19:51:00 Test Item Value Reference Range Interpretation Comments A/G Ratio (test code = A/G Ratio) 1.1 1 0.7-1.6 [facility]wayM[facility] [id number] 19:51:00 Test Item Value Reference Range Interpretation Comments eGFR (test code = eGFR) 113 [facility] Lakewayqunb [id number] 19:51:00 Test Item Value Reference Range Interpretation Comments U Amph Scr (test code Negative *NA*(12/17/19 = U Amph Scr) 1:51 PM) [facility] Lakewayqunb [id number] 19:51:00 Test Item Value Reference Range Interpretation Comments U Lorenza Scr (test code Negative *NA*(12/17/19 = U Lorenza Scr) 1:51 PM) [facility] LakewayAztek NetworksDRUG [id number] 19:51:00 Test Item Value Reference Range Interpretation Comments U Benzodiaz Scr (test Negative *NA*(12/17/19 code = U Benzodiaz Scr) 1:51 PM) [facility] HospitalPra[facility] Bunkers [id number] 19:51:00 Test Item Value Reference Range Interpretation Comments U Cocaine Scr (test Negative *NA*(12/17/19 code = U Cocaine Scr) 1:51 PM) [facility] Lakewayqunb [id number] 19:51:00 Test Item Value Reference Range Interpretation Comments U Cannab Scr (test Negative *NA*(12/17/19 code = U Cannab Scr) 1:51 PM) [facility] LakewayannDRUG [id number] 19:51:00 Test Item Value Reference Range Interpretation Comments U Opiate Scr (test Negative *NA*(12/17/19 code = U Opiate Scr) 1:51 PM) [facility]annDR[facility] [id number] 19:51:00 Test Item Value Reference Range Interpretation Comments U Phencyclidine Scr (test Negative code = U Phencyclidine *NA*(12/17/19 1:51 Scr) PM) [facility] HospitalDR[facility] [id number] 19:51:00 Test Item Value Reference Range Interpretation Comments UDS Note (test code = See Note *NA*(12/17/19 UDS Note) 1:51 PM) [facility] HospitalBkwotphVTUDYVJUHX6147-03-33 19:51:00 Test Item Value Reference Range Interpretation Comments WBC (test code = WBC) 6.9 3.7-10.4 [facility] HospitalNachddpMOWXXJNBMK1737-46-02 19:51:00 Test Item Value Reference Range Interpretation Comments RBC (test code = RBC) 4.50 4.20-5.40 [facility] HospitalLnezhrhMWGGFUOSZA7961-02-00 19:51:00 Test Item Value Reference Range Interpretation Comments Hgb (test code = Hgb) 13.2 12.0-16.0 [facility] HospitalJhjslzgRDKBPFRJHZ8083-47-09 19:51:00 Test Item Value Reference Range Interpretation Comments Hct (test code = Hct) 39.6 36.0-48.0 [facility] LakewayLncibnkWXUNURFAVL5329-94-10 19:51:00 Test Item Value Reference Range Interpretation Comments MCV (test code = MCV) 88.1 80.0-98.0 [facility] LakewayPpxnloxAYBYPYUHML5637-85-23 19:51:00 Test Item Value Reference Range Interpretation Comments MCH (test code = MCH) 29.4 pg 27.0-31.0 [facility] LakewayIqcfucwSDAIRKKCAQ2085-29-54 19:51:00 Test Item Value Reference Range Interpretation Comments MCHC (test code = MCHC) 33.4 32.0-36.0 [facility] HospitalGvbllwlXBAPXWNALP0356-74-91 19:51:00 Test Item Value Reference Range Interpretation Comments RDW (test code = RDW) 12.6 11.5-14.5 [place] 153230-01-22 19:51:00 Test Item Value Reference Range Interpretation Comments Platelet (test code = Platelet) 304 133-450 [place] 153230-01-22 19:51:00 Test Item Value Reference Range Interpretation Comments MPV (test code = MPV) 6.9 7.4-10.4 [place] 153230-01-22 19:51:00 Test Item Value Reference Range Interpretation Comments Segs (test code = Segs) 57.3 45.0-75.0 [place] 153230-01-22 19:51:00 Test Item Value Reference Range Interpretation Comments Lymphocytes (test code = Lymphocytes) 36.8 20.0-40.0 [place] 153230-01-22 19:51:00 Test Item Value Reference Range Interpretation Comments Monocytes (test code = Monocytes) 4.0 2.0-12.0 [place] 153230-01-22 19:51:00 Test Item Value Reference Range Interpretation Comments Eosinophils (test code = 1.5 See_Comment [A utomated message] The Eosinophils) system which ge nerated this result tra nsmitted reference range : <=4.0. The reference r danyell was not used to int erpret this result as normal/abnormal . [facility] CenterXmgkwdhZBVVJLNODV4737-69-03 19:51:00 Test Item Value Reference Range Interpretation Comments Basophils (test code = 0.4 See_Comment [Aut omated message] The Basophils) system which ge nerated this result tra nsmitted reference range : <=1.0. The reference r danyell was not used to int erpret this result as normal/abnormal . [facility] CenterXimzijoKFLOMADUCJ8469-33-44 19:51:00 Test Item Value Reference Range Interpretation Comments Neutrophils # (test code = Neutrophils 3.9 1.5-8.1 #) [place] 153230-01-22 19:51:00 Test Item Value Reference Range Interpretation Comments Lymphocytes # (test code = Lymphocytes 2.5 1.0-5.5 #) [place] 153230-01-22 19:51:00 Test Item Value Reference Range Interpretation Comments Monocytes # (test code 0.3 See_Comment [Aut omated message] The = Monocytes #) system which generated this result tra nsmitted reference range : <=0.8. The reference r danyell was not used to int erpret this result as normal/abnormal . [facility] HospitalVlwgysiBPVOVGLQXT9116-67-23 19:51:00 Test Item Value Reference Range Interpretation Comments Eosinophils # (test code 0.1 See_Comment [A utomated message] The = Eosinophils #) system whic h generated this result tra nsmitted reference range : <=0.5. The reference r danyell was not used to int erpret this result as normal/abnormal . [facility] HospitalRjhrodzITRTEKOKDB4537-60-92 19:51:00 Test Item Value Reference Range Interpretation Comments Acetaminoph Lvl (test code (12/17/19 1:51 PM) 09-14 = Acetaminoph Lvl) [facility] HospitalOfaosweBTTFTEVGEY7027-28-38 19:51:00 Test Item Value Reference Range Interpretation Comments Ethanol Lvl (test code = Ethanol Lvl) no gt [facility] LakewayLzehyrqPVSSMHKXRD2406-16-98 19:51:00 Test Item Value Reference Range Interpretation Comments Etoh (%) (test code = Etoh (%)) no gt [facility] LakewayXyyqdwlXJBOWUZEWO6853-07-77 19:51:00 Test Item Value Reference Range Interpretation Comments Salicylate Lvl (test no gt See_Comment [Autom ated message] The code = Salicylate Lvl) syste m which generated this result tra nsmitted reference range : <=30.0. The reference r danyell was not used to int erpret this result as normal/abnormal . [facility] HospitalURINE [id number] 19:51:00 Test Item Value Reference Range Interpretation Comments U Preg (test code = U Negative (12/17/19 1:51 Preg) PM) [facility] LakewayAztek NetworksCHEM [id number] 19:51:00 Test Item Value Reference Range Interpretation Comments Glucose Lvl (test code = Glucose Lvl) 121 70-99 [facility]wayMorph[facility] Technologies [id number] 19:51:00 Test Item Value Reference Range Interpretation Comments BUN (test code = BUN) 10 06-16 [facility]wayM[facility] [id number] 19:51:00 Test Item Value Reference Range Interpretation Comments Creatinine Lvl (test code = Creatinine 0.73 0.50-1.40 Lvl) [facility]2020-01-22 19:51:00 Test Item Value Reference Range Interpretation Comments Sodium Lvl (test code = Sodium Lvl) 139 135-145 [place] 279860-01-22 19:51:00 Test Item Value Reference Range Interpretation Comments Potassium Lvl (test code = Potassium 3.5 3.5-5.1 Lvl) [place] 279860-01-22 19:51:00 Test Item Value Reference Range Interpretation Comments Chloride Lvl (test code = Chloride Lvl) 107 95-109 [facility]wayM[facility] [id number] 19:51:00 Test Item Value Reference Range Interpretation Comments CO2 (test code = CO2) 28 24-32 [facility] HospitalLetsmake [id number] 19:51:00 Test Item Value Reference Range Interpretation Comments Calcium Lvl (test code = Calcium Lvl) 9.4 8.5-10.5 [facility] HospitalLetsmake [id number] 19:51:00 Test Item Value Reference Range Interpretation Comments Total Protein (test code = Total 8.0 6.4-8.4 Protein) [facility]2020-01-22 19:51:00 Test Item Value Reference Range Interpretation Comments Albumin Lvl (test code = Albumin Lvl) 4.1 3.5-5.0 [facility]wayM[facility] [id number] 19:51:00 Test Item Value Reference Range Interpretation Comments ALT (test code = ALT) 19 See_Comment [Auto mated message] The system which ge nerated this result transmit leandro reference range : <=65. The reference range was not used to interpr et this result as elsie l/abnormal. [facility] HospitalLetsmake [id number] 19:51:00 Test Item Value Reference Range Interpretation Comments AST (test code = AST) 15 See_Comment [Auto mated message] The system which ge nerated this result transmit leandro reference range : <=37. The reference range was not used to interpr et this result as elsie l/abnormal. [facility] HospitalLetsmake [id number] 19:51:00 Test Item Value Reference Range Interpretation Comments Alk Phos (test code = Alk Phos) 79 39-136 [facility]wayM[facility] [id number] 19:51:00 Test Item Value Reference Range Interpretation Comments Bili Total (test code = Bili Total) 0.3 0.2-1.3 [facility]meannLetsmake VJXTJ7268-78-15 19:51:00 Test Item Value Reference Range Interpretation Comments AGAP (test code = AGAP) 7.5 10.0-20.0 [facility] LakewayannLetsmake [id number] 19:51:00 Test Item Value Reference Range Interpretation Comments B/C Ratio (test code = B/C Ratio) 14 1 6-25 [facility] LakewayannLetsmake [id number] 19:51:00 Test Item Value Reference Range Interpretation Comments Globulin (test code = Globulin) 3.9 2.7-4.2 [facility]meannLetsmake [id number] 19:51:00 Test Item Value Reference Range Interpretation Comments A/G Ratio (test code = A/G Ratio) 1.1 1 0.7-1.6 [facility] LakewayannLetsmake [id number] 19:51:00 Test Item Value Reference Range Interpretation Comments eGFR (test code = eGFR) 113 [facility] Lakewayqunb [id number] 19:51:00 Test Item Value Reference Range Interpretation Comments U Amph Scr (test code Negative *NA*(12/17/19 = U Amph Scr) 1:51 PM) [facility] LakewayAztek NetworksDRUG [id number] 19:51:00 Test Item Value Reference Range Interpretation Comments U Lorenza Scr (test code Negative *NA*(12/17/19 = U Lorenza Scr) 1:51 PM) [facility] LakewayannDRUG [id number] 19:51:00 Test Item Value Reference Range Interpretation Comments U Benzodiaz Scr (test Negative *NA*(12/17/19 code = U Benzodiaz Scr) 1:51 PM) [facility]wayannDRUG [id number] 19:51:00 Test Item Value Reference Range Interpretation Comments U Cocaine Scr (test Negative *NA*(12/17/19 code = U Cocaine Scr) 1:51 PM) [facility] LakewayannDRUG [id number] 19:51:00 Test Item Value Reference Range Interpretation Comments U Cannab Scr (test Negative *NA*(12/17/19 code = U Cannab Scr) 1:51 PM) [facility]wayannDRUG [id number] 19:51:00 Test Item Value Reference Range Interpretation Comments U Opiate Scr (test Negative *NA*(12/17/19 code = U Opiate Scr) 1:51 PM) [facility]wayannDRUG [id number] 19:51:00 Test Item Value Reference Range Interpretation Comments U Phencyclidine Scr (test Negative code = U Phencyclidine *NA*(12/17/19 1:51 Scr) PM) [facility]wayannDRUG [id number] 19:51:00 Test Item Value Reference Range Interpretation Comments UDS Note (test code = See Note *NA*(12/17/19 UDS Note) 1:51 PM) [facility] LakewayVcthnmjNHZHHXUNVI2966-40-89 19:51:00 Test Item Value Reference Range Interpretation Comments WBC (test code = WBC) 6.9 3.7-10.4 [facility] LakewayCjfxlieTOJXYMKDFM6173-65-68 19:51:00 Test Item Value Reference Range Interpretation Comments RBC (test code = RBC) 4.50 4.20-5.40 [facility] LakewayKilauisUWUUUDLZBT3823-68-90 19:51:00 Test Item Value Reference Range Interpretation Comments Hgb (test code = Hgb) 13.2 12.0-16.0 [facility] HospitalKbxeqdzDXRXGYYWBU5995-38-47 19:51:00 Test Item Value Reference Range Interpretation Comments Hct (test code = Hct) 39.6 36.0-48.0 [facility] LakewayRuiswybTFMOSACVFZ3197-17-42 19:51:00 Test Item Value Reference Range Interpretation Comments MCV (test code = MCV) 88.1 80.0-98.0 [facility] LakewayYtutksnZSSBEICQLC4370-20-21 19:51:00 Test Item Value Reference Range Interpretation Comments MCH (test code = MCH) 29.4 pg 27.0-31.0 [facility] HospitalIxzmaitGZZSKHXZXL7272-31-69 19:51:00 Test Item Value Reference Range Interpretation Comments MCHC (test code = MCHC) 33.4 32.0-36.0 [facility] HospitalNnaexncFDFWJOUMHH3316-39-04 19:51:00 Test Item Value Reference Range Interpretation Comments RDW (test code = RDW) 12.6 11.5-14.5 [facility] HospitalRukprjnPYHDAUTUYT1658-94-65 19:51:00 Test Item Value Reference Range Interpretation Comments Platelet (test code = Platelet) 304 133-450 [facility] HospitalXobwquzZVOCHWCUOS5398-91-57 19:51:00 Test Item Value Reference Range Interpretation Comments MPV (test code = MPV) 6.9 7.4-10.4 [place] 153230-01-22 19:51:00 Test Item Value Reference Range Interpretation Comments Segs (test code = Segs) 57.3 45.0-75.0 [place] 153230-01-22 19:51:00 Test Item Value Reference Range Interpretation Comments Lymphocytes (test code = Lymphocytes) 36.8 20.0-40.0 [place] 153230-01-22 19:51:00 Test Item Value Reference Range Interpretation Comments Monocytes (test code = Monocytes) 4.0 2.0-12.0 [place] 153230-01-22 19:51:00 Test Item Value Reference Range Interpretation Comments Eosinophils (test code = 1.5 See_Comment [A utomated message] The Eosinophils) system which ge nerated this result tra nsmitted reference range : <=4.0. The reference r danyell was not used to int erpret this result as normal/abnormal . [facility] CenterLrxdzcbIKIILTJKDU5635-51-50 19:51:00 Test Item Value Reference Range Interpretation Comments Basophils (test code = 0.4 See_Comment [Aut omated message] The Basophils) system which ge nerated this result tra nsmitted reference range : <=1.0. The reference r danyell was not used to int erpret this result as normal/abnormal . [facility] CenterBbmojnyWKRDALFWHC8764-82-59 19:51:00 Test Item Value Reference Range Interpretation Comments Neutrophils # (test code = Neutrophils 3.9 1.5-8.1 #) [facility] Cent[id number] 19:51:00 Test Item Value Reference Range Interpretation Comments Lymphocytes # (test code = Lymphocytes 2.5 1.0-5.5 #) [place] [id number] 19:51:00 Test Item Value Reference Range Interpretation Comments Monocytes # (test code 0.3 See_Comment [Aut omated message] The = Monocytes #) system which generated this result tra nsmitted reference range : <=0.8. The reference r danyell was not used to int erpret this result as normal/abnormal . [place] 153230-01-22 19:51:00 Test Item Value Reference Range Interpretation Comments Eosinophils # (test code 0.1 See_Comment [A utomated message] The = Eosinophils #) system whic h generated this result tra nsmitted reference range : <=0.5. The reference r danyell was not used to int erpret this result as normal/abnormal . [facility]wayTkxcndvHZUPSUAGCU0156-03-86 19:51:00 Test Item Value Reference Range Interpretation Comments Acetaminoph Lvl (test code (12/17/19 1:51 PM) 10- = Acetaminoph Lvl) [facility] HospitalHiiimgwFQZFSVIOOG3098-54-03 19:51:00 Test Item Value Reference Range Interpretation Comments Ethanol Lvl (test code = Ethanol Lvl) no gt [facility] LakewayLnfbalsZUXFTAOZZB0508-11-71 19:51:00 Test Item Value Reference Range Interpretation Comments Etoh (%) (test code = Etoh (%)) no gt [facility] LakewayAwhwkehDTMCGKBXPS2617-99-93 19:51:00 Test Item Value Reference Range Interpretation Comments Salicylate Lvl (test no gt See_Comment [Autom ated message] The code = Salicylate Lvl) syste m which generated this result tra nsmitted reference range : <=30.0. The reference r danyell was not used to int erpret this result as normal/abnormal . [facility] HospitalURINE [id number] 19:51:00 Test Item Value Reference Range Interpretation Comments U Preg (test code = U Negative (12/17/19 1:51 Preg) PM) [facility] [id number] 19:51:00 Test Item Value Reference Range Interpretation Comments Glucose Lvl (test code = Glucose Lvl) 121 70-99 [facility]wayM[facility] [id number] 19:51:00 Test Item Value Reference Range Interpretation Comments BUN (test code = BUN) 10 7-22 [facility] LakewayAztek NetworksCHEM [id number] 19:51:00 Test Item Value Reference Range Interpretation Comments Creatinine Lvl (test code = Creatinine 0.73 0.50-1.40 Lvl) [facility]wayannCHEM [id number] 19:51:00 Test Item Value Reference Range Interpretation Comments Sodium Lvl (test code = Sodium Lvl) 139 135-145 [facility]wayM[facility] [id number] 19:51:00 Test Item Value Reference Range Interpretation Comments Potassium Lvl (test code = Potassium 3.5 3.5-5.1 Lvl) [facility] [employer] [id number] 19:51:00 Test Item Value Reference Range Interpretation Comments Chloride Lvl (test code = Chloride Lvl) 107 95-109 [facility] [id number] 19:51:00 Test Item Value Reference Range Interpretation Comments CO2 (test code = CO2) 28 24-32 [facility] [id number] 19:51:00 Test Item Value Reference Range Interpretation Comments Calcium Lvl (test code = Calcium Lvl) 9.4 8.5-10.5 [facility] [employer] [id number] 19:51:00 Test Item Value Reference Range Interpretation Comments Total Protein (test code = Total 8.0 6.4-8.4 Protein) [facility] [id number] 19:51:00 Test Item Value Reference Range Interpretation Comments Albumin Lvl (test code = Albumin Lvl) 4.1 3.5-5.0 [facility] [employer] [id number] 19:51:00 Test Item Value Reference Range Interpretation Comments ALT (test code = ALT) 19 See_Comment [Auto mated message] The system which ge nerated this result transmit leandro reference range : <=65. The reference range was not used to interpr et this result as elsie l/abnormal. [facility] [employer] [id number] 19:51:00 Test Item Value Reference Range Interpretation Comments AST (test code = AST) 15 See_Comment [Auto mated message] The system which ge nerated this result transmit leandro reference range : <=37. The reference range was not used to interpr et this result as elsie l/abnormal. [facility] [employer] [id number] 19:51:00 Test Item Value Reference Range Interpretation Comments Alk Phos (test code = Alk Phos) 79 39-136 [facility] [employer] [id number] 19:51:00 Test Item Value Reference Range Interpretation Comments Bili Total (test code = Bili Total) 0.3 0.2-1.3 [facility] [employer] [id number] 19:51:00 Test Item Value Reference Range Interpretation Comments AGAP (test code = AGAP) 7.5 10.0-20.0 [facility] [employer] [id number] 19:51:00 Test Item Value Reference Range Interpretation Comments B/C Ratio (test code = B/C Ratio) 14 1 6-25 [facility] [employer] [id number] 19:51:00 Test Item Value Reference Range Interpretation Comments Globulin (test code = Globulin) 3.9 2.7-4.2 [facility] [employer] [id number] 19:51:00 Test Item Value Reference Range Interpretation Comments A/G Ratio (test code = A/G Ratio) 1.1 1 0.7-1.6 [facility] [employer] [id number] 19:51:00 Test Item Value Reference Range Interpretation Comments eGFR (test code = eGFR) 113 [facility] [employer] [id number] 19:51:00 Test Item Value Reference Range Interpretation Comments U Amph Scr (test code Negative *NA*(12/17/19 = U Amph Scr) 1:51 PM) [facility] [employer] [id number] 19:51:00 Test Item Value Reference Range Interpretation Comments U Lorenza Scr (test code Negative *NA*(12/17/19 = U Lorenza Scr) 1:51 PM) [facility] [employer] [id number] 19:51:00 Test Item Value Reference Range Interpretation Comments U Benzodiaz Scr (test Negative *NA*(12/17/19 code = U Benzodiaz Scr) 1:51 PM) [facility] [employer] [id number] 19:51:00 Test Item Value Reference Range Interpretation Comments U Cocaine Scr (test Negative *NA*(12/17/19 code = U Cocaine Scr) 1:51 PM) [facility] [employer] [id number] 19:51:00 Test Item Value Reference Range Interpretation Comments U Cannab Scr (test Negative *NA*(12/17/19 code = U Cannab Scr) 1:51 PM) [facility] [employer] [id number] 19:51:00 Test Item Value Reference Range Interpretation Comments U Opiate Scr (test Negative *NA*(12/17/19 code = U Opiate Scr) 1:51 PM) [facility] Lakewayqunb [id number] 19:51:00 Test Item Value Reference Range Interpretation Comments U Phencyclidine Scr (test Negative code = U Phencyclidine *NA*(12/17/19 1:51 Scr) PM) [facility] HospitalDR[facility] [id number] 19:51:00 Test Item Value Reference Range Interpretation Comments UDS Note (test code = See Note *NA*(12/17/19 UDS Note) 1:51 PM) [facility] HospitalQxdctmuBFAWRWEOVF8287-51-83 19:51:00 Test Item Value Reference Range Interpretation Comments WBC (test code = WBC) 6.9 3.7-10.4 [facility] LakewayIysdhhnBRLNWCYMAV4521-52-02 19:51:00 Test Item Value Reference Range Interpretation Comments RBC (test code = RBC) 4.50 4.20-5.40 [facility] LakewayEpyrydbHNPLPYWSHJ9329-80-30 19:51:00 Test Item Value Reference Range Interpretation Comments Hgb (test code = Hgb) 13.2 12.0-16.0 [facility] LakewayTfjbtdnEFYANFZZND4090-43-45 19:51:00 Test Item Value Reference Range Interpretation Comments Hct (test code = Hct) 39.6 36.0-48.0 [facility] LakewayZwdlqwpDETIQOJFTP1520-10-00 19:51:00 Test Item Value Reference Range Interpretation Comments MCV (test code = MCV) 88.1 80.0-98.0 [facility] LakewayPtrmkrnZBBCFWEOYQ6272-60-10 19:51:00 Test Item Value Reference Range Interpretation Comments MCH (test code = MCH) 29.4 pg 27.0-31.0 [facility] LakewayKnytoqdNWUYJRIRJQ5224-08-03 19:51:00 Test Item Value Reference Range Interpretation Comments MCHC (test code = MCHC) 33.4 32.0-36.0 [facility] LakewayOrwmmkbIWOUAQPIOR9994-64-53 19:51:00 Test Item Value Reference Range Interpretation Comments RDW (test code = RDW) 12.6 11.5-14.5 [facility] HospitalXnlczqiIPEBMNHVPF6064-47-95 19:51:00 Test Item Value Reference Range Interpretation Comments Platelet (test code = Platelet) 304 133-450 [facility] LakewayDsvthnuSSOAJZDVEB2101-19-77 19:51:00 Test Item Value Reference Range Interpretation Comments MPV (test code = MPV) 6.9 7.4-10.4 [facility] HospitalPooijqdSLTDZLKOXJ9713-28-35 19:51:00 Test Item Value Reference Range Interpretation Comments Segs (test code = Segs) 57.3 45.0-75.0 [facility] CenterBhuivimRVUWJEDBPX0561-00-36 19:51:00 Test Item Value Reference Range Interpretation Comments Lymphocytes (test code = Lymphocytes) 36.8 20.0-40.0 [facility] CenterUsjchnzUJOJMXLSNC9082-85-52 19:51:00 Test Item Value Reference Range Interpretation Comments Monocytes (test code = Monocytes) 4.0 2.0-12.0 [facility] CenterCwegdtcDMKUOFCIMO3269-97-95 19:51:00 Test Item Value Reference Range Interpretation Comments Eosinophils (test code = 1.5 See_Comment [A utomated message] The Eosinophils) system which ge nerated this result tra nsmitted reference range : <=4.0. The reference r danyell was not used to int erpret this result as normal/abnormal . [facility] CenterIspqudnINXXKCKTMR5848-40-50 19:51:00 Test Item Value Reference Range Interpretation Comments Basophils (test code = 0.4 See_Comment [Aut omated message] The Basophils) system which ge nerated this result tra nsmitted reference range : <=1.0. The reference r danyell was not used to int erpret this result as normal/abnormal . [facility] CenterCxyhhucBKZOLQPXLS8468-32-57 19:51:00 Test Item Value Reference Range Interpretation Comments Neutrophils # (test code = Neutrophils 3.9 1.5-8.1 #) [facility] CenterFbypwwhUBWFCUXSCQ8287-88-93 19:51:00 Test Item Value Reference Range Interpretation Comments Lymphocytes # (test code = Lymphocytes 2.5 1.0-5.5 #) [facility] CenterLswirxbSRAPXWYPIG0215-82-13 19:51:00 Test Item Value Reference Range Interpretation Comments Monocytes # (test code 0.3 See_Comment [Aut omated message] The = Monocytes #) system which generated this result tra nsmitted reference range : <=0.8. The reference r danyell was not used to int erpret this result as normal/abnormal . [facility] CenterEfalxwbTZGHFLVGLA2637-68-87 19:51:00 Test Item Value Reference Range Interpretation Comments Eosinophils # (test code 0.1 See_Comment [A utomated message] The = Eosinophils #) system whic h generated this result tra nsmitted reference range : <=0.5. The reference r danyell was not used to int erpret this result as normal/abnormal . [facility]YpsffezBJNSTNWUDL2175-29-77 19:51:00 Test Item Value Reference Range Interpretation Comments Acetaminoph Lvl (test code (12/17/19 1:51 PM) 10- = Acetaminoph Lvl) [facility] LakewayRzkrhjoUVSQVBRDGI9098-92-52 19:51:00 Test Item Value Reference Range Interpretation Comments Ethanol Lvl (test code = Ethanol Lvl) no gt [facility] LakewayQqdetxqGEGICJYWIV0118-13-79 19:51:00 Test Item Value Reference Range Interpretation Comments Etoh (%) (test code = Etoh (%)) no gt [facility] LakewayBvrtohsFZNULGVUJT9137-69-37 19:51:00 Test Item Value Reference Range Interpretation Comments Salicylate Lvl (test no gt See_Comment [Autom ated message] The code = Salicylate Lvl) syste m which generated this result tra nsmitted reference range : <=30.0. The reference r danyell was not used to int erpret this result as normal/abnormal . [facility] [id number] 19:51:00 Test Item Value Reference Range Interpretation Comments U Preg (test code = U Negative (12/17/19 1:51 Preg) PM) [facility] [employer] [id number] 19:51:00 Test Item Value Reference Range Interpretation Comments Glucose Lvl (test code = Glucose Lvl) 121 70-99 [facility] [employer] [id number] 19:51:00 Test Item Value Reference Range Interpretation Comments BUN (test code = BUN) 10 - [facility]wayM[facility] [id number] 19:51:00 Test Item Value Reference Range Interpretation Comments Creatinine Lvl (test code = Creatinine 0.73 0.50-1.40 Lvl) [facility] [employer] [id number] 19:51:00 Test Item Value Reference Range Interpretation Comments Sodium Lvl (test code = Sodium Lvl) 139 135-145 [facility] [employer] [id number] 19:51:00 Test Item Value Reference Range Interpretation Comments Potassium Lvl (test code = Potassium 3.5 3.5-5.1 Lvl) [facility] [employer] [id number] 19:51:00 Test Item Value Reference Range Interpretation Comments Chloride Lvl (test code = Chloride Lvl) 107 95-109 [facility] [employer] [id number] 19:51:00 Test Item Value Reference Range Interpretation Comments CO2 (test code = CO2) 28 24-32 [facility] HospitalLetsmake [id number] 19:51:00 Test Item Value Reference Range Interpretation Comments Calcium Lvl (test code = Calcium Lvl) 9.4 8.5-10.5 [facility] HospitalLetsmake [id number] 19:51:00 Test Item Value Reference Range Interpretation Comments Total Protein (test code = Total 8.0 6.4-8.4 Protein) [facility] HospitalLetsmake [id number] 19:51:00 Test Item Value Reference Range Interpretation Comments Albumin Lvl (test code = Albumin Lvl) 4.1 3.5-5.0 [facility]wayM[facility] [id number] 19:51:00 Test Item Value Reference Range Interpretation Comments ALT (test code = ALT) 19 See_Comment [Auto mated message] The system which ge nerated this result transmit leandro reference range : <=65. The reference range was not used to interpr et this result as elsie l/abnormal. [facility]wayM[facility] [id number] 19:51:00 Test Item Value Reference Range Interpretation Comments AST (test code = AST) 15 See_Comment [Auto mated message] The system which ge nerated this result transmit leandro reference range : <=37. The reference range was not used to interpr et this result as elsie l/abnormal. [facility] [id number] 19:51:00 Test Item Value Reference Range Interpretation Comments Alk Phos (test code = Alk Phos) 79 39-136 [facility]wayM[facility] [id number] 19:51:00 Test Item Value Reference Range Interpretation Comments Bili Total (test code = Bili Total) 0.3 0.2-1.3 [facility] [id number] 19:51:00 Test Item Value Reference Range Interpretation Comments AGAP (test code = AGAP) 7.5 10.0-20.0 [facility] HospitalLetsmake [id number] 19:51:00 Test Item Value Reference Range Interpretation Comments B/C Ratio (test code = B/C Ratio) 14 1 6-25 [facility] HospitalLetsmake [id number] 19:51:00 Test Item Value Reference Range Interpretation Comments Globulin (test code = Globulin) 3.9 2.7-4.2 [facility]wayannCHEM [id number] 19:51:00 Test Item Value Reference Range Interpretation Comments A/G Ratio (test code = A/G Ratio) 1.1 1 0.7-1.6 [facility]wayannCHEM [id number] 19:51:00 Test Item Value Reference Range Interpretation Comments eGFR (test code = eGFR) 113 [facility]wayannDR[facility] [id number] 19:51:00 Test Item Value Reference Range Interpretation Comments U Amph Scr (test code Negative *NA*(12/17/19 = U Amph Scr) 1:51 PM) [facility]wayannDRUG [id number] 19:51:00 Test Item Value Reference Range Interpretation Comments U Lorenza Scr (test code Negative *NA*(12/17/19 = U Lorenza Scr) 1:51 PM) [facility]DR[facility] [id number] 19:51:00 Test Item Value Reference Range Interpretation Comments U Benzodiaz Scr (test Negative *NA*(12/17/19 code = U Benzodiaz Scr) 1:51 PM) [facility] HospitalDR[facility] [id number] 19:51:00 Test Item Value Reference Range Interpretation Comments U Cocaine Scr (test Negative *NA*(12/17/19 code = U Cocaine Scr) 1:51 PM) [facility]DR[facility] [id number] 19:51:00 Test Item Value Reference Range Interpretation Comments U Cannab Scr (test Negative *NA*(12/17/19 code = U Cannab Scr) 1:51 PM) [facility]DR[facility] [id number] 19:51:00 Test Item Value Reference Range Interpretation Comments U Opiate Scr (test Negative *NA*(12/17/19 code = U Opiate Scr) 1:51 PM) [facility] [id number] 19:51:00 Test Item Value Reference Range Interpretation Comments U Phencyclidine Scr (test Negative code = U Phencyclidine *NA*(12/17/19 1:51 Scr) PM) [facility]DR[facility] [id number] 19:51:00 Test Item Value Reference Range Interpretation Comments UDS Note (test code = See Note *NA*(12/17/19 UDS Note) 1:51 PM) [facility] HospitalMqokltqTLAPOJWNGC8942-49-22 19:51:00 Test Item Value Reference Range Interpretation Comments WBC (test code = WBC) 6.9 3.7-10.4 [facility] CenterUytlecePLMYTFBIPX1899-91-72 19:51:00 Test Item Value Reference Range Interpretation Comments RBC (test code = RBC) 4.50 4.20-5.40 [facility] CenterSgtzfauKCWMOVVLYV5756-21-24 19:51:00 Test Item Value Reference Range Interpretation Comments Hgb (test code = Hgb) 13.2 12.0-16.0 [facility] CenterCrfauipKWLQVFOCAV3386-93-27 19:51:00 Test Item Value Reference Range Interpretation Comments Hct (test code = Hct) 39.6 36.0-48.0 [facility] CenterDmqilkfHUGLZCCTFP8067-08-43 19:51:00 Test Item Value Reference Range Interpretation Comments MCV (test code = MCV) 88.1 80.0-98.0 [facility] CenterIildodhKACQXDTUNB0625-57-57 19:51:00 Test Item Value Reference Range Interpretation Comments MCH (test code = MCH) 29.4 pg 27.0-31.0 [facility] CenterLgbzkozBBUAZHHDGJ1066-35-80 19:51:00 Test Item Value Reference Range Interpretation Comments MCHC (test code = MCHC) 33.4 32.0-36.0 [facility] CenterNrwwftgVITSRWDLVB8602-17-67 19:51:00 Test Item Value Reference Range Interpretation Comments RDW (test code = RDW) 12.6 11.5-14.5 [facility] CenterJkiibrrYUPHAQCNOD2540-27-87 19:51:00 Test Item Value Reference Range Interpretation Comments Platelet (test code = Platelet) 304 133-450 [facility] CenterFizysvgGLANPWBGCC2620-77-35 19:51:00 Test Item Value Reference Range Interpretation Comments MPV (test code = MPV) 6.9 7.4-10.4 [facility] CenterJmtbkdtDBMPVDZJLE4710-82-52 19:51:00 Test Item Value Reference Range Interpretation Comments Segs (test code = Segs) 57.3 45.0-75.0 [facility] CenterJgdrvqfZXWXIULTYU6714-25-63 19:51:00 Test Item Value Reference Range Interpretation Comments Lymphocytes (test code = Lymphocytes) 36.8 20.0-40.0 [facility] CenterKzhydejMTZFVHKLRR2288-72-86 19:51:00 Test Item Value Reference Range Interpretation Comments Monocytes (test code = Monocytes) 4.0 2.0-12.0 [facility] CenterKaqfiitBUPUYYFQWQ2911-96-59 19:51:00 Test Item Value Reference Range Interpretation Comments Eosinophils (test code = 1.5 See_Comment [A utomated message] The Eosinophils) system which ge nerated this result tra nsmitted reference range : <=4.0. The reference r danyell was not used to int erpret this result as normal/abnormal . [facility] CenterAuztteoAGRWSAPNGW9399-98-04 19:51:00 Test Item Value Reference Range Interpretation Comments Basophils (test code = 0.4 See_Comment [Aut omated message] The Basophils) system which ge nerated this result tra nsmitted reference range : <=1.0. The reference r danyell was not used to int erpret this result as normal/abnormal . [facility] CenterXdnlbyaJSKQWYFLIV9491-17-08 19:51:00 Test Item Value Reference Range Interpretation Comments Neutrophils # (test code = Neutrophils 3.9 1.5-8.1 #) [facility] CenterZfvjdcuVKHSAJTGYO2022-73-20 19:51:00 Test Item Value Reference Range Interpretation Comments Lymphocytes # (test code = Lymphocytes 2.5 1.0-5.5 #) [facility] CenterKuainkzQMQUEUXLYP0355-20-02 19:51:00 Test Item Value Reference Range Interpretation Comments Monocytes # (test code 0.3 See_Comment [Aut omated message] The = Monocytes #) system which generated this result tra nsmitted reference range : <=0.8. The reference r danyell was not used to int erpret this result as normal/abnormal . [facility] CenterIqzscesXREIACBDYY3450-75-57 19:51:00 Test Item Value Reference Range Interpretation Comments Eosinophils # (test code 0.1 See_Comment [A utomated message] The = Eosinophils #) system whic h generated this result tra nsmitted reference range : <=0.5. The reference r danyell was not used to int erpret this result as normal/abnormal . [place] [id number] 19:51:00 Test Item Value Reference Range Interpretation Comments Acetaminoph Lvl (test code (12/17/19 1:51 PM) 10-20 = Acetaminoph Lvl) [place] [id number] 19:51:00 Test Item Value Reference Range Interpretation Comments Ethanol Lvl (test code = Ethanol Lvl) no gt [facility] LakewayYimsioaQRDBGNNJYD9015-13-76 19:51:00 Test Item Value Reference Range Interpretation Comments Etoh (%) (test code = Etoh (%)) no gt [facility] LakewayXbjctejKTQNDLRCPQ0695-24-79 19:51:00 Test Item Value Reference Range Interpretation Comments Salicylate Lvl (test no gt See_Comment [Autom ated message] The code = Salicylate Lvl) syste m which generated this result tra nsmitted reference range : <=30.0. The reference r danyell was not used to int erpret this result as normal/abnormal . [facility] LakewayAztek NetworksOVERLOOK MEDICAL [facility] [id number] 19:51:00 Test Item Value Reference Range Interpretation Comments U Preg (test code = U Negative (12/17/19 1:51 Preg) PM) [facility] [employer] [id number] 19:51:00 Test Item Value Reference Range Interpretation Comments Glucose Lvl (test code = Glucose Lvl) 121 70-99 [facility] [employer] [id number] 19:51:00 Test Item Value Reference Range Interpretation Comments BUN (test code = BUN) 10 7-22 [facility] [employer] [id number] 19:51:00 Test Item Value Reference Range Interpretation Comments Creatinine Lvl (test code = Creatinine 0.73 0.50-1.40 Lvl) [facility] [employer] [id number] 19:51:00 Test Item Value Reference Range Interpretation Comments Sodium Lvl (test code = Sodium Lvl) 139 135-145 [facility] [employer] [id number] 19:51:00 Test Item Value Reference Range Interpretation Comments Potassium Lvl (test code = Potassium 3.5 3.5-5.1 Lvl) [facility] [employer] [id number] 19:51:00 Test Item Value Reference Range Interpretation Comments Chloride Lvl (test code = Chloride Lvl) 107 95-109 [facility] [employer] [id number] 19:51:00 Test Item Value Reference Range Interpretation Comments CO2 (test code = CO2) 28 24-32 [facility] [employer] [id number] 19:51:00 Test Item Value Reference Range Interpretation Comments Calcium Lvl (test code = Calcium Lvl) 9.4 8.5-10.5 [facility] [id number] 19:51:00 Test Item Value Reference Range Interpretation Comments Total Protein (test code = Total 8.0 6.4-8.4 Protein) [facility]2020-01-22 19:51:00 Test Item Value Reference Range Interpretation Comments Albumin Lvl (test code = Albumin Lvl) 4.1 3.5-5.0 [facility] [id number] 19:51:00 Test Item Value Reference Range Interpretation Comments ALT (test code = ALT) 19 See_Comment [Auto mated message] The system which ge nerated this result transmit leandro reference range : <=65. The reference range was not used to interpr et this result as elsie l/abnormal. [facility] [id number] 19:51:00 Test Item Value Reference Range Interpretation Comments AST (test code = AST) 15 See_Comment [Auto mated message] The system which ge nerated this result transmit leandro reference range : <=37. The reference range was not used to interpr et this result as elsie l/abnormal. [facility] [employer] [id number] 19:51:00 Test Item Value Reference Range Interpretation Comments Alk Phos (test code = Alk Phos) 79 39-136 [facility] [id number] 19:51:00 Test Item Value Reference Range Interpretation Comments Bili Total (test code = Bili Total) 0.3 0.2-1.3 [facility] [id number] 19:51:00 Test Item Value Reference Range Interpretation Comments AGAP (test code = AGAP) 7.5 10.0-20.0 [facility] [id number] 19:51:00 Test Item Value Reference Range Interpretation Comments B/C Ratio (test code = B/C Ratio) 14 1 6-25 [facility] [id number] 19:51:00 Test Item Value Reference Range Interpretation Comments Globulin (test code = Globulin) 3.9 2.7-4.2 [facility] [id number] 19:51:00 Test Item Value Reference Range Interpretation Comments A/G Ratio (test code = A/G Ratio) 1.1 1 0.7-1.6 [facility] [id number] 19:51:00 Test Item Value Reference Range Interpretation Comments eGFR (test code = eGFR) 113 [facility] [id number] 19:51:00 Test Item Value Reference Range Interpretation Comments U Amph Scr (test code Negative *NA*(12/17/19 = U Amph Scr) 1:51 PM) [facility] [id number] 19:51:00 Test Item Value Reference Range Interpretation Comments U Lorenza Scr (test code Negative *NA*(12/17/19 = U Lorenza Scr) 1:51 PM) [facility] [id number] 19:51:00 Test Item Value Reference Range Interpretation Comments U Benzodiaz Scr (test Negative *NA*(12/17/19 code = U Benzodiaz Scr) 1:51 PM) [facility] [id number] 19:51:00 Test Item Value Reference Range Interpretation Comments U Cocaine Scr (test Negative *NA*(12/17/19 code = U Cocaine Scr) 1:51 PM) [facility] [id number] 19:51:00 Test Item Value Reference Range Interpretation Comments U Cannab Scr (test Negative *NA*(12/17/19 code = U Cannab Scr) 1:51 PM) [facility] [id number] 19:51:00 Test Item Value Reference Range Interpretation Comments U Opiate Scr (test Negative *NA*(12/17/19 code = U Opiate Scr) 1:51 PM) [facility] [id number] 19:51:00 Test Item Value Reference Range Interpretation Comments U Phencyclidine Scr (test Negative code = U Phencyclidine *NA*(12/17/19 1:51 Scr) PM) [facility] [id number] 19:51:00 Test Item Value Reference Range Interpretation Comments UDS Note (test code = See Note *NA*(12/17/19 UDS Note) 1:51 PM) [facility] [id number] 19:51:00 Test Item Value Reference Range Interpretation Comments WBC (test code = WBC) 6.9 3.7-10.4 [facility] H[id number] 19:51:00 Test Item Value Reference Range Interpretation Comments RBC (test code = RBC) 4.50 4.20-5.40 [facility] [id number] 19:51:00 Test Item Value Reference Range Interpretation Comments Hgb (test code = Hgb) 13.2 12.0-16.0 [facility] CenterJtsyqhcNWJAAEJJHR0793-36-98 19:51:00 Test Item Value Reference Range Interpretation Comments Hct (test code = Hct) 39.6 36.0-48.0 [facility] Cent[id number] 19:51:00 Test Item Value Reference Range Interpretation Comments MCV (test code = MCV) 88.1 80.0-98.0 [facility] [id number] 19:51:00 Test Item Value Reference Range Interpretation Comments MCH (test code = MCH) 29.4 pg 27.0-31.0 [facility] C[id number] 19:51:00 Test Item Value Reference Range Interpretation Comments MCHC (test code = MCHC) 33.4 32.0-36.0 [facility] [id number] 19:51:00 Test Item Value Reference Range Interpretation Comments RDW (test code = RDW) 12.6 11.5-14.5 [facility] [id number] 19:51:00 Test Item Value Reference Range Interpretation Comments Platelet (test code = Platelet) 304 133-450 [facility] [id number] 19:51:00 Test Item Value Reference Range Interpretation Comments MPV (test code = MPV) 6.9 7.4-10.4 [facility] CenterNutiixgPLNEJENHUX4832-05-15 19:51:00 Test Item Value Reference Range Interpretation Comments Segs (test code = Segs) 57.3 45.0-75.0 [facility] [id number] 19:51:00 Test Item Value Reference Range Interpretation Comments Lymphocytes (test code = Lymphocytes) 36.8 20.0-40.0 [facility] [id number] 19:51:00 Test Item Value Reference Range Interpretation Comments Monocytes (test code = Monocytes) 4.0 2.0-12.0 [facility] [id number] 19:51:00 Test Item Value Reference Range Interpretation Comments Eosinophils (test code = 1.5 See_Comment [A utomated message] The Eosinophils) system which ge nerated this result tra nsmitted reference range : <=4.0. The reference r danyell was not used to int erpret this result as normal/abnormal . [facility] [id number] 19:51:00 Test Item Value Reference Range Interpretation Comments Basophils (test code = 0.4 See_Comment [Aut omated message] The Basophils) system which ge nerated this result tra nsmitted reference range : <=1.0. The reference r danyell was not used to int erpret this result as normal/abnormal . [facility] [id number] 19:51:00 Test Item Value Reference Range Interpretation Comments Neutrophils # (test code = Neutrophils 3.9 1.5-8.1 #) [facility] [id number] 19:51:00 Test Item Value Reference Range Interpretation Comments Lymphocytes # (test code = Lymphocytes 2.5 1.0-5.5 #) [facility] [id number] 19:51:00 Test Item Value Reference Range Interpretation Comments Monocytes # (test code 0.3 See_Comment [Aut omated message] The = Monocytes #) system which generated this result tra nsmitted reference range : <=0.8. The reference r danyell was not used to int erpret this result as normal/abnormal . [facility] CenterPibgyktDDDAFEJBQZ5316-09-45 19:51:00 Test Item Value Reference Range Interpretation Comments Eosinophils # (test code 0.1 See_Comment [A utomated message] The = Eosinophils #) system ic h generated this result tra nsmitted reference range : <=0.5. The reference r danyell was not used to int erpret this result as normal/abnormal . [place] [id number] 19:51:00 Test Item Value Reference Range Interpretation Comments Acetaminoph Lvl (test code (12/17/19 1:51 PM) 10-20 = Acetaminoph Lvl) [place] [id number] 19:51:00 Test Item Value Reference Range Interpretation Comments Ethanol Lvl (test code = Ethanol Lvl) no gt [place] [id number] 19:51:00 Test Item Value Reference Range Interpretation Comments Etoh (%) (test code = Etoh (%)) no gt [id number] 19:51:00 Test Item Value Reference Range Interpretation Comments Salicylate Lvl (test no gt See_Comment [Autom ated message] The code = Salicylate Lvl) syste m which generated this result tra nsmitted reference range : <=30.0. The reference r danyell was not used to int erpret this result as normal/abnormal . [facility] [id number] 19:51:00 Test Item Value Reference Range Interpretation Comments U Preg (test code = U Negative (12/17/19 1:51 Preg) PM) [facility] [employer] [id number] 19:51:00 Test Item Value Reference Range Interpretation Comments Glucose Lvl (test code = Glucose Lvl) 121 70-99 [facility] [id number] 19:51:00 Test Item Value Reference Range Interpretation Comments BUN (test code = BUN) 10 7-22 [facility] [id number] 19:51:00 Test Item Value Reference Range Interpretation Comments Creatinine Lvl (test code = Creatinine 0.73 0.50-1.40 Lvl) [facility] [id number] 19:51:00 Test Item Value Reference Range Interpretation Comments Sodium Lvl (test code = Sodium Lvl) 139 135-145 [facility] [id number] 19:51:00 Test Item Value Reference Range Interpretation Comments Potassium Lvl (test code = Potassium 3.5 3.5-5.1 Lvl) [facility] [id number] 19:51:00 Test Item Value Reference Range Interpretation Comments Chloride Lvl (test code = Chloride Lvl) 107 95-109 [facility] [id number] 19:51:00 Test Item Value Reference Range Interpretation Comments CO2 (test code = CO2) 28 24-32 [facility] [id number] 19:51:00 Test Item Value Reference Range Interpretation Comments Calcium Lvl (test code = Calcium Lvl) 9.4 8.5-10.5 [facility] [id number] 19:51:00 Test Item Value Reference Range Interpretation Comments Total Protein (test code = Total 8.0 6.4-8.4 Protein) [facility] [id number] 19:51:00 Test Item Value Reference Range Interpretation Comments Albumin Lvl (test code = Albumin Lvl) 4.1 3.5-5.0 [facility] [employer] [id number] 19:51:00 Test Item Value Reference Range Interpretation Comments ALT (test code = ALT) 19 See_Comment [Auto mated message] The system which ge nerated this result transmit leandro reference range : <=65. The reference range was not used to interpr et this result as elsie l/abnormal. [facility] [employer] [id number] 19:51:00 Test Item Value Reference Range Interpretation Comments AST (test code = AST) 15 See_Comment [Auto mated message] The system which ge nerated this result transmit leandro reference range : <=37. The reference range was not used to interpr et this result as elsie l/abnormal. [facility] [employer] [id number] 19:51:00 Test Item Value Reference Range Interpretation Comments Alk Phos (test code = Alk Phos) 79 39-136 [facility] [employer] [id number] 19:51:00 Test Item Value Reference Range Interpretation Comments Bili Total (test code = Bili Total) 0.3 0.2-1.3 [facility] [employer] [id number] 19:51:00 Test Item Value Reference Range Interpretation Comments AGAP (test code = AGAP) 7.5 10.0-20.0 [facility] [employer] [id number] 19:51:00 Test Item Value Reference Range Interpretation Comments B/C Ratio (test code = B/C Ratio) 14 1 6-25 [facility] [employer] [id number] 19:51:00 Test Item Value Reference Range Interpretation Comments Globulin (test code = Globulin) 3.9 2.7-4.2 [facility] [employer] [id number] 19:51:00 Test Item Value Reference Range Interpretation Comments A/G Ratio (test code = A/G Ratio) 1.1 1 0.7-1.6 [facility] [employer] [id number] 19:51:00 Test Item Value Reference Range Interpretation Comments eGFR (test code = eGFR) 113 [facility] [id number] 19:51:00 Test Item Value Reference Range Interpretation Comments U Amph Scr (test code Negative *NA*(12/17/19 = U Amph Scr) 1:51 PM) [facility] [id number] 19:51:00 Test Item Value Reference Range Interpretation Comments U Lorenza Scr (test code Negative *NA*(12/17/19 = U Lorenza Scr) 1:51 PM) [facility] [id number] 19:51:00 Test Item Value Reference Range Interpretation Comments U Benzodiaz Scr (test Negative *NA*(12/17/19 code = U Benzodiaz Scr) 1:51 PM) [facility] [id number] 19:51:00 Test Item Value Reference Range Interpretation Comments U Cocaine Scr (test Negative *NA*(12/17/19 code = U Cocaine Scr) 1:51 PM) [facility] [id number] 19:51:00 Test Item Value Reference Range Interpretation Comments U Cannab Scr (test Negative *NA*(12/17/19 code = U Cannab Scr) 1:51 PM) [facility] [id number] 19:51:00 Test Item Value Reference Range Interpretation Comments U Opiate Scr (test Negative *NA*(12/17/19 code = U Opiate Scr) 1:51 PM) [facility] [id number] 19:51:00 Test Item Value Reference Range Interpretation Comments U Phencyclidine Scr (test Negative code = U Phencyclidine *NA*(12/17/19 1:51 Scr) PM) [facility] [id number] 19:51:00 Test Item Value Reference Range Interpretation Comments UDS Note (test code = See Note *NA*(12/17/19 UDS Note) 1:51 PM) [facility] [id number] 19:51:00 Test Item Value Reference Range Interpretation Comments WBC (test code = WBC) 6.9 3.7-10.4 [facility] HospitalSnldkaiIMWUKQNLOX9579-18-20 19:51:00 Test Item Value Reference Range Interpretation Comments RBC (test code = RBC) 4.50 4.20-5.40 [facility] HospitalShxvvsdKGGKEYUUMZ7435-16-26 19:51:00 Test Item Value Reference Range Interpretation Comments Hgb (test code = Hgb) 13.2 12.0-16.0 [facility] Hosp[id number] 19:51:00 Test Item Value Reference Range Interpretation Comments Hct (test code = Hct) 39.6 36.0-48.0 [facility] [id number] 19:51:00 Test Item Value Reference Range Interpretation Comments MCV (test code = MCV) 88.1 80.0-98.0 [facility] CenterIatimegBFKRMFZPUG1868-93-63 19:51:00 Test Item Value Reference Range Interpretation Comments MCH (test code = MCH) 29.4 pg 27.0-31.0 [facility] [id number] 19:51:00 Test Item Value Reference Range Interpretation Comments MCHC (test code = MCHC) 33.4 32.0-36.0 [facility] CenterZbdpfxhMYQVSLJFJU7125-52-07 19:51:00 Test Item Value Reference Range Interpretation Comments RDW (test code = RDW) 12.6 11.5-14.5 [facility] [id number] 19:51:00 Test Item Value Reference Range Interpretation Comments Platelet (test code = Platelet) 304 133-450 [facility] [id number] 19:51:00 Test Item Value Reference Range Interpretation Comments MPV (test code = MPV) 6.9 7.4-10.4 [facility] CenterKujtzioDMRDIPLRZP1713-28-33 19:51:00 Test Item Value Reference Range Interpretation Comments Segs (test code = Segs) 57.3 45.0-75.0 [facility] CenterKhasnwgQPFEZUHLFF9496-91-78 19:51:00 Test Item Value Reference Range Interpretation Comments Lymphocytes (test code = Lymphocytes) 36.8 20.0-40.0 [facility] [id number] 19:51:00 Test Item Value Reference Range Interpretation Comments Monocytes (test code = Monocytes) 4.0 2.0-12.0 [facility] [id number] 19:51:00 Test Item Value Reference Range Interpretation Comments Eosinophils (test code = 1.5 See_Comment [A utomated message] The Eosinophils) system which ge nerated this result tra nsmitted reference range : <=4.0. The reference r danyell was not used to int erpret this result as normal/abnormal . [facility] CenterCjkejniXGFCUHZHBU6554-64-62 19:51:00 Test Item Value Reference Range Interpretation Comments Basophils (test code = 0.4 See_Comment [Aut omated message] The Basophils) system which ge nerated this result tra nsmitted reference range : <=1.0. The reference r danyell was not used to int erpret this result as normal/abnormal . [facility] CenterEbjvbryCAXPQJVLVJ2859-22-01 19:51:00 Test Item Value Reference Range Interpretation Comments Neutrophils # (test code = Neutrophils 3.9 1.5-8.1 #) [facility] CenterIwonvdtBBLGAOWXFZ5812-25-07 19:51:00 Test Item Value Reference Range Interpretation Comments Lymphocytes # (test code = Lymphocytes 2.5 1.0-5.5 #) [facility] CenterWpeoxpcJVEELQTUBN4682-00-35 19:51:00 Test Item Value Reference Range Interpretation Comments Monocytes # (test code 0.3 See_Comment [Aut omated message] The = Monocytes #) system which generated this result tra nsmitted reference range : <=0.8. The reference r danyell was not used to int erpret this result as normal/abnormal . [facility] [id number] 19:51:00 Test Item Value Reference Range Interpretation Comments Eosinophils # (test code 0.1 See_Comment [A utomated message] The = Eosinophils #) system whic h generated this result tra nsmitted reference range : <=0.5. The reference r danyell was not used to int erpret this result as normal/abnormal . [place] [id number] 19:51:00 Test Item Value Reference Range Interpretation Comments Acetaminoph Lvl (test code (12/17/19 1:51 PM) 10-20 = Acetaminoph Lvl) [place] [id number] 19:51:00 Test Item Value Reference Range Interpretation Comments Ethanol Lvl (test code = Ethanol Lvl) no gt [facility] Hospit[id number] 19:51:00 Test Item Value Reference Range Interpretation Comments Etoh (%) (test code = Etoh (%)) no gt [facility]HnbtgxbLKEVBKDLPS5153-54-57 19:51:00 Test Item Value Reference Range Interpretation Comments Salicylate Lvl (test no gt See_Comment [Autom ated message] The code = Salicylate Lvl) syste m which generated this result tra nsmitted reference range : <=30.0. The reference r danyell was not used to int erpret this result as normal/abnormal . [facility] [id number] 19:51:00 Test Item Value Reference Range Interpretation Comments U Preg (test code = U Negative (12/17/19 1:51 Preg) PM) [facility]2020-01-22 19:51:00 Test Item Value Reference Range Interpretation Comments Glucose Lvl (test code = Glucose Lvl) 121 70-99 [facility]2020-01-22 19:51:00 Test Item Value Reference Range Interpretation Comments BUN (test code = BUN) 10 7-22 [facility]2020-01-22 19:51:00 Test Item Value Reference Range Interpretation Comments Creatinine Lvl (test code = Creatinine 0.73 0.50-1.40 Lvl) [facility]2020-01-22 19:51:00 Test Item Value Reference Range Interpretation Comments Sodium Lvl (test code = Sodium Lvl) 139 135-145 [facility]2020-01-22 19:51:00 Test Item Value Reference Range Interpretation Comments Potassium Lvl (test code = Potassium 3.5 3.5-5.1 Lvl) [facility]2020-01-22 19:51:00 Test Item Value Reference Range Interpretation Comments Chloride Lvl (test code = Chloride Lvl) 107 95-109 [place] [id number] 19:51:00 Test Item Value Reference Range Interpretation Comments CO2 (test code = CO2) 28 24-32 [facility]2020-01-22 19:51:00 Test Item Value Reference Range Interpretation Comments Calcium Lvl (test code = Calcium Lvl) 9.4 8.5-10.5 [facility]2020-01-22 19:51:00 Test Item Value Reference Range Interpretation Comments Total Protein (test code = Total 8.0 6.4-8.4 Protein) [facility]2020-01-22 19:51:00 Test Item Value Reference Range Interpretation Comments Albumin Lvl (test code = Albumin Lvl) 4.1 3.5-5.0 [place] [id number] 19:51:00 Test Item Value Reference Range Interpretation Comments ALT (test code = ALT) 19 See_Comment [Auto mated message] The system which ge nerated this result transmit leandro reference range : <=65. The reference range was not used to interpr et this result as elsie l/abnormal. [facility] [employer] [id number] 19:51:00 Test Item Value Reference Range Interpretation Comments AST (test code = AST) 15 See_Comment [Auto mated message] The system which ge nerated this result transmit leandro reference range : <=37. The reference range was not used to interpr et this result as elsie l/abnormal. [facility] [employer] [id number] 19:51:00 Test Item Value Reference Range Interpretation Comments Alk Phos (test code = Alk Phos) 79 39-136 [facility] [employer] [id number] 19:51:00 Test Item Value Reference Range Interpretation Comments Bili Total (test code = Bili Total) 0.3 0.2-1.3 [facility] [employer] [id number] 19:51:00 Test Item Value Reference Range Interpretation Comments AGAP (test code = AGAP) 7.5 10.0-20.0 [facility] [employer] [id number] 19:51:00 Test Item Value Reference Range Interpretation Comments B/C Ratio (test code = B/C Ratio) 14 1 6-25 [facility] [employer] [id number] 19:51:00 Test Item Value Reference Range Interpretation Comments Globulin (test code = Globulin) 3.9 2.7-4.2 [facility] [employer] [id number] 19:51:00 Test Item Value Reference Range Interpretation Comments A/G Ratio (test code = A/G Ratio) 1.1 1 0.7-1.6 [facility] Notes Date/Time Note Provider Source 2022-10-06 13:22:00-00:00 [facility] ([facility]) EMERGENCY PROVIDER REPORT REPORT#:[id number] REPORT STATUS: Signed DATE:10/06/22 TIME:132 PATIENT: DOMONIQUE CAPPS UNIT #: [id number] ROOM/BED: : 92 AGE: 32 SEX: F PCP PHYS: Tanvir Cuadra MD SERVICE AUTHOR: Kirit Benitez DO * ALL edits or amendments must be made on the [employer]/computer document * HPI- Female General Confirmed Patient Yes Initial Greet Date/Time 10/06/22 1303 Presentation Chief Complaint Dysuria Hx Obtained From Patient )( Sudden in Onset? No Onset Occurred One week ago Symptom Duration Since onset Progression since Onset Unchanged Caused by No trauma by history Quality Burning Radiation Does not radiate. Severity: Onset Mild Severity: Current Mild Associated with Denies: Abdominal pain, Chills, Constipation, Fe jose, Nausea, Rash, Vomiting. Exacerbated by Nothing Relieved by Nothing Free Text HPI Notes Free Text HPI Notes Reports several days ago she developed a vaginal yeast infection. Took fluconazole with some improvement. Using over-th e-counter topical medication now. Denies concern for sexually transmitted inf ection. Risk- Female Risk Stratification Ectopic Risk factors reviewed Review of Systems ROS Statements Complete sys rev neg except as marked. Focused Review of Systems Constitutional Denies: Chills, Fever, Lethargy. GI Denies: Abdominal pain, Diarrhea, Nausea, Vomiti ng. Female Reports: Dysuria. Denies: Fl ank pain, Hematuria, Pelvic pain, , Urinary frequency, Urinary urgency, Urination decreased, Urination increased, Vaginal bleeding - abnl. Musculoskeletal Denies: Back pain, Extremity pain. Endocrine Denies: Polyuria, Weight loss. Skin Denies: Diaphoresis, Rash. Neurologic Denies: Change LOC, Dizziness, Focal weakness, H eadache, Numbness, Slurred speech. Past Medical History - Adult Stated Complaint BURNING WITH URINATION X 1 WEEK Allergies Coded Allergies: No Known Allergies (10/06/22) Home Medications Reported Medications SERTRALINE (ZOLOFT) 25 MG PO DAILY ESOMEPRAZOLE MAG DR (NexIUM) 40 MG PO DAILY PNV WITH FE FUMARATE/FA () 1 TAB PO CHAD Y Additional Medical History denies Past Surgical History: Reports: Cholecystectomy, , Tonsillecto my. Alcohol Use Denies EtOH use Drug Use Denies recreational drugs Other Social History Local resident Physical Exam Vital Signs Vital Signs First Documented: Result Date Time Pulse Ox 100 10/06 1355 B/P 128/82 10/06 1355 B/P Mean 97 10/06 1355 O2 Delivery Room air 10/06 1355 Temp 98.1 10/06 1355 Pulse 78 10/06 1355 Resp 17 10/06 1355 Last Documented: Result Date Time Pulse Ox 100 10/06 1532 B/P 115/79 10/06 153 B/P Mean 91 10/06 153 O2 Delivery Room air 10/06 153 Pulse 75 10/06 153 Resp 16 10/06 153 Temp 98.1 10/06 1355 Review of Vital Signs Reviewed Focused PE General/Const General/Const Awake, Alert, Well appearing Resp/Chest Respiratory/Chest Breath sounds NL, Breath soun ds = bilat, No respiratory distress, No rales, No rhonchi, No wheezing Cardiovascular Cardiovascular Heart rate NL, Regular rhythm, H eart sounds NL, Peripheral circulation NL Abdomen/GI Abdomen/GI Soft, Non-tender, No guarding, No re bound MS Back Back Inspection NL, Non-tender, No CVA tenderne ss Skin Skin Color NL, No rash, Warm, Dry, Turgor NL Additional PE MS Head Head Atraumatic, Normocephalic Eyes Eyes PERRL, EOMI Interpretation Diagnostics Lab Results Interpretation Results Laboratory Tests: 10/06 1345 Urines Urine Color (YEL/STRAW discript) YELLOW Urine Appearance (CLEAR discript) CLEAR Urine pH (5.0 - 7.0 pH UNITS) 6.0 Ur Specific [place] (1.005 - 1.030 SG) >=1.030 H Urine Protein (NEG mg/dL) NEGATIVE Urine Glucose (UA) (NEG mg/dL) NEGATIVE Urine Ketones (NEG mg/dL) NEGATIVE Urine Blood (NEG mg/DL) NEGATIVE Urine Nitrite (NEG SCREEN) NEGATIVE Urine Bilirubin (NEG mg/dL) NEGATIVE Urine Urobilinogen (<2.0 mg/dL) 0.2 Ur Leukocyte Esterase (NEGATIVE Leuk/mcL) NEGAT CYRUS Re-Evaluation MDM Re-Evaluation/Progress Re-Evaluation/Progress Text/Dict Note Remains well-appearing. No additional complaints . Physical exam unchanged. Time of Re-Eval 1435 Re-Eval Status Improved Patient Discharge Departure Vital Signs/Condition Vital Signs First Documented: Result Date Time Pulse Ox 100 10/06 135 B/P 128/82 10/06 1355 B/P Mean 97 10/06 1355 O2 Delivery Room air 10/06 1355 Temp 98.1 10/06 1355 Pulse 78 10/06 135 Resp 17 11/11 1355 Last Documented: Result Date Time Pulse Ox 100 10/06 1532 B/P 115/79 10/06 153 B/P Mean 91 10/06 1532 O2 Delivery Room air 10/06 153 Pulse 75 10/06 153 Resp 16 10/06 153 Temp 98.1 10/06 1355 All vital signs available at the time of this en try have been reviewed. Clinical Impression Clinical Impression Primary Impression: Dysuria Disposition Decision Discharge )( Discharged to Home Yes )( Time 1442 )( Date 10/06/22 Discharge/Care Plan Counseled Regarding Diagnosis, Lab resul ts, Prescriptions, Need for follow-up, When to return to ED (Auto) Prescriptions Current Visit Scripts FLUCONAZOLE (DIFLUCAN) 150 MG PO ONCE FLUCONAZOLE (DIFLUCAN) 150 MG PO ONCE #1 TAB PHENAZOPYRIDINE (PYRIDIUM) 100 MG PO Q8H PRN PRN DYSURIA PHENAZOPYRIDINE (PYRIDIUM) 100 MG PO Q8H PRN AZ N DYSURIA #6 TABS TAKE AFTER MEALS. Patient Instructions ED EDGAR VAGINITI S, ED Dysuria, Uncertain Cause (Adult) Additional Instructions Follow-up with your primary care physician in 5 to 7 days Electronically Signed by Kirit Benitez DO on at 1810 RPT #: [id number] END OF REPORT 2021-11-12 13:22:00-00:00 [facility] ([facility]) OB Postpart Progr Note REPORT#:[id number] REPORT STATUS: Signed DATE:11/12/21 TIME: 1322 PATIENT: DOMONIQUE CAPPS UNIT #: [id number] ROOM/BED: 2208-A : 92 AGE: 31 SEX: F ATTEND: Sonam Cuadra MD ADM AUTHOR: Cristian Conner MD * ALL edits or amendments must be made on the [employer]/computer document * Subjective Subjective Admission EGA: Weeks: 36 Days: 4 EGA at delivery (wks/days): 37 weeks Status/day: post (Day 4) Patient reports: Patient reports: Yes: normal lochia, pain management effective, tolerating po well, voiding well, tolerating ambulation. No: complaints. Objective Nursing Documentation Review Nursing data: The data set between the solid lines has been im ported from nursing documentation. Any exceptions have been noted be low under Provider comments. Feeding preference: Post hemorrhage risk score: High Risk for Hemorrhage. Provider comments on imported nursing data: [] General VS: Vital Signs Date Temp Pulse Resp B/P B/P Mean Pulse Ox FiO2 11/11-11/12 98.3-98.6 63-76 18-20 123-149/81-96 99.0-109.0 96-99 Last Documented: Result Date Time B/P Mean 99.0 11/12 1121 Pulse Ox 98 11/12 1121 B/P 136/81 11/12 1121 Temp 98.4 11/12 1121 Pulse 63 11/12 1121 Resp 20 11/12 1121 PATIENT WEIGHT: Weight (lb): 172 Weight (oz): Weight (kg): 78.018 Medications: Active Meds + DC'd Last 24 Hrs Sertraline HCl (ZOLOFT 50 MG TAB) 50 MG DAILY PO Calcium Gluconate (CA GLUCONATE 1 GM/10 ML VIAL) 1,000 MG BOLUS ASDIR PRN IV Undefined Medication (MAGNESIUM SULFATE 4GM/SWFI 100ML) 100 ML ASDIR IV (CKD) Undefined Medication (MAGNESIUM SULFATE 20GM/SWF I 500ML) 500 ML ASDIR IV (CKD) Labetalol HCl (NORMODYNE 100 MG/20 ML VIAL) 20 M G ONCE PRN IV Labetalol HCl (NORMODYNE 100 MG/20 ML VIAL) 40 M G ASDIR PRN IV Labetalol HCl (NORMODYNE 100 MG/20 ML VIAL) 80 M G ASDIR PRN IV Nifedipine (PROCARDIA XL 30 MG) 30 MG DAILY PO Docusate Sodium (DOCUSATE SODIUM 100 MG CAP) 200 MG BEDTIME PO Acetaminophen/Codeine Phosphate (ACETAMINOPHEN/C ODEINE TAB. #3) 2 TAB Q4H PRN PRN PO Benzocaine (AMERICAINE) 1 APPLIC DAILY PRN PRN T OPICAL (CKD) Diphtheria/Pertussis/Tetanus Vacc (ADACEL VACCIN E) 0.5 ML BEFORE DISCHG IM Docusate Sodium (DOCUSATE SODIUM 100 MG CAP) 100 MG BID PRN PRN PO Hydrocortisone/Pramoxine (ANALPRAM HC 2.5% CRM S INGLES) 1 GM ASDIR PRN TOPICAL (CKD) Ibuprofen (IBUPROFEN 600 MG TAB) 600 MG Q6H PRN PRN PO Lactated Ringer's (LACTATED RINGERS) 1,000 ML DIR IV Magnesium Hydroxide (MILK OF MAGNESIA 30 ML UD) 30 ML BID PRN PRN PO Measles/Mumps/Rubella Vaccine Live (M-M-R II VAC CINE W DILUENT) 1 VIAL BEFORE DISCHG PRN SUBQ Methylergonovine Maleate (METHERGINE 0.2 MG/ML 1 ML AMP) 0.2 MG ASDIR PRN IM Ondansetron HCl (ZOFRAN 4 MG UD TAB) 4 MG Q8H AZ N PRN PO Polyethylene Glycol (POLYETHYLENE GLYCOL PKT) 17 GM DAILY PRN PRN PO Promethazine HCl (PROMETHAZINE HCL) 25 MG Q6H AZ N PRN PO Tranexamic Acid (Tranexamic Acid) 1,000 MG ASDIR PRN IV Sodium Chloride (SODIUM CHLORIDE 0.9% 100 ML AD D-[place]) 100 ML Witch Giovana/Glycerin (A-E-R) 1 APPLIC ASDIR PRN TOPICAL Physical Exam Neuro: Exam: alert, oriented x3 Abdomen: soft, no abnormal tenderness, no guardi ng Uterus: involution appropriate, non-tender Lochia: normal Lacerations: Perineal laceration(s): None Result Findings/data: Laboratory Tests: 11/12 0550 Chemistry POC Glucose (65 - 110 mg/dL) 88 Results: no new labs, vital signs stable Diagnosis, Assessment Plan Diagnosis, Assessment Plan Assessment: nml progress, gest diabet es, no meds, preeclampsia Plan: routine care, discharge today Plan discussed with: patient Electronically Signed by Cristian Conner MD on at 1323 RPT #:[id number] END OF REPORT 2021-11-11 07:54:00-00:00 [facility] ([facility]) OB Postpart Progr Note REPORT#:[id number] REPORT STATUS: Signed DATE:11/11/21 TIME: 0754 PATIENT: DOMONIQUE CAPPS UNIT #: [id number] ROOM/BED: [address] : 92 AGE: 31 SEX: F ATTEND: Sonam Cuadra MD ADM AUTHOR: Rufino Cuadra MD * ALL edits or amendments must be made on the [employer]/computer document * Subjective Subjective Admission EGA: Weeks: 36 Days: 4 EGA at delivery (wks/days): 37 weeks Status/Day: post (d4) Patient reports: Patient reports: Yes pain management effective, Yes tolerating p o well Comments: c/o feeling hot, sluggish, blurred vision with m ag Objective Nursing Documentation Review Nursing Data: The data set between the solid lines has been im ported from nursing documentation. Any exceptions have been noted be low under Provider comments. Feeding preference: Post hemorrhage risk score: High Risk for Hemorrhage. Provider comments on imported nursing data: [] General VS: Vital Signs: Date Time Temp Pulse Resp B/P B/P Pulse O2 O2 F low FiO2 Mean Ox Delivery Rate 11/11 0600 101.0 11/11 0600 67 18 127/87 97 11/11 0500 95.0 11/11 0500 71 18 122/82 99 11/11 0400 109.0 11/11 0400 97.6 78 18 138/94 97 11/11 0300 90 18 123/87 98 11/11 0200 98.0 11/11 0200 78 18 126/84 98 11/11 0100 117.0 11/11 0100 76 18 153/99 99 11/11 0000 111.0 11/11 0000 98.3 77 18 144/95 99 11/10 2300 104.0 11/10 2300 66 18 146/82 99 11/10 2200 112.0 11/10 2200 70 18 146/95 99 11/10 2100 112.0 11/10 2100 80 18 146/95 98 11/10 2000 108.0 11/10 2000 97.6 78 18 142/91 95 11/10 1900 103.0 11/10 1900 86 18 133/88 97 11/10 1800 80 18 140/91 99 11/10 1700 70 18 109/72 99 11/10 1500 72 18 99 11/10 1400 70 18 132/91 99 11/10 1300 70 18 144/92 99 11/10 1200 97.9 68 18 158/98 99 11/10 1100 71 18 153/99 100 11/10 1000 74 18 143/95 100 11/10 0800 98.1 71 18 142/92 100 PATIENT WEIGHT: Weight (lb): 172 Weight (oz): Weight (kg): 78.018 Physical Exam Neuro: Exam: alert, oriented x3 Abdomen: soft, no abnormal tenderness Uterus: firm, non-tender Fundus: firm, below the umbilicus, non-tender Lacerations: Perineal laceration(s): None Diagnosis, Assessment Plan Diagnosis, Assessment Plan Assessment: nml progress, gest diabet es, no meds, preeclampsia Plan: routine care, discharge tomorrow, complete 24 hr mag this AM. start procardia. BPs non severe. at 0755 RPT #:[id number] END OF REPORT 2021-11-10 08:18:00-00:00 [facility] ([facility]) OB Postpart Progr Note REPORT#:[id number] REPORT STATUS: Signed DATE:11/10/21 TIME: 817 PATIENT: DOMONIQUE CAPPS UNIT #: [id number] ROOM/BED: [address] : 92 AGE: 31 SEX: F ATTEND: Sonam Cuadra MD ADM AUTHOR: Rufino Cuadra MD * ALL edits or amendments must be made on the [employer]/computer document * Subjective Subjective Admission EGA: Weeks: 36 Days: 4 EGA at delivery (wks/days): 37 weeks Status/Day: post (d3) Patient reports: Patient reports: Yes pain management effective, Yes tolerating p o well, Yes tolerating ambulation, Yes headache Comments: c/o swelling Objective Nursing Documentation Review Nursing Data: The data set between the solid lines has been im ported from nursing documentation. Any exceptions have been noted be low under Provider comments. Feeding preference: Post hemorrhage risk score: High Risk for Hemorrhage. Provider comments on imported nursing data: [] General VS: Vital Signs: Date Time Temp Pulse Resp B/P B/P Pulse O2 O2 F low FiO2 Mean Ox Delivery Rate 11/10 0700 115.0 11/10 0700 150/98 11/10 0630 124.0 11/10 0630 81 164/108 11/10 0600 124.0 11/10 0600 81 159/106 11/10 0420 98.1 81 18 152/92 11/10 0224 103.0 11/10 0224 81 18 131/88 11/10 0116 101.0 11/10 0116 75 18 130/86 11/10 0106 73 18 157/110 11/10 0025 123.0 11/10 0025 98.1 70 20 164/102 11/09 2245 117.0 11/09 2245 98.2 69 18 158/97 11/09 2100 127.0 11/09 2100 76 20 174/104 11/09 2015 97.9 11/09 1720 98.8 71 20 144/91 11/09 1710 76 149/85 11/09 1432 87 136/90 11/09 1355 79 165/109 11/09 1120 72 166/102 PATIENT WEIGHT: Weight (lb): 172 Weight (oz): Weight (kg): 78.018 Physical Exam Neuro: Exam: alert, oriented x3 Abdomen: soft, no abnormal tenderness Uterus: firm, non-tender Fundus: firm, below the umbilicus, non-tender Lacerations: Perineal laceration(s): None Result Findings/Data: Laboratory Tests: 11/10 11/09 0629 1300 Chemistry Creatinine (0.5 - 1.0 mg/dL) 0.5 POC Glucose (65 - 110 mg/dL) 76 AST (15 - 37 units/L) 34 ALT (12 - 78 units/L) 26 Hematology WBC (6.5 - 12.3 K/mm3) 8.9 RBC (3.51 - 4.69 M/mm3) 3.32 L Hgb (10.1 - 13.8 g/dL) 8.1 L Hct (32.5 - 41.8 %) 27.7 L MCV (84.6 - 96.6 fL) 83.4 L MCH (27.3 - 33.9 pg) 24.4 L MCHC (32.0 - 34.2 gm/dL) 29.2 L RDW (12.2 - 16.3 %) 14.2 Plt Count (134 - 363 K/mm3) 276 MPV (9.2 - 12.7 fL) 10.0 Neut % (Auto) (57.9 - 77.3 %) 50.5 L Lymph % (Auto) (14.5 - 29.7 %) 40.1 H [place] % (Auto) (3.6 - 10.2 %) 7.8 Eos % (Auto) (0.0 - 3.0 %) 0.9 Baso % (Auto) (0.1 - 0.9 %) 0.3 Neut # (Auto) (K/mm3) 4.5 Lymph # (Auto) (K/mm3) 3.6 [place] # (Auto) (K/mm3) 0.7 Eos # (Auto) (K/mm3) 0.08 Baso # (Auto) (K/mm3) 0.0 Diagnosis, Assessment Plan Diagnosis, Assessment Plan Assessment: nml progress, gest diabet es, no meds, preeclampsia Plan: routine care, BPs labile, occ s evere range. rec'd procardia and IV labetalol. will start mag. labs wnl. at 0820 RPT #:[id number] END OF REPORT 2021-11-10 06:44:00-00:00 [facility] ([facility]) Clinical Note REPORT#:[id number] REPORT STATUS: Signed DATE:11/10/21 TIME: 643 PATIENT: DOMONIQUE CAPPS UNIT #: [id number] ROOM/BED: [address] : 92 AGE: 31 SEX: F ATTEND: Sonam Cuadra MD ADM AUTHOR: Clifford Alvarado MD * ALL edits or amendments must be made on the [employer] document * Clinical Note Note: Cross Cover Note Called by RN regarding sever e range BP. Pt had 1 time dose of nifedipine 30mg ER by RN in AM with improvement. Orders given for n ifedipine 30mg ER to be given and continue daily. Initial improvement in BPs, then BPs again severe range, instructed RN to start IV and start labetalol pr otocol. Per nurse discharge planner, pt to transferred to [facility] due to BP control issues. Ord ers given. Called again by RN due to elevated/non-severe r danyell BPs. Pt became upset when RN told her she needs to try to sleep and relax. I nstructions given to monitor BPs, recheck in 1 hour, restart protocol if severe range BPs present Electronically Signed by Clifford Alvarado MD on 1 01/11/21 at 0646 RPT #:[id number] END OF REPORT 2021-11-09 12:54:00-00:00 [facility] ([facility]) OB Postpart Progr Note REPORT#:[id number] REPORT STATUS: Signed DATE:11/09/21 TIME: 1254 PATIENT: DOMONIQUE CAPPS UNIT #: [id number] ROOM/BED: [address] : 92 AGE: 31 SEX: F ATTEND: Sonam Cuadra MD ADM AUTHOR: Rufino Cuadra MD * ALL edits or amendments must be made on the [employer] document * Subjective Subjective Admission EGA: Weeks: 36 Days: 4 EGA at delivery (wks/days): 37 weeks Status/Day: post (d2) Patient reports: Patient reports: Yes no complaints, Yes pain management effectiv e, Yes tolerating po well, No abdominal pain, No headache, No blurred vision Objective Nursing Documentation Review Nursing Data: The data set between the solid lines has been im ported from nursing documentation. Any exceptions have been noted be low under Provider comments. Feeding preference: Post hemorrhage risk score: High Risk for Hemorrhage. Provider comments on imported nursing data: [] General VS: Vital Signs: Date Time Temp Pulse Resp B/P B/P Pulse O2 O2 Flow FiO2 Mean Ox Delivery Rate 11/09 1120 72 166/102 11/09 0812 98.0 75 20 156/84 11/08 2320 98.0 87 18 154/89 PATIENT WEIGHT: Weight (lb): 172 Weight (oz): Weight (kg): 78.018 Physical Exam Neuro: Exam: alert, oriented x3 Abdomen: soft, no abnormal tenderness Uterus: firm, non-tender Fundus: firm, below the umbilicus, non-tender Lacerations: Perineal laceration(s): None Diagnosis, Assessment Plan Diagnosis, Assessment Plan Assessment: nml progress, gest diabet es, no meds, preeclampsia Plan: routine care, BP elevated today . started po nifedipine. labs pending. restart zoloft. at 1255 RPT #:[id number] END OF REPORT 2021-11-08 10:33:00-00:00 [facility] ([facility]) OB Postpart Progr Note REPORT#:[id number] REPORT STATUS: Signed DATE:11/08/21 TIME: 1033 PATIENT: DOMONIQUE CAPPS UNIT #: [id number] ROOM/BED: [facility] : 92 AGE: 31 SEX: F ATTEND: Sonam Cuadra MD ADM AUTHOR: Rufino Cuadra MD * ALL edits or amendments must be made on the [employer]computer document * Subjective Subjective Admission EGA: Weeks: 36 Days: 4 EGA at delivery (wks/days): 37 weeks Status/Day: post (d1) Patient reports: Patient reports: Yes no complaints, Yes pain management effectiv e, Yes tolerating po well Objective Nursing Documentation Review Nursing Data: The data set between the solid lines has been im ported from nursing documentation. Any exceptions have been noted be low under Provider comments. Feeding preference: Post hemorrhage risk score: High Risk for Hemorrhage. Provider comments on imported nursing data: [] General VS: Vital Signs: Date Time Temp Pulse Resp B/P B/P Pulse O2 O2 F low FiO2 Mean Ox Delivery Rate 11/08 6 98.5 76 19 133/87 11/07 2020 108.0 11/07 2020 98.4 78 20 143/90 11/07 1827 109.0 11/07 182 74 149/84 11/07 181 112.0 11/07 181 86 149/88 11/07 1757 98.1 11/07 175 120.0 11/07 1757 71 165/92 12/ 1742 113.0 / 1742 79 148/91 12/13 1727 115.0 /13 1727 70 152/89 12/13 1713 108.0 / 1713 80 150/87 12/13 1657 106.0 12/13 1657 67 143/82 12/ 1642 112.0 12/ 1642 76 141/91 12/13 1627 108.0 /13 1627 84 137/88 12/13 1559 119.0 12/13 1559 75 158/93 12/ 1544 120.0 11/07 1544 77 158/94 12 1528 122.0 11/07 1528 78 162/98 11/07 1513 118.0 11/07 1513 75 156/95 11/07 1459 114.0 11/07 1459 75 148/91 12 1443 123.0 11/07 1443 77 161/96 11/07 1431 97.8 11/07 1424 108.0 11/07 1424 71 142/84 11/07 1419 105.0 11/07 1419 73 138/85 12/ 1414 108.0 11/07 1414 79 141/86 11/07 1409 111.0 11/07 1409 74 141/88 11/07 1405 115.0 11/07 1405 73 158/86 / 1359 110.0 11/07 1359 77 138/92 12/ 1354 106.0 11/07 1354 75 136/85 12/13 1349 113.0 11/07 1349 77 141/95 12/13 1344 109.0 12/13 1344 75 135/91 12/ 1340 105.0 12/ 1340 72 135/85 12/13 1334 109.0 / 1334 76 147/81 12/13 1310 114.0 12/13 1310 81 150/90 12/13 1207 107.0 12/13 1207 80 138/88 12/13 1107 106.0 12/13 1107 80 131/89 PATIENT WEIGHT: Weight (lb): 172 Weight (oz): Weight (kg): 78.018 Physical Exam Neuro: Exam: alert, oriented x3 Abdomen: soft, no abnormal tenderness Uterus: firm, non-tender Fundus: firm, below the umbilicus, non-tender Lacerations: Perineal laceration(s): None Result Findings/Data: Laboratory Tests: 11/08 11/08 11/07 11/07 0625 0623 1350 1050 Chemistry POC Glucose (65 - 110 mg/dL) 86 76 Hematology WBC (6.5 - 12.3 K/mm3) 8.2 RBC (3.51 - 4.69 M/mm3) 3.41 L Hgb (10.1 - 13.8 g/dL) 8.2 L 8.4 L Hct (32.5 - 41.8 %) 27.1 L 27.3 L MCV (84.6 - 96.6 fL) 80.1 L MCH (27.3 - 33.9 pg) 24.6 L MCHC (32.0 - 34.2 gm/dL) 30.8 L RDW (12.2 - 16.3 %) 14.0 Plt Count (134 - 363 K/mm3) 276 MPV (9.2 - 12.7 fL) 10.3 Neut % (Auto) (57.9 - 77.3 %) 64.8 Lymph % (Auto) (14.5 - 29.7 %) 26.0 [place] % (Auto) (3.6 - 10.2 %) 8.1 Eos % (Auto) (0.0 - 3.0 %) 0.5 Baso % (Auto) (0.1 - 0.9 %) 0.2 Neut # (Auto) (K/mm3) 5.3 Lymph # (Auto) (K/mm3) 2.1 [place] # (Auto) (K/mm3) 0.7 Eos # (Auto) (K/mm3) 0.04 Baso # (Auto) (K/mm3) 0.0 Serology Rubella Screen (IUnit/ml) 63.5 Diagnosis, Assessment Plan Diagnosis, Assessment Plan Assessment: nml progress Plan: routine care, discharge tomorro w at 1034 RPT #:[id number] END OF REPORT 2021-11-07 16:56:00-00:00 [facility] ([facility]) OB Delivery Note REPORT#:[id number] REPORT STATUS: Signed DATE:11/07/21 TIME: 1655 PATIENT: DOMONIQUE CAPPS UNIT #: [id number] ROOM/BED: [address] : 92 AGE: 31 SEX: F ATTEND: Sonam Cuadra MD ADM AUTHOR: Rufino Cuadra MD * ALL edits or amendments must be made on the [employer]computer document * OB Delivery Nursing Documentation Review Nursing data: The data set between the solid lines has been im ported from nursing documentation. Any exceptions have been noted be low under Provider comments. _ ROM date: 11/07/21 ROM time: 1257 Membranes rupture method: SROM Amniotic fluid color: Clear Amniotic fluid amount: Steroids prior to arrival: Antibiotic prophylaxis given: Post hemorrhage risk score: High Risk for Hemorrhage. Delivery date infant A: Delivery time A: Birthweight (gm) infant A: Weight (lb) infant A: Weight (oz) A: Gender A: Female 1 minute infant A: 5 minutes infant A: 10 minutes A: Cord pH obtained A: Vacuum time A: Vacuum # pulls A: Vacuum # popoffs A: QBL at delivery: __ Provider comments on imported nursing data: [] Pre-delivery GBS status: GBS status: positive evaluation at delivery: NRP certified pe rsonnel Admission EGA: Weeks: 36 Days: 4 EGA at delivery (wks/days): 37 weeks Admission indication: GDM, preeclampsia Baby A Information Baby A information Delivery date: 11/07/21 Delivery time: 1614 status: live born Wt of baby: not yet available Gender: female 1 minute: 8 5 minutes: 9 Presentation: vertex Nuchal cord Baby A Nuchal cord: yes (tight,deliv.through) Vaginal Delivery Vaginal delivery: Labor: induced Medications/Devices used: oxytocin Vaginal delivery: spontaneous : : successful Amniotic fluid: clear Anesthesia type: epidural anesthesia Episiotomy: none Episiotomy repair: not applicable Laceration repair: not required Placenta: spontaneous, intact Post delivery meds used: oxytocin Count: correct, vag exam neg for sponges Vaginal packing: No Mother's condition: mother stable 's condition: infant stable in room Lacerations: Perineal laceration(s): None Blood Loss/Details Blood loss at delivery: <1K: no sx hypov ol=no hem (100), no more than expected at 1658 RPT #:[id number] END OF REPORT 2021-11-07 12:32:00-00:00 [facility] ([facility]) Clinical Note REPORT#:[id number] REPORT STATUS: Signed DATE:11/07/21 TIME: 1232 PATIENT: DOMONIQUE CAPPS UNIT #: [id number] ROOM/BED: [address] : 92 AGE: 31 SEX: F ATTEND: Sonam Cuadra MD ADM AUTHOR: Rufino Cuadra MD * ALL edits or amendments must be made on the [employer]computer document * Clinical Note Note: [facility] PCN started for GBS. pit initiated, ctx q5 min. plan for TOLAC, antic . at 1232 RPT #:[id number] END OF REPORT 2021-11-07 07:26:00-00:00 [facility] ([facility]) OB Antepartum Prog Note REPORT#:[id number] REPORT STATUS: Signed DATE:11/07/21 TIME: 725 PATIENT: DOMONIQUE CAPPS UNIT #: [id number] ROOM/BED: [address] : 92 AGE: 31 SEX: F ATTEND: Sonam Cuadra MD ADM AUTHOR: Rufino Cuadra MD * ALL edits or amendments must be made on the [employer] document * Subjective Subjective Admission EGA: Weeks: 36 Days: 4 Patient reports: Comments: c/o swelling in face. c/o AMES, resolved with fioricet. c/o decreased FM x2 days. no VB/LOF/ctx. Objective Nursing Documentation Review Nursing data: The data set between the solid lines has been im ported from nursing documentation. Any exceptions have been noted be low under Provider comments. ROM date: ROM time: Labor onset date: Labor onset time: Provider comments on imported nursing data: [] VS: Last Documented: Result Date Time B/P Mean 104.0 11/07 0550 Pulse Ox 98 11/07 0550 B/P 139/80 11/07 0550 Pulse 76 11/07 0550 Temp 98.3 11/06 2031 Resp 16 11/06 2031 Vital Signs Date Temp Pulse Resp B/P B/P Mean Pulse Ox FiO 2 11/06-11/07 98.3 73-88 16 130-155/80-95 98.0-11 6.0 98-99 PATIENT WEIGHT: Weight (lb): 172 Weight (oz): Weight (kg): 78.018 Membranes: Intact Cervical/ exam: Dilatation (cm): 4 Effacement (%): 50 Est wt (gms): 3900 Suspected macrosomia: No Suspected > 5000 grams: No station: - 3 presentation: cephalic Uterine activity: Monitor: toco Frequency (description): regular Frequency (minutes): 7 HEENT: normocephalic w/o injury Neuro: Exam: alert, oriented x3 Abdomen: gravid, soft, no abnormal tenderness Baby A: Baby A baseline: 130 bpm Baby A variability: moderate 6-25 bpm Baby A accelerations: 15 X 15 Baby A decelerations: none Baby A FHR category: category 1 Findings/data: Laboratory Tests: 11/07 11/06 11/06 11/06 0552 2040 1509 0954 Chemistry POC Glucose (65 - 110 mg/dL) 80 108 111 H 106 Diagnosis, Assessment Plan Diagnosis, Assessment Plan Assessment: 37.1 wks, GDM, preeclampsia, prev C/S x1, prev x1. BPs remain labile, rarely severe range. CBGs well controlled. reassuring FHT on monitoring. waiting on availability on L D for induction/SALLY AC. at 0732 RPT #:[id number] END OF REPORT 2021-11-06 16:57:00-00:00 [facility] ([facility]) OB Antepartum Prog Note REPORT#:[id number] REPORT STATUS: Signed DATE:11/06/21 TIME: 1656 PATIENT: DOMONIQUE CAPPS UNIT #: [id number] ROOM/BED: [address] : 92 AGE: 31 SEX: F ATTEND: Sonam Cuadra MD ADM AUTHOR: Karina Parks MD * ALL edits or amendments must be made on the [employer]/computer document * Subjective Subjective Admission EGA: Weeks: 36 Days: 4 Patient reports: Patient reports: Yes: contractions, headache (unilateral). Objective VS: Laboratory Tests: 11/06 11/06 11/06 11/05 11/05 1509 0954 0547 2155 2030 Chemistry Creatinine (0.5 - 1.0 mg/dL) 0.5 POC Glucose (65 - 110 mg/dL) 111 H 106 97 112 H Urines Ur Random Creatinine (mg/dL) 89.3 U Random Total Protein (mg/dL) 33.4 Urine Total Volume (ML) 1300 Creatinine Clearance (70 - 120 ml/min) 160 H Ur Total Protein 24 Hr (20 - 150 434 *H mg/24HR) 11/05 1702 Chemistry POC Glucose (65 - 110 mg/dL) 99 Last Documented: Result Date Time B/P Mean 98.0 11/06 1135 B/P 130/80 11/06 1135 Pulse 86 11/06 1135 Pulse Ox 98 11/05 2321 Resp 16 11/05 2321 Temp 97.7 11/05 2035 Vital Signs Date Temp Pulse Resp B/P B/P Mean Pulse Ox FiO 2 11/05-11/06 97.7 71-95 16 126-159/80-95 98.0-11 6.0 97-98 PATIENT WEIGHT: Weight (lb): 172 Weight (oz): Weight (kg): 78.018 Membranes: Intact Cervical/ exam: Dilatation (cm): 3 Effacement (%): 50 Est wt (gms): 3877 Suspected macrosomia: No Suspected > 5000 grams: No station: - 3 presentation: cephalic Uterine activity: Monitor: toco Frequency (description): regular Frequency (minutes): 7 HEENT: normocephalic w/o injury Neuro: Exam: alert, oriented x3 Abdomen: gravid, soft, no abnormal tenderness Baby A: Baby A baseline: 135 bpm Baby A variability: moderate 6-25 bpm Baby A accelerations: 15 X 15 Baby A decelerations: none Baby A FHR category: category 1 Diagnosis, Assessment Plan Diagnosis, Assessment Plan Assessment: hypertension Plan: monitor BPs and signs of labor while await ing spot on L D Electronically Signed by Karina Parks MD on 10/26 01/16 at 1659 RPT #:[id number] END OF REPORT 2021-11-05 14:40:00-00:00 [facility] ([facility]) OB Antepartum Prog Note REPORT#:[id number] REPORT STATUS: Signed DATE:11/05/21 TIME: 1440 PATIENT: DOMONIQUE CAPPS UNIT #: [id number] ROOM/BED: [address] : 92 AGE: 31 SEX: F ATTEND: Sonam Cuadra MD ADM AUTHOR: Jeni Rahman MD * ALL edits or amendments must be made on the [employer]/computer document * Subjective Subjective Patient reports: Patient reports: Yes normal movement, Yes headache , No no complaints, No abdominal pain, No vaginal bleeding, No leaking fluid, No contra ctions, No blurred vision, No scotomata, No fever, No chills Comments: Pt worried b/c bp have not been an issue w/prev pregs- very concerned about needing "emergency c/s"... discussed; Objective Nursing Documentation Review Nursing data: The data set between the solid lines has been im ported from nursing documentation. Any exceptions have been noted be low under Provider comments. ROM date: ROM time: Labor onset date: Labor onset time: Provider comments on imported nursing data: [] VS: Last Documented: Result Date Time B/P Mean 103.0 11/05 1137 Pulse Ox 98 11/05 1137 B/P 132/86 11/05 1137 Temp 98.2 11/05 1137 Pulse 90 11/05 1137 Resp 18 11/05 1137 Vital Signs Date Temp Pulse Resp B/P B/P Mean Pulse Ox FiO2 11/04-11/05 98.2-98.5 73-90 18-20 132-160/81-95 101.0-121.0 98 PATIENT WEIGHT: Weight (lb): 172 Weight (oz): Weight (kg): 78.018 Medications: Active Meds + DC'd Last 24 Hrs Sertraline HCl (ZOLOFT 50 MG TAB) 25 MG BEDTIME PO Pantoprazole Sodium (PROTONIX) 40 MG DAILY PO Multivit/Folic Acid/Iron ( Tamara min Tablet) 1 TAB DAILY PO Acetaminophen/Butalbital/Caffeine (Fioricet 50-3 00-40 MG Capsule) 1 EACH ONCE ONE PO (DC) Labetalol HCl (NORMODYNE 100 MG) 100 MG ONCE ONE PO (DC) Acetaminophen (ACETAMINOPHEN 325 MG TAB) 650 MG Q4H PRN PRN PO Docusate Sodium (DOCUSATE SODIUM 100 MG CAP) 100 MG BID PO Magnesium Hydroxide (MILK OF MAGNESIA 30 ML UD) 30 ML Q6H PRN PRN PO Polyethylene Glycol (POLYETHYLENE GLYCOL PKT) 17 GM DAILY PRN PRN PO Membranes: Intact Abdomen: gravid, soft, no abnormal tenderness Baby A: Baby A baseline: 135 bpm Baby A variability: moderate 6-25 bpm Baby A accelerations: 15 X 15 Baby A decelerations: none Baby A FHR category: category 1 Diagnosis, Assessment Plan Diagnosis, Assessment Plan Free Text A P: siup at 36.6, admitted w/gdm, elevated bp for 24 h urine AMES today relieved w/fioricet and labetolol x1 dose (correlation w/angst and pain as causes of elevated bp discussed) at 1444 RPT #:[id number] END OF REPORT 2021-11-04 21:17:00-00:00 [facility] ([facility]) OB Admission / H P REPORT#:[id number] REPORT STATUS: Signed DATE:11/04/21 TIME: 2116 PATIENT: DOMONIQUE CAPPS UNIT #: [id number] ROOM/BED: [facility] : 92 AGE: 31 SEX: F ATTEND: Snoam Cuadra MD ADM AUTHOR: Rufino Cuadra MD * ALL edits or amendments must be made on the [employer]/computer document * OB History Chief complaint: uterine contractions, elevated BP history: : 5 Term: 3 Abortus: 1 Previous : low uterine trans incis Number of prev : 1 Current : Best EDC: 11/27/21 Admission EGA (weeks) 36 Admission EGA (days) 4 Conditions of : diabetes - gestational, HTN-gestational, previous uterine incision Labs: Blood type: O Rh: positive Rubella: immune Hepatitis B: negative HIV: negative STD: negative Syphilis: currently negative GBS: positive Procedures: ultrasound, genetic testing, n on stress test Past History Additional Medical History: denies Past Surgical History: Reports: Cholecystectomy, , Tonsillecto my. Alcohol Use Denies EtOH use Drug Use Denies recreational drugs Smoking status: Smoking status for patients 13 years old or old er: Never Smoker Other Social History Local resident Allergies: Coded Allergies: No Known Allergies (10/31/21) Objective General VS: PATIENT WEIGHT: Weight (lb): 172 Weight (oz): Weight (kg): 78.018 Physical Exam HEENT: normocephalic w/o injury Neuro: Exam: alert, oriented x3 Abdomen: gravid, soft Uterine activity: Monitor: toco Frequency (description): regular Frequency (minutes): 7 Pelvic exam: Pelvis clinically adequate: yes, inlet appears appropriate, pubic bone config appropr, no midpelvic contraction Vulvar lesions: none, no evidence herpetic les, no evidence of other STD Vagina: normal, non-septated, w/o apparent lesi ons Cervical/ exam: Dilatation (cm): 3 Effacement (%): 50 Est wt (gms): 3877 Suspected macrosomia: No Suspected > 5000 grams: No station: - 3 presentation: cephalic Membranes: Membranes: Intact Baby A: Baby A baseline: 140 bpm Baby A variability: moderate 6-25 bpm Baby A accelerations: 15 X 15 Baby A decelerations: none Baby A FHR category: category 1 Result Findings/Data: Laboratory Tests: 11/04 1500 Chemistry Creatinine (0.5 - 1.0 mg/dL) 0.5 AST (15 - 37 units/L) 31 ALT (12 - 78 units/L) 28 Hematology WBC (6.5 - 12.3 K/mm3) 7.0 RBC (3.51 - 4.69 M/mm3) 3.43 L Hgb (10.1 - 13.8 g/dL) 8.7 L Hct (32.5 - 41.8 %) 27.9 L MCV (84.6 - 96.6 fL) 81.3 L MCH (27.3 - 33.9 pg) 25.4 L MCHC (32.0 - 34.2 gm/dL) 31.2 L RDW (12.2 - 16.3 %) 13.8 Plt Count (134 - 363 K/mm3) 300 MPV (9.2 - 12.7 fL) 10.5 Neut % (Auto) (57.9 - 77.3 %) 67.1 Lymph % (Auto) (14.5 - 29.7 %) 25.6 [place] % (Auto) (3.6 - 10.2 %) 6.2 Eos % (Auto) (0.0 - 3.0 %) 0.4 Baso % (Auto) (0.1 - 0.9 %) 0.1 Neut # (Auto) (K/mm3) 4.7 Lymph # (Auto) (K/mm3) 1.8 [place] # (Auto) (K/mm3) 0.4 Eos # (Auto) (K/mm3) 0.03 Baso # (Auto) (K/mm3) 0.0 Diagnosis, Assessment Plan Diagnosis, Assessment Plan Free Text A P: 36.5 wks, elevated BPs, GDM, contraction s, prev C/S x1, prev x1. observation for BPs, ctx. start 24 hr urine collection. plan for if labors, possible need for C/S d /w pt, understands. at 2126 RPT #:[id number] END OF REPORT 2021-10-31 17:18:00-00:00 [facility] ([facility]) Clinical Note REPORT#:[id number] REPORT STATUS: Signed DATE:10/31/21 TIME: 171 PATIENT: DOMONIQUE CAPPS UNIT #: [id number] ROOM/BED: : 92 AGE: 31 SEX: F ATTEND: Sonam Cuadra MD ADM DT: AUTHOR: Rufino Cuadra MD * ALL edits or amendments must be made on the [employer] document * Clinical Note Note: pt seen in MAC for elevated BP at home assoc with AMES. reports feeling some mild tighening. no VB/LOF. good FM. reports BPs at home up and down, highest 149/99. BPs here 120-130s/80s. NST 130, Cat I. toco irreg. labs pending, but if wnl plan for d/c home, has appt Fri with sono. at 1719 RPT #:[id number] END OF REPORT 2021-08-17 10:25:00-00:00 [facility] ([facility]) EMERGENCY PROVIDER REPORT REPORT#:[id number] REPORT STATUS: Signed DATE:08/17/21 TIME: 1025 PATIENT: DOMONIQUE CAPPS UNIT #: [id number] ROOM/BED: AGE: 31 SEX: F PCP PHYS: Rufino Cuadra MD SERVICE AUTHOR: Fernando Bermudez III, MD * ALL edits or amendments must be made on the [employer] document * ELIANE History Nursing Documentation Review Nursing data: ___ [facility] ELIANE 31 year old white female SAB 1 @ 26.1 wee catherine cc Nausea and vomiting HPI She has had mild lower ab cramping for about the past 4 days. The nausea started about 3 days ago. She did not vomit untill today, X 2 . She does not recall eating food that may have upset her stomach. No diarrhea. No vaginal bleeding, not leaking amniotic fluid, endorses positive movements. car e with Dr Cuadra. History of diet controlled GDM with this . Claims normal OB anato my scan. PMH Allergies Allergy Severity Reaction Updated Coded No Known Allergies 08/17/21 OB SAB 1 at 37 wks labor, C/s ection at 38 wks GDM, SAB, at 38 wks GDM [facility] Chlamydia and GC in the past PMH GDM, kidney stones, kidney abcess, UTI PSH C/section, gallbladder MEDS vitamins, vitamin C FMH Positive for diabetes and hypertension SH N o smoke, no etoh, no drugs ROS No fever, no shortness of breath, no chest pain, nausea and vomiting , no ab pain, cramping, no vaginal bleeding, not leaking amni otic fluid, endorses positive movements. Family history Relation not specified for: Family History: Unremarkable Medications: Home Medications: Medication Dose/Rte/Freq Days Qty Entered Last Max Daily Dose Reviewed PNV WITH FE 1 TAB PO DAILY 08/17/21 FUMARATE/FA 0949 () Strength: 1 EACH TAB ASCORBIC ACID (VITAMIN C) 250 MG PO DAILY 08/17 Strength: 250 MG TAB 0949 ESOMEPRAZOLE MAG HUSSEIN 20 MG PO DAILY 08/17/21 (NexIUM) 0950 Strength: 20 MG CAP. Current Hospital Medications: Electrolytic, Caloric, And Anshul Sig/Robi Start time Last Medication Dose Route Stop Time Status Admin Lactated Ringer's 1,000 ML ASDIR 08/17 1015 AC 08/17 (LACTATED RINGERS) IV 10/16 1014 1045 Gastrointestinal Drugs Sig/Robi Start time Last Medication Dose Route Stop Time Status Admin Ondansetron HCl 4 MG ONCE ONE 08/17 1045 DC (ZOFRAN 2 MG/ML 4 MG IV 08/17 1046 1045 SYR) Allergies Coded Allergies: No Known Allergies (08/17/21) Objective General VS: PATIENT WEIGHT: Weight (lb): 150 Weight (oz): Weight (kg): 68.136907 No acute distress, alert, normal affect Afebrile, 118/68, pulse 98 PUL Chest clear to auscultation, unlabored norm al respirations CVR RRR AB Gravid, mild lower ab tenderness, no guardin g SVE Deferred EXT No pathological pretibial edema, normal ref lexes, no calf tenderness TOCO Uterine irritability initially FHT Category 2 initially, 140s with occasional mild variable decel with recovery I came to her room and introduced myself. H and P completed. Plan of care discussed. She was given IV hydration with Lactated Ringer s and D 5 LR. Also given one dose of IV Zofran 4 mg. Symptoms improved. Urine cultur e ordered. FHT category one prior to discharge. Laboratory Tests: 08/17 1029 Chemistry Sodium (135 - 145 mEq/L) 139 Potassium (3.5 - 5.0 mEq/L) 3.9 Chloride (100 - 115 mEq/L) 105 Carbon Dioxide (22 - 31 mEq/L) 25 Anion Gap (10 - 20) 12.80 BUN (7 - 18 mg/dL) 8 Creatinine (0.5 - 1.0 mg/dL) 0.4 L Glomerular Filtr Rate (>60 ml/min) 189 Glucose (65 - 110 mg/dL) 94 Calcium (8.4 - 10.2 mg/dL) 8.0 L Total Bilirubin (0.2 - 1.0 mg/dL) 0.2 AST (15 - 37 units/L) 15 ALT (12 - 78 units/L) 17 Total Alk Phosphatase (46 - 116 units/L) 100 Total Protein (6.3 - 8.2 gm/dL) 6.2 L Albumin (3.4 - 4.8 gm/dL) 2.7 L Amylase (30 - 110 units/L) 68 Lipase (73 - 393 units/L) 134 Hematology WBC (6.5 - 12.3 K/mm3) 7.2 RBC (3.51 - 4.69 M/mm3) 3.76 Hgb (10.1 - 13.8 g/dL) 11.4 Hct (32.5 - 41.8 %) 34.2 MCV (84.6 - 96.6 fL) 91.0 MCH (27.3 - 33.9 pg) 30.3 MCHC (32.0 - 34.2 gm/dL) 33.3 RDW (12.2 - 16.3 %) 12.2 Plt Count (134 - 363 K/mm3) 258 MPV (9.2 - 12.7 fL) 8.6 L Neut % (Auto) (57.9 - 77.3 %) 73.1 Lymph % (Auto) (14.5 - 29.7 %) 18.5 [place] % (Auto) (3.6 - 10.2 %) 7.7 Eos % (Auto) (0.0 - 3.0 %) 0.3 Baso % (Auto) (0.1 - 0.9 %) 0.1 Neut # (Auto) (K/mm3) 5.3 Lymph # (Auto) (K/mm3) 1.3 [place] # (Auto) (K/mm3) 0.6 Eos # (Auto) (K/mm3) 0.02 Baso # (Auto) (K/mm3) 0.0 Urines Urine Color (YELLOW) YELLOW Urine Appearance (CLEAR) Slightly-Cloudy Urine pH (5 - 9) 6.0 Ur Specific [place] (1.001 - 1.035) 1.024 Urine Protein (NEG) NEGATIVE Urine Glucose (UA) (NEG) NEGATIVE Urine Ketones (NEG) NEGATIVE Urine Blood (NEG) NEG Urine Nitrite (NEG) NEG Urine Bilirubin (NEG) NEGATIVE Urine Urobilinogen (NEG mg/dL) 4.0 H Ur Leukocyte Esterase (NEG) NEG Urine RBC (NONE SEEN #/hpf) 3-5 H Urine WBC (NONE SEEN #/hpf) 3-5 H Ur Epithelial Cells (RARE - FEW #/HPF) RARE Urine Bacteria (RARE - FEW /HPF) FEW Urine Mucus (NONE SEEN) 1+ Microbiology: Date/Time Procedure - Status Source Growth 08/17 1156 Urine Culture - ORD URINE Recent Impressions: ULTRASOUND - US FET BIO PH AZ W/O NST 08/17 1230 Report Impression - Status: SIGNED Entered: 08/17/2021 1317 IMPRESSION: The biophysical profile score of 07/03 is no rmal. Impression By: [email or web address] - Maxime Perez BREECH, 07/03 BPP, 18.5 CM AARON, CERVIX 3.2 CM Results Findings/Data: Laboratory Tests: 08/17 1029 Chemistry Sodium (135 - 145 mEq/L) 139 Potassium (3.5 - 5.0 mEq/L) 3.9 Chloride (100 - 115 mEq/L) 105 Carbon Dioxide (22 - 31 mEq/L) 25 Anion Gap (10 - 20) 12.80 BUN (7 - 18 mg/dL) 8 Creatinine (0.5 - 1.0 mg/dL) 0.4 L Glomerular Filtr Rate (>60 ml/min) 189 Glucose (65 - 110 mg/dL) 94 Calcium (8.4 - 10.2 mg/dL) 8.0 L Total Bilirubin (0.2 - 1.0 mg/dL) 0.2 AST (15 - 37 units/L) 15 ALT (12 - 78 units/L) 17 Total Alk Phosphatase (46 - 116 units/L) 100 Total Protein (6.3 - 8.2 gm/dL) 6.2 L Albumin (3.4 - 4.8 gm/dL) 2.7 L Amylase (30 - 110 units/L) 68 Lipase (73 - 393 units/L) 134 Hematology WBC (6.5 - 12.3 K/mm3) 7.2 RBC (3.51 - 4.69 M/mm3) 3.76 Hgb (10.1 - 13.8 g/dL) 11.4 Hct (32.5 - 41.8 %) 34.2 MCV (84.6 - 96.6 fL) 91.0 MCH (27.3 - 33.9 pg) 30.3 MCHC (32.0 - 34.2 gm/dL) 33.3 RDW (12.2 - 16.3 %) 12.2 Plt Count (134 - 363 K/mm3) 258 MPV (9.2 - 12.7 fL) 8.6 L Neut % (Auto) (57.9 - 77.3 %) 73.1 Lymph % (Auto) (14.5 - 29.7 %) 18.5 [place] % (Auto) (3.6 - 10.2 %) 7.7 Eos % (Auto) (0.0 - 3.0 %) 0.3 Baso % (Auto) (0.1 - 0.9 %) 0.1 Neut # (Auto) (K/mm3) 5.3 Lymph # (Auto) (K/mm3) 1.3 [place] # (Auto) (K/mm3) 0.6 Eos # (Auto) (K/mm3) 0.02 Baso # (Auto) (K/mm3) 0.0 Urines Urine Color (YELLOW) YELLOW Urine Appearance (CLEAR) Slightly-Cloudy Urine pH (5 - 9) 6.0 Ur Specific [place] (1.001 - 1.035) 1.024 Urine Protein (NEG) NEGATIVE Urine Glucose (UA) (NEG) NEGATIVE Urine Ketones (NEG) NEGATIVE Urine Blood (NEG) NEG Urine Nitrite (NEG) NEG Urine Bilirubin (NEG) NEGATIVE Urine Urobilinogen (NEG mg/dL) 4.0 H Ur Leukocyte Esterase (NEG) NEG Urine RBC (NONE SEEN #/hpf) 3-5 H Urine WBC (NONE SEEN #/hpf) 3-5 H Ur Epithelial Cells (RARE - FEW #/HPF) RARE Urine Bacteria (RARE - FEW /HPF) FEW Urine Mucus (NONE SEEN) 1+ Microbiology: Date/Time Procedure - Status Source Growth 08/17 1156 Urine Culture - ORD URINE Recent Impressions: ULTRASOUND - US FET BIO PH AZ W/O NST 08/17 1230 Report Impression - Status: SIGNED Entered: 08/17/2021 1317 IMPRESSION: The biophysical profile score of 8/8 is no rmal. Impression By: [email or web address] Maxime Thompson Diagnosis, Assessment Plan Diagnosis, Assessment Plan Free Text A P: A IUP at 26.1 weeks Late nausea and vomiting in Previous c/section incidental state, history VB AC not in labor, reassuring fht P Symptoms improved after IV hydration, IV zofra n. Cleared for discharge to home. [place] diet for the next 24 hours. Labor precaut ions. F/U with Dr Cuadra in 4 days, Sunday. All questions answered. Urine culture o alvino mendez Electronically Signed by Fernando Bermudez III, MD on at 1440 RPT #:[id number] END OF REPORT
--- NOTE | 2023-06-12 21:01 | EDPHYS ---
Physician Documentation [facility] Name: Domonique Mccurdy Age: 32 yrs Sex: Female : 1990 Arrival Date: 06/12/2023 Time: 19:42 Bed 11 Private MD: ED Physician Benjamin Maldonado HPI: 06/12 20:17 This 32 yrs old Female presents to ER via Ambulatory with complaints of sp3 Urinary Problem. 20:17 32-year-old female with history of kidney stones presents with chief complaint dysuria, sp3 urinary frequency without any other symptoms. She denies fever, back pain, abdominal pain, nausea, vomiting, diarrhea, , or any other signs or symptoms on ROS at this time. Patient states it feels like a UTI was to get evaluated for that.. 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 - Social history:: Smoking status: Patient denies any tobacco usage or history of. ROS: 20:18 Constitutional: Negative for fever, chills, and weight loss, Eyes: Negative for injury, sp3 pain, redness, and discharge, ENT: Negative for injury, pain, and discharge, Neck: Negative for injury, pain, and swelling, Cardiovascular: Negative for chest pain, palpitations, and edema, Respiratory: Negative for shortness of breath, cough, wheezing, and pleuritic chest pain, Abdomen/GI: Negative for abdominal pain, nausea, vomiting, diarrhea, and constipation, Back: Negative for injury and pain, MS/Extremity: Negative for injury and deformity, Skin: Negative for injury, rash, and discoloration, Neuro: Negative for headache, weakness, numbness, tingling, and seizure, Psych: Negative for depression, anxiety, suicide ideation, homicidal ideation, and hallucinations, Allergy/Immunology: Negative for hives, rash, and allergies, Endocrine: Negative for neck swelling, polydipsia, polyuria, polyphagia, and marked weight changes. 20:18 All other systems are negative. Exam: 20:18 Constitutional: This is a well developed, well nourished patient who is awake, alert, sp3 and in no acute distress. Head/Face: Normocephalic, atraumatic. Neck: Trachea midline, no thyromegaly or masses palpated, and no cervical lymphadenopathy. Supple, full range of motion without nuchal rigidity, or vertebral point tenderness. No Meningismus. Chest/axilla: Normal chest wall appearance and motion. Nontender with no deformity. No lesions are appreciated. Cardiovascular: Regular rate and rhythm with a normal S1 and S2. No gallops, murmurs, or rubs. Normal PMI, no JVD. No pulse deficits. Respiratory: Lungs have equal breath sounds bilaterally, clear to auscultation and percussion. No rales, rhonchi or wheezes noted. No increased work of breathing, no retractions or nasal flaring. Abdomen/GI: Soft, non-tender, with normal bowel sounds. No distension or tympany. No guarding or rebound. No evidence of tenderness throughout. Back: No spinal tenderness. No costovertebral tenderness. Full range of motion. Skin: Warm, dry with normal turgor. Normal color with no rashes, no lesions, and no evidence of cellulitis. MS/ Extremity: Pulses equal, no cyanosis. Neurovascular intact. Full, normal range of motion. Neuro: Awake and alert, GCS 15, oriented to person, place, time, and situation. Cranial nerves II-XII grossly intact. Motor strength 5/5 in all extremities. Sensory grossly intact. Cerebellar exam normal. Normal gait. Psych: Awake, alert, with orientation to person, place and time. Behavior, mood, and affect are within normal limits. Vital Signs: 19:48 BP 131 / 87; Pulse 79; Resp 18 S; Temp 97.6(TE); Pulse Ox 100% on R/A; Weight 61.23 kg as6 (R); Height 5 ft. 1 in. (R); Pain 3/10; 20:00 BP 129 / 81; Pulse 75; Resp 16 S; Pulse Ox 100% on R/A; ha1 21:00 BP 125 / 75; Pulse 78; Resp 18 S; Pulse Ox 100% on R/A; ha1 19:48 Body Mass Index 25.51 (61.23 kg, 154.94 cm) as6 19:48 Pain Scale: Adult as6 MDM: 20:05 Patient medically screened. sp3 20:18 Data reviewed: vital signs, nurses notes, lab test result(s). ED course: UA and hCG are sp3 pending. Clinically it sounds like patient has a UTI. Not highly suspicious for pyelonephritis, kidney stone, sepsis or . If positive for UTI, we will safely discharge patient home on Bactrim. Follow-up with PCP as needed.. 20:59 ED course: UA demonstrates no UTI however patient has clinical symptoms. We will sp3 discharge patient on 3 days of Bactrim. UA also demonstrated yeast however I do not believe that is etiology. However I will also prescribe Diflucan 1 dose and if the p.o. antibiotics do not work she can try the antifungal. She can follow-up with her primary care physician and she can return here anytime if her symptoms worsen, she has any fever, or kidney stone symptoms including back pain.. 06/12 19:59 Order name: UAM; Complete Time: 20:33 ha1 06/12 20:05 Order name: Test, Urine; Complete Time: 20:33 sp3 Administered Medications: No medications were administered Disposition Summary: 06/12/23 21:01 Discharge Ordered Location: Home sp3 Condition: Stable sp3 Diagnosis - UTI/ Urinary tract infection, site not specified sp3 Followup: sp3 - With: Private Physician - When: Upon discharge from the Emergency Department - Reason: Continuance of care Discharge Instructions: - Discharge Summary Sheet sp3 - Urinary Tract Infection, Adult sp3 Forms: - Medication Reconciliation Form sp3 - Thank You Letter sp3 - Antibiotic Education sp3 - Prescription Opioid Use sp3 - Patient Portal Instructions sp3 Prescriptions: - Diflucan 150 mg Oral Tablet - take 1 tablet by ORAL route one time for 1 day; 1 tablet; Refills: 0, Product sp3 Selection Permitted - Bactrim DS 800-160 mg Oral Tablet - take 1 tablet by ORAL route every 12 hours for 3 days; 6 tablet; Refills: 0, sp3 Product Selection Permitted Signatures: Dispatcher [employer] EDMS Benjamin Maldonado MD MD sp3 Lenny Quevedo, SHON RN as6
--- NOTE | 2023-06-12 21:01 | ER ---
Nurse's Notes [facility] Name: Domonique Mccurdy Age: 32 yrs Sex: Female : 1990 Arrival Date: 06/12/2023 Time: 19:42 Bed 11 Private MD: Diagnosis: UTI/ Urinary tract infection, site not specified Presentation: 06/12 19:50 Chief complaint: Patient states: "this is day 2 of having symptoms of a UTI and I as6 wanted to get it checked out before it gets worse". Coronavirus screen: At this time, the client does not indicate any symptoms associated with coronavirus-19. Ebola Screen: No symptoms or risks identified at this time. Initial Sepsis Screen: Does the patient meet any 2 criteria? No. Patient's initial sepsis screen is negative. Does the patient have a suspected source of infection? No. Patient's initial sepsis screen is negative. Risk Assessment: Do you want to hurt yourself or someone else? Patient reports no desire to harm self or others. Onset of symptoms was June 10, 2023. 19:50 Acuity: ALVINO 4 as6 19:50 Method Of Arrival: Ambulatory as6 Triage Assessment: 19:48 General: Appears in no apparent distress. Behavior is calm, cooperative. Pain: as6 Complains of pain in suprapubic area. : Reports burning with urination, urgency, urinary frequency. 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 - Social history:: Smoking status: Patient denies any tobacco usage or history of. Screenin:52 [facility] ED Fall Risk Assessment (Adult) History of falling in the last 3 months, ha1 including since admission No falls in past 3 months (0 pts) Confusion or Disorientation No (0 pts) Intoxicated or Sedated No (0 pts) Impaired Gait No (0 pts) Mobility Assist Device Used No (0 pt) Altered Elimination No (0 pt) Score/Fall Risk Level 0 - 2 = Low Risk Oriented to surroundings, Maintained a safe environment, Educated pt \\T\\ family on fall prevention, incl call for assistance when getting out of bed. Abuse screen: Denies threats or abuse. Denies injuries from another. Nutritional screening: No deficits noted. Tuberculosis screening: No symptoms or risk factors identified. Assessment: 20:00 General: Appears comfortable, Behavior is calm, cooperative. Pain: Complains of pain in ha1 suprapubic area Pain does not radiate. Pain at worst was 8 out of 10 on a pain scale. Neuro: Level of Consciousness is awake, alert, obeys commands, Oriented to person, place, time, situation. Cardiovascular: Patient's skin is warm and dry. Respiratory: Airway is patent Respiratory effort is even, unlabored, Respiratory pattern is regular, symmetrical. : Reports burning with urination. Derm: Skin is pink, warm \\T\\ dry. Musculoskeletal: Circulation, motion, and sensation intact. 21:00 Reassessment: Patient and/or family updated on plan of care and expected duration. Pain ha1 level reassessed. Patient is alert, oriented x 3, equal unlabored respirations, skin warm/dry/pink. Vital Signs: 19:48 BP 131 / 87; Pulse 79; Resp 18 S; Temp 97.6(TE); Pulse Ox 100% on R/A; Weight 61.23 kg as6 (R); Height 5 ft. 1 in. (R); Pain 3/10; 20:00 BP 129 / 81; Pulse 75; Resp 16 S; Pulse Ox 100% on R/A; ha1 21:00 BP 125 / 75; Pulse 78; Resp 18 S; Pulse Ox 100% on R/A; ha1 19:48 Body Mass Index 25.51 (61.23 kg, 154.94 cm) as6 19:48 Pain Scale: Adult as6 ED Course: 19:45 Patient arrived in ED. mr 19:48 Arm band placed on. as6 19:50 Patient has correct armband on for positive identification. Bed in low position. Call ha1 light in reach. Side rails up X 1. 19:52 Triage completed. as6 19:54 Benjamin Maldonado MD is Attending Physician. sp3 20:06 UAM Sent. ha1 20:30 Galina Renteria RN is Primary Nurse. ha1 21:10 No provider procedures requiring assistance completed. Patient did not have IV access ha1 during this emergency room visit. 21:11 Provided Education on: medication administration . ha1 Administered Medications: No medications were administered Medication: 21:11 VIS not applicable for this client. ha1 Outcome: 21:01 Discharge ordered by . sp3 21:10 Discharged to home ambulatory. ha1 21:10 Condition: stable 21:10 Discharge instructions given to patient, Instructed on discharge instructions, follow up and referral plans. medication usage, Demonstrated understanding of instructions, follow-up care, medications, Prescriptions given X 2. 21:11 Patient left the ED. ha1 Signatures: Liseth Colindres JoelBenjamin MD MD sp3 Lenny Quevedo RN RN as6 Galina Renteria RN RN ha1
[2023-06-12 22:07] VITALS: TEMP 97.6; O2SAT 100
[2023-06-12 22:16] VITALS: BP 125/75
== END 2023-06-12 21:11 | disposition home or self-care (01) ==
LOC: ER 19:42
DX: N39.0 Urinary tract infection, site not specified (principal); Z87.442 Personal history of urinary calculi
CPT/HCPCS: 81001; 81025; 99283

== ENCOUNTER → 2023-12-01 | Emergency (ER) | payer OTHER, SELFPAY ==
--- NOTE | 2023-12-01 08:24 | EDPHYS ---
Physician Documentation [facility] Name: Domonique Mccurdy Age: 33 yrs Sex: Female : 1990 Arrival Date: 12/01/2023 Time: 07:39 Bed 15 Private MD: ED Physician Del Crowe HPI: 12/01 08:21 This 33 yrs old Female presents to ER via Ambulatory with complaints of Eye Swelling. ec2 08:21 Patient arrives today for evaluation of left eye swelling. Patient reports that she ec2 noted swelling to the upper left eyelid. Patient reports no fevers or chills, no redness, no purulence, denies any conjunctival injection, denies any ocular pain. Reports no vision complaints.. Historical: - Allergies: 08:11 No Known Drug Allergies; hb - PMHx: 08:11 Kidney stones; Post depression; hb - PSHx: 08:11 section; Cholecystectomy; hb - Immunization history:: Client reports receiving the 1st dose of the Covid vaccine, Flu vaccine is not up to date. It has been more than one year since last vaccine. - Social history:: Smoking status: Patient denies any tobacco usage or history of. ROS: 08:21 Constitutional: as per hpi ec2 Exam: 08:21 Constitutional: GEN: NAD Head: atraumatic Eyes: EOMI Ears: External ears are normal. ec2 Left upper eyelid with soft tissue swelling, no significant erythema, no warmth, no discharge appreciated to the globe itself. Intact extraocular motion. No hyphema, no hypopyon noted. CV: regular rate LUNGS: no respiratory distress ABD: non-distended SKIN: no evidence of rashes MSK: no evidence of trauma NEURO: moves all extremities equally Vital Signs: 08:09 BP 115 / 88; Pulse 73; Resp 16; Temp 98.4(O); Pulse Ox 100% on R/A; Weight 63.5 kg; hb Height 5 ft. 1 in. ; Pain 2/10; 08:30 BP 129 / 92; Pulse 65; Resp 18; Pulse Ox 98% on R/A; db 08:09 Body Mass Index 26.45 (63.50 kg, 154.94 cm) hb 08:09 Pain Scale: Adult hb MDM: 08:11 Patient medically screened. ec2 08:21 Data reviewed: vital signs. ED course: Patient arrives today for evaluation of left ec2 upper eyelid swelling. Examination remarkable for eye findings noted above. I considered processes such as orbital cellulitis, preseptal cellulitis, ultimately I suspect this is a chalazion and instructed her on warm compresses.. Administered Medications: No medications were administered Disposition Summary: 12/01/23 08:24 Discharge Ordered Notes: Location: Home ec2 Condition: Stable ec2 Diagnosis - Chalazion left upper eyelid ec2 Followup: ec2 - With: Derik Babb MD - When: - Reason: Re-evaluation by your physician Discharge Instructions: - Discharge Summary Sheet ec2 - Chalazion ec2 Forms: - Medication Reconciliation Form ec2 - Thank You Letter ec2 - Antibiotic Education ec2 - Prescription Opioid Use ec2 - Patient Portal Instructions ec2 - Leadership Thank You Letter ec2 Prescriptions: - Erythromycin 5 mg/gram (0.5 %) Ophthalmic ointment - apply 1 centimeter OPHTHALMIC route 2-3 times daily for 7 days; 3.5 gram; ec2 Refills: 0, Product Selection Permitted Signatures: Prisca Whitt, RN RN Del Crowe MD MD ec2
--- NOTE | 2023-12-01 08:24 | ER ---
Nurse's Notes [facility] Name: Domonique Mccurdy Age: 33 yrs Sex: Female : 1990 Arrival Date: 12/01/2023 Time: 07:39 Bed 15 Private MD: Diagnosis: Chalazion left upper eyelid Presentation: 12/01 08:09 Chief complaint: Left periorbital swelling x 3 days. Coronavirus screen: At this time, hb the client does not indicate any symptoms associated with coronavirus-19. Ebola Screen: No symptoms or risks identified at this time. Initial Sepsis Screen: Does the patient meet any 2 criteria? No. Patient's initial sepsis screen is negative. Does the patient have a suspected source of infection? No. Patient's initial sepsis screen is negative. Risk Assessment: Do you want to hurt yourself or someone else? Patient reports no desire to harm self or others. Onset of symptoms was November 29, 2023. 08:09 Method Of Arrival: Ambulatory hb 08:09 Acuity: ALVINO 4 hb Historical: - Allergies: 08:11 No Known Drug Allergies; hb - PMHx: 08:11 Kidney stones; Post depression; hb - PSHx: 08:11 section; Cholecystectomy; hb - Immunization history:: Client reports receiving the 1st dose of the Covid vaccine, Flu vaccine is not up to date. It has been more than one year since last vaccine. - Social history:: Smoking status: Patient denies any tobacco usage or history of. Screenin:00 [facility] ED Fall Risk Assessment (Adult) History of falling in the last 3 months, db including since admission No falls in past 3 months (0 pts) Confusion or Disorientation No (0 pts) Intoxicated or Sedated No (0 pts) Impaired Gait No (0 pts) Mobility Assist Device Used No (0 pt) Altered Elimination No (0 pt) Score/Fall Risk Level 0 - 2 = Low Risk Oriented to surroundings, Maintained a safe environment. Abuse screen: Denies threats or abuse. Denies injuries from another. Nutritional screening: No deficits noted. Tuberculosis screening: No symptoms or risk factors identified. Assessment: 07:50 Reassessment: Patient appears in no apparent distress at this time. Patient and/or db family updated on plan of care and expected duration. Pain level reassessed. Patient is alert, oriented x 3, equal unlabored respirations, skin warm/dry/pink. General: Appears in no apparent distress. comfortable, Behavior is calm, cooperative. Pain: Complains of pain in left eye. Neuro: Level of Consciousness is awake, alert, obeys commands, Oriented to person, place, time, situation. Respiratory: Airway is patent Respiratory effort is even, unlabored, Respiratory pattern is regular, symmetrical. Vital Signs: 08:09 BP 115 / 88; Pulse 73; Resp 16; Temp 98.4(O); Pulse Ox 100% on R/A; Weight 63.5 kg; hb Height 5 ft. 1 in. ; Pain 2/10; 08:30 BP 129 / 92; Pulse 65; Resp 18; Pulse Ox 98% on R/A; db 08:09 Body Mass Index 26.45 (63.50 kg, 154.94 cm) hb 08:09 Pain Scale: Adult hb ED Course: 07:45 Patient arrived in ED. im 08:00 Patient has correct armband on for positive identification. Call light in reach. Side db rails up X 1. Provided Education on:. Pulse ox on. NIBP on. Warm blanket given. 08:00 No provider procedures requiring assistance completed. db 08:08 Del Crowe MD is Attending Physician. ec2 08:10 Triage completed. hb 08:12 Arm band placed on. hb 08:23 Derik Babb MD is Referral Physician. ec2 08:30 Provided Education on: DISCHARGE. db 08:30 Patient did not have IV access during this emergency room visit. db 09:01 Gina Alvarez, RN is Primary Nurse. db Administered Medications: No medications were administered Medication: 08:00 VIS not applicable for this client. db Outcome: 08:00 Condition: stable db 08:24 Discharge ordered by . ec2 08:30 Discharged to home ambulatory, db 08:30 Discharge instructions given to patient, Instructed on discharge instructions, follow up and referral plans. Prescriptions given X 1, 09:05 Patient left the ED. db Signatures: Prisca Whitt, RN RN Gina Alvarez, RN RN Stacy Malin Del Crowe MD MD ec2 Corrections: (The following items were deleted from the chart) 09:05 08:00 Patient did not have IV access during this emergency room visit. db db
[2023-12-01 10:27] VITALS: BP 129/92; TEMP 98.4; O2SAT 98
== END ==
LOC: ER 07:39
DX: H00.14 Chalazion left upper eyelid (principal)
CPT/HCPCS: 99283

== ENCOUNTER → 2024-02-05 | Emergency (ER) | payer SELFPAY ==
[~2024-02-05] MED LIST: CEFTRIAXONE 1000 MG/VIAL ONE; LIDOCAINE 1% MPF 2 ML AMPULE ONE; PHENAZOPYRIDINE 100MG TAB PO ONE
[2024-02-05 19:53] LABS: Specific Gravity 1.015 (1.005-1.030); Urine Bacteria <20 /HPF (<20); Urine Bilirubin NEGATIVE (Negative); Urine Blood 3+ (Negative); Urine Clarity Extremely Turbid (Clear); Urine Color Light-Yellow (Yellow); Urine Crystals Unidentified Few /HPF (None Seen); Urine Glucose NEGATIVE (Negative); Urine Mucus Slight /HPF (None Seen); Urine Protein TRACE (Negative); Urine RBC >50 /HPF (None Seen); Urine Urobilinogen 1+ (Normal); Urine WBC Clump Rare /HPF (None Seen)
--- NOTE | 2024-02-05 20:22 | EDPHYS ---
Physician Documentation [facility] Name: Domonique Mccurdy Age: 33 yrs Sex: Female : 1990 Arrival Date: 02/05/2024 Time: 18:47 Bed 12 Private MD: ED Physician Anival Tapia HPI: 02/04 19:15 This 33 yrs old Female presents to ER via Ambulatory with complaints of cp Urinary Problem. 19:15 The patient presents with urinary symptoms, dysuria. Onset: The symptoms/episode cp began/occurred yesterday, and became worse today. Associated signs and symptoms: Pertinent positives: suprapubic pain, Pertinent negatives: diarrhea, fever, hematuria, vaginal bleeding, vaginal discharge, vomiting. 19:15 Severity of symptoms: in the emergency department the symptoms are unchanged, despite cp home interventions. 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 - Social history:: Smoking status: Patient denies any tobacco usage or history of. Patient/guardian denies using alcohol. ROS: 19:20 Constitutional: Negative for body aches, chills, fever, malaise, poor PO intake, cp 19:20 Eyes: Negative for injury, pain, redness, and discharge, cp 19:20 Respiratory: Negative for cough, shortness of breath, wheezing, 19:20 Abdomen/GI: Positive for abdominal pain, of the suprapubic area, Negative for vomiting, diarrhea, constipation, 19:20 Back: Negative for pain at rest, pain with movement, 19:20 : Positive for urinary symptoms, Negative for vaginal bleeding, vaginal discharge, 19:20 Neuro: Negative for altered mental status, headache, weakness, 19:20 All other systems are negative, Exam: 19:25 Constitutional: The patient appears in no acute distress, alert, awake, non-toxic, well cp developed, well nourished, 19:25 Head/Face: Normocephalic, atraumatic. cp 19:25 Chest/axilla: Inspection: normal, 19:25 Cardiovascular: Rate: normal, 19:25 Respiratory: the patient does not display signs of respiratory distress, Respirations: normal, no use of accessory muscles, no retractions, labored breathing, is not present, 19:25 Abdomen/GI: Inspection: abdomen appears normal, Bowel sounds: active, all quadrants, Palpation: soft, in all quadrants, mild abdominal tenderness, in the suprapubic area, 19:25 Back: CVA tenderness, is absent, Vital Signs: 18:57 BP 131 / 82; Pulse 82; Resp 18; Temp 97.9(TE); Pulse Ox 100% on R/A; Weight 61.23 kg; ld1 Height 5 ft. 1 in. ; Pain 0/10; 20:32 BP 124 / 72; Pulse 74; Resp 16; Pulse Ox 100% on R/A; mb9 18:57 Body Mass Index 25.51 (61.23 kg, 154.94 cm) ld1 18:57 Pain Scale: Adult ld1 MDM: 19:01 Patient medically screened. 20:00 Differential diagnosis: kidney stone, ovarian cyst, pelvic inflammatory disease, cp urinary tract infection, vaginosis. 20:20 Data reviewed: vital signs, nurses notes, lab test result(s), and as a result, I will cp discharge patient. 20:20 I considered the following discharge prescriptions or medication management in the emergency department Medications were administered in the Emergency Department. See MAR. Counseling: I had a detailed discussion with the patient and/or guardian regarding the historical points, exam findings, and any diagnostic results supporting the discharge/admit diagnosis, lab results, the need for outpatient follow up, a family practitioner, to return to the emergency department if symptoms worsen or persist or if there are any questions or concerns that arise at home. 02/04 19:04 Order name: Urinalysis w/ reflexes; Complete Time: 20:11 02/04 20:12 Interpretation: Normal except: [facility] Extremely Turbid; UBLD 3+; UPH 8.0; UPROT TRACE; cp UUROB 1+; UESTR 250; UWBC >50; URBC >50. 02/04 19:04 Order name: Test, Urine; Complete Time: 20:11 02/04 19:57 Order name: Urine Culture EDMS Administered Medications: 20:18 Drug: Phenazopyridine PO 200 mg PO once Route: PO; mb9 20:32 Follow up: Response: No adverse reaction mb9 20:18 Drug: Rocephin (cefTRIAXone) IM 1 grams IM once Route: IM; Site: right gluteus; mb9 20:32 Follow up: Response: No adverse reaction mb9 Disposition Summary: 02/05/24 20:21 Discharge Ordered Notes: Location: Home cp Problem: new cp Symptoms: have improved cp Condition: Stable cp Diagnosis - UTI/ Urinary tract infection, site not specified cp Followup: cp - With: Private Physician - When: 2 - 3 days - Reason: Recheck today's complaints Discharge Instructions: - Discharge Summary Sheet cp - Urinary Tract Infection, Adult cp Forms: - Medication Reconciliation Form cp - Thank You Letter cp - Antibiotic Education cp - Prescription Opioid Use cp - Patient Portal Instructions cp - Leadership Thank You Letter cp Prescriptions: - Pyridium 200 mg Oral Tablet - take 1 tablet ORAL route every 8 hours for 3 days; 9 tablet; Refills: 0, cp Product Selection Permitted - Fluconazole 150 mg Oral tablet - take 1 tablet ORAL route every other day; 2 tablet; Refills: 0, Product cp Selection Permitted - cefpodoxime 200 mg Oral tablet - take 1 tablet ORAL route every 12 hours for 7 days with food; 14 tablet; cp Refills: 0, Product Selection Permitted Signatures: Dispatcher [employer] Joselito Cat PA PA cp Sims, Lauren RN RN ld1 Liseth Claros RN RN mb9
--- NOTE | 2024-02-05 20:22 | ER ---
Nurse's Notes [facility] Name: Domonique Mccurdy Age: 33 yrs Sex: Female : 1990 Arrival Date: 02/05/2024 Time: 18:47 Bed 12 Private MD: Diagnosis: UTI/ Urinary tract infection, site not specified Presentation: 02/04 18:57 Chief complaint: Patient states: Burning with urination X 2 days. Coronavirus screen: ld1 At this time, the client does not indicate any symptoms associated with coronavirus-19. Ebola Screen: No symptoms or risks identified at this time. Initial Sepsis Screen: Does the patient meet any 2 criteria? No. Patient's initial sepsis screen is negative. Does the patient have a suspected source of infection? No. Patient's initial sepsis screen is negative. Risk Assessment: Do you want to hurt yourself or someone else? Patient reports no desire to harm self or others. Onset of symptoms was February 05, 2024 at 18:58. 18:57 Method Of Arrival: Ambulatory ld1 18:57 Acuity: ALVINO 3 ld1 Triage Assessment: 18:57 General: Appears in no apparent distress. comfortable, Behavior is calm, cooperative, ld1 appropriate for age. Pain: Denies pain. EENT: No signs and/or symptoms were reported regarding the EENT system. Neuro: Level of Consciousness is awake, alert, obeys commands, Oriented to person, place, time, situation. Cardiovascular: Capillary refill < 3 seconds Patient's skin is warm and dry. Respiratory: Airway is patent Respiratory effort is even, unlabored. GI: Abdomen is flat, non-distended. : Reports burning with urination, urinary frequency. 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 - Social history:: Smoking status: Patient denies any tobacco usage or history of. Patient/guardian denies using alcohol. Screenin:47 [facility] ED Fall Risk Assessment (Adult) History of falling in the last 3 months, mb9 including since admission No falls in past 3 months (0 pts) Confusion or Disorientation No (0 pts) Intoxicated or Sedated No (0 pts) Impaired Gait No (0 pts) Mobility Assist Device Used No (0 pt) Altered Elimination No (0 pt) Score/Fall Risk Level 0 - 2 = Low Risk Oriented to surroundings, Maintained a safe environment, Educated pt \T\ family on fall prevention, incl call for assistance when getting out of bed. Abuse screen: Denies threats or abuse. Nutritional screening: No deficits noted. Tuberculosis screening: No symptoms or risk factors identified. Assessment: 19:45 General: Appears in no apparent distress. Behavior is calm, cooperative. Pain: Denies mb9 pain. Neuro: Carter Agitation-Sedation Scale (RASS): 0 - Alert and Calm Level of Consciousness is awake, alert, obeys commands, Oriented to person, place, time, situation, Appropriate for age. Cardiovascular: Patient's skin is warm and dry. Respiratory: Airway is patent Respiratory effort is even, unlabored, Respiratory pattern is regular, symmetrical. GI: No signs and/or symptoms were reported involving the gastrointestinal system. : Urine is clear, Reports burning with urination. EENT: No signs and/or symptoms were reported regarding the EENT system. Derm: Skin is pink, warm \T\ dry. Musculoskeletal: Range of motion: intact in all extremities. 20:32 Reassessment: No changes from previously documented assessment. Patient and/or family mb9 updated on plan of care and expected duration. Pain level reassessed. Patient is alert, oriented x 3, equal unlabored respirations, skin warm/dry/pink. Vital Signs: 18:57 BP 131 / 82; Pulse 82; Resp 18; Temp 97.9(TE); Pulse Ox 100% on R/A; Weight 61.23 kg; ld1 Height 5 ft. 1 in. ; Pain 0/10; 20:32 BP 124 / 72; Pulse 74; Resp 16; Pulse Ox 100% on R/A; mb9 18:57 Body Mass Index 25.51 (61.23 kg, 154.94 cm) ld1 18:57 Pain Scale: Adult ld1 ED Course: 18:49 Patient arrived in ED. rg4 18:57 Joselito Rivers PA is PHCP. cp 18:57 Anival Tapia MD is Attending Physician. cp 18:57 Arm band placed on right wrist. ld1 18:58 Triage completed. ld1 19:39 Liseth Claros, RN is Primary Nurse. mb9 19:46 Placed in gown. Bed in low position. Call light in reach. Side rails up X 1. Provided mb9 Education on: press call light. Client placed on continuous cardiac and pulse oximetry monitoring. NIBP monitoring applied. 20:33 No provider procedures requiring assistance completed. Patient did not have IV access mb9 during this emergency room visit. Administered Medications: 20:18 Drug: Phenazopyridine PO 200 mg PO once Route: PO; mb9 20:32 Follow up: Response: No adverse reaction mb9 20:18 Drug: Rocephin (cefTRIAXone) IM 1 grams IM once Route: IM; Site: right gluteus; mb9 20:32 Follow up: Response: No adverse reaction mb9 Medication: 19:47 VIS not applicable for this client. mb9 Outcome: 20:21 Discharge ordered by MD. linda 20:33 Discharged to home ambulatory, mb9 20:33 Condition: stable 20:33 Discharge instructions given to patient, Instructed on discharge instructions, follow up and referral plans. Demonstrated understanding of instructions, follow-up care, medications, Prescriptions given X 2, 20:33 Patient left the ED. mb9 Signatures: Joselito Rivers PA PA cp Garcia, Rubi rg4 Carol Ann Estrada, RN RN ld1 Liseth Claros, RN RN mb9
[2024-02-05 21:10] VITALS: BP 124/72; TEMP 97.9; O2SAT 100
== END ==
LOC: ER 18:47
DX: N39.0 Urinary tract infection, site not specified (principal)
CPT/HCPCS: 81001; 81025; 87086; 87088; J0696

== ENCOUNTER 2024-06-15 11:10 | Emergency (ER) | payer SELFPAY ==
[2024-06-15 11:48] LABS: Specific Gravity 1.017 (1.005-1.030)
[2024-06-15 11:50] LABS: Specific Gravity 1.017 (1.005-1.030); Sqamous Epithelial <5 /HPF (None Seen); Urine Bacteria None Seen /HPF (<20); Urine Bilirubin NEGATIVE (Negative); Urine Blood Negative (Negative); Urine Clarity Clear (Clear); Urine Color Colorless (Yellow); Urine Culture Reflex Order NOT NEEDED; Urine Glucose NEGATIVE (Negative); Urine Ketones NEGATIVE (Negative); Urine Microscopic Reflex YN ORDER UMIC; Urine Nitrite NEGATIVE (Negative); Urine Protein NEGATIVE (Negative); Urine RBC <5 /HPF (None Seen); Urine Urobilinogen Normal (Normal); Urine WBC <5 /HPF (<5)
[2024-06-15] MEDS ORDERED: CEFTRIAXONE 500 MG/VIAL ONE (12:08)
[2024-06-15] MEDS ORDERED: DOXYCYCLINE 100 MG CAP PO ONE (12:09)
[2024-06-15] MEDS ORDERED: LIDOCAINE 1% MPF 2 ML AMPULE ONE (12:09)
--- NOTE | 2024-06-15 12:09 | ER ---
Nurse's Notes [facility] Name: Domonique Mccurdy Age: 33 yrs Sex: Female : 1990 Arrival Date: 06/15/2024 Time: 11:10 Bed 8 Private MD: Diagnosis: Encounter for screening for infections with a predominantly sexual mode of transmission;Dysuria Presentation: 06/15 11:21 Ebola Screen: Patient denies travel to an Ebola-affected area in the 21 days before 1 illness onset. Initial Sepsis Screen: Does the patient meet any 2 criteria? No. Patient's initial sepsis screen is negative. Does the patient have a suspected source of infection? No. Patient's initial sepsis screen is negative. Risk Assessment: Do you want to hurt yourself or someone else? Patient reports no desire to harm self or others. 11:21 Method Of Arrival: Ambulatory [facility] 11:21 Acuity: ALVINO 3 1 11:21 Chief complaint: Patient states: Lower abdominal pain with dysuria since Sunday night. ll1 Coronavirus screen: Client denies travel out of the [place] in the last 14 days. At this time, the client does not indicate any symptoms associated with coronavirus-19. Onset of symptoms was June 13, 2024. Triage Assessment: 11:21 General: Appears uncomfortable, Behavior is calm, cooperative, appropriate for age. ll1 Pain: Complains of pain in abdomen. GI: Reports lower abdominal pain. : Reports burning with urination. 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 - Infectious Disease History:: Denies. - Social history:: Smoking status: Patient denies any tobacco usage or history of. Screenin: [facility] ED Fall Risk Assessment (Adult) History of falling in the last 3 months, kc6 including since admission No falls in past 3 months (0 pts) Confusion or Disorientation No (0 pts) Intoxicated or Sedated No (0 pts) Impaired Gait No (0 pts) Mobility Assist Device Used No (0 pt) Altered Elimination No (0 pt) Score/Fall Risk Level 0 - 2 = Low Risk. Abuse screen: Denies threats or abuse. Denies injuries from another. Nutritional screening: No deficits noted. Tuberculosis screening: No symptoms or risk factors identified. Assessment: 11:29 General: Appears in no apparent distress. comfortable, well groomed, well developed, kc6 Behavior is calm, cooperative, appropriate for age. Pain: Complains of pain in left low back and suprapubic area Quality of pain is described as crampy, dull. Neuro: Level of Consciousness is awake, alert, obeys commands, Oriented to person, place, time, situation, Appropriate for age. Cardiovascular: Capillary refill < 3 seconds. Respiratory: Airway is patent Trachea midline Respiratory effort is even, unlabored, Respiratory pattern is regular, symmetrical. GI: Abdomen is flat, non-distended, Bowel sounds present X 4 quads. Abd is soft and non tender X 4 quads. Reports lower abdominal pain. : Urine is clear, Reports burning with urination, cramping, in left lower back. EENT: No signs and/or symptoms were reported regarding the EENT system. Derm: No signs and/or symptoms reported regarding the dermatologic system. Skin is intact, is healthy with good turgor, Skin is pink, warm \T\ dry. Musculoskeletal: No signs and/or symptoms reported regarding the musculoskeletal system. Circulation, motion, and sensation intact. Capillary refill < 3 seconds, Range of motion: intact in all extremities. 12:24 Reassessment: Patient and/or family updated on plan of care and expected duration. Pain tl4 level reassessed. Patient is alert, oriented x 3, equal unlabored respirations, skin warm/dry/pink. Pt denies any needs at this time. Call arambula at bedside. Will continue to monitor. Vital Signs: 11:31 BP 140 / 99; Pulse 82; Resp 16 S; Temp 97.9(TE); Pulse Ox 100% on R/A; Weight 59.87 kg kc6 (R); Height 5 ft. 1 in. (R); 11:38 BP 137 / 96; kc6 12:26 BP 137 / 97; Pulse 75; Resp 16; Temp 98.1(O); Pulse Ox 100% on R/A; tl4 11:31 Body Mass Index 24.94 (59.87 kg, 154.94 cm) 6 ED Course: 11:13 Patient arrived in ED. im 11:15 Rosie Rubio FNP [facility] jh7 11:15 Kat Joseph MD is Attending Physician. 7 11:19 Arm band placed on Patient placed in an exam room, on a stretcher. ll1 11:21 Triage completed. 1 11:21 Maxine Pope, RN is Primary Nurse. 6 11:31 Patient has correct armband on for positive identification. Bed in low position. Call [facility] light in reach. Side rails up X 1. Pulse ox on. NIBP on. Pillow given. 12:25 Provided Education on: call panchito arambula process. tl4 12:25 No provider procedures requiring assistance completed. Patient did not have IV access tl4 during this emergency room visit. Administered Medications: 12:08 Not Given (Physician Discretion): rocephin1 grams IV at 1 calculated rate once; Given [facility] slow IV push per pharmacy instructions 12:14 Drug: Rocephin (cefTRIAXone) IM 500 mg IM once {Note: mixed with 1 mL lidocaine 1%.} tl4 Route: IM; Site: left ventrogluteal; 12:29 Follow up: Response: No adverse reaction tl4 12:14 Drug: Doxycycline PO 100 mg PO once Route: PO; tl4 12:29 Follow up: Response: No adverse reaction tl4 Medication: 12:25 VIS not applicable for this client. tl4 Outcome: 12:09 Discharge ordered by . [facility] 12:29 Discharged to home ambulatory, tl4 12:29 Condition: stable 12:29 Discharge instructions given to patient, Instructed on discharge instructions, follow up and referral plans. medication usage, safe sex practices, Demonstrated understanding of instructions, follow-up care, medications, safe sex practices Prescriptions given X 2, 12:30 Patient left the ED. tl4 Signatures: Otf Pisano, SHON RN 1 Rosie Rubio FNP PLANT ECOLOGIST [facility] Maxine Pope, RN RN 6 Stacy Malin im Emil Gastelum RN RN tl4
--- NOTE | 2024-06-15 12:09 | EDPHYS ---
Physician Documentation [facility] Name: Domonique Mccurdy Age: 33 yrs Sex: Female : 1990 Arrival Date: 06/15/2024 Time: 11:10 Bed 8 Private MD: ED Physician Kat Joseph HPI: 06/15 11:19 This 33 yrs old Female presents to ER via Ambulatory with complaints of [facility] Abdominal Pain, Pain With Urination. 11:19 33-year-old female with a past medical history of renal stones presents to the ER [facility] complaining of dysuria since Sunday night. She denies fever or back pain. Reports mild suprapubic tenderness. LMP on 05/29. Denies nausea, vomiting, diarrhea, or constipation.. 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 - Infectious Disease History:: Denies. - Social history:: Smoking status: Patient denies any tobacco usage or history of. ROS: 11:19 Constitutional: Per HPI [facility] Exam: 11:19 Constitutional: This is a well developed, well nourished patient who is awake, alert, jh7 and in no acute distress. Head/Face: Normocephalic, atraumatic. Cardiovascular: Regular rate and rhythm with a normal S1 and S2. No gallops, murmurs, or rubs. Normal PMI, no JVD. No pulse deficits. Respiratory: Lungs have equal breath sounds bilaterally, clear to auscultation and percussion. No rales, rhonchi or wheezes noted. No increased work of breathing, no retractions or nasal flaring. Abdomen/GI: Soft, non-tender, with normal bowel sounds. No distension or tympany. No guarding or rebound. No evidence of tenderness throughout. Back: No spinal tenderness. No costovertebral tenderness. Full range of motion. Skin: Warm, dry with normal turgor. Normal color with no rashes, no lesions, and no evidence of cellulitis. Neuro: Awake and alert, GCS 15, oriented to person, place, time, and situation. Normal gait. Vital Signs: 11:31 BP 140 / 99; Pulse 82; Resp 16 S; Temp 97.9(TE); Pulse Ox 100% on R/A; Weight 59.87 kg kc6 (R); Height 5 ft. 1 in. (R); 11:38 BP 137 / 96; kc6 12:26 BP 137 / 97; Pulse 75; Resp 16; Temp 98.1(O); Pulse Ox 100% on R/A; tl4 11:31 Body Mass Index 24.94 (59.87 kg, 154.94 cm) 6 MDM: 11:15 Patient medically screened. [facility] 11:53 Special discussion: Patient reported that she did have sex with a new partner and did [facility] not use protection 1 week ago. She denied any vaginal discharge, but we decided to go ahead and treat her for gonorrhea and chlamydia. Informed her that her urine culture was pending and that she would be called if there is a need for additional antibiotics.. 12:10 Differential diagnosis: Pelvic Inflammatory Disease, urinary tract infection. Data [facility] reviewed: vital signs, nurses notes, lab test result(s). I considered the following discharge prescriptions or medication management in the emergency department Medications were administered in the Emergency Department. See MAR. Counseling: I had a detailed discussion with the patient and/or guardian regarding the historical points, exam findings, and any diagnostic results supporting the discharge/admit diagnosis, to return to the emergency department if symptoms worsen or persist or if there are any questions or concerns that arise at home. 06/15 11:29 Order name: Urinalysis w/ reflexes; Complete Time: 11:53 [facility] 06/15 11:29 Order name: Test, Urine; Complete Time: :53 [facility] Administered Medications: 12:08 Not Given (Physician Discretion): rocephin1 grams IV at 1 calculated rate once; Given [facility] slow IV push per pharmacy instructions 12:14 Drug: Rocephin (cefTRIAXone) IM 500 mg IM once {Note: mixed with 1 mL lidocaine 1%.} tl4 Route: IM; Site: left ventrogluteal; 12:29 Follow up: Response: No adverse reaction 4 12:14 Drug: Doxycycline PO 100 mg PO once Route: PO; tl4 12:29 Follow up: Response: No adverse reaction tl4 Disposition: 19:27 Co-signature as Attending Physician, Kat Joseph MD I reviewed the patient's care sd2 provided by the Advanced Practice Provider and agree with the diagnosis and treatment plan. Disposition Summary: 06/15/24 12:09 Discharge Ordered Notes: Location: Home [facility] Problem: new [facility] Symptoms: have improved [facility] Condition: Stable [facility] Diagnosis - Encounter for screening for infections with a predominantly sexual mode of [facility] transmission - Dysuria [facility] Followup: [facility] - With: Private Physician - When: 2 - 3 days - Reason: Recheck today's complaints Discharge Instructions: - Discharge Summary Sheet [facility] - Dysuria [facility] - Preventing Sexually Transmitted Infections, Adult [facility] Forms: - Medication Reconciliation Form [facility] - Antibiotic Education [facility] - Patient Portal Instructions [facility] - Leadership Thank You Letter [facility] Prescriptions: - Doxycycline Hyclate 100 mg Oral tablet - take 1 tablet ORAL route every 12 hours for 7 days; 14 tablet; Refills: 0, [facility] Product Selection Permitted - Fluconazole 150 mg Oral tablet - take 1 tablet ORAL route once Take 1 tablet by mouth today. Repeat in 48 hours [facility] in symptoms persist.; 2 tablet; Refills: 0, Product Selection Permitted Signatures: Dispatcher [employer] Otf Nicolas, RN RN ll1 Rosie Rubio, SENIOR MOBILE DEVELOPER SENIOR MOBILE DEVELOPER [facility] Kat Joseph MD MD sd2 Emil Gastelum RN RN tl4
[2024-06-19 14:33] VITALS: BP 137/97; TEMP 98.1; O2SAT 100
== END 2024-06-15 12:30 | disposition home or self-care (01) ==
LOC: ER 11:10
DX: R30.0 Dysuria (principal); Z11.3 Encounter for screening for infections with a predominantly sexual mode of transmission
CPT/HCPCS: 81001; 81025; 96372; 99284

== ENCOUNTER 2024-07-15 19:31 | Emergency (ER) | payer SELFPAY ==
[2024-07-15 20:36] LABS: Absolute Eosinophils 0.1 K/uL (0-0.5); Absolute Monocytes 0.6 K/uL (0.1-1.3); Absolute Neutrophil 4.7 K/uL (1.8-8.0); Basophils % 0.3 % (0-1.3); Eosinophils % 0.7 % (0-4.4); Hematocrit 44.4 % (36.0-45.0); Hemoglobin 14.4 g/dL (12.0-15.0); Lymphocytes % 35.9 % (15.3-44.8); MCH 29.1 pg (27.0-35.0); MCHC 32.3 g/dL (32.0-36.0); MCV 90.1 fL (80-100); MPV 6.8 fL (7.6-11.3); Monocytes % 6.9 % (3.3-12.3); Neutrophils % 56.2 % (41.7-73.7); Platelets 342 thou/uL (152-406); RBC Red Blood Cell Count 4.93 M/uL (3.86-4.86); Red Cell Distribution Width 12.7 % (12.1-15.2); Specific Gravity > 1.030 (1.005-1.030)
[2024-07-15] MEDS ORDERED: NA CHLORIDE 0.9% 1,000 ML ONE (20:36)
[2024-07-15 20:39] LABS: Specific Gravity > 1.030 (1.005-1.030); Sqamous Epithelial <5 /HPF (None Seen); Urine Bacteria 20-50 /HPF (<20); Urine Bilirubin NEGATIVE (Negative); Urine Blood Negative (Negative); Urine Clarity Clear (Clear); Urine Color Yellow (Yellow); Urine Culture Reflex Order NOT NEEDED; Urine Glucose NEGATIVE (Negative); Urine Ketones NEGATIVE (Negative); Urine Microscopic Reflex YN ORDER UMIC; Urine Mucus Slight /HPF (None Seen); Urine Nitrite NEGATIVE (Negative); Urine Protein TRACE (Negative); Urine RBC <5 /HPF (None Seen); Urine Urobilinogen 1+ (Normal); Urine WBC <5 /HPF (<5); Urine pH 6.5 (5.0-7.0)
[2024-07-15 20:53] LABS: Albumin 4.5 g/dL (3.4-5.0); Anion Gap 10.8 mEq/L (5.0-15.0); Bilirubin Total 0.3 mg/dL (0.2-1.0); Globulin 4.7 g/dL (2.3-3.5); Potassium 3.8 mEq/L (3.5-5.1); Protein, Total 9.2 g/dL (6.4-8.2)
[2024-07-15] MEDS ORDERED: KETOROLAC 30 MG/ML INJ ONE (21:07)
--- NOTE | 2024-07-15 22:30 | RAD REPORT ---
EXAM DESCRIPTION: CT - Abdomen Pelvis W Contrast - 07/15/2024 9:28 pm CLINICAL HISTORY: ABD PAIN COMPARISON: CT ABD PELVIS W CONTRAST dated 04/28/2013 TECHNIQUE: Thin cut axial CT imaging of the abdomen and pelvis was performed following intravenous a dministration of iodinated contrast. Multiplanar reformats were generated and reviewed. All CT scans are performed using dose optimization technique as appropriate and may include automated exposure control or mA/KV adjustment according to patient size. FINDINGS: No suspicious findings in the lung bases. The liver, spleen, adrenal glands, and pancreas show no suspicious findings. Gallbladder was surgical ly removed. Symmetric renal function is seen with no hydronephrosis or suspicious renal mass. No dilated bowel loops or bowel wall thickening. No free air, free fluid or inflammatory stranding. N o hernia, mass or bulky lymphadenopathy. Right adnexal centrally lucent ovoid lesion with some irregu lar marginal enhancement, may represent a recently ruptured follicle. Appendix is unremarkable. The u rinary bladder is without significant finding. No suspicious bony findings. IMPRESSION: No acute intra-abdominal process. Findings as above.
--- NOTE | 2024-07-15 22:39 | ER ---
Nurse's Notes [facility] Name: Domonique Mccurdy Age: 34 yrs Sex: Female : 1990 Arrival Date: 07/15/2024 Time: 19:31 Bed 17 Private MD: Diagnosis: Other ovarian cysts;UTI/ Urinary tract infection, site not specified Presentation: 07/15 19:55 Chief complaint:. Chief complaint: Patient states: around 3pm I started to get sharp tm6 pain in my pelvic area. Became hot, felt like I was going to pass out. Was difficult to move or walk due to the pain. Had diarrhea. Pain radiating to lower back. Coronavirus screen: Vaccine status: Patient reports receiving the 1st dose of the Covid vaccine. Ebola Screen: Patient negative for fever greater than or equal to 101.5 degrees Fahrenheit, and additional compatible Ebola Virus Disease symptoms Patient denies exposure to infectious person. Patient denies travel to an Ebola-affected area in the 21 days before illness onset. No symptoms or risks identified at this time. Initial Sepsis Screen: Does the patient meet any 2 criteria? No. Patient's initial sepsis screen is negative. Does the patient have a suspected source of infection? No. Patient's initial sepsis screen is negative. Risk Assessment: Do you want to hurt yourself or someone else? Patient reports no desire to harm self or others. Onset of symptoms was July 15, 2024 at 15:00. 19:55 Method Of Arrival: Ambulatory tm6 19:55 Acuity: ALVINO 3 tm6 Triage Assessment: 19:55 General: Appears uncomfortable, Behavior is calm, cooperative. Pain: Complains of pain tm6 in left low back, right low back and pelvis Pain currently is 5 out of 10 on a pain scale. Quality of pain is described as sharp, Pain began 4 hours ago. EENT: No signs and/or symptoms were reported regarding the EENT system. Neuro: Level of Consciousness is awake, alert, obeys commands, Oriented to person, place, time, situation. Cardiovascular: Patient's skin is warm and dry. Respiratory: Airway is patent Respiratory effort is even, unlabored, Respiratory pattern is regular, symmetrical. GI: Abdomen is flat, non-distended, Reports cramping, diarrhea. : Reports pain pelvic pain. Derm: No signs and/or symptoms reported regarding the dermatologic system. Musculoskeletal: No signs and/or symptoms reported regarding the musculoskeletal system. 19:59 Neuro: Reports dizziness, when standing up too fast. 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 - Infectious Disease History:: Denies. - Social history:: Smoking status: Patient denies any tobacco usage or history of. Screenin:15 [facility] ED Fall Risk Assessment (Adult) History of falling in the last 3 months, cp4 including since admission No falls in past 3 months (0 pts) Confusion or Disorientation No (0 pts) Intoxicated or Sedated No (0 pts) Impaired Gait No (0 pts) Mobility Assist Device Used No (0 pt) Altered Elimination No (0 pt) Score/Fall Risk Level 0 - 2 = Low Risk Oriented to surroundings, Maintained a safe environment, Assessed \T\ reinforced patient's understanding of fall precautions, Hourly rounding (assess needs \T\ fall precautionary measures) done. Abuse screen: Denies threats or abuse. Nutritional screening: No deficits noted. Tuberculosis screening: No symptoms or risk factors identified. Assessment: 20:15 General: Appears uncomfortable, Behavior is calm, cooperative, appropriate for age. cp4 20:15 Pain: Complains of pain in pelvis and back and right low back and left low back. Neuro: cp4 Level of Consciousness is awake, alert, obeys commands, Oriented to person, place, time, situation. Cardiovascular: No deficits noted. Respiratory: Airway is patent Respiratory effort is even, unlabored. GI: Bowel sounds present X 4 quads. Abd is soft and non tender X 4 quads. : No signs and/or symptoms were reported regarding the genitourinary system. EENT: No signs and/or symptoms were reported regarding the EENT system. Derm: No signs and/or symptoms reported regarding the dermatologic system. Musculoskeletal: No signs and/or symptoms reported regarding the musculoskeletal system. Vital Signs: 19:53 BP 124 / 74; Pulse 76; Resp 19; Temp 98.6(O); Pulse Ox 99% on R/A; Weight 62.14 kg; tm6 Height 5 ft. 1 in. ; Pain 5/10; 23:00 BP 123 / 86; Pulse 69; Resp 18; Temp 98.6; Pulse Ox 100% ; cp4 19:53 Body Mass Index 25.89 (62.14 kg, 154.94 cm) tm6 19:53 Pain Scale: Adult tm6 ED Course: 19:33 Patient arrived in ED. jj6 19:48 Shahla Ryan PA-C is PHCP. sb4 19:48 Del Crowe MD is Attending Physician. sb4 19:55 Arm band placed on right wrist. tm6 19:57 Triage completed. tm6 20:15 Trupti Sanchez is Primary Nurse. cp4 20:15 Bed in low position. Call light in reach. Side rails up X 1. cp4 20:15 No provider procedures requiring assistance completed. cp4 20:32 CBC with Diff Sent. vk 20:32 CMP Sent. vk 20:32 Lipase Sent. vk 20:32 Test, Urine Sent. vk 20:32 Urinalysis w/ reflexes Sent. vk 20:33 Initial lab(s) drawn, by in, sent to lab. Urine collected: clean catch specimen, clear. vk Inserted saline lock: 20 gauge in right forearm, using aseptic technique. Blood collected. Flushed with 10 mL NS. 21:30 CT Abd/Pelvis - IV Contrast Only In Process Unspecified. EDMS 23:01 Provided Education on: urinary tract infection and ovarian cyst.. cp4 23:01 intact, bleeding controlled, No redness/swelling at site. Pressure dressing applied. cp4 Administered Medications: 20:45 Drug: NS 0.9% IV 1000 ml IV at 1 bolus Per protocol; 1000 mL bolus Route: IV; Rate: 1 cp4 bolus; Site: right forearm; 21:50 Follow up: Response: No adverse reaction; IV Status: Completed infusion cp4 21:11 Drug: Ketorolac IVP 30 mg IVP once Route: IVP; Site: right forearm; cp4 22:52 Follow up: Response: No adverse reaction cp4 22:52 Drug: Rocephin IV 1 grams IV at calculated rate once; Given slow IV push per pharmacy cp4 instructions Route: IV; Rate: calculated rate; Site: right forearm; 22:52 Follow up: Response: No adverse reaction; IV Status: Completed infusion cp4 22:52 Drug: Fluconazole PO 200 mg PO once Route: PO; cp4 22:52 Follow up: Response: No adverse reaction cp4 Medication: 20:15 VIS not applicable for this client. cp4 Outcome: 22:37 Discharge ordered by MD. sb4 23:01 Discharged to home ambulatory, cp4 23:01 Condition: stable 23:01 Discharge instructions given to patient, Instructed on discharge instructions, follow up and referral plans. medication usage, Demonstrated understanding of instructions, follow-up care, medications, Prescriptions given X 2, 23:03 Patient left the ED. cp4 Signatures: Dispatcher [employer] EDMS Rosie Cardenas Sophia, PANadjaC PA-Kyree sb4 Trupti Sanchez cp4 Gatito Montes De Oca RN RN 6 Hoeny Ambriz
--- NOTE | 2024-07-15 22:39 | EDPHYS ---
Physician Documentation [facility] Name: Domonique Mccurdy Age: 34 yrs Sex: Female : 1990 Arrival Date: 07/15/2024 Time: 19:31 Bed 17 Private MD: ED Physician Del Crowe HPI: 07/15 20:33 This 34 yrs old Female presents to ER via Ambulatory with complaints of Pelvic sb4 Pain, Abdominal Pain. 20:33 The patient presents with abdominal pain in the lower abdomen. Onset: The sb4 symptoms/episode began/occurred just prior to arrival. The symptoms do not radiate. Associated signs and symptoms: Pertinent positives: diarrhea. The symptoms are described as crampy. Modifying factors: The symptoms are alleviated by nothing, the symptoms are aggravated by nothing. The patient has not experienced similar symptoms in the past. 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 - Infectious Disease History:: Denies. - Social history:: Smoking status: Patient denies any tobacco usage or history of. ROS: 22:39 Constitutional: Negative for fever, chills, and weight loss, sb4 22:39 Abdomen/GI: Positive for abdominal pain, 22:39 All other systems are negative, Exam: 22:39 Constitutional: This is a well developed, well nourished patient who is awake, alert, sb4 and in no acute distress. Head/Face: Normocephalic, atraumatic. Eyes: Extra-ocular motions intact. Periorbital areas with no swelling, redness, or edema. ENT: Mucous membranes moist. Cardiovascular: Regular rate and rhythm with a normal S1 and S2. Respiratory: Lungs have equal breath sounds bilaterally, clear to auscultation and percussion. No rales, rhonchi or wheezes noted. No increased work of breathing, no retractions or nasal flaring. Skin: Warm, dry with normal turgor. Normal color with no rashes, no lesions, and no evidence of cellulitis. 22:39 Abdomen/GI: Inspection: distension, that is mild, Bowel sounds: normal, Palpation: abdomen is soft and non-tender, Vital Signs: 19:53 BP 124 / 74; Pulse 76; Resp 19; Temp 98.6(O); Pulse Ox 99% on R/A; Weight 62.14 kg; tm6 Height 5 ft. 1 in. ; Pain 5/10; 23:00 BP 123 / 86; Pulse 69; Resp 18; Temp 98.6; Pulse Ox 100% ; cp4 19:53 Body Mass Index 25.89 (62.14 kg, 154.94 cm) tm6 19:53 Pain Scale: Adult tm6 MDM: 19:51 Patient medically screened. sb4 22:39 Data reviewed: vital signs, nurses notes, lab test result(s), radiologic studies, and sb4 as a result, I will discharge patient. Counseling: I had a detailed discussion with the patient and/or guardian regarding the historical points, exam findings, and any diagnostic results supporting the discharge/admit diagnosis, lab results, radiology results, to return to the emergency department if symptoms worsen or persist or if there are any questions or concerns that arise at home. 07/15 20:02 Order name: CBC with Diff; Complete Time: 20:43 sb4 07/15 20:02 Order name: CMP; Complete Time: 20:54 sb4 07/15 20:02 Order name: Lipase; Complete Time: 20:54 sb4 07/15 20:02 Order name: Test, Urine; Complete Time: 20:39 sb4 07/15 20:02 Order name: Urinalysis w/ reflexes; Complete Time: 20:39 sb4 20 20:02 Order name: CT Abd/Pelvis - IV Contrast Only; Complete Time: 22:31 sb4 07/15 20:02 Order name: IV Saline Lock; Complete Time: 20:32 sb4 07/15 20:02 Order name: Labs collected and sent; Complete Time: 20:32 sb4 Administered Medications: 20:45 Drug: NS 0.9% IV 1000 ml IV at 1 bolus Per protocol; 1000 mL bolus Route: IV; Rate: 1 cp4 bolus; Site: right forearm; 21:50 Follow up: Response: No adverse reaction; IV Status: Completed infusion cp4 21:11 Drug: Ketorolac IVP 30 mg IVP once Route: IVP; Site: right forearm; cp4 22:52 Follow up: Response: No adverse reaction cp4 22:52 Drug: Rocephin IV 1 grams IV at calculated rate once; Given slow IV push per pharmacy cp4 instructions Route: IV; Rate: calculated rate; Site: right forearm; 22:52 Follow up: Response: No adverse reaction; IV Status: Completed infusion cp4 22:52 Drug: Fluconazole PO 200 mg PO once Route: PO; cp4 22:52 Follow up: Response: No adverse reaction cp4 Disposition Summary: 07/15/24 22:37 Discharge Ordered Notes: Location: Home sb4 Problem: new sb4 Symptoms: have improved sb4 Condition: Stable sb4 Diagnosis - Other ovarian cysts sb4 - UTI/ Urinary tract infection, site not specified sb4 Followup: sb4 - With: Private Physician - When: As needed - Reason: Recheck today's complaints, Re-evaluation by your physician Discharge Instructions: - Discharge Summary Sheet sb4 - Urinary Tract Infection, Adult, Fium-bd-[id number] sb4 - Ovarian Cyst, [id number] sb4 Forms: - Antibiotic Education sb4 - Patient Portal Instructions sb4 - Leadership Thank You Letter sb4 Prescriptions: - ketorolac 10 mg Oral tablet - take 1 tablet ORAL route every 4 to 6 hours for 3 days as needed for pain; do sb4 not exceed 4 doses per 24 hrs; 12 tablet; Refills: 0, Product Selection Permitted - Macrobid 100 mg Oral Capsule - take 1 capsule ORAL route every 12 hours for 7 days; 14 capsule; Refills: 0, sb4 Product Selection Permitted Signatures: Dispatcher [employer] Shahla Barger PA-C PA-C sb4 Trupti Sanchez cp4 Gatito Montes De Oca RN RN tm6 Corrections: (The following items were deleted from the chart) 20:02 20:02 Abdomen Pelvis W Con+CT.RAD.BRZ ordered. SIERRA ESQUIVEL
[2024-07-15] MEDS ORDERED: FLUCONAZOLE 100 MG TAB ONE (22:47)
[2024-07-15] MEDS ORDERED: CEFTRIAXONE 1000 MG/VIAL ONE (22:47)
[2024-07-15 23:18] VITALS: TEMP 98.6
[2024-07-15 23:19] VITALS: BP 123/86; O2SAT 100
== END 2024-07-15 23:03 | disposition home or self-care (01) ==
LOC: ER 19:31
DX: N39.0 Urinary tract infection, site not specified (principal); N83.299 Other ovarian cyst, unspecified side
CPT/HCPCS: 36415; 74177; 80053; 81001; 81025; 83690; 85025; J0696; J7030; Q9967

== ENCOUNTER 2025-01-25 10:28 | Emergency (ER) | payer OTHER, SELFPAY ==
[2025-01-25] MEDS ORDERED: HYDROCODONE/APAP 7.5/325 MG TAB ONE (11:14)
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
--- NOTE | 2025-01-25 12:02 | RAD REPORT ---
EXAM: XR RIGHT HAND HISTORY: Pain. PAIN COMPARISON: None TECHNIQUE: Multiple projections of the right hand submitted. FINDINGS: No evidence of acute fracture or dislocation. Joint alignment is maintained. No soft tissu e swelling is seen.. No significant degenerative changes are present. IMPRESSION: No significant bone or joint abnormality.
--- NOTE | 2025-01-25 12:03 | RAD REPORT ---
EXAMINATION: XR LEFT KNEE CLINICAL INDICATION: PAIN TECHNIQUE: Multiple projections of the left knee were obtained. COMPARISON: No prior exam. FINDINGS: Mild medial compartment space narrowing. No fracture, dislocation or significant joint effu sowmya. Mild thickening is seen in the patellar tendon.
--- NOTE | 2025-01-25 12:04 | RAD REPORT ---
EXAMINATION: XR LEFT TIBIA AND FIBULA CLINICAL INDICATION: . PAIN TECHNIQUE:Two view radiograph of the left tibia and fibula were obtained. COMPARISON: No prior exam. FINDINGS: No bone or joint abnormality detected. Tiny calcaneal spur.
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
[2025-01-25] MEDS ORDERED: KETOROLAC 30 MG/ML INJ ONE (12:52)
[2025-01-25 13:45] VITALS: TEMP 98
[2025-01-25 13:47] VITALS: BP 134/91; O2SAT 99
== END 2025-01-25 13:11 | disposition home or self-care (01) ==
LOC: ER 10:28
DX: S80.02XA Contusion of left knee, initial encounter (principal); S60.221A Contusion of right hand, initial encounter; R51.9 Headache, unspecified; V49.59XA Passenger injured in collision with other motor vehicles in traffic accident, initial encounter
CPT/HCPCS: 70450; 72125; 96372; 99284

== ENCOUNTER 2025-01-28 12:06 | Emergency (ER) | payer SELFPAY ==
--- NOTE | 2025-01-28 12:53 | RAD REPORT ---
EXAMINATION: Head Brain Wo Cont CLINICAL INDICATION: Female, 34 years old.HEADACHE TECHNIQUE: Axial CT images from the skull base to the vertex without intravenous contrast. Coronal an d sagittal reformatted images were created from the data set. One or more of the following dose reduction techniques were used: Automated exposure control, adjustment of the mA and/or kV according to patient size, and/or iterative reconstruction. Unless otherwise specified, incidental findings do not require dedicated imaging follow-up. [id number]. COMPARISON: 02/26/2016 FINDINGS: INTRACRANIAL: No acute intracranial hemorrhage. No hydrocephalus. No mass effect or midline shift. No significant white matter disease. VASCULATURE: No visualized abnormalities in the arteries or dural venous sinuses. SCALP/SKULL: No calvarial fracture identified. No acute soft tissue abnormality. SINUSES: The visualized paranasal sinuses are mostly clear. No significant mastoid fluid. IMPRESSION: No acute intracranial abnormality.
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
[2025-01-28 13:53] LABS: Urine Bilirubin NEGATIVE (Negative); Urine Blood Negative (Negative); Urine Clarity Clear (Clear); Urine Color Colorless (Yellow); Urine Glucose NEGATIVE (Negative); Urine Ketones NEGATIVE (Negative); Urine Microscopic Reflex YN NO UMIC; Urine Nitrite NEGATIVE (Negative); Urine Protein NEGATIVE (Negative); Urine Urobilinogen Normal (Normal)
[2025-01-28 14:25] VITALS: BP 127/88; TEMP 97.6; O2SAT 100
== END 2025-01-28 13:49 | disposition left against medical advice (07) ==
LOC: ER 12:06
DX: Z53.21 Procedure and treatment not carried out due to patient leaving prior to being seen by health care provider (principal)
CPT/HCPCS: 70450; 81003; 81025

== ENCOUNTER 2025-02-03 02:02 | Emergency (ER) | payer SELFPAY ==
[2025-02-03 03:19] LABS: Sqamous Epithelial None Seen /HPF (None Seen); Urine Bacteria None Seen /HPF (<20); Urine Bilirubin NEGATIVE (Negative); Urine Blood Negative (Negative); Urine Clarity Extremely Turbid (Clear); Urine Color Yellow (Yellow); Urine Culture Reflex Order NOT NEEDED; Urine Glucose NEGATIVE (Negative); Urine Ketones NEGATIVE (Negative); Urine Micro Reflex YN NO BILL MICROSCOPIC; Urine Nitrite NEGATIVE (Negative); Urine Protein NEGATIVE (Negative); Urine RBC None Seen /HPF (None Seen); Urine Urobilinogen Normal (Normal); Urine WBC None Seen /HPF (<5)
--- NOTE | 2025-02-03 03:32 | ER ---
Nurse's Notes [facility] Name: Domonique Mccurdy Age: 34 yrs Sex: Female : 1990 Arrival Date: 02/03/2025 Time: 02:02 Bed 16 Private MD: Diagnosis: Dysuria Presentation: 02/03 02:10 Chief complaint: Patient states: Pain with urination for the last 2 days. Pt has been br2 taking AZO,also concerned for possible STD's. Coronavirus screen: Client denies travel out of the [place] in the last 14 days. Ebola Screen: Patient denies exposure to infectious person. Initial Sepsis Screen: Does the patient meet any 2 criteria? No. Patient's initial sepsis screen is negative. Does the patient have a suspected source of infection? No. Patient's initial sepsis screen is negative. Risk Assessment: Do you want to hurt yourself or someone else? Patient reports no desire to harm self or others. Onset of symptoms was February 01, 2025. 02:10 Method Of Arrival: Ambulatory br2 02:10 Acuity: ALVINO 3 br2 Triage Assessment: 02:27 General: Appears in no apparent distress. comfortable, Behavior is calm, cooperative. br2 Pain: Complains of pain in pelvis Pain currently is 5 out of 10 on a pain scale. Aggravated by urnation. : Reports burning with urination, urinary frequency. Historical: - PMHx: 02:27 Kidney stones; Ovarian cysts (Cholecystectomy); Post depression; br2 - PSHx: 02:27 section; Cholecystectomy; br2 - Immunization history:: Adult Immunizations not up to date. - Infectious Disease History:: Denies. - Social history:: Smoking status: Patient denies any tobacco usage or history of. Patient uses alcohol, occasionally. - Family history:: not pertinent. Screenin:28 [facility] ED Fall Risk Assessment (Adult) History of falling in the last 3 months, br2 including since admission No falls in past 3 months (0 pts). [facility] ED Fall Risk Assessment (Adult) History of falling in the last 3 months, including since admission Confusion or Disorientation No (0 pts) Intoxicated or Sedated No (0 pts) Impaired Gait No (0 pts) Mobility Assist Device Used No (0 pt) Altered Elimination No (0 pt) Score/Fall Risk Level 0 - 2 = Low Risk Oriented to surroundings. Abuse screen: Denies threats or abuse. Denies injuries from another. Nutritional screening: No deficits noted. Tuberculosis screening: No symptoms or risk factors identified. Assessment: 02:30 Reassessment: Patient and/or family updated on plan of care and expected duration. Pain br2 level reassessed. Patient is alert, oriented x 3, equal unlabored respirations, skin warm/dry/pink. 03:43 Reassessment: see triage assessment. br2 Vital Signs: 02:10 BP 143 / 98; Pulse 96; Resp 18; Temp 97.3; Pulse Ox 100% on R/A; Weight 68.04 kg; br2 Height 5 ft. 1 in. ; Pain 5/10; 02:10 Body Mass Index 28.34 (68.04 kg, 154.94 cm) br2 02:10 Pain Scale: Adult br2 ED Course: 02:06 Patient arrived in ED. gm2 02:09 Heaven Rivera, RN is Primary Nurse. br2 02:10 Anival Tapia MD is Attending Physician. rt 02:27 Triage completed. br2 02:28 Patient has correct armband on for positive identification. Provided Education on: plan br2 of care. 03:44 No provider procedures requiring assistance completed. Patient did not have IV access br2 during this emergency room visit. Administered Medications: No medications were administered Outcome: 03:32 Discharge ordered by . rt 03:44 Discharged to home ambulatory, br2 03:44 Condition: good 03:44 Discharge instructions given to patient, Instructed on discharge instructions, follow up and referral plans. Demonstrated understanding of instructions, follow-up care, 03:45 Patient left the ED. br2 Signatures: Anival Tapia MD MD rt Ijeoma Rebollar gm2 Heaven Rivera, RN RN br2
--- NOTE | 2025-02-03 03:32 | EDPHYS ---
Physician Documentation [facility] Name: Domonique Mccurdy Age: 34 yrs Sex: Female : 1990 Arrival Date: 02/03/2025 Time: 02:02 Bed 16 Private MD: ED Physician Anival Tapia HPI: 02/03 02:28 This 34 yrs old Female presents to ER via Ambulatory with complaints of Pain rt With Urination. 02:28 Patient presents to the ED with 2 days of dysuria. Denies hematuria, abdominal pain. rt Denies other acute complaints at this time, symptoms are mild in severity, no other aggravating or alleviating factors.. Historical: - PMHx: 02: Kidney stones; Ovarian cysts (Cholecystectomy); Post depression; br2 - PSHx: 02:27 section; Cholecystectomy; br2 - Immunization history:: Adult Immunizations not up to date. - Infectious Disease History:: Denies. - Social history:: Smoking status: Patient denies any tobacco usage or history of. Patient uses alcohol, occasionally. - Family history:: not pertinent. ROS: 02:28 Constitutional: Negative for fever, chills, and weight loss, Cardiovascular: Negative rt for chest pain, palpitations, and edema, Respiratory: Negative for shortness of breath, cough, wheezing, and pleuritic chest pain, Abdomen/GI: Negative for abdominal pain, nausea, vomiting, diarrhea, and constipation, MS/Extremity: Negative for injury and deformity, Skin: Negative for injury, rash, and discoloration, 02:28 : Positive for burning with urination, Negative for vaginal discharge, Exam: 02:28 Constitutional: This is a well developed, well nourished patient who is awake, alert, rt and in no acute distress. Head/Face: Normocephalic, atraumatic. Chest/axilla: Normal chest wall appearance and motion. Nontender with no deformity. No lesions are appreciated. Cardiovascular: Regular rate and rhythm with a normal S1 and S2. No gallops, murmurs, or rubs. Normal PMI, no JVD. No pulse deficits. Respiratory: Lungs have equal breath sounds bilaterally, clear to auscultation and percussion. No rales, rhonchi or wheezes noted. No increased work of breathing, no retractions or nasal flaring. Abdomen/GI: Soft, non-tender, with normal bowel sounds. No distension or tympany. No guarding or rebound. No evidence of tenderness throughout. Skin: Warm, dry with normal turgor. Normal color with no rashes, no lesions, and no evidence of cellulitis. MS/ Extremity: Pulses equal, no cyanosis. Neurovascular intact. Full, normal range of motion. Neuro: Awake and alert, GCS 15, oriented to person, place, time, and situation. Cranial nerves II-XII grossly intact. Motor strength 5/5 in all extremities. Sensory grossly intact. Cerebellar exam normal. Normal gait. Vital Signs: 02:10 BP 143 / 98; Pulse 96; Resp 18; Temp 97.3; Pulse Ox 100% on R/A; Weight 68.04 kg; br2 Height 5 ft. 1 in. ; Pain 5/10; 02:10 Body Mass Index 28.34 (68.04 kg, 154.94 cm) br2 02:10 Pain Scale: Adult br2 MDM: 02:14 Medical Screening Exam initiated rt 03:36 Differential Diagnosis Dysuria, UTI. Data reviewed: vital signs, nurses notes, lab test rt result(s). Test considered but Not performed: CT: Benign abdominal examination, no hematuria, low suspicion for acute ureterolithiasis, other surgical pathology, CT scan is not indicated. Counseling: I had a detailed discussion with the patient and/or guardian regarding the historical points, exam findings, and any diagnostic results supporting the discharge/admit diagnosis, lab results, the need for outpatient follow up. Response to treatment: the patient's symptoms have mildly improved after treatment. 02/03 02:13 Order name: UAM; Complete Time: 03:23 rt 02/03 02:13 Order name: PREGU; Complete Time: 03:23 rt 02/03 02:18 Order name: GC (Antonio/Chl) Probe URINE rt Administered Medications: No medications were administered Disposition Summary: 02/03/25 03:32 Discharge Ordered Notes: Location: Home rt Problem: new rt Symptoms: have improved rt Condition: Stable rt Diagnosis - Dysuria rt Followup: rt - With: Private Physician - When: 2 - 3 days - Reason: Discharge Instructions: - Discharge Summary Sheet rt - Dysuria rt Forms: - Medication Reconciliation Form rt - Antibiotic Education rt - Prescription Opioid Use rt - Patient Portal Instructions rt - Leadership Thank You Letter rt Signatures: Dispatcher [employer] Anival Viera MD MD rt Riddle, Belinda, RN RN br2
[2025-02-03 03:50] VITALS: BP 143/98; TEMP 97.3; O2SAT 100
[2025-02-07 10:38] LABS: C.trachomatis RNA,TMA Not Detected (Not Detected); N.gonorrhoeae RNA,TMA Not Detected (Not Detected)
== END 2025-02-03 03:45 | disposition home or self-care (01) ==
LOC: ER 02:02
DX: R30.0 Dysuria (principal); Z87.442 Personal history of urinary calculi
CPT/HCPCS: 81001; 81025; 87490; 87590; 99282

== ENCOUNTER 2025-03-31 12:04 | Emergency (ER) | payer SELFPAY ==
--- OUTSIDE RECORDS SUMMARY | 2025-03-31 12:11 | XMS REPORT | Continuity of Care Document ---
Author Name Unknown Address [address] [facility] [place] [address] [facility] Address [address] [facility] [place] [address] Care Team Providers Care Jewelry Technician Name Role Phone PCP, PATIENT DOES NOT HAVE A Primary Care Physic ras Unavailable Harley Posada Attending Clinician Unavailable Harley Posada Attending Clinician Unavailable Pretty Wilcox Attending Clinician [phone] ALIYAH PARKS Attending Clinician Unavailable Charly Aliyah PARRY Attending Clinician [phone] Doctor Unassigned, [place] Attending Clinician U nbaailJAKE Dowling Attending Clinician Unavailable CarlohiJake Lebron Attending Clinician +[phone] Unknown, Attending Attending Clinician Unavailab irene UNKNOWN, ATTENDING Attending Clinician Unavailab TINA Peterson Attending Clinician Unavail able Ebrahim Jake DAY Attending Clinician +[phone] Unknown, Attending Attending Clinician Unavailab ELISABETH Choi Attending Clinician Unavailable Elisabeth Malcolm PA-C Attending Clinician [phone] Doctor Unassigned, [place] Attending Clinician U jaquelinbarbara MARIA VILLANUEVA Attending Clinician Unavaila dawson Mcgill NP, Irma Attending Clinician + [phone] IRMA MCGILL Attending Clinician Unavaila dawson MCGUIRE, KAYLYN Attending Clinician Tho MCGUIRE, KAYLYN Attending Clinician Tho juarez Lab, Ang - Db Attending Clinician Unavailable Alyssa Dunne Attending Clinician [phone] Akinsisavanna [facility] Tina Adorno Attending Clinician + Kirit Benitez Attending Clinician Unavailable RUPAL MAYA Attending Clinician Unavailable Francesco AIKEN, Rupal Attending Clinician [phone] JOSE ARMANDO SU Attending Clinician Unavailab irene BRASHER_SWHAOMC_Khalif_Tanvir Attending Clinician Unavail Rufino Walter Attending Clinician Unavailab Rufino Lyons Attending Clinician [phone] ANSHU_SWHATBIC_Khalif Attending Clinician Unavaila dawson OMAGHOMI, OMAYEMI Attending Clinician Unavailabl e Omagmervat PATROL MAN, Omayemi Attending Clinician [phone] Lizz Carver Attending Clinician + [phone] Kristina Mcdonald MD Attending Clinician +[phone] Manju2 Jame Smith MD Attending Clinician [phone] Patricia Quiñones DO Attending Clinician [phone] Trudy ROSENBERG, Kaylynn Ramey Attending Clinician +[phone] Yousuf Ontiveros DO Attending Clinician [phone] Jose Armando Umana Attending Clinician + [phone] Madelin Flanagan Attending Clinician [phone] Lesia Borja Attending Clinician +[phone] PEDRITO EDWARDS Attending Clinician Unavailable VETO STEVENS Attending Clinician Veto Poe MD Attending Clinician + Albino AIKEN, Harley Swartz Attending Clinician +[phone] Manas SALGADO, Domonique Attending Clinician + [phone] Nani AIKEN, Ulices Berg Attending Clinician +[phone] Aamir Ruiz Attending Clinician [phone] Vania RN, Alba Ramey Attending Clinician Nicolasa yuval , [facility] Us Room Attending Clinician Unavailtrevor Machuca MD, Liseth Doran Attending Clinician [phone] Tiffanie AIKEN, Yariel Berg Attending Clinician +[phone] John MENENDEZ, Ana Attending Clinician Unavailable Daniel DAY, Maggie Scott Attending Clinician + Yasemin MCKINNEY, Yanna Canas Attending Clinician [phone] Harley Posada Admitting Clinician Unavailable IRMA MCGILL Admitting Clinician UnavailRufino Begum Admitting Clinician Unavailab le GC_SWHAOMC_Khalif_Tanvir Admitting Clinician Unavail able GC_SWHATBIC_Khalif Admitting Clinician UnavailKristina Cook MD Admitting Clinician +[phone] VETO STEVENS Admitting Clinician Darleen Cardoza MD, Ulices Berg Admitting Clinician [phone] Payers Payer Name Policy Type Policy Number Effective Date Expirati on Date Source [place]ID [place] [id number] 2021 00:00:00 MEDICAID PENDING PENDING 2021 00:00:00 [facility] [id number] 2024 00:00:00 [facility] (MEDICAID REPLACEMENT - HMO) [id number] Problems Condition Name Condition Details Condition Category Status Onset Date Resolution Date Last Treatment Date Treating Clinician Comments Source Anxiety about health Anxiety about health Disease Active 03-15 00:00: 00 [facility] Vulval lesion Vulval lesion Disease Active 03-10 00:00: 00 [facility] Lymphedema of genitalia Lymphedema of genitalia Disease Active 2023-0 4-15 00:00: 00 [facility] Vulvar ulcer Vulvar ulcer Disease Active 0 4-15 00:00: 00 [facility] Anemia Anemia Problem Active 5-21 00:00: 00 [facility] Problem Active 5- 00:00: 00 [facility] History of gestationa l diabetes History of gestationa l diabetes Disease Active 4-21 00:00: 00 Overview: Formattin g of this note might be different from the original. In prior pregnanci es [facility] BMI 25.0-25.9, adult BMI 25.0-25.9, adult Disease Active 3-10 00:00: 00 [facility] Recurrent candidiasi s of vagina Recurrent candidiasi s of vagina Disease Active 2019-11 0-28 00:00: 00 [facility] SUICIIDAL IDEATION SUICIIDAL IDEATION Active 12/16/2019 [facility] Diagnosis Active 1- 10:00: 00 2019-12-17 14:29:00 [facility] Vaginal discharge Vaginal discharge Disease Active 9-02 00:00: 00 [facility] Multiparit y Multiparit y Disease Resolve d 4-21 00:00: 00 2024-11-11 00:00:00 2024-11-11 10:03:27 [facility] History of miscarriag e History of miscarriag e Disease Resolve d 4-21 00:00: 00 2024-11-11 00:00:00 2024-11-11 10:03:24 [facility] History of successful vaginal after , currently History of successful vaginal after , currently Disease Resolve d 4-21 00:00: 00 2024-11-11 00:00:00 2024-11-11 10:03:20 Overview: Formattin g of this note might be different from the original. Desires repeat [facility] UTI in UTI in Disease Resolve d 0 4-21 00:00: 00 2024-11-11 00:00:00 2024-11-11 10:03:40 Overview: Formattin g of this note might be different from the original. Reports currently on meds [facility] Prophylact ic antibiotic Prophylact ic antibiotic Disease Resolve d 0 3-10 00:00: 00 2024-11-11 00:00:00 2024-11-11 10:03:33 [facility] BMI 26.0-26.9, adult BMI 26.0-26.9, adult Disease Resolve d 0 3-10 00:00: 00 2024-11-11 00:00:00 2024-11-11 10:03:30 [facility] Early syphilis, genital (primary) Early syphilis, genital (primary) Disease Resolve d 4-20 00:00: 00 2023-05-02 00:00:00 2023-05-02 09:25:56 [facility] History of herpes genitalis History of herpes genitalis Disease Resolve d 2015-11 1-26 00:00: 00 2022-10-26 00:00:00 2022-10-26 14:32:40 [facility] Dysuria Dysuria Disease Resolve d 3-10 00:00: 00 2021-03-16 00:00:00 2021-03-16 14:14:51 [facility] Encounter for contracept paige management , unspecifie d type Encounter for contracept paige management , unspecifie d type Disease Resolve d 2019-11 0-28 00:00: 00 2021-03-16 00:00:00 2021-03-16 14:14:53 [facility] Other general counseling and advice for contracept paige management Other general counseling and advice for contracept paige management Disease Resolve d 0 2-20 00:00: 00 2021-03-16 00:00:00 2021-03-16 14:15:01 [facility] Encounter for IUD removal Encounter for IUD removal Disease Resolve d 1-09 00:00: 00 2021-03-16 00:00:00 2021-03-16 14:14:54 [facility] Obesity (BMI 30-39.9) Obesity (BMI 30-39.9) Disease Resolve d 2018-0 6-09 00:00: 00 2021-03-16 00:00:00 2021-03-16 14:15:00 [facility] Urinary tract infection without hematuria, site unspecifie d Urinary tract infection without hematuria, site unspecifie d Disease Resolve d 0 9-19 00:00: 00 2021-03-16 00:00:00 2021-03-16 14:14:39 [facility] Subacute vaginitis Subacute vaginitis Disease Resolve d 4-25 00:00: 00 2021-03-16 00:00:00 2021-03-16 14:14:40 [facility] BV (bacterial vaginosis) BV (bacterial vaginosis) Disease Resolve d 3-17 00:00: 00 2021-03-16 00:00:00 2021-03-16 14:14:41 [facility] Vaginal itching Vaginal itching Disease Resolve d 9-02 00:00: 00 2021-03-16 00:00:00 2021-03-16 14:14:37 [facility] Presence of of 52 mg levonorges trel-relea sing intrauteri ne device (IUD) Presence of of 52 mg levonorges trel-relea sing intrauteri ne device (IUD) Disease Resolve d 9-02 00:00: 00 2021-03-16 00:00:00 2021-03-16 14:15:04 [facility] 37 weeks gestation of 37 weeks gestation of Disease Resolve d 2018-0 8-19 00:00: 00 2019-10-14 00:00:00 2019-10-14 15:22:24 [facility] 34 weeks gestation of 34 weeks gestation of Disease Resolve d 2018-0 7-09 00:00: 00 2019-10-14 00:00:00 2019-10-14 15:22:19 [facility] Decreased movements in third trimester Decreased movements in third trimester Disease Resolve d 2018-0 7-09 00:00: 00 2019-10-14 00:00:00 2019-10-14 15:22:29 [facility] Previous delivery affecting Previous delivery affecting Disease Resolve d 2018-0 - 00:00: 00 2019-10-14 00:00:00 2019-10-14 15:22:27 [facility] GDM, class A2 GDM, class A2 Disease Resolve d 2018-- 00:00: 00 2019-10-14 00:00:00 2019-10-14 15:22:23 [facility] Headache in , antepartum , third trimester Headache in , antepartum , third trimester Disease Resolve d 06-03 00:00: 00 2019-10-14 00:00:00 2019-10-14 15:22:25 [facility] High-risk in third trimester High-risk in third trimester Disease Resolve d - 00:00: 00 2019-08-21 00:00:00 2019-08-21 15:12:16 [facility] Edgar vaginitis Edgar vaginitis Disease Resolve d - 00:00: 00 2017-02-08 00:00:00 2017-02-08 10:08:10 [facility] History of Past Illness Condition Name Condition Details Condition Category Status Onset Date Resolution Date Last Treatment Date Treating Clinician Comments Source Suicidal ideations Suicidal ideations 12/18/2019 0 [facility] Problem 12-18 18:00: 00 2019-12-20 22:34:25 2019-12-20 22:34:25 [facility] Other mental disorders complicati ng the puerperium Other mental disorders complicati ng the puerperium 12/18/2019 0 [facility] 12-18 18:00: 00 2019-12-20 22:34:25 2019-12-20 22:34:25 [facility] Allergies, Adverse Reactions, Alerts Allergy Name Allergy Type Status Severity Reaction(s) Onset Date Inactive Date Treating Clinician Comments Source No Known Allergie s DA Active U 2021-11 00:00: 00 [facility] No Known Allergie s DA Active U 2020-11 2-06 00:00: 00 [facility] No Known Allergie s DA Active U 08-17 00:00: 00 [facility] No Known Allergie s DA Active U 0 408 00:00: 00 [facility] No Known Medicati on Allergie s No Known Medicati on Allergie s Active [facility] [place] NO KNOWN ALLERGIE S Drug Class Active [facility] No Known Allergie s Drug Active [facility] Family History Family Member Diagnosis Comments Start Date Stop Date Sourc e Natural brother Other - see comments [facility] Natural father High cholesterol [facility] Maternal grandmother Brain Cancer [facility] Maternal grandmother Cancer [facility] Maternal grandmother Depression [facility] Maternal grandmother Diabetes [facility] Maternal grandmother Heart [facility] Maternal grandmother Lung Cancer [facility] Maternal grandmother Psychiatry [facility] Natural [facility]ritis [facility] Natural [facility] Natural [facility] Natural mother [facility] Natural mother High cholesterol [facility] Natural [facility] Natural mother Other - see comments [facility] Paternal grandfather Diabetes [facility] Paternal grandmother Diabetes [facility] Social History Social Habit Start Date Stop Date Quantity Comments Source ASSERTION 2021-03-06 00:00:00 [facility] Sexual [facility] Alcoholic beverage intake 2025-01-12 00:00:00 2025-01-12 00:00:00 Ex-drinker (finding) [facility] History of Social function 2024-11-11 00:00:00 2024-11-11 00:00:00 [facility] Alcohol Comment 2024-11-11 00:00:00 2024-11-11 00:00:00 socially [facility] Alcohol intake 2023-10-20 00:00:00 2023-10-20 00:00:00 Ex-drinker (finding) [facility] Exposure to SARS-CoV-2 (event) 2023-03-17 00:00:00 2023-03-27 13:42:00 Not sure [facility] Tobacco use and exposure 2022-09-11 00:00:00 2022-09-11 00:00:00 Smokeless tobacco non-user [facility] Social History 2019-12-18 20:18:36 2019-12-18 20:18:36 [facility] History SDOH Financial 2019-07-14 00:00:00 2019-07-14 00:00:00 5 [facility] History SDOH Food Worry 2019-07-14 00:00:00 2019-07-14 00:00:00 1 [facility] History SDOH Food Scarcity 2019-07-14 00:00:00 2019-07-14 00:00:00 1 [facility] History SDOH Transport Med 2019-07-14 00:00:00 2019-07-14 00:00:00 2 [facility] History SDOH Transport Non-Med 2019-07-14 00:00:00 2019-07-14 00:00:00 2 [facility] Sex assigned at 1990 00:00:00 1990 00:00:00 [facility] Smoking Status Start Date Stop Date Source Never smoked tobacco [facility] Medications Ordered Medication Name Filled Medication Name Start Date Stop Date Current Medication? Ordering Clinician Indication Dosage Frequency Signature (SIG) Comments Components Source fluconazole (DIFLUCAN) 150 mg tablet 07-03 00:00: 00 07-08 04:59 :00 No [id number] 150mg Take 1 tablet by mouth every 72 (seventy-t wo) hours for 2 doses. [facility] methylPREDN ISolone (MEDROL, JEREMI,) 4 mg tablets 2022-11 00:00: 00 11-11 00:00 :00 No [id number] Take by mouth SEE-INSTRU CTIONS. follow package directions [facility] amoxicillin -clavulanat e (AUGMENTIN) 875-125 mg per tablet 2022-11 00:00: 00 10-31 05:59 :00 No [id number] 1{tbl} Take 1 tablet by mouth in the morning and 1 tablet in the evening. Do all this for 10 days. [facility] promethazin e-dextromet horphan 6.25-15 mg/5 mL syrup 2022-11 00:00: 00 10-31 05:59 :00 No [id number] 5mL Take 5 mL by mouth 4 (four) times daily for 10 days. [facility] fluconazole (DIFLUCAN) 150 mg tablet 2022-11 00:00: 00 09-19 04:59 :00 No [id number] 150mg Take 1 tablet by mouth once now for 1 dose. [facility] hydrOXYzine 25 mg tablet 03-13 00:00: 00 09-18 00:00 :00 No [id number] May take 1-2 tablets, orally, every 6 hours as needed for anxiety. [facility] valACYclovi r (VALTREX) 1 gram tablet 03-07 00:00: 00 11-12 00:00 :00 No [id number] 1g Take 1 tablet by mouth in the morning and 1 tablet in the evening. [facility] lidocaine 2 % mucosal jelly 03-07 00:00: 00 05-02 00:00 :00 No [id number] 1mL Apply 0.5 Inches to area(s) 3 (three) times daily as needed for Pain (scale 4-6). [facility] promethazin e-dextromet horphan 6.25-15 mg/5 mL syrup 2021-11 0 00:00: 00 11-11 00:00 :00 No [id number] 5mL Take 5 mL by mouth 4 (four) times daily as needed for Cough. [facility] albuterol 2.5 mg /3 mL (0.083 %) nebulizer solution 2021-11 0 00:00: 00 11-11 00:00 :00 No [id number] 2.5mg Inhale 3 mL every 4 (four) hours as needed for Shortness of Breath. [facility] budesonide 1 mg/2 mL nebulizer solution 2021-11 00:00: 00 11-11 00:00 :00 No [id number] 1mg Use 2 mL as directed in the morning. [facility] amoxicillin -clavulanat e (AUGMENTIN) 875-125 mg per tablet 2021-11 00:00: 09-19 04:59 :00 No [id number] 1{tbl} Take 1 tablet by mouth in the morning and 1 tablet in the evening. Do all this for 7 days. [facility] fluconazole (DIFLUCAN) 150 mg tablet 2021-11 00:00: 00 09-12 04:59 :00 No [id number] 150mg Take 1 tablet by mouth once now for 1 dose. [facility] fluticasone propionate 50 mcg/actuati on nasal spray 2020-11 00:00: 00 05-02 00:00 :00 No [id number] 1{spray } Use 1 [place] in each nostril daily. [facility] amoxicillin -clavulanat e (AUGMENTIN) 875-125 mg per tablet 2020-11 00:00: 00 11-02 05:59 :00 No [id number] 1{tbl} Take 1 tablet by mouth 2 (two) times daily for 7 days. [facility] citalopram 20 mg tablet 2020-11 0 00:00: 00 05-02 00:00 :00 No [facility] ondansetron (ZOFRAN ODT) 4 mg disintegrat ing tablet 03-18 00:00: 00 05-02 00:00 :00 No [id number] 4mg Take 1 tablet by mouth every 8 (eight) hours as needed for Nausea and Vomiting (N/V). [facility] Benadryl 12-18 07:40: 00 No Notes: (Same as: Benadryl) [facility] Yipl 12-18 07:39: 00 No Notes: (Same as: Haldol) [facility] olanzapine 12-18 03:36: 00 No 10 mg, Route: PO, Drug form: TAB, ONCE, Dosing Weight 63.636, kg, Start date: 12/17/19 21:36:00 PHARMACY SPECIALIST, Stop date: 12/17/19 21:36:00 PHARMACY SPECIALIST [facility] Ativan 12-17 23:05: 00 No 1 mg, Route: PO, Drug form: TAB, ONCE, Dosing Weight 63.636, kg, Priority: STAT, Start date: 12/17/19 17:05:00 PHARMACY SPECIALIST, Stop date: 12/17/19 17:05:00 PHARMACY SPECIALIST [facility] glyburide 2.5 mg tablet TAKE 1 TABLET BY MOUTH EVERY DAY glyburide 2.5 mg tablet TAKE 1 TABLET BY MOUTH EVERY DAY No glyburide 2.5 mg tablet TAKE 1 TABLET BY MOUTH EVERY DAY [facility] nitrofurant oin macrocrysta l 100 mg capsule nitrofurant oin macrocrysta l 100 mg capsule No nitrofuran toin macrocryst al 100 mg capsule [facility] ondansetron HCl 4 mg tablet Take 1 tablet every 8 hours by oral route as needed. ondansetron HCl 4 mg tablet Take 1 tablet every 8 hours by oral route as needed. No ondansetro n HCl 4 mg tablet Take 1 tablet every 8 hours by oral route as needed. [facility] No [facility] promethazin e 25 mg tablet Take 1 tablet every 8 hours by oral route. promethazin e 25 mg tablet Take 1 tablet every 8 hours by oral route. No 1 Q8H promethazi ne 25 mg tablet Take 1 tablet every [address] [facility] sertraline 25 mg tablet TAKE 1 TABLET BY MOUTH EVERY DAY sertraline 25 mg tablet TAKE 1 TABLET BY MOUTH EVERY DAY No sertraline 25 mg tablet TAKE 1 TABLET BY MOUTH EVERY DAY [facility] Immunizations Ordered Immunization Name Filled Immunization Name Date Status Comments Source SARS-COV-2 COVID-19 PFIZER VACCINE 2021-07-06 00:00:00 Completed [facility] SARS-COV-2 COVID-19 PFIZER VACCINE 2021-07-06 00:00:00 Completed [facility] SARS-COV-2 COVID-19 PFIZER VACCINE 2021-07-06 00:00:00 Completed [facility] SARS-COV-2 COVID-19 PFIZER VACCINE 2021-07-06 00:00:00 Completed [facility] SARS-COV-2 COVID-19 PFIZER VACCINE 2021-07-06 00:00:00 Completed [facility] SARS-COV-2 COVID-19 PFIZER VACCINE 2021-07-06 00:00:00 Completed [facility] SARS-COV-2 COVID-19 PFIZER VACCINE 2021-07-06 00:00:00 Completed [facility] SARS-COV-2 COVID-19 PFIZER VACCINE 2021-07-06 00:00:00 Completed [facility] SARS-COV-2 COVID-19 PFIZER VACCINE 2021-07-06 00:00:00 Completed [facility] SARS-COV-2 COVID-19 PFIZER VACCINE 2021-07-06 00:00:00 Completed [facility] SARS-COV-2 COVID-19 PFIZER VACCINE 2021-07-06 00:00:00 Completed [facility] SARS-COV-2 COVID-19 PFIZER VACCINE 2021-07-06 00:00:00 Completed [facility] SARS-COV-2 COVID-19 PFIZER VACCINE 2021-07-06 00:00:00 Completed [facility] SARS-COV-2 COVID-19 PFIZER VACCINE 2021-07-06 00:00:00 Completed TDAP (ADACEL) VACCINE 2019-05-12 00:00:00 Completed [facility] TDAP (ADACEL) VACCINE 2019-05-12 00:00:00 Completed [facility] TDAP (ADACEL) VACCINE 2019-05-12 00:00:00 Completed [facility] TDAP (ADACEL) VACCINE 2019-05-12 00:00:00 Completed [facility] TDAP (ADACEL) VACCINE 2019-05-12 00:00:00 Completed [facility] TDAP (ADACEL) VACCINE 2019-05-12 00:00:00 Completed [facility] TDAP (ADACEL) VACCINE 2019-05-12 00:00:00 Completed [facility] TDAP (ADACEL) VACCINE 2019-05-12 00:00:00 Completed [facility] TDAP (ADACEL) VACCINE 2019-05-12 00:00:00 Completed [facility] TDAP (ADACEL) VACCINE 2019-05-12 00:00:00 Completed [facility] TDAP (ADACEL) VACCINE 2019-05-12 00:00:00 Completed [facility] TDAP (ADACEL) VACCINE 2019-05-12 00:00:00 Completed [facility] TDAP (ADACEL) VACCINE 2019-05-12 00:00:00 Completed [facility] TDAP (ADACEL) VACCINE 2019-05-12 00:00:00 Completed [facility] TDAP (ADACEL) VACCINE 2019-05-12 00:00:00 Completed [facility] TDAP (ADACEL) VACCINE 2019-05-12 00:00:00 Completed [facility] TDAP (ADACEL) VACCINE 2019-05-12 00:00:00 Completed [facility] TDAP (ADACEL) VACCINE 2019-05-12 00:00:00 Completed Td 2018-05-10 00:00:00 Completed [facility] Td 2018-05-10 00:00:00 Completed [facility] Td 2018-05-10 00:00:00 Completed [facility] Td 2018-05-10 00:00:00 Completed [facility] Td 2018-05-10 00:00:00 Completed [facility] Td 2018-05-10 00:00:00 Completed [facility] TD, NOS 2018-05-10 00:00:00 Completed [facility] TD, NOS 2018-05-10 00:00:00 Completed [facility] TD, NOS 2018-05-10 00:00:00 Completed [facility] TD, NOS 2018-05-10 00:00:00 Completed [facility] TD, NOS 2018-05-10 00:00:00 Completed [facility] TD, NOS 2018-05-10 00:00:00 Completed [facility] TD, NOS 2018-05-10 00:00:00 Completed [facility] TD, NOS 2018-05-10 00:00:00 Completed [facility] TD, NOS 2018-05-10 00:00:00 Completed [facility] TD, NOS 2018-05-10 00:00:00 Completed [facility] TD, NOS 2018-05-10 00:00:00 Completed [facility] TD, NOS 2018-05-10 00:00:00 Completed [facility] Influenza Virus Vaccine - Whole 2009-10-04 00:00:00 Completed [facility] Influenza Virus Vaccine - Whole 2009-10-04 00:00:00 Completed [facility] Influenza Virus Vaccine - Whole 2009-10-04 00:00:00 Completed [facility] Influenza Virus Vaccine - Whole 2009-10-04 00:00:00 Completed [facility] Influenza Virus Vaccine - Whole 2009-10-04 00:00:00 Completed [facility] TD, NOS Unknown Completed [facility] TDAP (ADACEL) VACCINE Unknown Completed [facility] SARS-COV-2 COVID-19 PFIZER VACCINE Unknown Completed [facility] TD, NOS Unknown Completed [facility] TDAP (ADACEL) VACCINE Unknown Completed [facility] SARS-COV-2 COVID-19 PFIZER VACCINE Unknown Completed [facility] TD, NOS Unknown Completed [facility] TDAP (ADACEL) VACCINE Unknown Completed [facility] SARS-COV-2 COVID-19 PFIZER VACCINE Unknown Completed [facility] TD, NOS Unknown Completed [facility] TDAP (ADACEL) VACCINE Unknown Completed [facility] TD, NOS Unknown Completed [facility] TDAP (ADACEL) VACCINE Unknown Completed [facility] SARS-COV-2 COVID-19 PFIZER VACCINE Unknown Completed [facility] TD, NOS Unknown Completed [facility] TDAP (ADACEL) VACCINE Unknown Completed [facility] SARS-COV-2 COVID-19 PFIZER VACCINE Unknown Completed [facility] TD, NOS Unknown Completed [facility] TDAP (ADACEL) VACCINE Unknown Completed [facility] SARS-COV-2 COVID-19 PFIZER VACCINE Unknown Completed [facility] Influenza Virus Vaccine - Whole Unknown Completed [facility] TD, NOS Unknown Completed [facility] TDAP (ADACEL) VACCINE Unknown Completed [facility] SARS-COV-2 COVID-19 PFIZER VACCINE Unknown Completed [facility] TD, NOS Unknown Completed [facility] TDAP (ADACEL) VACCINE Unknown Completed [facility] SARS-COV-2 COVID-19 PFIZER VACCINE Unknown Completed [facility] Vital Signs Vital Name Observation Time Observation Value Comments S ource Height/Length Measured 2019-12-31 00:22:20 Systolic blood pressure 2025-01-08 18:53:00 132 mm[Hg] [facility] Diastolic blood pressure 2025-01-08 18:53:00 87 mm[Hg] [facility] Heart rate 2025-01-08 18:53:00 66 /min [facility] Body temperature 2025-01-08 18:53:00 36.78 Estefanía [facility] Respiratory rate 2025-01-08 18:53:00 18 /min [facility] Body height 2025-01-08 18:53:00 154.9 cm [facility] Body weight 2025-01-08 18:53:00 68.663 kg [facility] BMI 2025-01-08 18:53:00 28.60 kg/m2 [facility] Systolic blood pressure 2024-11-11 15:44:00 139 mm[Hg] [facility] Diastolic blood pressure 2024-11-11 15:44:00 87 mm[Hg] [facility] Heart rate 2024-11-11 15:44:00 66 /min [facility] Body temperature 2024-11-11 15:40:00 36.72 Estefanía [facility] Respiratory rate 2024-11-11 15:40:00 18 /min [facility] Body height 2024-11-11 15:40:00 154.9 cm [facility] Body weight 2024-11-11 15:40:00 67.331 kg [facility] BMI 2024-11-11 15:40:00 28.05 kg/m2 [facility] Systolic blood pressure 2024-07-03 23:41:00 111 mm[Hg] [facility] Diastolic blood pressure 2024-07-03 23:41:00 78 mm[Hg] [facility] Heart rate 2024-07-03 23:41:00 73 /min [facility] Body temperature 2024-07-03 23:41:00 36.67 Estefanía [facility] Respiratory rate 2024-07-03 23:41:00 17 /min [facility] Body weight 2024-07-03 23:41:00 65.046 kg [facility] BMI 2024-07-03 23:41:00 27.10 kg/m2 [facility] Oxygen saturation in Arterial blood by Pulse oximetry 2024-07-03 23:41:00 96 /min [facility] Heart rate 2023-10-20 16:51:00 89 /min [facility] Body temperature 2023-10-20 16:51:00 36.06 Estefanía [facility] Respiratory rate 2023-10-20 16:51:00 16 /min [facility] Body height 2023-10-20 16:51:00 154.9 cm [facility] Body weight 2023-10-20 16:51:00 63.702 kg [facility] BMI 2023-10-20 16:51:00 26.54 kg/m2 [facility] Oxygen saturation in Arterial blood by Pulse oximetry 2023-10-20 16:51:00 99 /min [facility] Systolic blood pressure 2023-10-20 16:51:00 125 mm[Hg] [facility] Diastolic blood pressure 2023-10-20 16:51:00 77 mm[Hg] [facility] Systolic blood pressure 2023-09-18 15:41:00 147 mm[Hg] [facility] Diastolic blood pressure 2023-09-18 15:41:00 89 mm[Hg] [facility] Heart rate 2023-09-18 15:41:00 109 /min [facility] Respiratory rate 2023-09-18 15:41:00 24 /min [facility] Oxygen saturation in Arterial blood by Pulse oximetry 2023-09-18 15:41:00 99 /min [facility] Systolic blood pressure 2023-05-02 13:57:00 110 mm[Hg] [facility] Diastolic blood pressure 2023-05-02 13:57:00 74 mm[Hg] [facility] Heart rate 2023-05-02 13:57:00 76 /min [facility] Body temperature 2023-05-02 13:57:00 36.78 Estefanía [facility] Respiratory rate 2023-05-02 13:57:00 16 /min [facility] Body height 2023-05-02 13:57:00 157.5 cm [facility] Body weight 2023-05-02 13:57:00 62.687 kg [facility] BMI 2023-05-02 13:57:00 25.28 kg/m2 [facility] Oxygen saturation in Arterial blood by Pulse oximetry 2023-05-02 13:57:00 99 /min [facility] Systolic blood pressure 2023-03-14 17:53:00 124 mm[Hg] [facility] Diastolic blood pressure 2023-03-14 17:53:00 83 mm[Hg] [facility] Heart rate 2023-03-14 17:53:00 69 /min [facility] Respiratory rate 2023-03-14 17:53:00 18 /min [facility] Body height 2023-03-14 17:53:00 154.9 cm [facility] weight 2023-03-14 17:53:00 62.46 kg [facility] BMI 2023-03-14 17:53:00 26.02 kg/m2 [facility] Systolic blood pressure 2023-03-07 19:48:00 122 mm[Hg] [facility] Diastolic blood pressure 2023-03-07 19:48:00 85 mm[Hg] [facility] Heart rate 2023-03-07 19:48:00 94 /min [facility] Respiratory rate 2023-03-07 19:48:00 18 /min [facility] Body height 2023-03-07 19:48:00 154.9 cm [facility] Body weight 2023-03-07 19:48:00 62.143 kg [facility] BMI 2023-03-07 19:48:00 25.89 kg/m2 [facility] Systolic blood pressure 2022-10-26 20:09:00 135 mm[Hg] [facility] Diastolic blood pressure 2022-10-26 20:09:00 78 mm[Hg] [facility] Heart rate 2022-10-26 20:09:00 76 /min [facility] Body temperature 2022-10-26 20:09:00 36.78 Estefanía [facility] Respiratory rate 2022-10-26 20:09:00 18 /min [facility] Body height 2022-10-26 20:09:00 154.9 cm [facility] Body weight 2022-10-26 20:09:00 60.782 kg [facility] BMI 2022-10-26 20:09:00 25.32 kg/m2 [facility] Systolic blood pressure 2022-09-11 18:21:00 113 mm[Hg] [facility] Diastolic blood pressure 2022-09-11 18:21:00 81 mm[Hg] [facility] Heart rate 2022-09-11 18:21:00 92 /min [facility] Body temperature 2022-09-11 18:21:00 36.94 Estefanía [facility] Body height 2022-09-11 18:21:00 154.9 cm [facility] Body weight 2022-09-11 18:21:00 57.153 kg [facility] BMI 2022-09-11 18:21:00 23.81 kg/m2 [facility] Oxygen saturation in Arterial blood by Pulse oximetry 2022-09-11 18:21:00 99 /min [facility] BP Diastolic 2021-11-04 00:00:00 82 mm[Hg] [facility] Height 2021-11-04 00:00:00 61 [in_i] [facility] BMI (Body Mass Index) 2021-11-04 00:00:00 32.6 kg/m2 [facility] BP Systolic 2021-11-04 00:00:00 148 mm[Hg] [facility] Body Weight 2021-11-04 00:00:00 172.4 [lb_av] [facility] Systolic blood pressure 2021-10-25 15:37:00 152 mm[Hg] [facility] Diastolic blood pressure 2021-10-25 15:37:00 115 mm[Hg] [facility] Heart rate 2021-10-25 15:37:00 112 /min [facility] Body temperature 2021-10-25 15:37:00 37.11 Estefanía [facility] Respiratory rate 2021-10-25 15:37:00 18 /min [facility] Body height 2021-10-25 15:37:00 154.9 cm [facility] Body weight 2021-10-25 15:37:00 76.295 kg [facility] BMI 2021-10-25 15:37:00 31.78 kg/m2 [facility] Oxygen saturation in Arterial blood by Pulse oximetry 2021-10-25 15:37:00 97 /min [facility] Height/Length Measured 2021-12-13 09:04:51 154.9 cm Weight Dosing 2021-12-13 09:04:51 62.50 kg Height/Length Measured 2021-12-13 09:00:41 154.9 cm Weight Dosing 2021-12-13 09:00:41 62.50 kg Height/Length Measured 2021-12-13 08:56:56 154.9 cm Weight Dosing 2021-12-13 08:56:56 62.50 kg Height/Length Measured 2021-12-13 08:56:39 154.9 cm Weight Dosing 2021-12-13 08:56:39 62.50 kg Height/Length Measured 2021-12-13 08:56:23 154.9 cm Weight Dosing 2021-12-13 08:56:23 62.50 kg Systolic blood pressure 2025-01-08 18:53:00 132 mm[Hg] [facility] Diastolic blood pressure 2025-01-08 18:53:00 87 mm[Hg] [place] [facility] Heart rate 2025-01-08 18:53:00 66 /min [facility] Body temperature 2025-01-08 18:53:00 36.78 Estefanía [facility] Respiratory rate 2025-01-08 18:53:00 18 /min [facility] Body height 2025-01-08 18:53:00 154.9 cm [facility] Body weight 2025-01-08 18:53:00 68.663 kg [facility] BMI 2025-01-08 18:53:00 28.60 kg/m2 [facility] Oxygen saturation in Arterial blood by Pulse oximetry 2024-07-03 23:41:00 96 /min [place] [facility] Systolic (mm Hg) 2019-12-18 17:15:00 [facility] Diastolic (mm Hg) 2019-12-18 17:15:00 [facility] Respitory Rate 2019-12-18 17:15:00 [facility] Temperature Oral (F) 2019-12-18 17:15:00 97.9 F [facility] Temperature Oral (F) 2019-12-18 08:30:00 97.7 F [facility] Heart Rate 2019-12-18 08:30:00 [facility] Rate 2019-12-18 08:30:00 [facility] Systolic (mm Hg) 2019-12-18 08:30:00 [facility] Diastolic (mm Hg) 2019-12-18 08:30:00 [facility] Temperature Oral (F) 2019-12-18 04:52:00 98.5 F [facility] Heart Rate 2019-12-18 04:52:00 [facility] Respitory Rate 2019-12-18 04:52:00 [facility] Systolic (mm Hg) 2019-12-18 04:52:00 [facility] Diastolic (mm Hg) 2019-12-18 04:52:00 [facility] Heart Rate 2019-12-18 01:26:00 [facility] Height 2019-12-17 19:28:00 154.94 cm [facility] BMI Calculated 2019-12-17 19:28:00 [facility] Weight 2019-12-17 19:28:00 Eli De León Procedures Procedure Date / Time Performed Performing Clinician Source [facility] ONLY - VAGINAL PATHOGENS BY NUCLEIC ACID TESTING 2025-01-08 19:45:00 Charly [facility] GALV ONLY - VAGINAL PATHOGENS BY NUCLEIC ACID TESTING 2025-01-08 19:45:00 Charly [facility] POCT URINALYSIS W/O SPECIFIC GRAVITY 2025-01-08 18:55:00 Charly [facility] POCT URINALYSIS W/O SPECIFIC GRAVITY 2025-01-08 18:55:00 Charly [facility] GALV ONLY - VAGINAL PATHOGENS BY NUCLEIC ACID TESTING 2024-11-11 18:08:00 Charly [facility] THYROID STIMULATING HORMONE 2024-11-11 16:35[facility] LIP[facility] (46951)(TOTAL CHOLESTEROL, TRIGLYCERIDES, HDL) 2024-11-11 16:35:00 Charly [facility] CBC WITH DIFF 2024-11-11 16:35:00 Charly [facility] GLYCOSYLATED HEMOGLOBIN (A1C) 2024-11-11 16:35:00 Charly [facility] HIV 1/2 AG-AB WITH REFLEX 2024-11-11 16:35:00 [facility] GC & CHLAMYDIA AMPLIFIED ASSAY 2024-11-11 16:35:00 Charly [facility] SYPHILIS IGG/IGM 2024-11-11 16:35:00 Charly [facility] HIV 1/2 AG-AB WITH REFLEX 2024-11-11 16:35:00 Charly [facility] LIPID PANEL (73325)(TOTAL CHOLESTEROL, TRIGLYCERIDES, HDL) 2024-11-11 16:35:00 Charly [facility] THYROID STIMULATING HORMONE 2024-11-11 16:35:00 [facility] GLYCOSYLATED HEMOGLOBIN (A1C) 2024-11-11 16:35:00 Charly [facility] CBC WITH DIFF 2024-11-11 16:35:00 Aliyah Parks [facility] POCT URINALYSIS 2024-07-03 23:56:00 NoheliaRobbinleonila Rich [facility] POCT TEST 2024-07-03 23:55:00 Jake Pozo [facility] ASSIGNMENT OF BENEFITS 2023-09-18 15:16:47 Docto r Unassigned, [place] [facility] GC & CHLAMYDIA AMPLIFIED ASSAY 2023-05-02 14:10:00 Irma Mcgill [facility] HIGH RISK HPV-THIN PREP 2023-05-02 14:10:00 [facility] 2023-05-02 14:10:00 Irma Mcgill [facility] PAP SMEAR-LIQUID BASED-CP 2023-05-02 14:10:00 [facility] HIGH RISK HPV-THIN PREP 2023-05-02 14:10:00 [facility] PAP SMEAR-LIQUID BASED-CP 2023-05-02 14:10:00 Irma Mcgill [facility] US PELVIS LIMITED 2023-03-27 19:25:31 Sanna Mcgill [facility] HCV ANTIBODY 2023-03-12 17:49:00 Irma Mcgill [facility] HSV 1&2, VZV NAAT 2023-03-07 20:57:00 Sanna Mcgill [facility] PATIENT FINANCIAL POLICY 2023-03-07 19:38:56 Doctor Unassigned, [place] [facility] ASSIGNMENT OF BENEFITS 2022-09-11 18:11:53 Docto r Unassigned, [place] [facility] [id number] 2021-11-07 00:00:00 [facility] [id number] 2021-11-07 00:00:00 [facility] POCT GRP A STREP (MOLECULAR) 2021-10-25 00:00:00 Kaitlin Nickerson [facility] ABDOMINAL ULTRASOUND OF UTERUS (GREATER OR EQUAL TO 14 WEEKS 0 DAYS) SINGLE OR FIRST FETUS 2021-10-14 00:00[facility]00 [facility] Planned Activity Planned Date Details Comments Source Diagnostic Test Pending 2021-11-04 00:00:00 urinalysis, dipstick [code = urinalysis, dipstick] [facility] Encounters Start Date/Time End Date/Time Encounter Type Admission Type Attending [facility] Facility Care Department Encounter ID Source 2021-09-26 22:39:04 Emergency [facility] [id number] [facility] 2021-09-25 15:07:36 Emergency [facility] [id number] [facility] 2021-09-25 14:51:52 Emergency [facility] [id number] [facility] 2021-09-25 13:38:07 Emergency [facility] [id number] [facility] 2021-09-24 00:52:47 Emergency [facility] [id number] [facility] 2019-12-30 16:46:00 Inpatient 1 Harley Posada Michael [facility] PSY [id number] [facility] 2025-01-20 00:00:00 2025-01-21 14:22:38 Telephone Pretty Delgado [facility] 1..840.114 350.1.13.10 4.2.7.2.686 [id number] [facility] 2025-01-20 10:00:00 2025-01-20 10:00:00 Outpatient R [facility] [id number] [facility] 2025-01-08 12:45:00 2025-01-08 13:20:06 Outpatient R ALIYAH PARKS [facility] [id number] [facility] 2025-01-08 12:45:00 2025-01-08 13:20:06 Office Visit Aliyah Parks [facility] 1..840.114 350.1.13.10 4.2.7.2.686 [id number] [facility] 2025-01-08 00:00:00 2025-01-08 00:00:00 Travel 1.2.840.1 [id number] 3.104.2.7 .3.568308 .8 1.2.840.114 350.1.13.10 4.2.7.3.698 [id number] [facility] 2024-11-28 00:00:00 2025-01-03 18:21:30 Patient Secure Msg Aliyah Parks 1.2.840.1 81428.1.1 3.104.2.7 .3.114727 .8 [id number] [facility] 2024-12-29 13:15:00 2024-12-29 13:15:00 Outpatient ALIYAH POOL [facility] [id number] [facility] 2024-12-26 00:00:00 2024-12-26 00:00:00 Scanned Documents Doctor Unassigned, [place] 1.2.840.1 [id number] 3.104.2.7 .3.290515 .8 [id number] [facility] 2024-11-11 00:00:00 2024-12-13 18:17:19 Patient Secure Msg Aliyah Parks 1.2.840.1 [id number] 3.104.2.7 .3.002195 .8 [id number] [facility] 2024-11-28 00:00:00 2024-11-28 16:44:17 Patient Secure Msg Aliyah Praks 1.2.840.1 92526.1.1 3.104.2.7 .3.861033 .8 [id number] [facility] 2024-11-11 09:15:00 2024-11-11 10:35:56 Outpatient ALIYAH POOL [facility] [id number] [facility] 2024-11-11 09:15:00 2024-11-11 10:35:56 Office Visit CharlyDilmaAliyah 1.2.840.1 [id number] 3.104.2.7 .3.715940 .8 [id number] [facility] 2024-11-11 00:00:00 2024-11-11 00:00:00 Travel 1.2.840.1 [id number] 3.104.2.7 .3.042264 .8 1.2.840.114 350.1.13.10 4.2.7.3.698 [id number] [facility] 2024-07-29 14:00:00 2024-07-29 14:00:00 Outpatient R ALIYAH PARKS [facility] [id number] [facility] 2024-07-25 08:45:00 2024-07-25 08:45:00 Outpatient R ALIYAH PARKS [facility] [id number] [facility] 2024-07-04 11:30:00 2024-07-04 11:30:00 Outpatient R JAKE POZO [facility] [id number] [facility] 2024-07-03 18:20:00 2024-07-03 19:20:55 Outpatient R JAKE POZO [facility] [id number] [facility] 2024-07-03 18:20:00 2024-07-03 18:40:00 Urgent Care Jake Pozo, Attending [facility] 1.2.840.114 350.1.13.10 4.2.7.2.686 [id number] [facility] 2024-06-15 10:40:00 2024-06-15 10:40:00 Outpatient R UNKNOWN, ATTENDING [facility] [id number] [facility] 2023-10-31 09:30:00 2023-10-31 09:30:00 Outpatient R TINA NERI [facility] [id number] [facility] 2023-10-20 11:00:00 2023-10-20 11:20:00 Urgent Care Jake Pozo Unknown, Attending [facility] 1.840.114 350.1.13.10 4.2.7.2.686 [id number] [facility] 2023-10-20 11:00:00 2023-10-20 11:00:00 Outpatient R JAKE POZO [facility] [id number] [facility] 2023-09-18 10:20:00 2023-09-18 10:47:15 Outpatient ELISABETH SPENCE [facility] [id number] [facility] 2023-09-18 10:20:00 2023-09-18 10:47:15 Urgent Care Elisabeth Malcolm Unknown, Attending [facility] 1.840.114 350.1.13.10 4.2.7.2.686 [id number] [facility] 2023-09-18 00:00:00 2023-09-18 00:00:00 Orders Only Doctor Unassigned, [place] [facility] 1.840.114 350.1.13.10 4.2.7.2.686 [id number] [facility] 2023-09-13 09:00:00 2023-09-13 09:00:00 Outpatient MARIA FARRIS [facility] [id number] [facility] 2023-08-13 00:00:00 2023-08-13 00:00:00 Patient Secure Irma Castro [facility] 1.840.114 350.1.13.10 4.2.7.2.686 [id number] [facility] 2023-05-02 09:00:00 2023-05-02 09:19:58 Outpatient R DOUGIRMA RODRIGUEZ DOUGIRMA RODRIGUEZ [facility] [id number] [facility] 2023-05-02 09:00:00 2023-05-02 09:19:58 Office Visit Irma Mcgill [facility] 1..840.114 350.1.13.10 4.2.7.2.686 [id number] [facility] 2023-04-12 15:00:00 2023-04-12 15:00:00 Outpatient R KAYLYN MONTANA MARISOL [facility] [id number] [facility] 2023-04-05 14:00:00 2023-04-05 14:00:00 [facility] [id number] 2023-03-29 00:00:00 2023-03-29 00:00:00 Patient Secure Msg Doctor Unassigned, [place] [facility] 1..840.114 350.1.13.10 4.2.7.2.686 [id number] [facility] 2023-03-27 13:42:43 2023-03-27 23:59:00 Outpatient R DOUGIRMA RODRIGUEZ NANO IRMA [facility] [id number] [facility] 2023-03-27 13:42:43 2023-03-27 23:59:00 Hospital Encounter Irma Mcgill [facility] 1..840.114 350.1.13.10 4.2.7.2.686 [id number] [facility] 2023-03-21 13:00:00 2023-03-21 13:00:00 Outpatient R IRMA MCGILL CHERYAL [facility] [id number] [facility] 2023-03-19 00:00:00 2023-03-19 00:00:00 [facility] 1.2.840.114 350.1.13.10 4.2.7.2.686 [id number] [facility] 2023-03-14 16:00:00 2023-03-14 16:00:00 Office Visit [facility] 1.2.840.114 350.1.13.10 4.2.7.2.686 [id number] [facility] 2023-03-14 16:00:00 2023-03-14 13:16:03 Outpatient R JOSETTEIRMA FERNANDO [facility] [id number] [facility] 2023-03-13 00:00:00 2023-03-13 00:00[facility] 1.2.840.114 350.1.13.10 4.2.7.2.686 [id number] [facility] 2023-03-13 00:00:00 2023-03-13 00:00:00 [facility] 1.2.840.114 350.1.13.10 4.2.7.2.686 [id number] [facility] 2023-03-13 00:00:00 2023-03-13 00:00:00 Telephone [facility] 1.2.840.114 350.1.13.10 4.2.7.2.686 [id number] [facility] 2023-03-13 00:00:00 2023-03-13 00:00:00 Telephone Irma Mcgill [facility] 1.0.114 350.1.13.10 4.2.7.2.686 [id number] [facility] 2023-03-13 00:00:00 2023-03-13 00:00:00 Patient Secure Msg Doctor Unassigned, [place] [facility] 1.0.114 350.1.13.10 4.2.7.2.686 [id number] [facility] 2023-03-12 12:30:00 2023-03-12 12:45:00 Piece Goods Clerk Visit Lab, Alyssa Judd, [facility] 1.114 350.1.13.10 4.2.7.2.686 [id number] [facility] 2023-03-12 12:30:00 2023-03-12 12:30:00 Outpatient R IRMA MCGILL [facility] [id number] [facility] 2023-03-09 00:00:00 2023-03-09 00:00:00 Patient Secure Msg Irma Mcgill [facility] 1.114 350.1.13.10 4.2.7.2.686 [id number] [facility] 2023-03-07 14:45:00 2023-03-07 15:29:46 Outpatient R IRMA MCGILL CHERYAL [facility] [id number] [facility] 2023-03-07 14:45:00 2023-03-07 15:29:46 Office Visit Irma Mcgill [facility] 1.2114 350.1.13.10 4.2.7.2.686 [id number] [facility] 2023-03-07 00:00:00 2023-03-07 00:00:00 Orders Only Doctor Unassigned, [place] [facility] 1.84.114 350.1.13.10 4.2.7.2.686 [id number] [facility] 2022-11-02 13:30:00 2022-11-02 13:45:00 Piece Goods Clerk Visit Lab, Tina Stark [facility] 1.840.114 350.1.13.10 4.2.7.2.686 [id number] [facility] 2022-11-02 13:30:00 2022-11-02 13:30:00 Outpatient R TINA NERI [facility] [id number] [facility] 2022-10-26 13:30:00 2022-10-26 14:14:22 Outpatient R IRMA MCGILL CHERYAL [facility] [id number] [facility] 2022-10-26 13:30:00 2022-10-26 14:14:22 Office Visit Irma Mcgill [facility] 1.840.114 350.1.13.10 4.2.7.2.686 [id number] [facility] 2022-10-06 12:56:00 2022-10-06 15:34:00 Emergency EM Kirit Benitez [facility] [id number] [address] [place] [address] 2022-09-11 13:00:00 2022-09-11 13:32:16 Outpatient RUPAL TANG [facility] [id number] [facility] 2022-09-11 13:00:00 2022-09-11 13:32:16 Urgent Care Rupal Maya Unknown, Attending [facility] 1.2840.114 350.1.13.10 4.2.7.2.686 [id number] [facility] 2022-09-11 00:00:00 2022-09-11 00:00:00 Orders Only Doctor Unassigned, [place] [facility] 1.2.840.114 350.1.13.10 4.2.7.2.686 [id number] [facility] 2022-02-07 13:45:00 2022-02-07 13:45:00 Outpatient Floresita SU NAOMIEYVROSE [facility] [id number] [facility] 2021-11-21 09:50:00 2021-11-21 09:50:00 Outpatient GC_[facility]_ Khalif_G [facility] [id number] [facility] 2021-11-16 00:00:00 2021-11-16 00:00:00 Rupal Oseguera [facility] KATHERINE RUIZ?[facility] 1.2.840.114 350.1.13.10 4.2.7.2.686 [id number] [facility] 2021-11-04 20:12:00 2021-11-12 17:41:00 Inpatient Rufino Lobo [facility] OB [id number] [facility] 2021-11-05 01:46:00 2021-11-05 01:46:00 Outpatient GC_[facility]_ Khalif_G [facility] PRIV [id number] [facility] 2021-11-04 02:41:00 2021-11-04 02:41:00 Outpatient GC_[facility]_ Khalif_G [facility] [id number] [facility] 2021-11-04 00:00:00 2021-11-04 00:00:00 Rufino Cuadra MD: [address], [address], [place] [address] , Ph. [facility]_ [place] Office* [id number] [facility] 2021-11-04 00:00:00 2021-11-04 00:00:00 Outpatient Rufino Cuadra [facility] [id number] 2021-11-03 09:34:00 2021-11-03 09:34:00 Outpatient GC_SWHATBIC _Khalif [facility] [id number] [facility] 2021-10-31 13:53:00 2021-10-31 18:35:00 Emergency EL Rufino Cuadra [facility] ELIANE [id number] [facility] 2021-10-28 00:00:00 2021-10-28 00:00:00 Rufino Cuadra MD: [place] [address] , Ph. [facility]_ [place] Office [id number] [facility] 2021-10-25 09:20:00 2021-10-25 09:55:47 Outpatient R FRANCESCO [facility] [id number] [facility] 2021-10-25 09:16:49 2021-10-25 09:55:47 Urgent Care Francesco [facility] BUILD[facility] 1.2.840.114 350.1.13.10 4.2.7.2.686 [id number] [facility] 2021-10-23 12:40:00 2021-10-23 13:48:12 Outpatient R PAULASTEPHANSANDRASandip DESTINYYUE [facility] [id number] [facility] 2021-10-23 12:37:30 2021-10-23 13:48:12 Urgent Care PaulastephanPaula crowellleslieLizz Landrum [facility] MED[facility] BUILD[facility] 1.2.840.114 350.1.13.10 4.2.7.2.686 [id number] [facility] 2021-10-15 02:21:00 2021-10-15 02:21:00 Outpatient GC_[facility]_ Khalif_G [facility] [id number] [facility] 2021-10-14 00:00:00 2021-10-14 00:00:00 Rufino Cuadra MD: [address] [place] [address] , Ph. [facility] [place] Office [id number] [facility] 2021-08-17 09:22:00 2021-08-17 14:45:00 Inpatient WENDY [place] [facility] [id number] [facility] 2021-08-09 23:19:00 2021-08-09 23:58:00 Hospital Encounter Kristina Mcdonald [facility] 1..840.114 350.1.13.10 4.2.7.2.686 [id number] [facility] 2021-06-06 00:00:00 2021-06-06 00:00:00 Orders Only Doctor Unassigned, [place] [facility] 1..840.114 350.1.13.10 4.2.7.2.686 [id number] [facility] 2021-04-13 10:45:00 2021-04-13 10:45:00 Outpatient TINA PACK [facility] [id number] [facility] 2021-03-31 00:00:00 2021-03-31 00:00:00 Telephone Tina Neri [facility] 1..840.114 350.1.13.10 4.2.7.2.686 [id number] [facility] 2021-03-31 00:00:00 2021-03-31 00:00:00 Telephone Tina Neri [facility] 1.2.840.114 350.1.13.10 4.2.7.2.686 [id number] 2021-03-29 00:00:00 2021-03-29 00:00:00 Telephone Tina Neri [facility] 1.2.840.114 350.1.13.10 4.2.7.2.686 [id number] [facility] 2021-03-29 00:00:00 2021-03-29 00:00:00 Telephone Tina Neri [facility] 1.2.840.114 350.1.13.10 4.2.7.2.686 [id number] 2021-03-20 16:32:00 2021-03-20 20:26:00 Emergency Luis Jame [facility] 1.2.840.114 350.1.13.10 4.2.7.2.686 [id number] 084 [id number] [facility] 2021-03-18 10:14:00 2021-03-18 12:03:00 Emergency IshmaelLorra Triplett [facility] 1.2.840.114 350.1.13.10 4.2.7.2.686 [id number] 084 [id number] [facility] 2021-03-18 00:00:00 2021-03-18 00:00:00 Telephone Tina Neri [facility] 1.2.840.114 350.1.13.10 4.2.7.2.686 [id number] 107 [id number] [facility] 2021-03-16 13:44:39 2021-03-16 14:45:16 Initial Visit Tina Neri [facility] 1.840.114 350.1.13.10 4.2.7.2.686 [id number] [facility] 2021-03-16 13:30:00 2021-03-16 13:30:00 Outpatient R DGVIRGIESAVANNA TINA [facility] [id number] [facility] 2021-03-16 13:00:00 2021-03-16 13:00:00 Outpatient R ALDEN TINA [facility] [id number] [facility] 2021-03-16 00:00:00 2021-03-16 00:00:00 Orders Only Doctor Unassigned, [place] [facility] 1.2840.114 350.1.13.10 4.2.7.2.686 [id number] [id number] [facility] 2021-03-13 12:00:00 2021-03-13 14:19:00 Emergency Kaylynn Yates [facility] 1.2840.114 350.1.13.10 4.2.7.2.686 [id number] [facility] 2021-03-13 00:00:00 2021-03-13 00:00:00 Orders Only Doctor Unassigned, [place] [facility] 1.2840.114 350.1.13.10 4.2.7.2.686 [id number] [facility] 2021-02-15 00:00:00 2021-02-15 00:00:00 Patient Outreach Yousuf Ontiveros [facility] 1.840.114 350.1.13.10 4.2.7.2.686 [id number] [facility] 2021-02-07 00:00:00 2021-02-07 00:00:00 Telephone Jose Armando Su [facility] 1.2.840.114 350.1.13.10 4.2.7.2.686 [id number] [facility] 2021-02-07 00:00:00 2021-02-07 00:00:00 Telephone Jose Armando Su [facility] 1.2.840.114 350.1.13.10 4.2.7.2.686 [id number] [facility] 2021-02-05 16:00:00 2021-02-05 16:00:00 Outpatient R UNKNOWN, ATTENDING [facility] [id number] [facility] 2021-02-05 15:09:01 2021-02-05 15:39:01 Telemedici ne Visit Madelin Mitchell, Attending [facility] 1.0.114 350.1.13.10 4.2.7.2.686 [id number] [facility] 2021-02-04 00:00:00 2021-02-04 00:00:00 Telephone Tina Neri [facility] 1.2840.114 350.1.13.10 4.2.7.2.686 [id number] [facility] 2021-02-02 13:44:44 2021-02-02 14:45:42 Office Visit Jose Armando Su [facility] 1.2.840.114 350.1.13.10 4.2.7.2.686 [id number] [facility] 2021-02-02 13:45:00 2021-02-02 13:45:00 Outpatient R JOSE ARMANDO SU [facility] [id number] [facility] 2021-02-02 00:00:00 2021-02-02 00:00:00 Orders Only Doctor Unassigned, [place] [facility] 1.2.840.114 350.1.13.10 4.2.7.2.686 [id number] [facility] 2021-01-14 00:00:00 2021-01-14 00:00:00 Patient Secure Msg Doctor Unassigned, [place] [facility] 1.2.840.114 350.1.13.10 4.2.7.2.686 [id number] 107 [id number] [facility] 2021-01-13 00:00:00 2021-01-13 00:00:00 Telephone Tina Neri [facility] 1.2.840.114 350.1.13.10 4.2.7.2.686 [id number] [facility] 2020-10-06 00:00:00 2020-10-06 00:00:00 Telephone Tina Neri [facility] 1.2.840.114 350.1.13.10 4.2.7.2.686 [id number] 107 [id number] [facility] 2020-09-22 08:18:29 2020-09-22 09:15:13 Office Visit Tina Neri [facility] 1.2.840.114 350.1.13.10 4.2.7.2.686 [id number] 107 [id number] [facility] 2020-09-22 08:00:00 2020-09-22 08:00:00 Outpatient R TINA NERI [facility] [id number] [facility] 2020-09-18 18:19:00 2020-09-19 00:41:00 Emergency Lesia Ratliff [facility] 1.2.840.114 350.1.13.10 4.2.7.2.686 [id number] [facility] 2020-09-17 12:45:00 2020-09-17 12:45:00 Outpatient R TINA NERI [facility] [id number] [facility] 2020-09-03 00:00:00 2020-09-03 00:00:00 Telephone Jose Armando Su [facility] 1..840.114 350.1.13.10 4.2.7.2.686 [id number] [facility] 2020-09-02 14:30:00 2020-09-02 14:30:00 Outpatient R PEDRITO EDWARDS [facility] [id number] [facility] 2020-09-02 09:22:30 2020-09-02 10:03:49 Office Visit Jose Armando Su [facility] 1..840.114 350.1.13.10 4.2.7.2.686 [id number] 107 [id number] [facility] 2020-09-02 09:15:00 2020-09-02 09:15:00 Outpatient R JOSE ARMANDO SU [facility] [id number] [facility] 2020-08-16 09:00:00 2020-08-16 09:00:00 Outpatient R TINA NERI [facility] [id number] [facility] 2020-01-15 08:41:20 2020-01-15 09:23:33 Office Visit Tina Neri [facility] ..840.114 350.1.13.10 4.2.7.2.686 [id number] [facility] 2020-01-13 15:56:36 2020-01-13 18:20:00 Emergency X AUODETTEERVETO FIGUEROA [facility] ERT [id number] [facility] 2020-01-13 15:56:36 2020-01-13 18:20:00 Emergency Veto Stevens [facility] 1.840.114 350.1.13.10 4.2.7.2.686 [id number] [facility] 2019-12-30 14:44:17 2019-12-30 23:59:00 Hospital Encounter Harley Posada [facility] 1.2840.114 350.1.13.10 4.2.7.2.686 [id number] [facility] 2019-12-30 16:46:00 2019-12-30 16:46:00 Emergency [facility] [id number] [facility] 2019-12-30 00:00:00 2019-12-30 00:00:00 Orders Only Doctor Unassigned, [place] [facility] 1.840.114 350.1.13.10 4.2.7.2.686 [id number] [facility] 2019-12-17 19:20:11 2019-12-18 18:20:00 Emergency nullFlavo r [facility] [id number] [facility] 2019-12-18 12:47:00 2019-12-18 12:47:00 Outpatient MHIE MHIE [id number] [facility] 2019-12-17 13:20:00 2019-12-17 13:20:00 Emergency E [facility]BL [facility]BL 7500 [facility] 2019-12-16 00:00:00 2019-12-16 00:00:00 Telephone Tina Neri [facility] 1.0.114 350.1.13.10 4.2.7.2.686 [id number] [facility] 2019-12-07 00:00:00 2019-12-07 00:00:00 [facility] 1.0.114 350.1.13.10 4.2.7.2.686 [id number] [facility] 2019-08-12 00:00:00 2019-08-12 00:00:00 Telephone Cardoza, [facility] 1.2.840.114 350.1.13.10 4.2.7.2.686 [id number] [facility] 2019-07-17 00:00:00 2019-07-17 00:00:00 Telephone [facility] 1.2.840.114 350.1.13.10 4.2.7.2.686 [id number] [facility] 2019-07-17 00:00:00 2019-07-17 00:00:00 Telephone [facility] 1.2.840.114 350.1.13.10 4.2.7.2.686 [id number] [facility] 2019-07-13 22:23:00 2019-07-16 12:50:00 Hospital Encounter Ulices Cardoza Aamir Ruiz [facility] 1.2.840.114 350.1.13.10 4.2.7.2.686 [id number] [facility] 2019-07-13 00:00:00 2019-07-13 00:00:00 Nurse Triage Alba Hernandez [facility] 1.2.840.114 350.1.13.10 4.2.7.2.686 [id number] [facility] 2019-07-13 00:00:00 2019-07-13 00:00:00 Orders Only Doctor Unassigned, [place] [facility] 1.2.840.114 350.1.13.10 4.2.7.2.686 [id number] [id number] [facility] 2019-07-11 14:22:26 2019-07-11 16:23:58 Routine Visit Ulices Cardoza [facility] 1.2.840.114 350.1.13.10 4.2.7.2.686 [id number] [facility] 2019-07-11 13:31:26 2019-07-11 14:01:26 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 Goods Clerk Visit 1, [facility] Us Room Liseth Machuca [facility] 1.2.840.114 350.1.13.10 4.2.7.2.686 [id number] [facility] 2019-07-08 14:17:02 2019-07-08 16:52:35 Routine Visit Yariel Moreno [facility] 1.2.840.114 350.1.13.10 4.2.7.2.686 [id number] [facility] 2019-07-06 00:00:00 2019-07-06 00:00:00 Nurse Triage Ana Lopez [facility] 1.2.840.114 350.1.13.10 4.2.7.2.686 [id number] [facility] 2019-07-04 13:59:50 2019-07-04 16:07:27 Routine Visit [facility]es [facility] 1.2.840.114 350.1.13.10 4.2.7.2.686 [id number] [id number] [facility] 2019-07-04 00:00:00 2019-07-04 00:00:00 Orders Only Doctor Unassigned, [place] [facility] 1.2.840.114 350.1.13.10 4.2.7.2.686 [id number] [id number] [facility] 2019-07-02 00:00:00 2019-07-02 00:00:00 Telephone Maggie Sanchez [facility] 1.2.840.114 350.1.13.10 4.2.7.2.686 [id number] [id number] [facility] 2019-07-01 13:19:01 2019-07-01 13:34:01 Routine Visit Maggie Sanchez [facility] 1.2.840.114 350.1.13.10 4.2.7.2.686 [id number] 095 [id number] [facility] 2019-06-27 14:55:33 2019-06-27 16:20:27 Routine Visit Ulices Cardoza [facility] 1.2.840.114 350.1.13.10 4.2.7.2.686 [id number] 095 [id number] [facility] 2019-06-24 12:02:00 2019-06-24 13:15:00 Hospital Encounter Ulices Cardoza [facility] 1.2.840.114 350.1.13.10 4.2.7.2.686 [id number] [id number] [facility] 2019-06-24 10:15:46 2019-06-24 10:30:46 Routine Visit Yanna Hazel [facility] 1.2.840.114 350.1.13.10 4.2.7.2.686 [id number] [facility] 2019-06-20 13:34:12 2019-06-20 14:44:31 Routine Visit Maggie Sanchez [facility] 1.2.840.114 350.1.13.10 4.2.7.2.686 [id number] 095 [id number] [facility] Results Test Description Test Time Test Comments Results Result Co [facility] W Specific [id number] 23:56:00* Test Item Value Reference Range Interpretation Comme nts POCT U SP GRAV (test code = 3255) 1.015 mg/dl 1.005-1.025 POCT PH U (test code = 3254) 5 mg/dl 5-8 POCT U LEUK EST (test code = 3263) neg Negative - Negative POCT U NIT (test code = 3262) neg Negative - Negative POCT U PROT (test code = 3259) neg Negative - Negative POCT U GLU (test code = 3256) normal Negative - Negative POCT U KETONE (test code = 3258) neg Negative - Negative POCT U UROBILI (test code = 3260) normal 0.2-1 POCT U BILI (test code = 3261) neg Negative - Negative POCT U BLD (test code = 3257) neg Negative - Negative POCT U COLOR (test code = 3266) POCT U APPEAR (test code = 3267) BRIGITTE (test code = BRIGITTE) accurate developme nt and interpretation of all internal controls Lab Interpretation (test code = 28429-7) Normal [facility] [id number] 23:55:00* Test Item Value Reference Range Interpretation Comme nts POCT PREG (test code = 1605) Negative On board controls acceptable with C Line (test code = 3574) Yes POCT PREG LOT # (test code = 3575) POCT PREG TEST DATE (test code = 3576) BRIGITTE (test code = BRIGITTE) accurate developme nt and interpretation of all internal controls Lab Interpretation (test code = 07735-1) Normal [facility] R[facility] MICR CULT IF [id number] 14:23:00* Test Item Value Reference Range Interpretation Comme [...] UACULT) Criteria Culture CHK Indication for culture: Dysuria/[id number] 05:53:00* Test Item Value Reference Range Interpretation Comme nts GLUBED (test code = GLUBED) 88 mg/dL 65-110 N [id number] 06:17:00* Test Item Value Reference Range Interpretation Comme nts GLUBED (test code = GLUBED) 88 mg/dL 65-110 N [id number] 06:32:00* Test Item Value Reference Range Interpretation Comme nts GLUBED (test code = GLUBED) 76 mg/dL 65-110 N [id number] 14:30:00* Test Item Value Reference Range Interpretation Comme nts CREATININE (test code = CREAT) 0.5 mg/dL 0.5-1.0 N SGOT/[id number] 14:30:00* Test Item Value Reference Range Interpretation Comme nts SGOT/AST (test code = AST) 34 units/L 15-37 N SGPT/[id number] 14:30:00* Test Item Value Reference Range Interpretation Comme nts SGPT/ALT (test code = ALT) 26 units/L 12-78 N CBC W/AUTO [id number] 13:41:00* Test Item Value Reference Range Interpretation Comme nts WHITE BLOOD CELL (test code = WBC) [...] pg 27.3-33.9 L MEAN CELL HGB CONCETRATION ( test code = MCHC) 29.2 gm/dL 32.0-34.2 L RED CELL DISTRIBUTION WIDTH (test code = RDW) 14.2 % 12.2-16.3 N PLATELET COUNT (test code = PLT) 276 K/mm3 134-363 N MEAN PLATELET VOLUME (test c ode = MPV) 10.0 fL 9.2-12.7 N NEUTROPHIL % (test code = NT%) 50.5 [...] = BA#) 0.0 K/mm3 RBC MORPHOLOGY REQUIRED (hugh t code = RBCM) NORMAL NORMAL PLATELET MORPHOLOGY REQUIRED (test code = PLTMR) NORMAL NORMAL [id number] 05:45:00* Test Item Value Reference Range Interpretation Comme nts GLUBED (test code = GLUBED) 100 mg/dL 65-110 N HGB [id number] 07:27:00* Test Item Value Reference Range Interpretation Comme nts HEMOGLOBIN (test code = HGB) 8.2 g/dL 10.1-13.8 L HEMATOCRIT (test code = HCT) 27.1 % 32.5-41.8 L [id number] 06:28:00* Test Item Value Reference Range Interpretation Comme nts GLUBED (test code = GLUBED) 86 mg/dL 65-110 N [id number] 13:53:00* Test Item Value Reference Range Interpretation Comme nts GLUBED (test code = GLUBED) 76 mg/dL 65-110 N RUBELLA [id number] 11:54:00* Test Item Value Reference Range Interpretation Comme nts RUBELLA SCREEN (test code = RUBSC) 63.5 IUnit/ml Results >10.0IUn its/ml are considered positive inaccordance with the CLSI guidelines and based on the WHO International Standard for Anti-Rubella serum as anindicator of immune status and a breakpoint to detect mostseropositive persons. CBC W/AUTO [id number] 11:26:00* Test Item Value Reference Range Interpretation Comme nts WHITE BLOOD CELL (test code = WBC) [...] pg 27.3-33.9 L MEAN CELL HGB CONCETRATION ( test code = MCHC) 30.8 gm/dL 32.0-34.2 L RED CELL DISTRIBUTION WIDTH (test code = RDW) 14.0 % 12.2-16.3 N PLATELET COUNT (test code = PLT) 276 K/mm3 134-363 N MEAN PLATELET VOLUME (test c ode = MPV) 10.3 fL 9.2-12.7 N NEUTROPHIL % (test code = NT%) 64.8 [...] = BA#) 0.0 K/mm3 RBC MORPHOLOGY REQUIRED (hugh t code = RBCM) NORMAL NORMAL PLATELET MORPHOLOGY REQUIRED (test code = PLTMR) NORMAL NORMAL [id number] 09:48:00* Test Item Value Reference Range Interpretation Comme nts GLUBED (test code = GLUBED) 90 mg/dL 65-110 N [id number] 05:55:00* Test Item Value Reference Range Interpretation Comme nts GLUBED (test code = GLUBED) 80 mg/dL 65-110 N [id number] 20:43:00* Test Item Value Reference Range Interpretation Comme nts GLUBED (test code = GLUBED) 108 mg/dL 65-110 N [id number] 15:11:00* Test Item Value Reference Range Interpretation Comme nts GLUBED (test code = GLUBED) 111 mg/dL 65-110 H [id number] 09:57:00* Test Item Value Reference Range Interpretation Comme nts GLUBED (test code = GLUBED) 106 mg/dL 65-110 N [id number] 05:50:00* Test Item Value Reference Range Interpretation Comme nts GLUBED (test code = GLUBED) 97 mg/dL 65-110 N UR CREATININE CLEARANCE [id number] 01:25:00* Test Item Value Reference Range Interpretation Comme nts CREATININE CLEARANCE RESULT (test code = CREATCLR) 160 ml/min 70-120 H CREATININE (test code = CREAT) 0.5 mg/dL 0.5-1.0 N UR CREATININE RANDOM (test c ode = CREATU) 89.3 mg/dL UR VOLUME (test code = VOL) 1300 ML UR PROTEIN [id number] 01:25:00* Test Item Value Reference Range Interpretation Comme nts UR PROTEIN RANDOM (test code = PROTU) 33.4 mg/dL UR PROTEIN 24HR (test code = NUOB36H) 434 mg/24HR 20-150 HH RESULTS CALLED Princess DELATORRE.READ BACK & CONFIRMED? Y.BY F.LAB.LGL0 11/06/21 0123.Units for 24 HR Urine Protein have changed: New Units = MG/24HR [id number] 20:33:00* Test Item Value Reference Range Interpretation Comme nts GLUBED (test code = GLUBED) 112 mg/dL 65-110 H [id number] 17:05:00* Test Item Value Reference Range Interpretation Comme nts GLUBED (test code = GLUBED) 99 mg/dL 65-110 N [id number] 12:12:00* Test Item Value Reference Range Interpretation Comme nts GLUBED (test code = GLUBED) 98 mg/dL 65-110 N [id number] 08:03:00* Test Item Value Reference Range Interpretation Comme nts GLUBED (test code = GLUBED) 82 mg/dL 65-110 N [id number] 22:39:00* Test Item Value Reference Range Interpretation Comme nts GLUBED (test code = GLUBED) 83 mg/dL 65-110 N AG HEPATITIS B [id number] 21:53:00* Test Item Value Reference Range Interpretation Comme nts AG HEPATITIS B SURFACE (test code = HBSAG) NONREACTIVE NONREACTIVE AB HEPATITIS C [id number] 21:53:00* Test Item Value Reference Range Interpretation Comme nts AB HEPATITIS C (test code = HCVAB) NONREACTIVE NONREACTIVE SIGNAL TO CUTOFF (test code = CUTOFF) <0.02 <0.80 N AB [id number] 21:53:00* Test Item Value Reference Range Interpretation Comme nts AB TREPONEMA (test code = TREPAB) NONREACTIVE NONREACTIVE AB HIV 1 21:53:00* Test Item Value Reference Range Interpretation Comme nts AB HIV 1 2 (test code = GSH09VO) NONREACTIVE NONREACTIVE Done by [employer] 4[employer] Gen HIV Ag/Ab Combo Screen COVID 19 Asymptomatic IH [id number] 21:30:00* Test Item Value Reference Range Interpretation Comme nts COVID 19 Asymptomatic IH AG (test code = COVNONPUIAG) NEGATIVE NEGATIVE This test has be en authorized only for the detection ofproteins from SARS-CoV-2, not for any other viruses orpathogens. Negative results should be treated as presumptive andconfirmed with a molecular assay, if necessary for patientmanagement. Negative results do not rule out COVID-19 andshould not be used as the sole basis for treatment orpatient management decisions, including infection controldecisions. Negative results should be considered in thecontext of a patient's recent exposures, history and thepresence of clinical signs and symptoms consistent withCOVID-19. This test has not been FDA cleared or approved; the test hasbeen authorized by FDA under an Emergency Use Authorization(EUA) for use by laboratories certified under the CLIA thatmeet the requirements to perform moderate, high or waivedcomplexity tests. This test is authorized for use at thePoint of Care (POC), i.e., in patient care settingsoperating under a CLIA Certificate of Waiver, Certificate ofCompliance, or Certificate of Accreditation. This test is only authorized for the duration of thedeclaration that circumstances exist justifying theauthorization of emergency use of in vitro diagnostic testsfor detection and/or diagnosis of COVID-19 under Oaddekq146(b)(1) of the Act, 21 U.S.C. 360bbb-3(b)(1), unless theauthorization is terminated or revoked sooner. [id number] 16:04:00* Test Item Value Reference Range Interpretation Comme nts CREATININE (test code = CREAT) 0.5 mg/dL 0.5-1.0 N [id number] 16:04:00* Test Item Value Reference Range Interpretation Comme nts SGOT/AST (test code = AST) 31 units/L 15-37 N [id number] 16:04:00* Test Item Value Reference Range Interpretation Comme nts SGPT/ALT (test code = ALT) 28 units/L 12-78 N CBC W/AUTO [id number] 15:46:00* Test Item Value Reference Range Interpretation Comme nts WHITE BLOOD CELL (test code = WBC) [...] pg 27.3-33.9 L MEAN CELL HGB CONCETRATION ( test code = MCHC) 31.2 gm/dL 32.0-34.2 L RED CELL DISTRIBUTION WIDTH (test code = RDW) 13.8 % 12.2-16.3 N PLATELET COUNT (test code = PLT) 300 K/mm3 134-363 N MEAN PLATELET VOLUME (test c ode = MPV) 10.5 fL 9.2-12.7 N NEUTROPHIL % (test code = NT%) 67.1 [...] = BA#) 0.0 K/mm3 RBC MORPHOLOGY REQUIRED (hugh t code = RBCM) NORMAL NORMAL PLATELET MORPHOLOGY REQUIRED (test code = PLTMR) NORMAL NORMAL Urinalysis macro (dipstick) panel - [id number] 14:15:57* Test Item Value Reference Range Interpretation Comme nts Protein (test code = Protein) Trace Glucose (test code = Glucose) Negative [facility] MedicalStreptococcus agalactiae [Presence] in Unspecified specimen by Organism specific [id number] 00:00:00* Test Item Value Reference Range Interpretation Comme nts Benzthiazide [Mass/volume] i n Urine (test code = 3400-9) positive negative A [facility] MedicalCOMPREHENSIVE METABOLIC [id number] 18:13:00* Test Item Value Reference Range Interpretation Comme nts SODIUM (test code = NA) 135 mEq/L 135-145 N POTASSIUM (test code = K) 4.2 mEq/L 3.5-5.0 N CHLORIDE (test code = CL) 101 mEq/L 100-115 N CARBON DIOXIDE (test code = CO2) 24 mEq/L 22-31 N ANION GAP (test code = GAP) 14.10 10-20 N GLUCOSE (test code = GLU) 75 mg/dL 65-110 N BLOOD UREA NITROGEN (test co de = BUN) 9 mg/dL 7-18 N GLOMERULAR FILTRATION RATE ( test code = GFR) 146 ml/min >60 N CREATININE (test code = CREAT) 0.5 mg/dL 0.5-1.0 N TOTAL PROTEIN (test code = PROT) 6.6 gm/dL 6.3-8.2 N ALBUMIN (test code = ALB) 2.3 gm/dL 3.4-4.8 L CALCIUM (test code = CA) 8.6 mg/dL 8.4-10.2 N BILIRUBIN TOTAL (test code = BILT) 0.3 mg/dL 0.2-1.0 N SGOT/AST (test code = AST) 22 units/L 15-37 N SGPT/ALT (test code = ALT) 18 units/L 12-78 N ALKALINE PHOSPHATASE TOTAL ( test code = ALKP) 517 units/L 46-116 H URIC [id number] 18:13:00* Test Item Value Reference Range Interpretation Comme nts URIC ACID (test code = URIC) 4.8 mg/dL 2.6-6.0 N LACTIC DEHYDROGENASE(LDH)2021-10-31 18:13:00* Test Item Value Reference Range Interpretation Comme nts LACTIC DEHYDROGENASE(LDH) (t est code = LDH) 267 units/L 81-234 H URINALYSIS [id number] 17:54:00* Test Item Value Reference Range Interpretation Comme nts UA COLOR (test code = COLU) YELLOW YELLOW UA APPEARANCE (test code = APPU) CLEAR CLEAR UA GLUCOSE DIPSTICK (test co de = DGLUU) NEGATIVE NEG UA BILIRUBIN DIPSTICK (test code = BILU) NEGATIVE NEG UA KETONE DIPSTICK (test cod e = KETU) NEGATIVE NEG UA SPECIFIC GRAVITY (test co de = SGU) 1.015 1.001-1.035 N UA BLOOD DIPSTICK (test code = TABBY) NEG NEG UA PH DIPSTICK (test code = JOSEPH) 6.0 5-9 UA PROTEIN DIPSTICK (test co de = PROU) NEGATIVE NEG UA UROBILINIOGEN DIPSTICK (test code = URO) NEGATIVE mg/dL NEG UA NITRITE DIPSTICK (test co de = RITIKA) NEG NEG UA LEUKOCYTE ESTERASE DIPSTI CK (test code = LEUU) NEG NEG UA WBC (test code = WBCU) 0-2 #/hpf NONE SEEN UA RBC (test code = RBCU) 0-2 #/hpf NONE SEEN UA EPITHELIAL CELLS (test co de = EPIU) RARE #/HPF RARE-FEW UA BACTERIA (test code = BACU) FEW /HPF RARE-FEW UA MUCUS (test code = MUCU) RARE NONE SEEN URINE SAMPLE: CLEAN CATCHUR PROTEIN/CREATININE [id number] 17:54:00* Test Item Value Reference Range Interpretation Comme nts UR PROTEIN RANDOM (test code = PROTU) 19.1 mg/dL UR CREATININE RANDOM (test code = CREATU) 78.7 mg/dL PROTEIN/CREATININE RATIO (te st code = P/CRATIO) 242.6 mg/gcrea <200 H URINE SAMPLE: CLEAN CATCHCBC W/AUTO [id number] 17:40:00* Test Item Value Reference Range Interpretation Comme nts WHITE BLOOD CELL (test code = WBC) [...] pg 27.3-33.9 L MEAN CELL HGB CONCETRATION ( test code = MCHC) 31.2 gm/dL 32.0-34.2 L RED CELL DISTRIBUTION WIDTH (test code = RDW) 13.4 % 12.2-16.3 N PLATELET COUNT (test code = PLT) 281 K/mm3 134-363 N MEAN PLATELET VOLUME (test c ode = MPV) 10.2 fL 9.2-12.7 N NEUTROPHIL % (test code = NT%) 67.8 [...] = BA#) 0.0 K/mm3 RBC MORPHOLOGY REQUIRED (hugh t code = RBCM) NORMAL NORMAL PLATELET MORPHOLOGY REQUIRED (test code = PLTMR) NORMAL NORMAL Urinalysis macro (dipstick) panel - [id number] 13:49:32* Test Item Value Reference Range Interpretation Comme nts Protein (test code = Protein) Negative Glucose (test code = Glucose) Negative [facility] MedicalHIV 1+2 Ab+HIV1 p24 Ag [Presence] in Serum or Plasma by [id number] 00:00:00* Test Item Value Reference Range Interpretation Comme nts ethnicity: (test code = ethnicity:) other race: (test code = race:) white () HIV Ag/Ab (test code = HIV Ag/Ab) non-reactive non-reactive [facility] MedicalReagin Ab [Presence] in Serum by [id number] 00:00:00* Test Item Value Reference Range Interpretation Comme nts ethnicity: (test code = ethnicity:) other race: (test code = race:) other RPR (test code = RPR) non-reactive non-reactive [facility] MedicalPOCT GRP A STREP (MOLECULAR)2021-10-25 15:42:00* Test Item Value Reference Range Interpretation Comme nts POCT GP A STREP (test code = 00137-0) negative Negative - Negative [facility]stick[facility] - Urine 2021-10-14 14:45:15* Test Item Value Reference Range Interpretation Comme nts Protein (test code = Protein) Trace Glucose (test code = Glucose) Normal [facility] [id number] 12:09:00* Test Item Value Reference Range Interpretation Comme nts LIPASE (test code = LIP) 134 units/L 73-393 N COMPREHENSIVE METABOLIC [id number] 12:09:00* Test Item Value Reference Range Interpretation Comme nts SODIUM (test code = NA) 139 mEq/L 135-145 N POTASSIUM (test code = K) 3.9 mEq/L 3.5-5.0 N CHLORIDE (test code = CL) 105 mEq/L 100-115 N CARBON DIOXIDE (test code = CO2) 25 mEq/L 22-31 N ANION GAP (test code = GAP) 12.80 10-20 N GLUCOSE (test code = GLU) 94 mg/dL 65-110 N BLOOD UREA NITROGEN (test co de = BUN) 8 mg/dL 7-18 N GLOMERULAR FILTRATION RATE ( test code = GFR) 189 ml/min >60 N CREATININE (test code = CREAT) 0.4 mg/dL 0.5-1.0 L TOTAL PROTEIN (test code = PROT) 6.2 gm/dL 6.3-8.2 L ALBUMIN (test code = ALB) 2.7 gm/dL 3.4-4.8 L CALCIUM (test code = CA) 8.0 mg/dL 8.4-10.2 L BILIRUBIN TOTAL (test code = BILT) 0.2 mg/dL 0.2-1.0 N SGOT/AST (test code = AST) 15 units/L 15-37 N SGPT/ALT (test code = ALT) 17 units/L 12-78 N ALKALINE PHOSPHATASE TOTAL ( test code = ALKP) 100 units/L 46-116 N [id number] 12:09:00* Test Item Value Reference Range Interpretation Comme nts AMYLASE (test code = MITCHELL) 68 units/L 30-110 N URINALYSIS [id number] 10:59:00* Test Item Value Reference Range Interpretation Comme nts UA COLOR (test code = COLU) YELLOW YELLOW UA APPEARANCE (test code = APPU) Slightly-Cloudy CLEAR UA GLUCOSE DIPSTICK (test code = DGLUU) NEGATIVE NEG UA BILIRUBIN DIPSTICK (test code = BILU) NEGATIVE NEG UA KETONE DIPSTICK (test cod e = KETU) NEGATIVE NEG UA SPECIFIC GRAVITY (test code = SGU) 1.024 1.001-1.035 N UA BLOOD DIPSTICK (test code = TABBY) NEG NEG UA PH DIPSTICK (test code = JOSEPH) 6.0 5-9 UA PROTEIN DIPSTICK (test code = PROU) NEGATIVE NEG UA UROBILINIOGEN DIPSTICK (test code = URO) 4.0 mg/dL NEG A UA NITRITE DIPSTICK (test code = RITIKA) NEG NEG UA LEUKOCYTE ESTERASE DIPSTICK (test code = LEUU) NEG NEG UA WBC (test code = WBCU) 3-5 #/hpf NONE SEEN A UA RBC (test code = RBCU) 3-5 #/hpf NONE SEEN A UA EPITHELIAL CELLS (test code = EPIU) RARE #/HPF RARE-FEW UA BACTERIA (test code = BACU) FEW /HPF RARE-FEW UA MUCUS (test code = MUCU) 1+ NONE SEEN URINE SAMPLE: CLEAN CATCHCBC W/AUTO [id number] 10:39:00* Test Item Value Reference Range Interpretation Comme nts WHITE BLOOD CELL (test code = WBC) [...] pg 27.3-33.9 N MEAN CELL HGB CONCETRATION ( test code = MCHC) 33.3 gm/dL 32.0-34.2 N RED CELL DISTRIBUTION WIDTH (test code = RDW) 12.2 % 12.2-16.3 N PLATELET COUNT (test code = PLT) 258 K/mm3 134-363 N MEAN PLATELET VOLUME (test c ode = MPV) 8.6 fL 9.2-12.7 L NEUTROPHIL % (test code = NT%) 73.1 [...] = BA#) 0.0 K/mm3 RBC MORPHOLOGY REQUIRED (hugh t code = RBCM) NORMAL NORMAL PLATELET MORPHOLOGY REQUIRED (test code = PLTMR) NORMAL NORMAL - US FET BIO PH [place] W/O [id number] 00:00:00 [facility] 1990 Sex: F Patient Name: DOMONIQUE MCCURDY Unit No: [id number] EXAMS: CPT CODE: [id number] US FET BIO [place] W/[place] NST 09811 PROCEDURE INFORMATION: Exam: US Biophysical Profile Without Non-Stress Test Exam date and time: 08/17/2021 12:38 PM Age: 31 years old Clinical indication: Other: decals in office; ; Additional info: 26 weeks heart deceleration TECHNIQUE: Imaging protocol: US biophysical profile without non-stress testing. COMPARISON: CT ABD PELVIS W/O CONT 03/27/2017 10:27 AM FINDINGS:Presentation: Patel viable intrauterine gestation is demonstrated in breech presentation. Spontaneous movement is noted with regular heart rhythm and a heart rate of 128 bpm. Amniotic fluidindex: The biophysical profile score of 8/8 is [...] and signed by: Noam Castillo MD CC: Anastasiya Bermudez III, MD; Rufino Cuadra Technologist: Mayra Sosa RDMS Probe: Trnscrbd D/ (1317) GCD.CPS Orig Print D/T:S: 08/17/2021 (1317) [facility] NAME: DOMONIQUE MCCURDY Radiology Department PHYS: Anastasiya Means III, MD [address] : 1990 AGE: 31 SEX: F [place] [id number] LOC: NiaELIANE PHONE #: [phone] EXAM DATE: 08/17/2021 STATUS: REG ER FAX #: [phone] RAD NO: Page 1 Signed Report Patient Name: DOMONIQUE MCCURDY Unit No: [id number] EXAMS: CPT CODE: [id number] US FET BIO PH [place] W/O NST 08292 (Continued) [facility] NAME: DOMONIQUE MCCURDY Radiology Department PHYS: Anastasiya Means III, MD [address] : 1990 AGE: 31 SEX: F [place] [id number] LOC: NiaELIANE PHONE #: [phone] EXAM DATE: 08/17/2021 STATUS: REG ER FAX #: [phone] RAD NO: Page 2 Signed ReportCHEM [id number] 19:51:00* Test Item Value Reference Range Interpretation Comme nts Glucose Lvl (test code = Glucose Lvl) 121 70-99 BUN (test code = BUN) 10 7-22 Creatinine Lvl (test code = Creatinine Lvl) 0.73 0.50-1.40 Sodium Lvl (test code = Sodium Lvl) 139 135-145 Potassium Lvl (test code = P otassium Lvl) 3.5 3.5-5.1 Chloride Lvl (test code = Chloride Lvl) 107 95-109 CO2 (test code = CO2) 28 24-32 Calcium Lvl (test code = Calcium Lvl) 9.4 8.5-10.5 Total Protein (test code = T otal Protein) 8.0 6.4-8.4 Albumin Lvl (test code = Albumin Lvl) 4.1 3.5-5.0 ALT (test code = ALT) 19 <=65 AST (test code = AST) 15 <=37 Alk Phos (test code = Alk Phos) 79 39-136 Bili Total (test code = Bili Total) 0.3 0.2-1.3 AGAP (test code = AGAP) 7.5 10.0-20.0 B/C Ratio (test code = B/C Ratio) 14 1 6-25 Globulin (test code = Globulin) 3.9 2.7-4.2 A/G Ratio (test code = A/G Ratio) 1.1 1 0.7-1.6 eGFR (test code = eGFR) 113 [facility] [id number] 19:51:00* Test Item Value Reference Range Interpretation Comme nts U Amph Scr (test code = U Amph Scr) Negative *NA*(12/17/19 1:51 PM) U Lorenza Scr (test code = U Lorenza Scr) Negative *NA*(12/17/19 1:51 PM) U Benzodiaz Scr (test code = U Benzodiaz Scr) Negative *NA*(12/17/19 1:51 PM) U Cocaine Scr (test code = U Cocaine Scr) Negative *NA*(12/17/19 1:51 PM) U Cannab Scr (test code = U Cannab Scr) Negative *NA*(12/17/19 1:51 PM) U Opiate Scr (test code = U Opiate Scr) Negative *NA*(12/17/19 1:51 PM) U Phencyclidine Scr (test code = U Phencyclidine Scr) Negative *NA*(12/17/19 1:51 PM) UDS Note (test code = UDS Note) See Note *NA*(12/17/19 1:51 PM) [id number] 19:51:00* Test Item Value Reference Range Interpretation Comme nts WBC (test code = WBC) 6.9 3.7-10.4 RBC (test code = RBC) 4.50 4.20-5.40 Hgb (test code = Hgb) 13.2 12.0-16.0 Hct (test code = Hct) 39.6 36.0-48.0 MCV (test code = MCV) 88.1 80.0-98.0 MCH (test code = MCH) 29.4 pg 27.0-31.0 MCHC (test code = MCHC) 33.4 32.0-36.0 RDW (test code = RDW) 12.6 11.5-14.5 Platelet (test code = Platelet) 304 133-450 MPV (test code = MPV) 6.9 7.4-10.4 Segs (test code = Segs) 57.3 45.0-75.0 Lymphocytes (test code = Lymphocytes) 36.8 20.0-40.0 Monocytes (test code = Monocytes) 4.0 2.0-12.0 Eosinophils (test code = Eosinophils) 1.5 <=4.0 Basophils (test code = Basophils) 0.4 <=1.0 Neutrophils # (test code = Neutrophils #) 3.9 1.5-8.1 Lymphocytes # (test code = Lymphocytes #) 2.5 1.0-5.5 Monocytes # (test code = Monocytes #) 0.3 <=0.8 Eosinophils # (test code = Eosinophils #) 0.1 <=0.5 [facility] [id number] 19:51:00* Test Item Value Reference Range Interpretation Comme nts Acetaminoph Lvl (test code = Acetaminoph Lvl) (12/17/19 1:51 PM) 10-20 Ethanol Lvl (test code = Ethanol Lvl) no gt Etoh (%) (test code = Etoh (%)) no gt Salicylate Lvl (test code = Salicylate Lvl) no gt <=30.0 [facility] [id number] 19:51:00* Test Item Value Reference Range Interpretation Comme nts U Preg (test code = U Preg) Negative (12/17/19 1:51 PM) [facility] Sarthak Notes Date/Time Note Provider Source 2025-01-21 14:22:14 Pt has been scheduled, offered a week sooner appt pt declined due to times. Pt has been scheduled [facility] Kat Scott [facility] 2025-01-20 09:30:26 Domonique Mccurdy is a 34 year old female calling to pgy1 appt. Please contact patient at [phone] (home) Y Castellano [facility] 2022-10-06 13:22:00 [facility] ([facility]) EMERGENCY PROVIDER REPORT REPORT#:[id number] REPORT STATUS: Signed DATE:10/06/22 TIME:1322 PATIENT: DOMONIQUE MCCURDY UNIT #: [id number] ROOM/BED: : 92 AGE: 32 SEX: F PCP PHYS: Rufino Cuadra MD SERVICE AUTHOR: Kirit Benitez DO * ALL edits or amendments must be made on the electronic/computer document * HPI- Female General Confirmed Patient [...] Associated with Denies: Abdominal pain, Chills, Constipation, Fever, Nausea, Rash, Vomiting. Exacerbated by Nothing Relieved by Nothing Free Text HPI Notes Free Text HPI Notes Reports several days ago she developed a vaginal yeast infection. Took fluconazole with some improvement. Using qkxr-eay-hiifjiq topical medication now. Denies concern for sexually transmitted infection. Risk- Female Risk Stratification Ectopic Risk factors reviewed Review of Systems ROS Statements Complete sys rev neg except as marked. Focused Review of Systems Constitutional Denies: Chills, Fever, Lethargy. GI Denies: Abdominal pain, Diarrhea, Nausea, Vomiting. Female Reports: Dysuria. Denies: Flank pain, Hematuria, Pelvic pain, , Urinary frequency, Urinary urgency, Urination decreased, Urination increased, Vaginal bleeding - abnl. Musculoskeletal Denies: Back pain, Extremity pain. Endocrine Denies: Polyuria, Weight loss. Skin Denies: Diaphoresis, Rash. Neurologic Denies: Change LOC, Dizziness, Focal weakness, Headache, Numbness, Slurred speech. Past Medical History - Adult Stated Complaint BURNING WITH URINATION X 1 WEEK Allergies Coded Allergies: No Known Allergies (10/06/22) Home Medications Reported Medications SERTRALINE (ZOLOFT) 25 MG PO DAILY ESOMEPRAZOLE MAG DR (NexIUM) 40 MG PO DAILY PNV WITH FE FUMARATE/FA () 1 TAB PO DAILY Additional Medical History denies Past Surgical History: Reports: Cholecystectomy, , Tonsillectomy. Alcohol Use Denies EtOH use Drug Use Denies recreational drugs Other Social History Local resident Physical Exam Vital Signs Vital Signs First Documented: Result Date Time Pulse Ox 100 10/06 1355 B/P 128/82 10/06 1355 B/P Mean 97 10/06 1355 O2 Delivery Room air 10/06 135 Temp 98.1 10/06 1355 Pulse 78 10/06 1355 Resp 17 10/06 1355 Last Documented: Result Date Time Pulse Ox 100 10/06 1532 B/P 115/79 10/06 1532 B/P Mean 91 10/06 1532 O2 Delivery Room air 10/06 1532 Pulse 75 10/06 1532 Resp 16 10/06 1532 Temp 98.1 10/06 1355 Review of Vital Signs Reviewed Focused PE General/Const General/Const Awake, Alert, Well appearing Resp/Chest Respiratory/Chest Breath sounds NL, Breath sounds = bilat, No respiratory distress, No rales, No rhonchi, No wheezing Cardiovascular Cardiovascular Heart rate NL, Regular rhythm, Heart sounds NL, Peripheral circulation NL Abdomen/GI Abdomen/GI Soft, Non-tender, No guarding, No rebound MS Back Back Inspection NL, Non-tender, No CVA tenderness Skin Skin Color NL, No rash, Warm, Dry, Turgor NL Additional PE MS Head Head Atraumatic, Normocephalic Eyes Eyes PERRL, EOMI Interpretation Diagnostics Lab Results Interpretation Results Laboratory Tests: 10/06 1345 Urines Urine Color (YEL/STRAW discript) YELLOW Urine Appearance (CLEAR discript) CLEAR Urine pH (5.0 - 7.0 pH UNITS) 6.0 Ur Specific Valentine (1.005 - 1.030 SG) >=1.030 H Urine Protein (NEG mg/dL) NEGATIVE Urine Glucose (UA) (NEG mg/dL) NEGATIVE Urine Ketones (NEG mg/dL) NEGATIVE Urine Blood (NEG mg/DL) NEGATIVE Urine Nitrite (NEG SCREEN) NEGATIVE Urine Bilirubin (NEG mg/dL) NEGATIVE Urine Urobilinogen (<2.0 mg/dL) 0.2 Ur Leukocyte Esterase (NEGATIVE Leuk/mcL) NEGATIVE Re-Evaluation MDM Re-Evaluation/Progress Re-Evaluation/Progress Text/Dict Note Remains well-appearing. No additional complaints. Physical exam unchanged. Time of Re-Eval 1435 [...] Ox 100 10/06 1532 B/P 115/79 10/06 1532 B/P Mean 91 10/06 1532 O2 Delivery Room air 10/06 1532 Pulse 75 10/06 1532 Resp 16 10/06 1532 Temp 98.1 10/06 1355 All vital signs available at the time of this entry have been reviewed. Clinical Impression Clinical Impression Primary Impression: Dysuria Disposition Decision Discharge )( Discharged to Home Yes )( Time 1442 )( Date 10/06/22 Discharge/Care Plan Counseled Regarding Diagnosis, Lab results, Prescriptions, Need for follow-up, When to return to ED (Auto) Prescriptions Current Visit Scripts FLUCONAZOLE (DIFLUCAN) 150 MG PO ONCE FLUCONAZOLE (DIFLUCAN) 150 MG PO ONCE #1 TAB PHENAZOPYRIDINE (PYRIDIUM) 100 MG PO Q8H PRN PRN DYSURIA PHENAZOPYRIDINE (PYRIDIUM) 100 MG PO Q8H PRN PRN DYSURIA #6 TABS TAKE AFTER MEALS. Patient Instructions ED EDGAR VAGINITIS, ED Dysuria, Uncertain Cause (Adult) Additional Instructions Follow-up with your primary care physician in 5 to 7 days at 1810 RPT #: [id number] END OF REPORT HCAPM 2021-11-12 13:22:00 [facility] ([facility]) OB Postpart Progr Note REPORT#:[id number] REPORT STATUS: Signed DATE:11/12/21 TIME: 1322 PATIENT: DOMONIQUE MCCURDY UNIT #: [id number] ROOM/BED: 2208- : [birth year] AGE: 31 SEX: F ATTEND: Rufino Cuadra MD ADM AUTHOR: Cristian Conner MD * ALL edits or amendments must be made on the electronic/computer document * Subjective Subjective Admission EGA: Weeks: 36 Days: 4 EGA at delivery (wks/days): 37 weeks Status/day: post (Day 4) Patient reports: Patient reports: Yes: normal lochia, pain management effective, tolerating po well, voiding well, tolerating ambulation. No: complaints. Objective Nursing Documentation Review Nursing data: The data set between the solid lines has been imported from nursing documentation. Any exceptions have been noted below under Provider comments. Feeding preference: Post hemorrhage [...] ASDIR IV (CKD) Undefined Medication (MAGNESIUM SULFATE 20GM/SWFI 500ML) 500 ML ASDIR IV (CKD) Labetalol HCl (NORMODYNE 100 MG/20 ML VIAL) 20 MG ONCE PRN IV Labetalol HCl (NORMODYNE 100 MG/20 ML VIAL) 40 MG ASDIR PRN IV Labetalol HCl (NORMODYNE 100 MG/20 ML VIAL) 80 MG ASDIR PRN IV Nifedipine (PROCARDIA XL 30 MG) 30 MG DAILY PO Docusate Sodium (DOCUSATE SODIUM 100 MG CAP) 200 MG BEDTIME PO Acetaminophen/Codeine Phosphate (ACETAMINOPHEN/CODEINE TAB. #3) 2 TAB Q4H PRN PRN PO Benzocaine (AMERICAINE) 1 APPLIC DAILY PRN PRN TOPICAL (CKD) Diphtheria/Pertussis/Tetanus Vacc (ADACEL VACCINE) 0.5 ML BEFORE DISCHG IM Docusate Sodium (DOCUSATE SODIUM 100 MG CAP) 100 MG BID PRN PRN PO Hydrocortisone/Pramoxine (ANALPRAM HC 2.5% CRM SINGLES) 1 GM ASDIR PRN TOPICAL (CKD) Ibuprofen (IBUPROFEN 600 MG TAB) 600 MG Q6H PRN PRN PO Lactated Ringer's (LACTATED RINGERS) 1,000 ML ASDIR IV Magnesium Hydroxide (MILK OF MAGNESIA 30 ML UD) 30 ML BID PRN PRN PO Measles/Mumps/Rubella Vaccine Live (M-M-R II VACCINE W DILUENT) 1 VIAL BEFORE DISCHG PRN SUBQ Methylergonovine Maleate (METHERGINE 0.2 MG/ML 1 ML AMP) 0.2 MG ASDIR PRN IM Ondansetron HCl (ZOFRAN 4 MG UD TAB) 4 MG Q8H PRN PRN PO Polyethylene Glycol (POLYETHYLENE GLYCOL PKT) 17 GM DAILY PRN PRN PO Promethazine HCl (PROMETHAZINE HCL) 25 MG Q6H PRN PRN PO Tranexamic Acid (Tranexamic Acid) 1,000 MG ASDIR PRN IV Sodium Chloride (SODIUM CHLORIDE 0.9% 100 ML ADD-Allamuchy) 100 ML Witch Giovana/Glycerin (A-E-R) 1 APPLIC ASDIR PRN TOPICAL Physical Exam Neuro: Exam: alert, oriented x3 Abdomen: soft, no abnormal tenderness, no guarding Uterus: involution appropriate, non-tender Lochia: normal Lacerations: Perineal laceration(s): None Result Findings/data: Laboratory Tests: 11/12 0550 Chemistry POC Glucose (65 - 110 mg/dL) 88 Results: no new labs, vital signs stable Diagnosis, Assessment Plan Diagnosis, Assessment Plan Assessment: nml progress, gest diabetes, no meds, preeclampsia Plan: routine care, discharge today Plan discussed with: patient at 1323 RPT #:[id number] END OF REPORT [facility] 2021-11-11 07:54:00 [facility] ([facility]) OB Postpart Progr Note REPORT#:[id number] REPORT STATUS: Signed DATE:11/11/21 TIME: 0754 PATIENT: DOMONIQUE MCCURDY UNIT #: [id number] ROOM/BED: [address] : 92 AGE: 31 SEX: F ATTEND: Rufino Cuadra MD ADM AUTHOR: Rufino Cuadra MD * ALL edits or amendments must be made on the electronic/computer document * Subjective Subjective Admission EGA: Weeks: 36 Days: 4 EGA at delivery (wks/days): 37 weeks Status/Day: post (d4) Patient reports: Patient reports: Yes pain management effective, Yes tolerating po well Comments: c/o feeling hot, sluggish, blurred vision with mag Objective Nursing Documentation Review Nursing Data: The data set between the solid lines has been imported from nursing documentation. Any exceptions have been noted below under Provider comments. Feeding preference: Post hemorrhage risk score: High Risk for Hemorrhage. Provider comments on imported nursing data: [] General VS: Vital Signs: Date Time Temp Pulse Resp B/P B/P Pulse O2 O2 Flow FiO2 Mean Ox Delivery Rate 11/11 0600 [...] 104.0 11/10 2300 66 18 146/82 99 12/16 2200 112.0 11/10 2200 70 18 146/95 99 11/10 2100 112.0 11/10 2100 80 18 146/95 98 11/10 2000 108.0 11/10 2000 97.6 78 18 142/91 95 11/10 1900 103.0 11/10 1900 86 18 133/88 97 11/10 1800 80 18 140/91 99 11/10 1700 70 18 109/72 99 11/10 1500 72 18 99 11/10 1400 70 18 132/91 99 16 1300 70 18 144/92 99 11/10 1200 [...] Diagnosis, Assessment Plan Assessment: nml progress, gest diabetes, no meds, preeclampsia Plan: routine care, discharge tomorrow, complete 24 hr mag this AM. start procardia. BPs non severe. at 0755 RPT #:[id number] END OF REPORT [facility] 2021-11-10 08:18:00 [facility] ([facility]) OB Postpart Progr Note REPORT#:[id number] REPORT STATUS: Signed DATE:11/10/21 TIME: 817 PATIENT: DOMONIQUE MCCURDY UNIT #: [id number] ROOM/BED: [address] : 92 AGE: 31 SEX: F ATTEND: Rufino Cuadra MD ADM AUTHOR: Rufino Cuadra MD * ALL edits or amendments must be made on the electronic/computer document * Subjective Subjective Admission EGA: Weeks: 36 Days: 4 EGA at delivery (wks/days): 37 weeks Status/Day: post (d3) Patient reports: Patient reports: Yes pain management effective, Yes tolerating po well, Yes tolerating ambulation, Yes headache Comments: c/o swelling Objective Nursing Documentation Review Nursing Data: The data set between the solid lines has been imported from nursing documentation. Any exceptions have been noted below under Provider comments. Feeding preference: Post hemorrhage risk score: High Risk for Hemorrhage. Provider comments on imported nursing data: [] General VS: Vital Signs: Date Time Temp Pulse Resp B/P B/P Pulse O2 O2 Flow FiO2 Mean Ox Delivery Rate 11/10 0700 [...] 97.9 11/09 1720 98.8 71 20 144/91 12/15 1710 76 149/85 11/09 1432 87 136/90 [...] (Auto) (14.5 - 29.7 %) 40.1 H [place]on % (Auto) (3.6 - 10.2 %) 7.8 Eos % (Auto) (0.0 - 3.0 %) 0.9 Baso % (Auto) (0.1 - 0.9 %) 0.3 Neut # (Auto) (K/mm3) 4.5 Lymph # (Auto) (K/mm3) 3.6 [place] # (Auto) (K/mm3) 0.7 Eos # (Auto) (K/mm3) 0.08 Baso # (Auto) (K/mm3) 0.0 Diagnosis, Assessment Plan Diagnosis, Assessment Plan Assessment: nml progress, gest diabetes, no meds, preeclampsia Plan: routine care, BPs labile, occ severe range. rec'd procardia and IV labetalol. will start mag. labs wnl. at 0820 RPT #:[id number] END OF REPORT [facility] 2021-11-10 06:44:00 [facility] ([facility]) Clinical Note REPORT#:[id number] REPORT STATUS: Signed DATE:11/10/21 TIME: 06 PATIENT: DOMONIQUE MCCURDY UNIT #: [id number] ROOM/BED: [address] : 92 AGE: 31 SEX: F ATTEND: Rufino Cuadra MD ADM AUTHOR: Clifford Alvarado MD * ALL edits or amendments must be made on the electronic/computer document * Clinical Note Note: Cross Cover Note Called by RN regarding severe range BP. Pt had 1 time dose of nifedipine 30mg ER by RN in AM with improvement. Orders given for nifedipine 30mg ER to be given and continue daily. Initial improvement in BPs, then BPs again severe range, instructed RN to start IV and start labetalol protocol. Per discharge planner, pt to transferred to [facility] due to BP control issues. Orders given. Called again by RN due to elevated/non-severe range BPs. Pt became upset when RN told her she needs to try to sleep and relax. Instructions given to monitor BPs, recheck in 1 hour, restart protocol if severe range BPs present at 0646 RPT #:[id number] END OF REPORT [facility] 2021-11-09 12:54:00 [facility] ([facility]) OB Postpart Progr Note REPORT#:[id number] REPORT STATUS: Signed DATE:11/09/21 TIME: 1254 PATIENT: DOMONIQUE MCCURDY UNIT #: [id number] ROOM/BED: [address] : 92 AGE: 31 SEX: F ATTEND: Rufino Cuadra MD ADM AUTHOR: Rufino Cuadra MD * ALL edits or amendments must be made on the electronic/computer document * Subjective Subjective Admission EGA: Weeks: 36 Days: 4 EGA at delivery (wks/days): 37 weeks Status/Day: post (d2) Patient reports: Patient reports: Yes no complaints, Yes pain management effective, Yes tolerating po well, No abdominal pain, No headache, No blurred vision Objective Nursing Documentation Review Nursing Data: The data set between the solid lines has been imported from nursing documentation. Any exceptions have been noted below under Provider comments. Feeding preference: Post hemorrhage [...] Diagnosis, Assessment Plan Assessment: nml progress, gest diabetes, no meds, preeclampsia Plan: routine care, BP elevated today. started po nifedipine. labs pending. restart zoloft. at 1255 RPT #:[id number] END OF REPORT [facility] 2021-11-08 10:33:00 [facility] ([facility]) OB Postpart Progr Note REPORT#:[id number] REPORT STATUS: Signed DATE:11/08/21 TIME: 1033 PATIENT: DOMONIQUE MCCURDY UNIT #: [id number] ROOM/BED: [address] : 92 AGE: 31 SEX: F ATTEND: Rufino Cuadra MD ADM AUTHOR: Rufino Cuadra MD * ALL edits or amendments must be made on the electronic/computer document * Subjective Subjective Admission EGA: Weeks: 36 Days: 4 EGA at delivery (wks/days): 37 weeks Status/Day: post (d1) Patient reports: Patient reports: Yes no complaints, Yes pain management effective, Yes tolerating po well Objective Nursing Documentation Review Nursing Data: The data set between the solid lines has been imported from nursing documentation. Any exceptions have been noted below under Provider comments. Feeding preference: Post hemorrhage risk score: High Risk for Hemorrhage. Provider comments on imported nursing data: [] General VS: Vital Signs: Date Time Temp Pulse Resp B/P B/P Pulse O2 O2 Flow FiO2 Mean Ox Delivery Rate 11/08 0006 98.5 76 19 133/87 11/07 2020 108.0 11/07 2020 98.4 78 20 143/90 11/07 1827 109.0 11/07 1827 74 149/84 11/07 1812 112.0 11/07 1812 86 149/88 11/07 1757 98.1 11/07 1757 120.0 11/07 1757 71 165/92 11/07 1742 113.0 11/07 1742 79 148/91 11/07 1727 115.0 11/07 1727 70 152/89 11/07 1713 108.0 11/07 1713 80 150/87 11/07 1657 106.0 11/07 1657 67 143/82 11/07 1642 112.0 11/07 1642 76 141/91 11/07 1627 108.0 11/07 1627 84 137/88 11/07 1559 119.0 11/07 1559 75 158/93 11/07 1544 120.0 11/07 1544 77 158/94 11/07 1528 122.0 11/07 1528 78 162/98 11/07 1513 118.0 11/07 1513 75 156/95 11/07 1459 114.0 11/07 1459 75 148/91 11/07 1443 123.0 11/07 1443 77 161/96 11/07 1431 97.8 11/07 1424 108.0 11/07 1424 71 142/84 11/07 1419 105.0 11/07 1419 73 138/85 11/07 1414 108.0 11/07 1414 79 141/86 11/07 1409 111.0 11/07 1409 74 141/88 11/07 1405 115.0 11/07 1405 73 158/86 11/07 1359 110.0 11/07 1359 77 138/92 11/07 1354 106.0 11/07 1354 75 136/85 11/07 1349 113.0 12/13 1349 77 141/95 11/07 1344 109.0 11/07 1344 75 135/91 11/07 1340 105.0 11/07 1340 72 135/85 11/07 1334 109.0 11/07 1334 76 147/81 11/07 1310 114.0 11/07 1310 81 150/90 11/07 1207 107.0 11/07 1207 80 138/88 11/07 1107 106.0 11/07 1107 80 131/89 PATIENT WEIGHT: Weight (lb): [...] % (Auto) (14.5 - 29.7 %) 26.0 [place]on % (Auto) (3.6 - 10.2 %) 8.1 Eos % (Auto) (0.0 - 3.0 %) 0.5 Baso % (Auto) (0.1 - 0.9 %) 0.2 Neut # (Auto) (K/mm3) 5.3 Lymph # (Auto) (K/mm3) 2.1 [place] # (Auto) (K/mm3) 0.7 Eos # (Auto) (K/mm3) 0.04 Baso # (Auto) (K/mm3) 0.0 Serology Rubella Screen (IUnit/ml) 63.5 Diagnosis, Assessment Plan Diagnosis, Assessment Plan Assessment: nml progress Plan: routine care, discharge tomorrow at 1034 RPT #:[id number] END OF REPORT [facility] 2021-11-07 16:56:00 [facility] ([facility]) OB Delivery Note REPORT#:[id number] REPORT STATUS: Signed DATE:11/07/21 TIME: 1655 PATIENT: DOMONIQUE MCCURDY UNIT #: [id number] ROOM/BED: [address] : 92 AGE: 31 SEX: F ATTEND: Rufino Cuadra MD ADM AUTHOR: Rufino Cuadra MD * ALL edits or amendments must be made on the electronic/computer document * OB Delivery Nursing Documentation Review Nursing data: The data set between the solid lines has been imported from nursing documentation. Any exceptions have been noted below under Provider comments. _ ROM date: 11/07/21 ROM time: 1257 Membranes rupture method: SROM Amniotic fluid color: Clear Amniotic fluid amount: Steroids prior to arrival: Antibiotic prophylaxis given: Post hemorrhage risk score: High Risk for Hemorrhage. Delivery date A: Delivery time infant A: Birthweight (gm) A: Weight (lb) infant A: Weight (oz) infant A: Gender infant A: Female 1 minute A: 5 minutes infant A: 10 minutes A: Cord pH obtained A: Vacuum time A: Vacuum # pulls A: Vacuum # popoffs infant A: QBL at delivery: __ Provider comments on imported nursing data: [] Pre-delivery GBS status: GBS status: positive evaluation at delivery: NRP certified personnel Admission EGA: Weeks: 36 Days: 4 EGA [...] No Mother's condition: mother stable 's condition: stable in room Lacerations: Perineal laceration(s): None Blood Loss/Details Blood loss at delivery: <1K: no sx hypovol=no hem (100), no more than expected at 7109 RPT #:[id number] END OF REPORT [facility] 2021-11-07 12:32:00 [facility] ([facility]) Clinical Note REPORT#:[id number] REPORT STATUS: Signed DATE:11/07/21 TIME: 1232 PATIENT: DOMONIQUE MCCURDY UNIT #: [id number] ROOM/BED: [address] : 92 AGE: 31 SEX: F ATTEND: Rufino Cuadra MD ADM AUTHOR: Rufino Cuadra MD * ALL edits or amendments must be made on the electronic/computer document * Clinical Note Note: pt transferred to [facility]. t 150s, Cat I. PCN started for GBS. pit initiated, ctx q5 min. plan for TOLAC, antic . at 1232 RPT #:[id number] END OF REPORT [facility] 2021-11-07 07:26:00 [facility] ([facility]) OB Antepartum Prog Note REPORT#:[id number] REPORT STATUS: Signed DATE:11/07/21 TIME: 725 PATIENT: DOMONIQUE MCCURDY UNIT #: [id number] ROOM/BED: [facility]- : 92 AGE: 31 SEX: F ATTEND: Rufino Cuadra MD ADM AUTHOR: Rufino Cuadra MD * ALL edits or amendments must be made on the electronic/computer document * Subjective Subjective Admission EGA: Weeks: 36 Days: 4 Patient reports: Comments: c/o swelling in face. c/o AMES, resolved with fioricet. c/o decreased FM x2 days. no VB/LOF/ctx. Objective Nursing Documentation Review Nursing data: The data set between the solid lines has been imported from nursing documentation. Any exceptions have been noted below under Provider comments. ROM date: ROM time: [...] Resp B/P B/P Mean Pulse Ox FiO2 11/06-11/07 98.3 73-88 16 130-155/80-95 98.0-116.0 98-99 PATIENT WEIGHT: Weight (lb): 172 Weight [...] FHT on monitoring. waiting on availability on for induction/TOLAC. at 0732 [facility] #:[id number] END OF REPORT [facility] 2021-11-06 16:57:00 [facility]) OB Antepartum Prog Note REPORT#:[id number] REPORT STATUS: Signed DATE:11/06/21 TIME: 165 PATIENT: DOMONIQUE MCCURDY UNIT #: [id number] ROOM/BED: [address] : 92 AGE: 31 SEX: F ATTEND: Rufino Cuadra MD ADM AUTHOR: Karina Parks MD * ALL edits or amendments must be made on the electronic/computer document * Subjective Subjective Admission EGA: Weeks: [...] Resp B/P B/P Mean Pulse Ox FiO2 11/05-11/06 97.7 71-95 16 126-159/80-95 98.0-116.0 97-98 PATIENT WEIGHT: Weight (lb): 172 Weight [...] monitor BPs and signs of labor while awaiting spot on L D at 1659 RPT #:[id number] END OF REPORT [facility] 2021-11-05 14:40:00 [facility] ([facility]) OB Antepartum Prog Note REPORT#:[id number] REPORT STATUS: Signed DATE:11/05/21 TIME: 1440 PATIENT: DOMONIQUE MCCURDY UNIT #: [id number] ROOM/BED: [address] : 92 AGE: 31 SEX: F ATTEND: Rufino Cuadra MD ADM AUTHOR: Jeni Rahman MD * ALL edits or amendments must be made on the electronic/computer document * Subjective Subjective Patient reports: Patient reports: Yes normal movement, Yes headache, No no complaints, No abdominal pain, No vaginal bleeding, No leaking fluid, No contractions, No blurred vision, No scotomata, No fever, No chills Comments: Pt worried b/c bp have not been an issue w/prev pregs- very concerned about needing "emergency c/s"... discussed; Objective Nursing Documentation Review Nursing data: The data set between the solid lines has been imported from nursing documentation. Any exceptions have been noted below under Provider comments. ROM date: ROM time: [...] 40 MG DAILY PO Multivit/Folic Acid/Iron ( Vitamin Tablet) 1 TAB DAILY PO Acetaminophen/Butalbital/Caffein e (Fioricet 50-300-40 MG Capsule) 1 EACH ONCE ONE PO [...] at 36.6, admitted w/gdm, elevated bp for 24h urine AMES today relieved w/fioricet and labetolol x1 dose (correlation w/angst and pain as causes of elevated bp discussed) at 1444 RPT #:[id number] END OF REPORT [facility] 2021-11-04 21:17:00 [facility] ([facility]) OB Admission / H P REPORT#:[id number] REPORT STATUS: Signed DATE:11/04/21 TIME: 2116 PATIENT: DOMONIQUE MCCURDY UNIT #: [id number] ROOM/BED: [facility] : 92 AGE: 31 SEX: F ATTEND: Rufino Cuadra MD ADM AUTHOR: Rufino Cuadra MD * ALL edits or amendments must be made on the electronic/computer document * OB History Chief complaint: uterine [...] negative GBS: positive Procedures: ultrasound, genetic testing, non stress test Past History Additional Medical History: denies Past Surgical History: Reports: Cholecystectomy, , Tonsillectomy. Alcohol Use Denies EtOH use Drug Use Denies recreational drugs Smoking status: Smoking status for patients 13 years old or older: Never Smoker Other Social History Local resident [...] other STD Vagina: normal, non-septated, w/o apparent lesions Cervical/ exam: Dilatation (cm): 3 Effacement (%): [...] % (Auto) (14.5 - 29.7 %) 25.6 [place] % (Auto) (3.6 - 10.2 %) 6.2 Eos % (Auto) (0.0 - 3.0 %) 0.4 Baso % (Auto) (0.1 - 0.9 %) 0.1 Neut # (Auto) (K/mm3) 4.7 Lymph # (Auto) (K/mm3) 1.8 [place] # (Auto) (K/mm3) 0.4 Eos # (Auto) (K/mm3) 0.03 Baso # (Auto) (K/mm3) 0.0 Diagnosis, Assessment Plan Diagnosis, Assessment Plan Free Text A P: 36.5 wks, elevated BPs, GDM, contractions, prev C/S x1, prev x1. observation for BPs, ctx. start 24 hr urine collection. plan for if labors, possible need for C/S d/w pt, understands. at 5096 RPT #:[id number] END OF REPORT [facility] 2021-10-31 17:18:00 [facility] ([facility]) Clinical Note REPORT#:[id number] REPORT STATUS: Signed DATE:10/31/21 TIME: 1718 PATIENT: DOMONIQUE MCCURDY UNIT #: [id number] ROOM/BED: : 92 AGE: 31 SEX: F ATTEND: Rufino Cuadra MD ADM DT: AUTHOR: Rufino Cuadra MD * ALL edits or amendments must be made on the electronic/computer document * Clinical Note Note: pt seen in [facility] for elevated BP at home assoc with AMES. reports feeling some mild tighening. no VB/LOF. good FM. reports BPs at home up and down, highest 149/99. BPs here 120-130s/80s. NST 130, Cat I. toco irreg. labs pending, but if wnl plan for d/c home, has appt Fri with sono. at 4429 RPT #:[id number] END OF REPORT [facility] 2021-08-17 10:25:00 [facility] ([facility]) EMERGENCY PROVIDER REPORT REPORT#:[id number] REPORT STATUS: Signed DATE:08/17/21 TIME: 1025 PATIENT: DOMONIQUE MCCURDY UNIT #: [id number] ROOM/BED: AGE: 31 SEX: F PCP PHYS: Rufino Cuadra MD SERVICE AUTHOR: Anastasiya Bermudez III, MD * ALL edits or amendments must be made on the electronic/computer document * ELIANE History Nursing Documentation Review Nursing data: ___ [facility] ELIANE 31 year old white female SAB 1 @ 26.1 weeks cc Nausea and vomiting HPI She has had mild lower ab cramping for about the past 4 days. The nausea started about 3 days ago. She did not vomit untill today, X 2. She does not recall eating food that may have upset her stomach. No diarrhea. No vaginal bleeding, not leaking amniotic fluid, endorses positive movements. care with Dr Cuadra. History of diet controlled GDM with this . Claims normal OB anatomy scan. 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 Family history Relation not specified for: Family History: Unremarkable Medications: Home Medications: Medication Dose/Rte/Freq Days Qty Entered Last Max Daily Dose Reviewed PNV WITH FE 1 TAB PO DAILY 08/17/21 FUMARATE/FA 0949 () Strength: 1 EACH TAB ASCORBIC ACID (VITAMIN C) 250 MG PO DAILY 08/17/21 Strength: 250 MG TAB [address] 20 MG PO DAILY 08/17/21 (NexIUM) 0950 [...] 4 MG ONCE ONE 08/17 1045 DC 08/17 (ZOFRAN 2 MG/ML 4 MG IV 08/17 1046 1045 SYR) Allergies Coded Allergies: No Known Allergies (08/17/21) Objective General VS: PATIENT WEIGHT: Weight (lb): 150 Weight (oz): Weight (kg): 68.876266 No acute distress, alert, normal affect Afebrile, 118/68, pulse 98 PUL Chest clear to auscultation, unlabored normal respirations CVR RRR AB Gravid, mild lower ab tenderness, no guarding SVE Deferred EXT No pathological pretibial edema, normal reflexes, no calf tenderness TOCO Uterine irritability initially FHT Category 2 initially, 140s with occasional mild variable decel with recovery I came to her room and introduced myself. H and P completed. Plan of care discussed. She was given IV hydration with Lactated Ringers and D 5 LR. Also given one dose of IV Zofran 4 mg. Symptoms improved. Urine culture ordered. FHT category one prior to discharge. [...] % (Auto) (14.5 - 29.7 %) 18.5 [place] % (Auto) (3.6 - 10.2 %) 7.7 Eos % (Auto) (0.0 - 3.0 %) 0.3 Baso % (Auto) (0.1 - 0.9 %) 0.1 Neut # (Auto) (K/mm3) 5.3 Lymph # (Auto) (K/mm3) 1.3 [place] # (Auto) (K/mm3) 0.6 Eos # (Auto) (K/mm3) 0.02 Baso # (Auto) (K/mm3) 0.0 Urines Urine Color (YELLOW) YELLOW Urine Appearance (CLEAR) Slightly-Cloudy Urine pH (5 - 9) 6.0 Ur Specific Valentine (1.001 - 1.035) 1.024 Urine Protein (NEG) [...] Impressions: ULTRASOUND - US FET BIO PH WY W/O NST 08/17 1230 Report Impression - Status: SIGNED Entered: 08/17/2021 1317 IMPRESSION: The biophysical profile score of 8/8 is normal. Impression By: [email or web address] - Noam Castillo MD BREECH, 07/03 BPP, 18.5 CM AARON, CERVIX [...] % (Auto) (14.5 - 29.7 %) 18.5 [place] % (Auto) (3.6 - 10.2 %) 7.7 Eos % (Auto) (0.0 - 3.0 %) 0.3 Baso % (Auto) (0.1 - 0.9 %) 0.1 Neut # (Auto) (K/mm3) 5.3 Lymph # (Auto) (K/mm3) 1.3 [place] # (Auto) (K/mm3) 0.6 Eos # (Auto) (K/mm3) 0.02 Baso # (Auto) (K/mm3) 0.0 Urines Urine Color (YELLOW) YELLOW Urine Appearance (CLEAR) Slightly-Cloudy Urine pH (5 - 9) 6.0 Ur Specific Valentine (1.001 - 1.035) 1.024 Urine Protein (NEG) [...] Impressions: ULTRASOUND - US FET BIO PH WY W/O NST 08/17 1230 Report Impression - Status: SIGNED Entered: 08/17/2021 1317 IMPRESSION: The biophysical profile score of 8/8 is normal. Impression By: [email or web address] - Noam Castillo MD Diagnosis, Assessment Plan Diagnosis, Assessment Plan Free Text A P: A IUP at 26.1 weeks Late nausea and vomiting in Previous c/section incidental state, history not in labor, reassuring fht P Symptoms improved after IV hydration, IV zofran. Cleared for discharge to home. [place] diet for the next 24 hours. Labor precautions. F/U with Dr Cuadra in 4 days, Sunday. All questions answered. Urine culture ordered jr at 1440 RPT #:[id number] END OF REPORT [facility]
[2025-03-31] MEDS ORDERED: NA CHLORIDE 0.9% 1,000 ML ONE (12:41)
[2025-03-31] MEDS ORDERED: ONDANSETRON 4 MG/2 ML VIAL ONE (12:41)
[2025-03-31 13:00] LABS: Absolute Eosinophils 0.1 K/uL (0-0.5); Absolute Lymphocytes (CBC) 2.4 K/uL (0.7-4.9); Absolute Monocytes 0.6 K/uL (0.1-1.3); Basophils % 0.5 % (0-1.3); Eosinophils % 1.3 % (0-4.4); Hematocrit 39.8 % (36.0-45.0); Hemoglobin 13.5 g/dL (12.0-15.0); Lymphocytes % 38.8 % (15.3-44.8); MCH 29.8 pg (27.0-35.0); MCHC 33.9 g/dL (32.0-36.0); MCV 87.9 fL (80-100); MPV 6.7 fL (7.6-11.3); Monocytes % 10.2 % (3.3-12.3); Neutrophils % 49.2 % (41.7-73.7); Platelets 378 thou/uL (152-406); RBC Red Blood Cell Count 4.53 M/uL (3.86-4.86); Red Cell Distribution Width 13.4 % (12.1-15.2)
[2025-03-31 13:06] LABS: Specific Gravity 1.011 (1.005-1.030); Urine Bilirubin NEGATIVE (Negative); Urine Blood Negative (Negative); Urine Clarity Clear (Clear); Urine Color Colorless (Yellow); Urine Glucose NEGATIVE (Negative); Urine Ketones NEGATIVE (Negative); Urine Microscopic Reflex YN NO UMIC; Urine Nitrite NEGATIVE (Negative); Urine Protein NEGATIVE (Negative); Urine Urobilinogen Normal (Normal)
[2025-03-31 13:21] LABS: Albumin 3.8 g/dL (3.4-5.0); Anion Gap 7.9 mEq/L (5.0-15.0); Bilirubin Total 0.2 mg/dL (0.2-1.0); Globulin 3.9 g/dL (2.3-3.5); Potassium 3.9 mEq/L (3.5-5.1); Protein, Total 7.7 g/dL (6.4-8.2)
--- NOTE | 2025-03-31 14:57 | RAD REPORT ---
EXAMINATION: CT Abdomen Pelvis W Contrast CLINICAL INDICATION: Female, 34 years old. ABD PAIN TECHNIQUE: CT abdomen and pelvis was performed, after the administration of IV contrast, as per [facility] protocol. Axial, sagittal and coronal reconstructions were obtained. One or more of the following dose reduction techniques were used: Automated exposure control, adjustment of the mA and k V according to patient size, and iterative reconstruction. Unless otherwise specified, incidental findings do not require dedicated imaging follow-up. COMPARISON: No prior exam. FINDINGS: LOWER CHEST: The visualized lung bases are clear. LIVER: Normal in size and contour. No focal lesion. BILIARY SYSTEM: Status post cholecystectomy. SPLEEN: Normal size. No focal lesion. PANCREAS: No mass, ductal dilation, or eldon-pancreatic fluid. ADRENALS: Normal; no mass. KIDNEYS: Bilateral tiny nonobstructing calculi not exceeding 2-3 mm. 9 mm right upper pole cortical c yst. Normal size and contour. No hydronephrosis. URINARY BLADDER: Unremarkable. GASTROINTESTINAL TRACT: No evidence of free air, significant intra-abdominal free fluid, bowel obstru ction or abscess. APPENDIX: Normal appendix. LYMPH NODES: No lymphadenopathy. MUSCULOSKELETAL: No acute or suspicious osseous abnormality. ADDITIONAL FINDINGS: 1.8 cm marginally enhancing left adnexal cyst, possibly recently ruptured. IMPRESSION: Bilateral nonobstructing tiny renal calculi. No other acute or concerning abnormalities seen in the abdomen or pelvis.
--- NOTE | 2025-03-31 14:59 | ER ---
Nurse's Notes [facility] Name: Domonique Mccurdy Age: 34 yrs Sex: Female : 1990 Arrival Date: 03/31/2025 Time: 12:04 Bed 20 Private MD: Diagnosis: Abdominal pain, Generalized;Nausea Presentation: 03/31 12:29 Chief complaint: Patient states: Abdominal swelling, nausea, fatigue, feels hot and ll1 anxious started 3 days ago. Started to feel bad after starting Anabar 25 MG PO daily. Coronavirus screen: Client denies travel out of the [place] in the last 14 days. At this time, the client does not indicate any symptoms associated with coronavirus-19. Ebola Screen: Patient denies travel to an Ebola-affected area in the 21 days before illness onset. Initial Sepsis Screen: Does the patient meet any 2 criteria? No. Patient's initial sepsis screen is negative. Does the patient have a suspected source of infection? No. Patient's initial sepsis screen is negative. Risk Assessment: Do you want to hurt yourself or someone else? Patient reports no desire to harm self or others. Onset of symptoms was March 29, 2025. 12:29 Method Of Arrival: Ambulatory ll1 12:29 Acuity: ALVINO 3 ll1 Triage Assessment: 12:31 General: Appears uncomfortable, Behavior is calm, cooperative, appropriate for age, ll1 Reports fatigue for. Pain: Complains of pain in abdomen Quality of pain is described as aching, crampy. GI: Reports lower abdominal pain, upper abdominal pain, bloating, nausea. Historical: - Allergies: 12:28 No Known Drug Allergies; ll1 - PMHx: 12:28 Kidney stones; Ovarian cysts (Cholecystectomy); Post depression; pre diabetes ll1 (Post depression); pre eclampsia; - PSHx: 12:28 section; Cholecystectomy; ll1 - Immunization history:: Adult Immunizations up to date. - Social history:: Smoking status: Patient denies any tobacco usage or history of. - Family history:: not pertinent. Screenin:02 [facility] ED Fall Risk Assessment (Adult) History of falling in the last 3 months, dd2 including since admission No falls in past 3 months (0 pts) Confusion or Disorientation No (0 pts) Intoxicated or Sedated No (0 pts) Impaired Gait No (0 pts) Mobility Assist Device Used No (0 pt) Altered Elimination No (0 pt) Score/Fall Risk Level 0 - 2 = Low Risk Oriented to surroundings, Maintained a safe environment, Educated pt \T\ family on fall prevention, incl call for assistance when getting out of bed, Assessed \T\ reinforced patient's understanding of fall precautions, Hourly rounding (assess needs \T\ fall precautionary measures) done. Abuse screen: Denies threats or abuse. Denies injuries from another. Nutritional screening: No deficits noted. Tuberculosis screening: No symptoms or risk factors identified. Assessment: 12:54 General: Appears in no apparent distress. uncomfortable, Behavior is calm, cooperative, dd2 appropriate for age. Pain: Complains of pain in left lower quadrant and right lower quadrant and left upper quadrant and right upper quadrant Pain does not radiate. Pain currently is 8 out of 10 on a pain scale. Quality of pain is described as burning, crampy. Neuro: No deficits noted. Cardiovascular: No deficits noted. Respiratory: No deficits noted. GI: Abdomen is non-distended, Bowel sounds present X 4 quads. Abd is soft X 4 quads Abdomen is tender to palpation X 4 quads. Reports lower abdominal pain, upper abdominal pain, bloating, cramping. : No deficits noted. No signs and/or symptoms were reported regarding the genitourinary system. EENT: No deficits noted. No signs and/or symptoms were reported regarding the EENT system. Derm: No deficits noted. No signs and/or symptoms reported regarding the dermatologic system. Musculoskeletal: No deficits noted. No signs and/or symptoms reported regarding the musculoskeletal system. Circulation, motion, and sensation intact. Range of motion: intact in all extremities. Vital Signs: 12:29 BP 146 / 82; Pulse 73; Resp 17; Temp 98.3; Pulse Ox 98% on R/A; Weight 67.13 kg; Height ll1 5 ft. 1 in. ; 13:30 BP 138 / 84; Pulse 75; Resp 16; Pulse Ox 98% on R/A; dd2 14:30 BP 131 / 76; Pulse 71; Resp 16; Pulse Ox 100% on R/A; dd2 15:40 BP 127 / 78; Pulse 72; Resp 16; Pulse Ox 99% ; Pain 3/10; dd2 12:29 Body Mass Index 27.96 (67.13 kg, 154.94 cm) ll1 15:40 Pain Scale: Adult dd2 ED Course: 12:07 Patient arrived in ED. al6 12:08 Joselito Galvez MD is Attending Physician. philip 12:28 Arm band placed on Patient placed in an exam room, on a stretcher. ll1 12:31 Triage completed. ll1 12:45 CBC with Diff Sent. mb9 12:45 CMP Sent. mb9 12:45 Lipase Sent. mb9 12:45 Test, Urine Sent. mb9 12:45 Initial lab(s) drawn, by sd, sent to lab. Urine collected: clean catch specimen, clear. mb9 Inserted saline lock: 22 gauge in right forearm, using aseptic technique. Blood collected. Flushed with 10 mL NS. 13:02 Patient has correct armband on for positive identification. Bed in low position. Call dd2 light in reach. Side rails up X 1. Provided Education on: procedures, medications. Client placed on continuous cardiac and pulse oximetry monitoring. NIBP monitoring applied. Door closed. Noise minimized. Warm blanket given. Pillow given. Verbal reassurance given. 13:02 No provider procedures requiring assistance completed. Patient maintains SpO2 dd2 saturation greater than 95% on room air. 13:51 CT Abd/Pelvis - IV Contrast Only In Process Unspecified. EDMS 14:58 Tanesha King MD is Referral Physician. philip 15:43 IV discontinued, intact, bleeding controlled, No redness/swelling at site. Pressure dd2 dressing applied. Administered Medications: 12:51 Drug: Ondansetron IVP 4 mg IVP once; over 2 minutes Route: IVP; Site: right forearm; mb9 13:06 Follow up: Response: No adverse reaction dd2 12:51 Drug: NS 0.9% IV 1000 ml IV at 1 bolus Per protocol; to be given as a bolus over 60 mb9 minutes Route: IV; Rate: 1 bolus; Site: right forearm; 13:55 Follow up: IV Status: Completed infusion dd2 Medication: 15:43 VIS not applicable for this client. dd2 Outcome: 14:58 Discharge ordered by . philip 15:43 Discharged to home ambulatory, dd2 15:43 Condition: stable 15:43 Discharge instructions given to patient, Instructed on discharge instructions, follow up and referral plans. medication usage, Demonstrated understanding of instructions, follow-up care, medications, Prescriptions given X 3, 15:43 Patient left the ED. dd2 Signatures: Dispatcher [employer] EDJoselito Zapata MD MD cha Lewis, Lynsay, RN RN ll1 Katie, Liseth Goddard RN RN mb9 MODE CANALES RN RN dd2 Henna Dinh
--- NOTE | 2025-03-31 14:59 | EDPHYS ---
Physician Documentation [facility] Name: Domonique Mccurdy Age: 34 yrs Sex: Female : 1990 Arrival Date: 03/31/2025 Time: 12:04 Bed 20 Private MD: ED Physician Joselito Galvez HPI: 03/31 14:20 This 34 yrs old Female presents to ER via Ambulatory with complaints of philip Abdominal Pain, Abdominal Swelling, Nausea. 14:20 The patient presents to the emergency department with nausea, that is mild, abdominal philip pain, of the right upper quadrant, left upper quadrant, right lower quadrant and left lower quadrant. Onset: The symptoms/episode began/occurred 2 day(s) ago. Possible causes: unknown. The symptoms are aggravated by nothing. Associated signs and symptoms: Pertinent positives: abdominal pain, nausea. Severity of symptoms: At their worst the symptoms were moderate in the emergency department the symptoms are unchanged. Historical: - Allergies: 12:28 No Known Drug Allergies; ll1 - PMHx: 12:28 Kidney stones; Ovarian cysts (Cholecystectomy); Post depression; pre diabetes ll1 (Post depression); pre eclampsia; - PSHx: 12:28 section; Cholecystectomy; ll1 - Immunization history:: Adult Immunizations up to date. - Social history:: Smoking status: Patient denies any tobacco usage or history of. - Family history:: not pertinent. ROS: 14:20 Constitutional: Negative for fever, chills, and weight loss, Eyes: Negative for injury, philip pain, redness, and discharge, ENT: Negative for injury, pain, and discharge, Neck: Negative for injury, pain, and swelling, Cardiovascular: Negative for chest pain, palpitations, and edema, Respiratory: Negative for shortness of breath, cough, wheezing, and pleuritic chest pain, Back: Negative for injury and pain, : Negative for injury, bleeding, discharge, and swelling, MS/Extremity: Negative for injury and deformity, Skin: Negative for injury, rash, and discoloration, Neuro: Negative for headache, weakness, numbness, tingling, and seizure, Psych: Negative for depression, anxiety, suicide ideation, homicidal ideation, and hallucinations, Allergy/Immunology: Negative for hives, rash, and allergies, Endocrine: Negative for neck swelling, polydipsia, polyuria, polyphagia, and marked weight changes, Hematologic/Lymphatic: Negative for swollen nodes, abnormal bleeding, and unusual bruising, 14:20 Abdomen/GI: Positive for abdominal pain, of the right upper quadrant, left upper quadrant, right lower quadrant and left lower quadrant, 14:20 MS/extremity: Negative for acute changes, Exam: 14:20 Constitutional: This is a well developed, well nourished patient who is awake, alert, philip and in no acute distress. Head/Face: Normocephalic, atraumatic. Eyes: Pupils equal round and reactive to light, extra-ocular motions intact. Lids and lashes normal. Conjunctiva and sclera are non-icteric and not injected. Cornea within normal limits. Periorbital areas with no swelling, redness, or edema. ENT: Nares patent. No nasal discharge, no septal abnormalities noted. Tympanic membranes are normal and external auditory canals are clear. Oropharynx with no redness, swelling, or masses, exudates, or evidence of obstruction, uvula midline. Mucous membranes moist. Neck: Trachea midline, no thyromegaly or masses palpated, and no cervical lymphadenopathy. Supple, full range of motion without nuchal rigidity, or vertebral point tenderness. No Meningismus. Chest/axilla: Normal chest wall appearance and motion. Nontender with no deformity. No lesions are appreciated. Cardiovascular: Regular rate and rhythm with a normal S1 and S2. No gallops, murmurs, or rubs. Normal PMI, no JVD. No pulse deficits. Respiratory: Lungs have equal breath sounds bilaterally, clear to auscultation and percussion. No rales, rhonchi or wheezes noted. No increased work of breathing, no retractions or nasal flaring. Back: No spinal tenderness. No costovertebral tenderness. Full range of motion. Skin: Warm, dry with normal turgor. Normal color with no rashes, no lesions, and no evidence of cellulitis. MS/ Extremity: Pulses equal, no cyanosis. Neurovascular intact. Full, normal range of motion., bilateral aka Neuro: Awake and alert, GCS 15, oriented to person, place, time, and situation. Cranial nerves II-XII grossly intact. Motor strength 5/5 in all extremities. Sensory grossly intact. Cerebellar exam normal. Normal gait. Psych: Awake, alert, with orientation to person, place and time. Behavior, mood, and affect are within normal limits. 14:20 Abdomen/GI: Inspection: abdomen appears normal, Bowel sounds: normal, Palpation: nontender, Liver: no appreciated palpable abnormalities, Hernia: not appreciated, Vital Signs: 12:29 BP 146 / 82; Pulse 73; Resp 17; Temp 98.3; Pulse Ox 98% on R/A; Weight 67.13 kg; Height ll1 5 ft. 1 in. ; 13:30 BP 138 / 84; Pulse 75; Resp 16; Pulse Ox 98% on R/A; dd2 14:30 BP 131 / 76; Pulse 71; Resp 16; Pulse Ox 100% on R/A; dd2 15:40 BP 127 / 78; Pulse 72; Resp 16; Pulse Ox 99% ; Pain 3/10; dd2 12:29 Body Mass Index 27.96 (67.13 kg, 154.94 cm) ll1 15:40 Pain Scale: Adult dd2 MDM: 12:08 Medical Screening Exam initiated philip 14:25 Differential diagnosis: Nonspecific abd pain, gastritis, pancreatitis, appendicitis, philip diverticulitis, viral gastroenteritis, gastroenteritis. Data reviewed: vital signs, nurses notes, lab test result(s), radiologic studies, CT scan. Consideration of Admission/Observation Escalation of care including admission/observation considered. Independent interpretation of the following test(s) in the Emergency Department CT Scan: My interpretation is ct abd pel. Test considered but Not performed: Ultrasound no gb usg. Historians other than the Patient: pt well informed. Care significantly affected by the following chronic conditions: Diabetes, Obesity, gb. Counseling: I had a detailed discussion with the patient and/or guardian regarding the historical points, exam findings, and any diagnostic results supporting the discharge/admit diagnosis, lab results, radiology results, the need for outpatient follow up, for definitive care, a family practitioner, a supervising law enforcement analyst. 03/31 12:11 Order name: CBC with Diff; Complete Time: 13:23 [facility] 03/31 12:11 Order name: CMP; Complete Time: 13:23 [facility] 03/31 12:11 Order name: Lipase; Complete Time: 13:23 [facility] 03/31 12:11 Order name: Test, Urine; Complete Time: 13:23 [facility] 03/31 12:11 Order name: UA Rfx Otis Cult if indicated; Complete Time: 13:23 [facility] 03/31 13:24 Order name: CT Abd/Pelvis - IV Contrast Only; Complete Time: 14:58 [facility] 03/31 12:11 Order name: IV Saline Lock; Complete Time: 12:45 [facility] 03/31 12:11 Order name: Labs collected and sent; Complete Time: 12:45 [facility] Administered Medications: 12:51 Drug: Ondansetron IVP 4 mg IVP once; over 2 minutes Route: IVP; Site: right forearm; mb9 13:06 Follow up: Response: No adverse reaction dd2 12:51 Drug: NS 0.9% IV 1000 ml IV at 1 bolus Per protocol; to be given as a bolus over 60 mb9 minutes Route: IV; Rate: 1 bolus; Site: right forearm; 13:55 Follow up: IV Status: Completed infusion dd2 Disposition Summary: 03/31/25 14:58 Discharge Ordered Notes: Location: Home philip Problem: new philip Symptoms: have improved philip Condition: Stable philip Diagnosis - Abdominal pain, Generalized philip - Nausea philip Followup: philip - With: Private Physician - When: 2 - 3 days - Reason: Recheck today's complaints, Continuance of care, Re-evaluation by your physician Followup: philip - With: Tanesha King MD - When: 2 - 3 days - Reason: Recheck today's complaints, Re-evaluation by your physician Discharge Instructions: - Discharge Summary Sheet philip - Abdominal Pain, Adult philip - Nausea, Adult philip - Abdominal Pain, Adult, [id number] [facility] Forms: - Medication Reconciliation Form [facility] - Antibiotic Education philip - Prescription Opioid Use [facility] - Patient Portal Instructions [facility] - Leadership Thank You Letter [facility] Prescriptions: - Pepcid 20 mg Oral tablet - take 1 tablet ORAL route every 12 hours for 21 days; 42 tablet; Refills: 0, [facility] Product Selection Permitted - Zofran 4 mg Oral tablet - take 1 tablet ORAL route every 6-8 hours As needed; 20 tablet; Refills: 0, [facility] Product Selection Permitted - dicyclomine 20 mg Oral tablet - take 1 tablet ORAL route 4 times per day; 28 tablet; Refills: 0, Product [facility] Selection Permitted Signatures: Dispatcher [employer] Joselito Cotter MD MD cha Lewis, Lynsay RN RN ll1 Liseth Wilson RN RN mb9 MODE CANALES RN dd2 Corrections: (The following items were deleted from the chart) 13: 13:25 Abdomen Limited+US.RAD.BRZ ordered. EDMS EDMS 13: 13:25 Abdomen Pelvis W Con+CT.RAD.BRZ ordered. EDMS EDMS
[2025-03-31 19:49] VITALS: TEMP 98.3
[2025-03-31 19:54] VITALS: BP 127/78; O2SAT 99
== END 2025-03-31 15:43 | disposition home or self-care (01) ==
LOC: ER 12:04
DX: R10.84 Generalized abdominal pain (principal); R11.0 Nausea
CPT/HCPCS: 36415; 74177; 80053; 81003; 81025; 83690; 85025; 96361; 96374; 99284; J2405; J7030; Q9967

== ENCOUNTER 2025-04-09 23:46 | Emergency (ER) | payer SELFPAY ==
--- OUTSIDE RECORDS SUMMARY | 2025-04-09 23:53 | XMS REPORT | Continuity of Care Document ---
Author Name Unknown Address [address] [facility] [address] [place] [address] [facility] Address [address] [facility] [place] [address] Care Team Providers Care Critical Care Cns Name Role Phone PCP, PATIENT DOES NOT HAVE A Primary Care Physic ras Unavailable Harley Posada Attending Clinician Unavailable Harley Posada Attending Clinician Unavailable Pretty Wilcox Attending Clinician [phone] ALIYAH PARKS Attending Clinician Unavailable Charly Aliyah PARRY Attending Clinician [phone] Doctor Unassigned, [place] Attending Clinician U nbaailJAKE Dowling Attending Clinician Unavailable CarlohiJake Lebron Attending Clinician +[phone] Unknown, Attending Attending Clinician Unavailab irene UNKNOWN, ATTENDING Attending Clinician Unavailab TINA Peterson Attending Clinician Unavail able Ebrahim Jake DAY Attending Clinician +[phone] Unknown, Attending Attending Clinician Unavailab ELISABETH Choi Attending Clinician Unavailable Elisabeth Malcolm PA-C Attending Clinician [phone] Doctor Unassigned, [place] Attending Clinician U jaquelinbarbara MARIA VILLANUEVA Attending Clinician Unavaila dawson Mcgill NP, Irma Attending Clinician + [phone] IRMA MCGILL Attending Clinician Unavaila dawson MCGUIRE, KAYLYN Attending Clinician Tho MCGUIRE, KAYLYN Attending Clinician Tho juarez Lab, Ang - Db Attending Clinician Unavailable Alyssa Dunne Attending Clinician [phone] Akinsisavanna [facility] Tina Adorno Attending Clinician + Kirit Benitez Attending Clinician Unavailable RUPAL MAYA Attending Clinician Unavailable Francesco AIKEN, Rupal Attending Clinician [phone] JOSE ARMANDO SU Attending Clinician Unavailab irene BRASHER_SWHAOMC_Khalif_Tanvir Attending Clinician Unavail Rufino Walter Attending Clinician Unavailab Rufino Lyons Attending Clinician [phone] ANSHU_SWHATBIC_Khalif Attending Clinician Unavaila dawson OMAGHOMI, OMAYEMI Attending Clinician Unavailabl e Omagmrevat GYM INSTRUCTOR, Omayemi Attending Clinician [phone] Lizz Carver Attending Clinician + [phone] Kristina Mcdonald MD Attending Clinician [phone] Manju1 Jame Smith MD Attending Clinician [phone] Patricia Quiñones DO Attending Clinician [phone] Trudy ROSENBERG, Kaylynn Ramey Attending Clinician [phone] Yousuf Ontiveros DO Attending Clinician [phone] Jose Armando Umana Attending Clinician + [phone] Madelin Flanagan Attending Clinician [phone] Lesia Borja Attending Clinician +[phone] PEDRITO EDWARDS Attending Clinician Unavailable VETO STEVENS Attending Clinician Veto Poe MD Attending Clinician + Albino AIKEN, Harley Swartz Attending Clinician +[phone] Manas SALGADO, Domonique Attending Clinician + [phone] Nani AIKEN, Ulices Berg Attending Clinician +[phone] Aamir Ruiz Attending Clinician [phone] Vania RN, Alba Ramey Attending Clinician Nicolasa yuval , [facility] Room Attending Clinician Unavailtrevor Machuca MD, Liseth Doran Attending Clinician [phone] Tiffanie AIKEN, Yariel Berg Attending Clinician +[phone] John MENENDEZ, Ana Attending Clinician Unavailable Daniel DAY, Maggie Scott Attending Clinician + Yasemin MCKINNEY, Yanna Canas Attending Clinician [phone] Harley Posada Admitting Clinician Unavailable IRMA MCGILL Admitting Clinician UnavailRufino Begum Admitting Clinician Unavailab le GC_SWHAOMC_Khalif_Tanvir Admitting Clinician Unavail able GC_SWHATBIC_Khalif Admitting Clinician UnavailKristina Cook MD Admitting Clinician [phone] VETO STEVENS Admitting Clinician Darleen Cardoza MD, Ulices Berg Admitting Clinician [phone] Payers Payer Name Policy Type Policy Number Effective Date Expirati on Date Source [place] [id number] 2021 00:00:00 MEDICAID PENDING PENDING 2021 00:00:00 [facility] [id number] 2024 00:00:00 FORMERLY [facility] (MEDICAID REPLACEMENT - HMO) [id number] Problems Condition Name Condition Details Condition Category Status Onset Date Resolution Date Last Treatment Date Treating Clinician Comments Source Anxiety about health Anxiety about health Disease Active 03-15 00:00: 00 [facility] Vulval lesion Vulval lesion Disease Active 03-10 00:00: 00 [facility] Lymphedema of genitalia Lymphedema of genitalia Disease Active 2023-0 4-15 00:00: 00 [facility] Vulvar ulcer Vulvar ulcer Disease Active 0 4-15 00:00: 00 [facility] Anemia Anemia Problem Active 5-21 00:00: 00 [facility] Problem Active 5- 00:00: 00 [facility] History of gestationa l diabetes History of gestationa l diabetes Disease Active 4-21 00:00: 00 Overview: Formattin g of this note might be different from the original. In prior pregnanci es [facility] BMI 25.0-25.9, adult BMI 25.0-25.9, adult Disease Active 3-10 00:00: 00 [facility] Recurrent candidiasi s of vagina Recurrent candidiasi s of vagina Disease Active 2019-11 0-28 00:00: 00 [facility] SUICIIDAL IDEATION SUICIIDAL IDEATION Active 12/16/2019 [facility] Diagnosis Active 1- 10:00: 00 2019-12-17 14:29:00 [facility] Vaginal discharge Vaginal discharge Disease Active 9-02 00:00: 00 [facility] Multiparit y Multiparit y Disease Resolve d 4-21 00:00: 00 2024-11-11 00:00:00 2024-11-11 10:03:27 [facility] History of miscarriag e History of miscarriag e Disease Resolve d 4-21 00:00: 00 2024-11-11 00:00:00 2024-11-11 10:03:24 [facility] History of successful vaginal after , currently History of successful vaginal after , currently Disease Resolve d 4-21 00:00: 00 2024-11-11 00:00:00 2024-11-11 10:03:20 Overview: Formattin g of this note might be different from the original. Desires repeat [facility] UTI in UTI in Disease Resolve d 0 4-21 00:00: 00 2024-11-11 00:00:00 2024-11-11 10:03:40 Overview: Formattin g of this note might be different from the original. Reports currently on meds [facility] Prophylact ic antibiotic Prophylact ic antibiotic Disease Resolve d 0 3-10 00:00: 00 2024-11-11 00:00:00 2024-11-11 10:03:33 [facility] BMI 26.0-26.9, adult BMI 26.0-26.9, adult Disease Resolve d 0 3-10 00:00: 00 2024-11-11 00:00:00 2024-11-11 10:03:30 [facility] Early syphilis, genital (primary) Early syphilis, genital (primary) Disease Resolve d 4-20 00:00: 00 2023-05-02 00:00:00 2023-05-02 09:25:56 [facility] History of herpes genitalis History of herpes genitalis Disease Resolve d 2015-11 1-26 00:00: 00 2022-10-26 00:00:00 2022-10-26 14:32:40 [facility] Dysuria Dysuria Disease Resolve d 3-10 00:00: 00 2021-03-16 00:00:00 2021-03-16 14:14:51 [facility] Encounter for contracept paige management , unspecifie d type Encounter for contracept paige management , unspecifie d type Disease Resolve d 2019-11 0-28 00:00: 00 2021-03-16 00:00:00 2021-03-16 14:14:53 [facility] Other general counseling and advice for contracept paige management Other general counseling and advice for contracept paige management Disease Resolve d 0 2-20 00:00: 00 2021-03-16 00:00:00 2021-03-16 14:15:01 [facility] Encounter for IUD removal Encounter for IUD removal Disease Resolve d 1-09 00:00: 00 2021-03-16 00:00:00 2021-03-16 14:14:54 [facility] Obesity (BMI 30-39.9) Obesity (BMI 30-39.9) Disease Resolve d 2018-0 6-09 00:00: 00 2021-03-16 00:00:00 2021-03-16 14:15:00 [facility] Urinary tract infection without hematuria, site unspecifie d Urinary tract infection without hematuria, site unspecifie d Disease Resolve d 0 9-19 00:00: 00 2021-03-16 00:00:00 2021-03-16 14:14:39 [facility] Subacute vaginitis Subacute vaginitis Disease Resolve d 4-25 00:00: 00 2021-03-16 00:00:00 2021-03-16 14:14:40 [facility] BV (bacterial vaginosis) BV (bacterial vaginosis) Disease Resolve d 3-17 00:00: 00 2021-03-16 00:00:00 2021-03-16 14:14:41 [facility] Vaginal itching Vaginal itching Disease Resolve d 9-02 00:00: 00 2021-03-16 00:00:00 2021-03-16 14:14:37 [facility] Presence of of 52 mg levonorges trel-relea sing intrauteri ne device (IUD) Presence of of 52 mg levonorges trel-relea sing intrauteri ne device (IUD) Disease Resolve d 9-02 00:00: 00 2021-03-16 00:00:00 2021-03-16 14:15:04 [facility] 37 weeks gestation of 37 weeks gestation of Disease Resolve d 2018-0 8-19 00:00: 00 2019-10-14 00:00:00 2019-10-14 15:22:24 [facility] 34 weeks gestation of 34 weeks gestation of Disease Resolve d 2018-0 7-09 00:00: 00 2019-10-14 00:00:00 2019-10-14 15:22:19 [facility] Decreased movements in third trimester Decreased movements in third trimester Disease Resolve d 2018-0 7-09 00:00: 00 2019-10-14 00:00:00 2019-10-14 15:22:29 [facility] Previous delivery affecting Previous delivery affecting Disease Resolve d 2018-0 - 00:00: 00 2019-10-14 00:00:00 2019-10-14 15:22:27 [facility] GDM, class A2 GDM, class A2 Disease Resolve d 2018-- 00:00: 00 2019-10-14 00:00:00 2019-10-14 15:22:23 [facility] Headache in , antepartum , third trimester Headache in , antepartum , third trimester Disease Resolve d 06-03 00:00: 00 2019-10-14 00:00:00 2019-10-14 15:22:25 [facility] High-risk in third trimester High-risk in third trimester Disease Resolve d - 00:00: 00 2019-08-21 00:00:00 2019-08-21 15:12:16 [facility] Edgar vaginitis Edgar vaginitis Disease Resolve d - 00:00: 00 2017-02-08 00:00:00 2017-02-08 10:08:10 [facility] History of Past Illness Condition Name Condition Details Condition Category Status Onset Date Resolution Date Last Treatment Date Treating Clinician Comments Source Suicidal ideations Suicidal ideations 12/18/2019 0 [facility] Problem 12-18 18:00: 00 2019-12-20 22:34:25 2019-12-20 22:34:25 [facility] Other mental disorders complicati ng the puerperium Other mental disorders complicati ng the puerperium 12/18/2019 0 [facility] Problem 12-18 18:00: 00 2019-12-20 22:34:25 2019-12-20 22:34:25 [facility] Allergies, Adverse Reactions, Alerts Allergy Name Allergy Type Status Severity Reaction(s) Onset Date Inactive Date Treating Clinician Comments Source No Known Allergie s DA Active U 2021-11 00:00: 00 [facility] No Known Allergie s DA Active U 2020-11 2-06 00:00: 00 [facility] No Known Allergie s DA Active U 08-17 00:00: [address] [facility] No Known Allergie s DA Active U 0 [address] 00:00: [address] [facility] No Known Medicati on Allergie s No Known Medicati on Allergie s Active [facility] NO KNOWN ALLERGIE S Drug Class Active [facility] No Known Allergie s Drug Active [facility] Family History Family Member Diagnosis Comments Start Date Stop Date Sourc e Natural brother Other - see comments [facility] Natural father High cholesterol [facility] Natural [facility] Hy[facility] Maternal grandmother Brain Cancer [facility] Maternal grandmother Cancer [facility] Maternal grandmother Depression [facility] Maternal grandmother Diabetes [facility] Maternal grandmother Heart [facility] Maternal grandmother Lung Cancer [facility]aternal grandmother Psychiatry [facility] Natural [facility] Natural [facility] Natural mother High cholesterol [facility] Natural [facility] Natural mother Other - see comments [facility] Paternal grandfather Diabetes [facility] Paternal grandmother Diabetes [facility] Social History Social Habit Start Date Stop Date Quantity Comments Source ASSERTION 2021-03-06 00:00:00 [facility] Alcoholic beverage intake 2025-01-12 00:00:00 2025-01-12 00:00:00 Ex-drinker (finding) [facility] History of Social function 2024-11-11 00:00:00 2024-11-11 00:00:00 [facility] Alcohol Comment 2024-11-11 00:00:00 2024-11-11 00:00:00 socially [facility] Alcohol intake 2023-10-20 00:00:00 2023-10-20 00:00:00 Ex-drinker (finding) [facility] Exposure to SARS-CoV-2 (event) 2023-03-17 00:00:00 2023-03-27 13:42:00 Not sure [facility] Tobacco use and exposure 2022-09-11 00:00:00 2022-09-11 00:00:00 Smokeless tobacco non-user [facility] Social History 2019-12-18 20:18:36 2019-12-18 20:18:36 [facility] History SDOH Financial 2019-07-14 00:00:00 2019-07-14 00:00:00 5 [facility] History SDOH Food Worry 2019-07-14 00:00:00 2019-07-14 00:00:00 1 [facility] History SDOH Food Scarcity 2019-07-14 00:00:00 2019-07-14 00:00:00 1 [facility] History SDOH Transport Med 2019-07-14 00:00:00 2019-07-14 00:00:00 2 [facility] History SDOH Transport Non-Med 2019-07-14 00:00:00 2019-07-14 00:00:00 2 [facility] Sex assigned at 1990 00:00:00 1990 00:00:00 [facility] Smoking Status Start Date Stop Date Source Never smoked tobacco [facility] Medications Ordered Medication Name Filled Medication Name Start Date Stop Date Current Medication? Ordering Clinician Indication Dosage Frequency Signature (SIG) Comments Components Source fluconazole (DIFLUCAN) 150 mg tablet 07-03 00:00: 00 07-08 04:59 :00 No [id number] 150mg Take 1 tablet by mouth every 72 (seventy-t wo) hours for 2 doses. [facility] methylPREDN ISolone (MEDROL, JEREMI,) 4 mg tablets 2022-11 00:00: 00 11-11 00:00 :00 No [id number] Take by mouth SEE-INSTRU CTIONS. follow package directions [facility] amoxicillin -clavulanat e (AUGMENTIN) 875-125 mg per tablet 2022-11 00:00: 00 10-31 05:59 :00 No [id number] 1{tbl} Take 1 tablet by mouth in the morning and 1 tablet in the evening. Do all this for 10 days. [facility] promethazin e-dextromet horphan 6.25-15 mg/5 mL syrup 2022-11 00:00: 00 10-31 05:59 :00 No [id number] 5mL Take 5 mL by mouth 4 (four) times daily for 10 days. [facility] fluconazole (DIFLUCAN) 150 mg tablet 2022-11 00:00: 00 09-19 04:59 :00 No [id number] 150mg Take 1 tablet by mouth once now for 1 dose. [facility] hydrOXYzine 25 mg tablet 03-13 00:00: 00 09-18 00:00 :00 No [id number] May take 1-2 tablets, orally, every 6 hours as needed for anxiety. [facility] valACYclovi r (VALTREX) 1 gram tablet 03-07 00:00: 00 11-12 00:00 :00 No [id number] 1g Take 1 tablet by mouth in the morning and 1 tablet in the evening. [facility] lidocaine 2 % mucosal jelly 03-07 00:00: 00 05-02 00:00 :00 No [id number] 1mL Apply 0.5 Inches to area(s) 3 (three) times daily as needed for Pain (scale 4-6). [facility] promethazin e-dextromet horphan 6.25-15 mg/5 mL syrup 2021-11 0 00:00: 00 11-11 00:00 :00 No [id number] 5mL Take 5 mL by mouth 4 (four) times daily as needed for Cough. [facility] albuterol 2.5 mg /3 mL (0.083 %) nebulizer solution 2021-11 0 00:00: 00 11-11 00:00 :00 No [id number] 2.5mg Inhale 3 mL every 4 (four) hours as needed for Shortness of Breath. [facility] budesonide 1 mg/2 mL nebulizer solution 2021-11 00:00: 00 11-11 00:00 :00 No [id number] 1mg Use 2 mL as directed in the morning. [facility] amoxicillin -clavulanat e (AUGMENTIN) 875-125 mg per tablet 2021-11 00:00: 09-19 04:59 :00 No [id number] 1{tbl} Take 1 tablet by mouth in the morning and 1 tablet in the evening. Do all this for 7 days. [facility] fluconazole (DIFLUCAN) 150 mg tablet 2021-11 00:00: 00 09-12 04:59 :00 No [id number] 150mg Take 1 tablet by mouth once now for 1 dose. [facility] fluticasone propionate 50 mcg/actuati on nasal spray 2020-11 00:00: 00 05-02 00:00 :00 No [id number] 1{spray } Use 1 [place] in each nostril daily. [facility] amoxicillin -clavulanat e (AUGMENTIN) 875-125 mg per tablet 2020-11 00:00: 00 11-02 05:59 :00 No [id number] 1{tbl} Take 1 tablet by mouth 2 (two) times daily for 7 days. [facility] citalopram 20 mg tablet 2020-11 0 00:00: 00 05-02 00:00 :00 No [facility] ondansetron (ZOFRAN ODT) 4 mg disintegrat ing tablet 03-18 00:00: 00 05-02 00:00 :00 No [id number] 4mg Take 1 tablet by mouth every 8 (eight) hours as needed for Nausea and Vomiting (N/V). [facility] Benadryl 12-18 07:40: 00 No Notes: (Same as: Benadryl) [facility] Yipl 12-18 07:39: 00 No Notes: (Same as: Haldol) [facility] olanzapine 12-18 03:36: 00 No 10 mg, Route: PO, Drug form: TAB, ONCE, Dosing Weight 63.636, kg, Start date: 12/17/19 21:36:00 TAX CREDIT LEASING CONSULTANT, Stop date: 12/17/19 21:36:00 TAX CREDIT LEASING CONSULTANT [facility] Ativan 12-17 23:05: 00 No 1 mg, Route: PO, Drug form: TAB, ONCE, Dosing Weight 63.636, kg, Priority: STAT, Start date: 12/17/19 17:05:00 TAX CREDIT LEASING CONSULTANT, Stop date: 12/17/19 17:05:00 TAX CREDIT LEASING CONSULTANT [facility] glyburide 2.5 mg tablet [...] tablet every 8 hours by oral route. [facility] sertraline 25 mg tablet TAKE 1 TABLET BY MOUTH EVERY DAY sertraline 25 mg tablet TAKE 1 TABLET BY MOUTH EVERY DAY No sertraline 25 mg tablet TAKE 1 TABLET BY MOUTH EVERY DAY [facility] Immunizations Ordered Immunization Name Filled Immunization Name Date Status Comments Source SARS-COV-2 COVID-19 PFIZER VACCINE 2021-07-06 00:00:00 Completed [facility] SARS-COV-2 COVID-19 PFIZER VACCINE 2021-07-06 00:00:00 Completed [facility] SARS-COV-2 COVID-19 PFIZER VACCINE 2021-07-06 00:00:00 Completed [facility] SARS-COV-2 COVID-19 PFIZER VACCINE 2021-07-06 00:00:00 Completed [facility] SARS-COV-2 COVID-19 PFIZER VACCINE 2021-07-06 00:00:00 Completed [facility] SARS-COV-2 COVID-19 PFIZER VACCINE 2021-07-06 00:00:00 Completed [facility] SARS-COV-2 COVID-19 PFIZER VACCINE 2021-07-06 00:00:00 Completed [facility] SARS-COV-2 COVID-19 PFIZER VACCINE 2021-07-06 00:00:00 Completed [facility] SARS-COV-2 COVID-19 PFIZER VACCINE 2021-07-06 00:00:00 Completed [facility] SARS-COV-2 COVID-19 PFIZER VACCINE 2021-07-06 00:00:00 Completed [facility] SARS-COV-2 COVID-19 PFIZER VACCINE 2021-07-06 00:00:00 Completed [facility] SARS-COV-2 COVID-19 PFIZER VACCINE 2021-07-06 00:00:00 Completed [facility] SARS-COV-2 COVID-19 PFIZER VACCINE 2021-07-06 00:00:00 Completed [facility] SARS-COV-2 COVID-19 PFIZER VACCINE 2021-07-06 00:00:00 Completed TDAP (ADACEL) VACCINE 2019-05-12 00:00:00 Completed [facility] TDAP (ADACEL) VACCINE 2019-05-12 00:00:00 Completed [facility] TDAP (ADACEL) VACCINE 2019-05-12 00:00:00 Completed [facility] TDAP (ADACEL) VACCINE 2019-05-12 00:00:00 Completed [facility] TDAP (ADACEL) VACCINE 2019-05-12 00:00:00 Completed [facility] TDAP (ADACEL) VACCINE 2019-05-12 00:00:00 Completed [facility] TDAP (ADACEL) VACCINE 2019-05-12 00:00:00 Completed [facility] TDAP (ADACEL) VACCINE 2019-05-12 00:00:00 Completed [facility] TDAP (ADACEL) VACCINE 2019-05-12 00:00:00 Completed [facility] TDAP (ADACEL) VACCINE 2019-05-12 00:00:00 Completed [facility] TDAP (ADACEL) VACCINE 2019-05-12 00:00:00 Completed [facility] TDAP (ADACEL) VACCINE 2019-05-12 00:00:00 Completed [facility] TDAP (ADACEL) VACCINE 2019-05-12 00:00:00 Completed [facility] TDAP (ADACEL) VACCINE 2019-05-12 00:00:00 Completed [facility] TDAP (ADACEL) VACCINE 2019-05-12 00:00:00 Completed [facility] TDAP (ADACEL) VACCINE 2019-05-12 00:00:00 Completed [facility] TDAP (ADACEL) VACCINE 2019-05-12 00:00:00 Completed [facility] TDAP (ADACEL) VACCINE 2019-05-12 00:00:00 Completed Td 2018-05-10 00:00:00 Completed [facility] Td 2018-05-10 00:00:00 Completed [facility] Td 2018-05-10 00:00:00 Completed [facility] Td 2018-05-10 00:00:00 Completed [facility] Td 2018-05-10 00:00:00 Completed [facility] Td 2018-05-10 00:00:00 Completed [facility] TD, NOS 2018-05-10 00:00:00 Completed [facility] TD, NOS 2018-05-10 00:00:00 Completed [facility] TD, NOS 2018-05-10 00:00:00 Completed [facility] TD, NOS 2018-05-10 00:00:00 Completed [facility] TD, NOS 2018-05-10 00:00:00 Completed [facility] TD, NOS 2018-05-10 00:00:00 Completed [facility] TD, NOS 2018-05-10 00:00:00 Completed [facility] TD, NOS 2018-05-10 00:00:00 Completed [facility] TD, NOS 2018-05-10 00:00:00 Completed [facility] TD, NOS 2018-05-10 00:00:00 Completed [facility] TD, NOS 2018-05-10 00:00:00 Completed [facility] TD, NOS 2018-05-10 00:00:00 Completed [facility] Influenza Virus Vaccine - Whole 2009-10-04 00:00:00 Completed [facility] Influenza Virus Vaccine - Whole 2009-10-04 00:00:00 Completed [facility] Influenza Virus Vaccine - Whole 2009-10-04 00:00:00 Completed [facility] Influenza Virus Vaccine - Whole 2009-10-04 00:00:00 Completed [facility] Influenza Virus Vaccine - Whole 2009-10-04 00:00:00 Completed [facility] TD, NOS Unknown Completed [facility] TDAP (ADACEL) VACCINE Unknown Completed [facility] SARS-COV-2 COVID-19 PFIZER VACCINE Unknown Completed [facility] TD, NOS Unknown Completed [facility] TDAP (ADACEL) VACCINE Unknown Completed [facility] SARS-COV-2 COVID-19 PFIZER VACCINE Unknown Completed [facility] TD, NOS Unknown Completed [facility] TDAP (ADACEL) VACCINE Unknown Completed [facility] SARS-COV-2 COVID-19 PFIZER VACCINE Unknown Completed [facility] TD, NOS Unknown Completed [facility] TDAP (ADACEL) VACCINE Unknown Completed [facility] TD, NOS Unknown Completed [facility] TDAP (ADACEL) VACCINE Unknown Completed [facility] SARS-COV-2 COVID-19 PFIZER VACCINE Unknown Completed [facility] TD, NOS Unknown Completed [facility] TDAP (ADACEL) VACCINE Unknown Completed [facility] SARS-COV-2 COVID-19 PFIZER VACCINE Unknown Completed [facility] TD, NOS Unknown Completed [facility] TDAP (ADACEL) VACCINE Unknown Completed [facility] SARS-COV-2 COVID-19 PFIZER VACCINE Unknown Completed [facility] Influenza Virus Vaccine - Whole Unknown Completed [facility] TD, NOS Unknown Completed [facility] TDAP (ADACEL) VACCINE Unknown Completed [facility] SARS-COV-2 COVID-19 PFIZER VACCINE Unknown Completed [facility] TD, NOS Unknown Completed [facility] TDAP (ADACEL) VACCINE Unknown Completed [facility] SARS-COV-2 COVID-19 PFIZER VACCINE Unknown Completed [facility] Vital Signs Vital Name Observation Time Observation Value Comments S ource Height/Length Measured 2019-12-31 00:22:20 Systolic blood pressure 2025-01-08 18:53:00 132 mm[Hg] [facility] Diastolic blood pressure 2025-01-08 18:53:00 87 mm[Hg] [facility] Heart rate 2025-01-08 18:53:00 66 /min [facility]ive [facility] Body temperature 2025-01-08 18:53:00 36.78 Estefanía [facility] Respiratory rate 2025-01-08 18:53:00 18 /min [facility] Body height 2025-01-08 18:53:00 154.9 cm [facility] Body weight 2025-01-08 18:53:00 68.663 kg [facility] BMI 2025-01-08 18:53:00 28.60 kg/m2 [facility] Systolic blood pressure 2024-11-11 15:44:00 139 mm[Hg] [facility] Diastolic blood pressure 2024-11-11 15:44:00 87 mm[Hg] [facility] Heart rate 2024-11-11 15:44:00 66 /min [facility] Body temperature 2024-11-11 15:40:00 36.72 Estefanía [facility] Respiratory rate 2024-11-11 15:40:00 18 /min [facility] Body height 2024-11-11 15:40:00 154.9 cm [facility] Body weight 2024-11-11 15:40:00 67.331 kg [facility] BMI 2024-11-11 15:40:00 28.05 kg/m2 [facility] Systolic blood pressure 2024-07-03 23:41:00 111 mm[Hg] [facility] Diastolic blood pressure 2024-07-03 23:41:00 78 mm[Hg] [facility] Heart rate 2024-07-03 23:41:00 73 /min [facility] Body temperature 2024-07-03 23:41:00 36.67 Estefanía [facility] Respiratory rate 2024-07-03 23:41:00 17 /min [facility] Body weight 2024-07-03 23:41:00 65.046 kg [facility] BMI 2024-07-03 23:41:00 27.10 kg/m2 [facility] Oxygen saturation in Arterial blood by Pulse oximetry 2024-07-03 23:41:00 96 /min [facility] Heart rate 2023-10-20 16:51:00 89 /min [facility]ive [facility] Body temperature 2023-10-20 16:51:00 36.06 Estefanía [facility] Respiratory rate 2023-10-20 16:51:00 16 /min [facility] Body height 2023-10-20 16:51:00 154.9 cm [facility] Body weight 2023-10-20 16:51:00 63.702 kg Univ [facility] BMI 2023-10-20 16:51:00 26.54 kg/m2 [facility] Oxygen saturation in Arterial blood by Pulse oximetry 2023-10-20 16:51:00 99 /min [facility] Systolic blood pressure 2023-10-20 16:51:00 125 mm[Hg] [facility] Diastolic blood pressure 2023-10-20 16:51:00 77 mm[Hg] [facility] Systolic blood pressure 2023-09-18 15:41:00 147 mm[Hg] [facility] Diastolic blood pressure 2023-09-18 15:41:00 89 mm[Hg] [facility] Heart rate 2023-09-18 15:41:00 109 /min [facility]ive [facility] Respiratory rate 2023-09-18 15:41:00 24 /min [facility] Oxygen saturation in Arterial blood by Pulse oximetry 2023-09-18 15:41:00 99 /min [facility] Systolic blood pressure 2023-05-02 13:57:00 110 mm[Hg] [facility] Diastolic blood pressure 2023-05-02 13:57:00 74 mm[Hg] [facility] Heart rate 2023-05-02 13:57:00 76 /min [facility]ive [facility] Body temperature 2023-05-02 13:57:00 36.78 Estefanía [facility] Respiratory rate 2023-05-02 13:57:00 16 /min [facility] Body height 2023-05-02 13:57:00 157.5 cm [facility] Body weight 2023-05-02 13:57:00 62.687 kg Univ [facility] BMI 2023-05-02 13:57:00 25.28 kg/m2 [facility] Oxygen saturation in Arterial blood by Pulse oximetry 2023-05-02 13:57:00 99 /min [facility] Systolic blood pressure 2023-03-14 17:53:00 124 mm[Hg] [facility] Diastolic blood pressure 2023-03-14 17:53:00 83 mm[Hg] [facility] Heart rate 2023-03-14 17:53:00 69 /min [facility]ive [facility] Respiratory rate 2023-03-14 17:53:00 18 /min [facility] Body height 2023-03-14 17:53:00 154.9 cm [facility] 2023-03-14 17:53:00 62.46 kg Univ [facility] BMI 2023-03-14 17:53:00 26.02 kg/m2 [facility] Systolic blood pressure 2023-03-07 19:48:00 122 mm[Hg] [facility] Diastolic blood pressure 2023-03-07 19:48:00 85 mm[Hg] [facility] Heart rate 2023-03-07 19:48:00 94 /min Unive [facility] Respiratory rate 2023-03-07 19:48:00 18 /min [facility] Body height 2023-03-07 19:48:00 154.9 cm [facility] Body weight 2023-03-07 19:48:00 62.143 kg [facility] BMI 2023-03-07 19:48:00 25.89 kg/m2 [facility] Systolic blood pressure 2022-10-26 20:09:00 135 mm[Hg] [facility] Diastolic blood pressure 2022-10-26 20:09:00 78 mm[Hg] [facility] Heart rate 2022-10-26 20:09:00 76 /min [facility]ive [facility] Body temperature 2022-10-26 20:09:00 36.78 Estefanía [facility] Respiratory rate 2022-10-26 20:09:00 18 /min [facility] Body height 2022-10-26 20:09:00 154.9 cm [facility] Body weight 2022-10-26 20:09:00 60.782 kg [facility] BMI 2022-10-26 20:09:00 25.32 kg/m2 [facility] Systolic blood pressure 2022-09-11 18:21:00 113 mm[Hg] [facility] Diastolic blood pressure 2022-09-11 18:21:00 81 mm[Hg] [facility] Heart rate 2022-09-11 18:21:00 92 /min [facility] Body temperature 2022-09-11 18:21:00 36.94 Estefanía [facility] Body height 2022-09-11 18:21:00 154.9 cm [facility] Body weight 2022-09-11 18:21:00 57.153 kg [facility] BMI 2022-09-11 18:21:00 23.81 kg/m2 [facility] Oxygen saturation in Arterial blood by Pulse oximetry 2022-09-11 18:21:00 99 /min [facility] BP Diastolic 2021-11-04 00:00:00 82 mm[Hg] [facility] Height 2021-11-04 00:00:00 61 [in_i] [facility] BMI (Body Mass Index) 2021-11-04 00:00:00 32.6 kg/m2 [facility] BP Systolic 2021-11-04 00:00:00 148 mm[Hg] [facility] Body Weight 2021-11-04 00:00:00 172.4 [lb_av] [facility] Systolic blood pressure 2021-10-25 15:37:00 152 mm[Hg] [facility] Diastolic blood pressure 2021-10-25 15:37:00 115 mm[Hg] [facility] Heart rate 2021-10-25 15:37:00 112 /min [facility] Body temperature 2021-10-25 15:37:00 37.11 Estefanía [facility] Respiratory rate 2021-10-25 15:37:00 18 /min [facility] Body height 2021-10-25 15:37:00 154.9 cm [facility] Body weight 2021-10-25 15:37:00 76.295 kg [facility] BMI 2021-10-25 15:37:00 31.78 kg/m2 [facility] Oxygen saturation in Arterial blood by Pulse oximetry 2021-10-25 15:37:00 97 /min [facility] Height/Length Measured 2021-12-13 09:04:51 154.9 cm [...] Systolic blood pressure 2025-01-08 18:53:00 132 mm[Hg] [facility] Diastolic blood pressure 2025-01-08 18:53:00 87 mm[Hg] [place] [facility] Heart rate 2025-01-08 18:53:00 66 /min [facility] Body [facility] 2025-01-08 18:53:00 36.78 Estefanía [facility] Respiratory rate 2025-01-08 18:53:00 18 /min [facility] Body height 2025-01-08 18:53:00 154.9 cm [facility] Body weight 2025-01-08 18:53:00 68.663 kg [facility] BMI 2025-01-08 18:53:00 28.60 kg/m2 [facility] Oxygen saturation in Arterial blood by Pulse oximetry 2024-07-03 23:41:00 96 /min [place] [facility] Systolic (mm Hg) 2019-12-18 17:15:00 [facility] Diastolic (mm Hg) 2019-12-18 17:15:00 [facility] Respitory Rate 2019-12-18 17:15:00 [facility] Temperature Oral (F) 2019-12-18 17:15:00 97.9 F [facility] Temperature Oral (F) 2019-12-18 08:30:00 97.7 F [facility] Heart Rate 2019-12-18 08:30:00 [facility]itory Rate 2019-12-18 08:30:00 [facility] Systolic (mm Hg) 2019-12-18 08:30:00 [facility] Diastolic (mm Hg) 2019-12-18 08:30:00 [facility] Temperature Oral (F) 2019-12-18 04:52:00 98.5 F [facility] Heart Rate 2019-12-18 04:52:00 [facility] Respitory Rate 2019-12-18 04:52:00 [facility] Systolic (mm Hg) 2019-12-18 04:52:00 [facility] Diastolic (mm Hg) 2019-12-18 04:52:00 [facility] Heart Rate 2019-12-18 01:26:00 [facility] Height 2019-12-17 19:28:00 154.94 cm [facility] BMI Calculated 2019-12-17 19:28:00 [facility] Weight 2019-12-17 19:28:00 Eli De León Procedures Procedure Date / Time Performed Performing Clinician Source [facility] ONLY - VAGINAL PATHOGENS BY NUCLEIC ACID TESTING 2025-01-08 19:45:00 Charly [facility] GALV ONLY - VAGINAL PATHOGENS BY NUCLEIC ACID TESTING 2025-01-08 19:45:00 Charly [facility] POCT URINALYSIS W/O SPECIFIC GRAVITY 2025-01-08 18:55:00 Charly [facility] POCT URINALYSIS W/O SPECIFIC GRAVITY 2025-01-08 18:55:00 Charly [facility] GALV ONLY - VAGINAL PATHOGENS BY NUCLEIC ACID TESTING 2024-11-11 18:08:00 Charly [facility] THYROID STIMULATING HORMONE 2024-11-11 [facility] (98236)(TOTAL CHOLESTEROL, TRIGLYCERIDES, HDL) 2024-11-11 16:35:00 Charly [facility] CBC WITH DIFF 2024-11-11 16:35:00 Charly [facility] GLYCOSYLATED HEMOGLOBIN (A1C) 2024-11-11 16:35:00 Charly [facility] HIV 1/2 AG-AB WITH REFLEX 2024-11-11 16:35:00 [facility] GC & CHLAMYDIA AMPLIFIED ASSAY 2024-11-11 16:35:00 Charly [facility] SYPHILIS IGG/IGM 2024-11-11 16:35:00 Charly [facility] HIV 1/2 AG-AB WITH REFLEX 2024-11-11 16:35:00 Charly [facility] LIPID PANEL (33976)(TOTAL CHOLESTEROL, TRIGLYCERIDES, HDL) 2024-11-11 16:35:00 Charly [facility] THYROID STIMULATING HORMONE 2024-11-11 16:35:00 [facility] GLYCOSYLATED HEMOGLOBIN (A1C) 2024-11-11 16:35:00 Charly [facility] CBC WITH DIFF 2024-11-11 16:35:[address] [facility] POCT URINALYSIS 2024-07-03 23:56:00 NoheliaRobbinleonila Rich [facility] POCT TEST 2024-07-03 23:55:00 Jake Pozo [facility] ASSIGNMENT OF BENEFITS 2023-09-18 15:16:47 Docto r Unassigned, [place] [facility] GC & CHLAMYDIA AMPLIFIED ASSAY 2023-05-02 14:10:00 Irma Mcgill [facility] HIGH RISK HPV-THIN PREP 2023-05-02 14:10[facility] 2023-05-02 14:10:00 Irma Mcgill [facility] PAP SMEAR-LIQUID BASED-CP 2023-05-02 14:10[facility]-THIN PREP 2023-05-02 14:10:[facility] PAP SMEAR-LIQUID BASED-CP 2023-05-02 14:10:00 Irma Mcgill [facility] US PELVIS LIMITED 2023-03-27 19:25:31 Sanna Mcgill [facility] HCV ANTIBODY 2023-03-12 17:49:00 Irma Mcgill [facility] HSV 1&2, VZV NAAT 2023-03-07 20:57:00 Sanna Mcgill [facility] PATIENT FINANCIAL POLICY 2023-03-07 19:38:56 Doctor Unassigned, [place] [facility] ASSIGNMENT OF BENEFITS 2022-09-11 18:11:53 Docto r Unassigned, [place] [facility] [id number] 2021-11-07 00:00:00 [facility] [id number] 2021-11-07 00:00:00 [facility] POCT GRP A STREP (MOLECULAR) 2021-10-25 00:00:00 Kaitlin Nickerson [facility] ABDOMINAL ULTRASOUND OF UTERUS (GREATER OR EQUAL TO 14 WEEKS 0 DAYS) SINGLE OR FIRST FETUS 2021-10-14 00:00[facility]00 [facility] Planned Activity Planned Date Details Comments Source Diagnostic Test Pending 2021-11-04 00:00:00 urinalysis, dipstick [code = urinalysis, dipstick] [facility] Encounters Start Date/Time End Date/Time Encounter Type Admission Type Attending [facility] Care Facility Care Department Encounter ID Source 2021-09-26 22:39:[address] [facility] [id number] [facility] 2021-09-25 15:07:[address] [facility] [id number] [facility] 2021-09-25 14:51:[address] [facility] [id number] [facility] 2021-09-25 13:38:[address] [facility] [id number] [facility] 2021-09-24 00:52:[address] [facility] [id number] [facility] 2019-12-30 16:46:00 Inpatient 1 Harley Posada Michael [facility] PSY [id number] [facility] 2025-01-20 00:00:00 2025-01-21 14:22:38 Telephone Pretty Delgado [facility] 1..840.114 350.1.13.10 4.2.7.2.686 [id number] [facility] 2025-01-20 10:00:00 2025-01-20 10:00:[address] [facility] [id number] [facility] 2025-01-08 12:45:00 2025-01-08 13:20:06 Outpatient R ALIYAH PARKS [facility] [id number] [facility] 2025-01-08 12:45:00 2025-01-08 13:20:06 Office Visit Aliyah Parks [facility] 1..840.114 350.1.13.10 4.2.7.2.686 [id number] [facility] 2025-01-08 00:00:00 2025-01-08 00:00:00 Travel 1.2.840.1 [id number] 3.104.2.7 .3.191396 .8 1.2.840.114 350.1.13.10 4.2.7.3.698 [id number] [facility] 2024-11-28 00:00:00 2025-01-03 18:21:30 Patient Secure Msg Aliyah Parks 1.2.840.1 [id number] 3.104.2.7 .3.657431 .8 [id number] [facility] 2024-12-29 13:15:00 2024-12-29 13:15:[address] [facility] [id number] [facility] 2024-12-26 00:00:00 2024-12-26 00:00:00 Scanned Documents Doctor Unassigned, [place] 1.2.840.1 [id number] 3.104.2.7 .3.884895 .8 [id number] [facility] 2024-11-11 00:00:00 2024-12-13 18:17:19 Patient Secure Msg Aliyah Parks 1.2.840.1 [id number] 3.104.2.7 .3.920746 .8 [id number] [facility] 2024-11-28 00:00:00 2024-11-28 16:44:17 Patient Secure Msg Aliyah Parks 1.2.840.1 [id number] 3.104.2.7 .3.201657 .8 [id number] [facility] 2024-11-11 09:15:00 2024-11-11 10:35:[address] [facility] [id number] [facility] 2024-11-11 09:15:00 2024-11-11 10:35:56 Office Visit CharlyDilmaAliyah 1.2.840.1 [id number] 3.104.2.7 .3.880698 .8 [id number] [facility] 2024-11-11 00:00:00 2024-11-11 00:00:00 Travel 1.2.840.1 [id number] 3.104.2.7 .3.678943 .8 1.2.840.114 350.1.13.10 4.2.7.3.698 [id number] [facility] 2024-07-29 14:00:00 2024-07-29 14:00:00 Outpatient R ALIYAH PARKS [facility] [id number] [facility] 2024-07-25 08:45:00 2024-07-25 08:45:00 Outpatient R ALIYAH PARKS [facility] [id number] [facility] 2024-07-04 11:30:00 2024-07-04 11:30:00 Outpatient R JAKE POZO [facility] [id number] [facility] 2024-07-03 18:20:00 2024-07-03 19:20:55 Outpatient R JAKE POZO [facility] [id number] [facility] 2024-07-03 18:20:00 2024-07-03 18:40:00 Urgent Care Jake Pozo, Attending [facility] 1.2.840.114 350.1.13.10 4.2.7.2.686 [id number] [facility] 2024-06-15 10:40:00 2024-06-15 10:40:00 Outpatient R UNKNOWN, ATTENDING [facility] [id number] [facility] 2023-10-31 09:30:00 2023-10-31 09:30:00 Outpatient R TINA NERI [facility] [id number] [facility] 2023-10-20 11:00:00 2023-10-20 11:20:00 Urgent Care Jake Pozo Unknown, Attending [facility] 1.840.114 350.1.13.10 4.2.7.2.686 [id number] [facility] 2023-10-20 11:00:00 2023-10-20 11:00:00 Outpatient R JAKE POZO [facility] [id number] [facility] 2023-09-18 10:20:00 2023-09-18 10:47:[address] [facility] [id number] [facility] 2023-09-18 10:20:00 2023-09-18 10:47:15 Urgent Care Elisabeth Malcolm Unknown, Attending [facility] 1.840.114 350.1.13.10 4.2.7.2.686 [id number] [facility] 2023-09-18 00:00:00 2023-09-18 00:00:00 Orders Only Doctor Unassigned, [place] [facility] 1.840.114 350.1.13.10 4.2.7.2.686 [id number] [facility] 2023-09-13 09:00:00 2023-09-13 09:00:[address] [facility] [id number] [facility] 2023-08-13 00:00:00 2023-08-13 00:00:00 Patient Secure Irma Castro [facility] 1.840.114 350.1.13.10 4.2.7.2.686 [id number] [facility] 2023-05-02 09:00:00 2023-05-02 09:19:58 Outpatient R DOUGIRMA RODRIGUEZ DOUGIRMA RODRIGUEZ [facility] [id number] [facility] 2023-05-02 09:00:00 2023-05-02 09:19:58 Office Visit [facility] 1..840.114 350.1.13.10 4.2.7.2.686 [id number] [facility] 2023-04-12 15:00:00 2023-04-12 15:00:00 Outpatient R KAYLYN MONTANA MARISOL [facility] [id number] [facility] 2023-04-05 14:00:00 2023-04-05 14:00:00 [facility] [id number] [facility] 2023-03-29 00:00:00 2023-03-29 00:00:00 Patient Secure Msg Doctor Unassigned, [place] [facility] 1..840.114 350.1.13.10 4.2.7.2.686 [id number] [facility] 2023-03-27 13:42:43 2023-03-27 23:59:00 Outpatient R DOUGIRMA RODRIGUEZ NANO IRMA [facility] [id number] [facility] 2023-03-27 13:42:43 2023-03-27 23:59:00 Hospital Encounter Irma Mcgill [facility] 1..840.114 350.1.13.10 4.2.7.2.686 [id number] [facility] 2023-03-21 13:00:00 2023-03-21 13:00:00 Outpatient R IRMA MCGILL CHERYAL [facility] [id number] [facility] 2023-03-19 00:00:00 2023-03-19 00:00:00 [facility] 1.2.840.114 350.1.13.10 4.2.7.2.686 [id number] [facility] 2023-03-14 16:00:00 2023-03-14 16:00:00 Office Visit Nano [facility] 1.2.840.114 350.1.13.10 4.2.7.2.686 [id number] [facility] 2023-03-14 16:00:00 2023-03-14 13:16:03 Outpatient R JOSETTEIRMA FERNANDO JOSETTEASHTYNJASKARANJENNIFER ZUCKER [facility] [id number] [facility] 2023-03-13 00:00:00 2023-03-13 00:00:00 [facility] 1.2.840.114 350.1.13.10 4.2.7.2.686 [id number] [facility] 2023-03-13 00:00:00 2023-03-13 00:00:00 [facility] 1.2.840.114 350.1.13.10 4.2.7.2.686 [id number] [facility] 2023-03-13 00:00:00 2023-03-13 00:00:00 Telephone Trijay [facility] 1.2.840.114 350.1.13.10 4.2.7.2.686 [id number] [facility] 2023-03-13 00:00:00 2023-03-13 00:00:00 Telephone Irma Mcgill [facility] 1.0.114 350.1.13.10 4.2.7.2.686 [id number] [facility] 2023-03-13 00:00:00 2023-03-13 00:00:00 Patient Secure Msg Doctor Unassigned, [place] [facility] 1.0.114 350.1.13.10 4.2.7.2.686 [id number] [facility] 2023-03-12 12:30:00 2023-03-12 12:45:00 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 [id number] [facility] 2022-10-26 13:30:00 2022-10-26 14:14:22 Outpatient R IRMA MCGILL [facility]ERY[facility] [id number] [facility] 2022-10-26 13:30:00 2022-10-26 14:14:22 Office Visit Irma Mcgill [facility] 1.840.114 350.1.13.10 4.2.7.2.686 [id number] [facility] 2022-10-06 12:56:00 2022-10-06 15:34:00 Emergency EM Kirit Benitez [facility] [id number] [place] [address] 2022-09-11 13:00:00 2022-09-11 13:32:[address] [facility] [id number] [facility] 2022-09-11 13:00:00 2022-09-11 13:32:16 Urgent Care Rupal Maya Unknown, Attending [facility] 1.2840.114 350.1.13.10 4.2.7.2.686 [id number] [facility] 2022-09-11 00:00:00 2022-09-11 00:00:00 Orders Only Doctor Unassigned, [place] [facility] 1.2.840.114 350.1.13.10 4.2.7.2.686 [id number] [facility] 2022-02-07 13:45:00 2022-02-07 13:45:00 Outpatient Floresita SU NAOMIEYVROSE [facility] [id number] [facility] 2021-11-21 09:50:00 2021-11-21 09:50:00 Outpatient GC_SWHAOMC_ Khalif_G [facility] [id number] [facility] 2021-11-16 00:00:00 2021-11-16 00:00:00 Rupal Oseguera [facility] 1.2.840.114 350.1.13.10 4.2.7.2.686 [id number] [facility] 2021-11-04 20:12:00 2021-11-12 17:41:00 Inpatient Rufino Lobo [facility] OB [id number] [facility] 2021-11-05 01:46:00 2021-11-05 01:46:00 Outpatient GC_SWHAOMC_ Khalif_G [facility] PRIV [id number] [facility] 2021-11-04 02:41:00 2021-11-04 02:41:00 Outpatient GC_SWHAOMC_ Khalif_G [facility] [id number] [facility] 2021-11-04 00:00:00 2021-11-04 00:00:00 Rufino Cuadra MD: [address] [facility], [address], [facility] [address] , Ph. [facility] - GC_SWHAOMC_ Ho Office* [id number] [facility] 2021-11-04 00:00:00 2021-11-04 00:00:00 Outpatient Rufino Cuadra [facility] [id number] 2021-11-03 09:34:00 2021-11-03 09:34:00 Outpatient GC_SWHATBIC _Khalif [facility] [id number] [facility] 2021-10-31 13:53:00 2021-10-31 18:35:00 Emergency EL Rufino Cuadra [facility] ELIANE [id number] [facility] 2021-10-28 00:00:00 2021-10-28 00:00:00 Rufino Cuadra MD: [place] [address] , Ph. [facility] - GC_SWHAOMC_ [place] Office [id number] [facility] 2021-10-25 09:20:00 2021-10-25 09:55:47 Outpatient R FRANCESCO [facility] [id number] [facility] 2021-10-25 09:16:49 2021-10-25 09:55:47 Urgent Care Francesco [facility] 1.2.840.114 350.1.13.10 4.2.7.2.686 [id number] [facility] 2021-10-23 12:40:00 2021-10-23 13:48:12 Outpatient R PAULASTEPHANSANDRASandip DESTINYYUE [facility] [id number] [facility] 2021-10-23 12:37:30 2021-10-23 13:48:12 Urgent Care PaulastephanPaula crowellleslieLizz Landrum [facility] 1.2.840.114 350.1.13.10 4.2.7.2.686 [id number] [facility] 2021-10-15 02:21:00 2021-10-15 02:21:00 Outpatient GC_SWHAOMC_ Khalif_G [facility] [id number] [facility] 2021-10-14 00:00:00 2021-10-14 00:00:00 Rufino Cuadra MD: [address] [place] [address] , Ph. [facility] - [facility]_ [place] Office [id number] [facility] 2021-08-17 09:22:00 2021-08-17 14:45:00 Inpatient WEND[place] [facility] [id number] [facility] 2021-08-09 23:19:00 2021-08-09 23:58:00 Hospital Encounter Kristina Mcdonald [facility] 1..840.114 350.1.13.10 4.2.7.2.686 [id number] [facility] 2021-06-06 00:00:00 2021-06-06 00:00:00 Orders Only Doctor Unassigned, [place] [facility] 1..840.114 350.1.13.10 4.2.7.2.686 [id number] [facility] 2021-04-13 10:45:00 2021-04-13 10:45:[address] [facility] [id number] [facility] 2021-03-31 00:00:00 2021-03-31 00:00:00 Telephone Tina Neri [facility] 1..840.114 350.1.13.10 4.2.7.2.686 [id number] [facility] 2021-03-31 00:00:00 2021-03-31 00:00:00 Telephone Tina Neri [facility] 1.2.840.114 350.1.13.10 4.2.7.2.686 [id number] 2021-03-29 00:00:00 2021-03-29 00:00:00 Telephone Tina Neri [facility] 1.2.840.114 350.1.13.10 4.2.7.2.686 [id number] [facility] 2021-03-29 00:00:00 2021-03-29 00:00:00 Telephone Tina Neri [facility] 1.2.840.114 350.1.13.10 4.2.7.2.686 [id number] 2021-03-20 16:32:00 2021-03-20 20:26:00 Emergency Luis Jame [facility] 1.2.840.114 350.1.13.10 4.2.7.2.686 [id number] 084 [id number] [facility] 2021-03-18 10:14:00 2021-03-18 12:03:00 Emergency IshmaelLorra Triplett [facility] 1.2.840.114 350.1.13.10 4.2.7.2.686 [id number] [facility] 2021-03-18 00:00:00 2021-03-18 00:00:00 Telephone Tina Neri [facility] 1.2.840.114 350.1.13.10 4.2.7.2.686 [id number] [facility] 2021-03-16 13:44:39 2021-03-16 14:45:16 Initial Visit Tina Neri [facility] 1.840.114 350.1.13.10 4.2.7.2.686 [id number] [facility] 2021-03-16 13:30:00 2021-03-16 13:30:00 Outpatient R DGVIRGIESAVANNA TINA [facility] [id number] [facility] 2021-03-16 13:00:00 2021-03-16 13:00:00 Outpatient R ALDEN TINA [facility] [id number] [facility] 2021-03-16 00:00:00 2021-03-16 00:00:00 Orders Only Doctor Unassigned, [place] [facility] 1.2840.114 350.1.13.10 4.2.7.2.686 [id number] [facility] 2021-03-13 12:00:00 2021-03-13 14:19:00 Emergency Kaylynn Yates [facility] 1.2840.114 350.1.13.10 4.2.7.2.686 [id number] [facility] 2021-03-13 00:00:00 2021-03-13 00:00:00 Orders Only Doctor Unassigned, [place] [facility] 1.2840.114 350.1.13.10 4.2.7.2.686 [id number] [facility] 2021-02-15 00:00:00 2021-02-15 00:00:00 Patient Outreach Yousuf Ontiveros [facility] 1.840.114 350.1.13.10 4.2.7.2.686 [id number] [facility] 2021-02-07 00:00:00 2021-02-07 00:00:00 Telephone Jose Armando Su [facility] 1.2.840.114 350.1.13.10 4.2.7.2.686 [id number] [facility] 2021-02-07 00:00:00 2021-02-07 00:00:00 Telephone Jose Armando Su [facility] 1.2.840.114 350.1.13.10 4.2.7.2.686 [id number] [facility] 2021-02-05 16:00:00 2021-02-05 16:00:00 Outpatient R UNKNOWN, ATTENDING [facility] [id number] [facility] 2021-02-05 15:09:01 2021-02-05 15:39:01 Telemedici ne Visit Madelin Mitchell, Attending [facility] 1.0.114 350.1.13.10 4.2.7.2.686 [id number] [facility] 2021-02-04 00:00:00 2021-02-04 00:00:00 Telephone Tina Neri [facility] 1.2840.114 350.1.13.10 4.2.7.2.686 [id number] [facility] 2021-02-02 13:44:44 2021-02-02 14:45:42 Office Visit Jose Armando Su [facility] 1.2.840.114 350.1.13.10 4.2.7.2.686 [id number] [facility] 2021-02-02 13:45:00 2021-02-02 13:45:00 Outpatient R JOSE ARMANDO SU [facility] [id number] [facility] 2021-02-02 00:00:00 2021-02-02 00:00:00 Orders Only Doctor Unassigned, [place] [facility] 1.2.840.114 350.1.13.10 4.2.7.2.686 [id number] [facility] 2021-01-14 00:00:00 2021-01-14 00:00:00 Patient Secure Msg Doctor Unassigned, [place] [facility] 1.2.840.114 350.1.13.10 4.2.7.2.686 [id number] 107 [id number] [facility] 2021-01-13 00:00:00 2021-01-13 00:00:00 Telephone Tina Neri [facility] 1.2.840.114 350.1.13.10 4.2.7.2.686 [id number] [facility] 2020-10-06 00:00:00 2020-10-06 00:00:00 Telephone Tina Neri [facility] 1.2.840.114 350.1.13.10 4.2.7.2.686 [id number] [facility] 2020-09-22 08:18:29 2020-09-22 09:15:13 Office Visit Tina Neri [facility] 1.2.840.114 350.1.13.10 4.2.7.2.686 [id number] [facility] 2020-09-22 08:00:00 2020-09-22 08:00:00 Outpatient R TINA NERI [facility] [id number] [facility] 2020-09-18 18:19:00 2020-09-19 00:41:00 Emergency Lesia Ratliff [facility] 1.2.840.114 350.1.13.10 4.2.7.2.686 [id number] [facility] 2020-09-17 12:45:00 2020-09-17 12:45:00 Outpatient R TINA NERI [facility] [id number] [facility] 2020-09-03 00:00:00 2020-09-03 00:00:00 Telephone Jose Armando Su [facility] MATERNAL & CHILD [facility] 1..840.114 350.1.13.10 4.2.7.2.686 [id number] [facility] 2020-09-02 14:30:00 2020-09-02 14:30:00 Outpatient R PEDRITO EDWARDS [facility] [id number] [facility] 2020-09-02 09:22:30 2020-09-02 10:03:49 Office Visit Jose Armando Su [facility] 1..840.114 350.1.13.10 4.2.7.2.686 [id number] [facility] 2020-09-02 09:15:00 2020-09-02 09:15:00 Outpatient R JOSE ARMANDO SU [facility] [id number] [facility] 2020-08-16 09:00:00 2020-08-16 09:00:00 Outpatient R TINA NERI [facility] [id number] [facility] 2020-01-15 08:41:20 2020-01-15 09:23:33 Office Visit Tina Neri [facility] ..840.114 350.1.13.10 4.2.7.2.686 [id number] [facility] 2020-01-13 15:56:36 2020-01-13 18:20:00 Emergency X AUODETTEERVETO FIGUEROA [facility] ERT [id number] [facility] 2020-01-13 15:56:36 2020-01-13 18:20:00 Emergency Veto Stevens [facility] 1.840.114 350.1.13.10 4.2.7.2.686 [id number] [facility] 2019-12-30 14:44:17 2019-12-30 23:59:00 Hospital Encounter Harley Posada [facility] 1.2840.114 350.1.13.10 4.2.7.2.686 [id number] [facility] 2019-12-30 16:46:00 2019-12-30 16:46:00 Emergency [facility] MAY [id number] [facility] 2019-12-30 00:00:00 2019-12-30 00:00:00 Orders Only Doctor Unassigned, [place] [facility] 1.840.114 350.1.13.10 4.2.7.2.686 [id number] [facility] 2019-12-17 19:20:11 2019-12-18 18:20:00 Emergency nullFlavo r [facility] [id number] [facility] 2019-12-18 12:47:00 2019-12-18 12:47:00 Outpatient MHIE MHIE [id number] [facility] 2019-12-17 13:20:00 2019-12-17 13:20:00 Emergency E [facility]BL [facility] 7500 [facility] 2019-12-16 00:00:00 2019-12-16 00:00:00 Telephone Tina Neri [facility] 1.0.114 350.1.13.10 4.2.7.2.686 [id number] [facility] 2019-12-07 00:00:00 2019-12-07 00:00:00 [facility] 1.0.114 350.1.13.10 4.2.7.2.686 [id number] [facility] 2019-08-12 00:00:00 2019-08-12 00:00:00 Telephone Cardoza, [facility] 1.2.840.114 350.1.13.10 4.2.7.2.686 [id number] [facility] 2019-07-17 00:00:00 2019-07-17 00:00:[address] [facility] 1.2.840.114 350.1.13.10 4.2.7.2.686 [id number] [facility] 2019-07-17 00:00:00 2019-07-17 00:00:[address] [facility] 1.2.840.114 350.1.13.10 4.2.7.2.686 [id number] [facility] 2019-07-13 22:23:00 2019-07-16 12:50:00 Hospital Encounter Ulices Cardoza Aamir Ruiz [facility] 1.2.840.114 350.1.13.10 4.2.7.2.686 [id number] [facility] 2019-07-13 00:00:00 2019-07-13 00:00:00 Nurse Triage Alba Hernandez [facility] 1.2.840.114 350.1.13.10 4.2.7.2.686 [id number] [facility] 2019-07-13 00:00:00 2019-07-13 00:00:00 Orders Only Doctor Unassigned, [place] [facility] 1.2.840.114 350.1.13.10 4.2.7.2.686 [id number] [facility] 2019-07-11 14:22:26 2019-07-11 16:23:58 Routine Visit Ulices Cardoza [facility] 1.2.840.114 350.1.13.10 4.2.7.2.686 [id number] [facility] 2019-07-11 13:31:26 2019-07-11 14:01:26 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, [facility] Us Room Liseth Machuca [facility] 1.2.840.114 350.1.13.10 4.2.7.2.686 [id number] [facility] 2019-07-08 14:17:02 2019-07-08 16:52:35 Routine Visit Yariel Moreno [facility] 1.2.840.114 350.1.13.10 4.2.7.2.686 [id number] [facility] 2019-07-06 00:00:00 2019-07-06 00:00:00 Nurse Triage Ana Lopez [facility] 1.2.840.114 350.1.13.10 4.2.7.2.686 [id number] [facility] 2019-07-04 13:59:50 2019-07-04 16:07:27 [facility] 1.2.840.114 350.1.13.10 4.2.7.2.686 [id number] [facility] 2019-07-04 00:00:00 2019-07-04 00:00:00 Orders Only Doctor Unassigned, [place] [facility] 1.2.840.114 350.1.13.10 4.2.7.2.686 [id number] [facility] 2019-07-02 00:00:00 2019-07-02 00:00:00 Telephone Maggie Sanchez [facility] 1.2.840.114 350.1.13.10 4.2.7.2.686 [id number] [facility] 2019-07-01 13:19:01 2019-07-01 13:34:01 Routine Visit Maggie Sanchez [facility] 1.2.840.114 350.1.13.10 4.2.7.2.686 [id number] [facility] 2019-06-27 14:55:33 2019-06-27 16:20:27 Routine Visit Ulices Cardoza [facility] 1.2.840.114 350.1.13.10 4.2.7.2.686 [id number] [facility] 2019-06-24 12:02:00 2019-06-24 13:15:00 Hospital Encounter Ulices Cardoza [facility] 1.2.840.114 350.1.13.10 4.2.7.2.686 [id number] [facility] 2019-06-24 10:15:46 2019-06-24 10:30:46 Routine Visit Yanna Hazel [facility] 1.2.840.114 350.1.13.10 4.2.7.2.686 [id number] 095 [id number] [facility] 2019-06-20 13:34:12 2019-06-20 14:44:31 Routine Visit Maggie Sanchez [facility] 1.2.840.114 350.1.13.10 4.2.7.2.686 [id number] [id number] [facility] Results Test Description Test Time Test Comments Results Result Co mments Source [facility] W Specific [id number] 23:56:00* Test Item Value Reference Range Interpretation [...] internal controls Lab Interpretation (test code = 54077-2) Normal [facility] [id number] 23:55:00* Test Item Value Reference Range Interpretation Comme nts POCT PREG (test code = 1605) Negative On board controls acceptable with C Line (test code = 3574) Yes POCT PREG LOT # (test code = 3575) POCT PREG TEST DATE (test code = 3576) BRIGITTE (test code = BRIGITTE) accurate developme nt and interpretation of all internal controls Lab Interpretation (test code = 59513-1) Normal [facility] RFLX MICR CULT IF [id number] 14:23:00* Test Item Value Reference Range Interpretation [...] UACULT) Criteria Culture CHK Indication for culture: Dysuria/[id number] 05:53:00* Test Item Value Reference Range Interpretation Comme nts GLUBED (test code = GLUBED) 88 mg/dL 65-110 N [id number] 06:17:00* Test Item Value Reference Range Interpretation Comme nts GLUBED (test code = GLUBED) 88 mg/dL 65-110 N [id number] 06:32:00* Test Item Value Reference Range Interpretation Comme nts GLUBED (test code = GLUBED) 76 mg/dL 65-110 N [id number] 14:30:00* Test Item Value Reference Range Interpretation Comme nts CREATININE (test code = CREAT) 0.5 mg/dL 0.5-1.0 N SGOT/[id number] 14:30:00* Test Item Value Reference Range Interpretation Comme nts SGOT/AST (test code = AST) 34 units/L 15-37 N SGPT/[id number] 14:30:00* Test Item Value Reference Range Interpretation Comme nts SGPT/ALT (test code = ALT) 26 units/L 12-78 N CBC W/AUTO [id number] 13:41:00* Test Item Value Reference Range Interpretation [...] REQUIRED (test code = PLTMR) NORMAL NORMAL [id number] 05:45:00* Test Item Value Reference Range Interpretation Comme nts GLUBED (test code = GLUBED) 100 mg/dL 65-110 N HGB [id number] 07:27:00* Test Item Value Reference Range Interpretation Comme nts HEMOGLOBIN (test code = HGB) 8.2 g/dL 10.1-13.8 L HEMATOCRIT (test code = HCT) 27.1 % 32.5-41.8 L [id number] 06:28:00* Test Item Value Reference Range Interpretation Comme nts GLUBED (test code = GLUBED) 86 mg/dL 65-110 N [id number] 13:53:00* Test Item Value Reference Range Interpretation Comme nts GLUBED (test code = GLUBED) 76 mg/dL 65-110 N RUBELLA [id number] 11:54:00* Test Item Value Reference Range Interpretation Comme nts RUBELLA SCREEN (test code = RUBSC) 63.5 IUnit/ml Results >10.0IUn its/ml are considered positive inaccordance with the CLSI guidelines and based on the WHO International Standard for Anti-Rubella serum as anindicator of immune status and a breakpoint to detect mostseropositive persons. CBC W/AUTO [id number] 11:26:00* Test Item Value Reference Range Interpretation [...] REQUIRED (test code = PLTMR) NORMAL NORMAL [id number] 09:48:00* Test Item Value Reference Range Interpretation Comme nts GLUBED (test code = GLUBED) 90 mg/dL 65-110 N [id number] 05:55:00* Test Item Value Reference Range Interpretation Comme nts GLUBED (test code = GLUBED) 80 mg/dL 65-110 N [id number] 20:43:00* Test Item Value Reference Range Interpretation Comme nts GLUBED (test code = GLUBED) 108 mg/dL 65-110 N [id number] 15:11:00* Test Item Value Reference Range Interpretation Comme nts GLUBED (test code = GLUBED) 111 mg/dL 65-110 H [id number] 09:57:00* Test Item Value Reference Range Interpretation Comme nts GLUBED (test code = GLUBED) 106 mg/dL 65-110 N [id number] 05:50:00* Test Item Value Reference Range Interpretation Comme nts GLUBED (test code = GLUBED) 97 mg/dL 65-110 N UR CREATININE CLEARANCE [id number] 01:25:00* Test Item Value Reference Range Interpretation Comme nts CREATININE CLEARANCE RESULT (test code = CREATCLR) 160 ml/min 70-120 H CREATININE (test code = CREAT) 0.5 mg/dL 0.5-1.0 N UR CREATININE RANDOM (test c ode = CREATU) 89.3 mg/dL UR VOLUME (test code = VOL) 1300 ML UR PROTEIN [id number] 01:25:00* Test Item Value Reference Range Interpretation Comme nts UR PROTEIN RANDOM (test code = PROTU) 33.4 mg/dL UR PROTEIN 24HR (test code = [id number]) 434 mg/24HR 20-150 HH RESULTS CALLED Princess DELATORRE.READ BACK & CONFIRMED? Y.BY F.LAB.LGL0 11/06/21 0123.Units for 24 HR Urine Protein have changed: New Units = MG/24HR [id number] 20:33:00* Test Item Value Reference Range Interpretation Comme nts GLUBED (test code = GLUBED) 112 mg/dL 65-110 H [id number] 17:05:00* Test Item Value Reference Range Interpretation Comme nts GLUBED (test code = GLUBED) 99 mg/dL 65-110 N [id number] 12:12:00* Test Item Value Reference Range Interpretation Comme nts GLUBED (test code = GLUBED) 98 mg/dL 65-110 N [id number] 08:03:00* Test Item Value Reference Range Interpretation Comme nts GLUBED (test code = GLUBED) 82 mg/dL 65-110 N [id number] 22:39:00* Test Item Value Reference Range Interpretation Comme nts GLUBED (test code = GLUBED) 83 mg/dL 65-110 N AG HEPATITIS B [id number] 21:53:00* Test Item Value Reference Range Interpretation Comme nts AG HEPATITIS B SURFACE (test code = HBSAG) NONREACTIVE NONREACTIVE AB HEPATITIS C [id number] 21:53:00* Test Item Value Reference Range Interpretation Comme nts AB HEPATITIS C (test code = HCVAB) NONREACTIVE NONREACTIVE SIGNAL TO CUTOFF (test code = CUTOFF) <0.02 <0.80 N AB [id number] 21:53:00* Test Item Value Reference Range Interpretation Comme nts AB TREPONEMA (test code = TREPAB) NONREACTIVE NONREACTIVE AB HIV 1 21:53:00* Test Item Value Reference Range Interpretation Comme nts AB HIV 1 2 (test code = [id number]) NONREACTIVE NONREACTIVE Done by [employer] HIV Ag/Ab Combo Screen COVID 19 Asymptomatic IH [id number] 21:30:00* Test Item Value Reference Range Interpretation [...] testsfor detection and/or diagnosis of COVID-19 under Pwldcyj293(b)(1) of the Act, 21 U.S.C. 360bbb-3(b)(1), unless theauthorization is terminated or revoked sooner. [id number] 16:04:00* Test Item Value Reference Range Interpretation Comme nts CREATININE (test code = CREAT) 0.5 mg/dL 0.5-1.0 N SGOT/[id number] 16:04:00* Test Item Value Reference Range Interpretation Comme nts SGOT/AST (test code = AST) 31 units/L 15-37 N SGPT/[id number] 16:04:00* Test Item Value Reference Range Interpretation Comme nts SGPT/ALT (test code = ALT) 28 units/L 12-78 N CBC W/AUTO [id number] 15:46:00* Test Item Value Reference Range Interpretation [...] NORMAL NORMAL Urinalysis macro (dipstick) panel - [id number] 14:15:57* Test Item Value Reference Range Interpretation Comme nts Protein (test code = Protein) Trace Glucose (test code = Glucose) Negative [facility] MedicalStreptococcus agalactiae [Presence] in Unspecified specimen by Organism specific [id number] 00:00:00* Test Item Value Reference Range Interpretation Comme nts Benzthiazide [Mass/volume] i n Urine (test code = 3400-9) positive negative A [facility] MedicalCOMPREHENSIVE METABOLIC [id number] 18:13:00* Test Item Value Reference Range Interpretation [...] = ALKP) 517 units/L 46-116 H URIC [id number] 18:13:00* Test Item Value Reference Range Interpretation Comme nts URIC ACID (test code = URIC) 4.8 mg/dL 2.6-6.0 N LACTIC DEHYDROGENASE(LDH)2021-10-31 18:13:00* Test Item Value Reference Range Interpretation Comme nts LACTIC DEHYDROGENASE(LDH) (t est code = LDH) 267 units/L 81-234 H URINALYSIS [id number] 17:54:00* Test Item Value Reference Range Interpretation [...] NONE SEEN URINE SAMPLE: CLEAN CATCHUR PROTEIN/CREATININE [id number] 17:54:00* Test Item Value Reference Range Interpretation Comme nts UR PROTEIN RANDOM (test code = PROTU) 19.1 mg/dL UR CREATININE RANDOM (test code = CREATU) 78.7 mg/dL PROTEIN/CREATININE RATIO (te st code = P/CRATIO) 242.6 mg/gcrea <200 H URINE SAMPLE: CLEAN CATCHCBC W/AUTO [id number] 17:40:00* Test Item Value Reference Range Interpretation [...] NORMAL NORMAL Urinalysis macro (dipstick) panel - [id number] 13:49:32* Test Item Value Reference Range Interpretation Comme nts Protein (test code = Protein) Negative Glucose (test code = Glucose) Negative [facility] MedicalHIV 1+2 Ab+HIV1 p24 Ag [Presence] in Serum or Plasma by Zohthtqgygj3747-00-08 00:00:00* Test Item Value Reference Range Interpretation Comme nts ethnicity: (test code = ethnicity:) other race: (test code = race:) white () HIV Ag/Ab (test code = HIV Ag/Ab) non-reactive non-reactive [facility] MedicalReagin Ab [Presence] in Serum by [id number] 00:00:00* Test Item Value Reference Range Interpretation Comme nts ethnicity: (test code = ethnicity:) other race: (test code = race:) other RPR (test code = RPR) non-reactive non-reactive [facility] MedicalPOCT GRP A STREP (MOLECULAR)2021-10-25 15:42:00* Test Item Value Reference Range Interpretation Comme nts POCT GP A STREP (test code = 81963-4) negative Negative - Negative [facility]dipstick[facility] - Urine 2021-10-14 14:45:15* Test Item Value Reference Range Interpretation Comme nts Protein (test code = Protein) Trace Glucose (test code = Glucose) Normal [facility] [id number] 12:09:00* Test Item Value Reference Range Interpretation Comme nts LIPASE (test code = LIP) 134 units/L 73-393 N COMPREHENSIVE METABOLIC [id number] 12:09:00* Test Item Value Reference Range Interpretation [...] code = ALKP) 100 units/L 46-116 N [id number] 12:09:00* Test Item Value Reference Range Interpretation Comme nts AMYLASE (test code = MITCHELL) 68 units/L 30-110 N URINALYSIS [id number] 10:59:00* Test Item Value Reference Range Interpretation [...] NONE SEEN URINE SAMPLE: CLEAN CATCHCBC W/AUTO [id number] 10:39:00* Test Item Value Reference Range Interpretation [...] NORMAL NORMAL - US FET BIO PH ID W/O [id number] 00:00:00 [facility] 1990 Sex: F Patient Name: DOMONIQUE MCCURDY Unit No: [id number] EXAMS: CPT CODE: [id number] US FET BIO PH ID W/O NST 34943 PROCEDURE INFORMATION: Exam: US Biophysical Profile Without [...] (1317) GCD.CPS Orig Print D/T:S: 08/17/2021 (1317) [facility] NAME: DOMONIQUE MCCURDY Radiology Department PHYS: Anastasiya Means III, MD [address] : 1990 AGE: 31 SEX: F [place] [address] LOC: NiaELIANE PHONE #: [phone] EXAM DATE: 08/17/2021 STATUS: REG ER FAX #: [phone] RAD NO: Page 1 Signed Report Patient Name: DOMONIQUE MCCURDY Unit No: [id number] EXAMS: CPT CODE: [id number] US FET BIO PH ID W/O NST 69652 (Continued) [facility] NAME: DOMONIQUE MCCURDY Radiology Department PHYS: Anastasiya Means III, MD [address] : 1990 AGE: 31 SEX: F [place] [address] LOC: NiaELIANE PHONE #: [phone] EXAM DATE: 08/17/2021 STATUS: REG ER FAX #: [phone] RAD NO: Page 2 Signed ReportCHEM [id number] 19:51:00* Test Item Value Reference Range Interpretation [...] 0.7-1.6 eGFR (test code = eGFR) 113 [facility] [id number] 19:51:00* Test Item Value Reference Range Interpretation [...] UDS Note) See Note *NA*(12/17/19 1:51 PM) [facility] Allian[id number] 19:51:00* Test Item Value Reference Range Interpretation [...] (test code = Eosinophils #) 0.1 <=0.5 [id number] 19:51:00* Test Item Value Reference Range Interpretation Comme nts Acetaminoph Lvl (test code = Acetaminoph Lvl) (12/17/19 1:51 PM) 10-20 Ethanol Lvl (test code = Ethanol Lvl) no gt Etoh (%) (test code = Etoh (%)) no gt Salicylate Lvl (test code = Salicylate Lvl) no gt <=30.0 [facility] [id number] 19:51:00* Test Item Value Reference Range Interpretation Comme nts U Preg (test code = U Preg) Negative (12/17/19 1:51 PM) [facility] Sarthak Notes Date/Time Note Provider Source 2025-01-21 14:22:14 Pt has been scheduled, offered a week sooner appt pt declined due to times. 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 Please contact patient at [phone] (home) Y Castellano [facility] 2022-10-06 13:22:00 [facility] ([facility]) EMERGENCY PROVIDER REPORT REPORT#:[id number] REPORT STATUS: Signed DATE:10/06/22 TIME:1322 PATIENT: DOMONIQUE MCUCRDY UNIT #: [id number] ROOM/BED: : 92 AGE: 32 SEX: F [...] infection. Took fluconazole with some improvement. Using ajti-yzw-sxqgehh topical medication now. Denies concern for sexually [...] - 7.0 pH UNITS) 6.0 Ur Specific [place] (1.005 - 1.030 SG) >=1.030 H Urine [...] to 7 days at 1810 RPT #: [id number] END OF REPORT [facility] 2021-11-12 13:22:00 [facility] ([facility]) OB Postpart Progr Note REPORT#:[id number] REPORT STATUS: Signed DATE:11/12/21 TIME: 1322 PATIENT: DOMONIQUE MCCURDY UNIT #: [id number] ROOM/BED: 2208- : 92 AGE: 31 SEX: [...] Sodium Chloride (SODIUM CHLORIDE 0.9% 100 ML ADD-[place]) 100 ML Witch Giovana/Glycerin (A-E-R) 1 APPLIC [...] Plan discussed with: patient at 1323 RPT #:[id number] END OF REPORT [facility] 2021-11-11 07:54:00 [facility] ([facility]) OB Postpart Progr Note REPORT#:[id number] REPORT STATUS: Signed DATE:11/11/21 TIME: 0754 PATIENT: DOMONIQUE MCCURDY UNIT #: [id number] ROOM/BED: [address] : [birth year] AGE: 31 SEX: F [...] procardia. BPs non severe. at 0755 RPT #:[id number] END OF REPORT [facility] 2021-11-10 08:18:00 [facility] ([facility]) OB Postpart Progr Note REPORT#:[id number] REPORT STATUS: Signed DATE:11/10/21 TIME: 817 PATIENT: DOMONIQUE MCCURDY UNIT #: [id number] ROOM/BED: [address] : 92 AGE: 31 SEX: F [...] (Auto) (14.5 - 29.7 %) 40.[address] [place] % (Auto) (3.6 - 10.2 %) 7.8 Eos % (Auto) (0.0 - 3.0 %) 0.9 Baso % (Auto) (0.1 - 0.9 %) 0.3 Neut # (Auto) (K/mm3) 4.5 Lymph # (Auto) (K/mm3) 3.6 [place] # (Auto) (K/mm3) 0.7 Eos # (Auto) (K/mm3) 0.08 Baso # (Auto) (K/mm3) 0.0 Diagnosis, Assessment Plan Diagnosis, Assessment Plan Assessment: nml progress, gest diabetes, no meds, preeclampsia Plan: routine care, BPs labile, occ severe range. rec'd procardia and IV labetalol. will start mag. labs wnl. at 0820 RPT #:[id number] END OF REPORT [facility] 2021-11-10 06:44:00 [facility] ([facility]) Clinical Note REPORT#:[id number] REPORT STATUS: Signed DATE:11/10/21 TIME: 06 PATIENT: DOMONIQUE MCCURDY UNIT #: [id number] ROOM/BED: [address] : [birth year] AGE: 31 SEX: F [...] start IV and start labetalol protocol. Per extension service specialist in charge, pt to transferred to [facility] due to BP control issues. Orders given. Called again by RN due to elevated/non-severe range BPs. Pt became upset when RN told her she needs to try to sleep and relax. Instructions given to monitor BPs, recheck in 1 hour, restart protocol if severe range BPs present at 0646 RPT #:[id number] END OF REPORT [facility] 2021-11-09 12:54:00 [facility] ([facility]) OB Postpart Progr Note REPORT#:[id number] REPORT STATUS: Signed DATE:11/09/21 TIME: 1254 PATIENT: DOMONIQUE MCCURDY UNIT #: [id number] ROOM/BED: [address] : [birth year] AGE: 31 SEX: F [...] labs pending. restart zoloft. at 1255 RPT #:[id number] END OF REPORT [facility] 2021-11-08 10:33:00 [facility] ([facility]) OB Postpart Progr Note REPORT#:[id number] REPORT STATUS: Signed DATE:11/08/21 TIME: 1033 PATIENT: DOMONIQUE MCCURDY UNIT #: [id number] ROOM/BED: [address] : 92 AGE: 31 SEX: F [...] % (Auto) (14.5 - 29.7 %) [address] [place] % (Auto) (3.6 - 10.2 %) 8.1 Eos % (Auto) (0.0 - 3.0 %) 0.5 Baso % (Auto) (0.1 - 0.9 %) 0.2 Neut # (Auto) (K/mm3) 5.3 Lymph # (Auto) (K/mm3) 2.1 [place] # (Auto) (K/mm3) 0.7 Eos # (Auto) (K/mm3) 0.04 Baso # (Auto) (K/mm3) 0.0 Serology Rubella Screen (IUnit/ml) 63.5 Diagnosis, Assessment Plan Diagnosis, Assessment Plan Assessment: nml progress Plan: routine care, discharge tomorrow at 1034 RPT #:[id number] END OF REPORT [facility] 2021-11-07 16:56:00 [facility] ([facility]) OB Delivery Note REPORT#:[id number] REPORT STATUS: Signed DATE:11/07/21 TIME: 1655 PATIENT: DOMONIQUE MCCURDY UNIT #: [id number] ROOM/BED: [address] : [birth year] AGE: 31 SEX: F [...] for Hemorrhage. Delivery date A: Delivery time A: Birthweight (gm) infant A: Weight (lb) A: Weight (oz) infant A: Gender infant A: Female 1 minute infant A: 5 minutes infant A: 10 minutes infant A: Cord pH obtained A: Vacuum time infant A: Vacuum # pulls infant A: Vacuum # popoffs infant A: QBL at delivery: __ Provider comments on imported nursing data: [] Pre-delivery GBS status: GBS status: positive [place] evaluation at delivery: NRP certified personnel Admission [...] hem (100), no more than expected at 4897 RPT #:[id number] END OF REPORT [facility] 2021-11-07 12:32:00 [facility] ([facility]) Clinical Note REPORT#:[id number] REPORT STATUS: Signed DATE:11/07/21 TIME: 1232 PATIENT: DOMONIQUE MCCURDY UNIT #: [id number] ROOM/BED: [address] : 92 AGE: 31 SEX: F ATTEND: Rufino Cuadra MD ADM AUTHOR: Rufino Cuadra MD * ALL edits or amendments must be made on the electronic/computer document * Clinical Note Note: pt transferred to [facility]. t 150s, Cat I. PCN started for GBS. pit initiated, ctx q5 min. plan for TOLAC, antic . at 1232 RPT #:[id number] END OF REPORT [facility] 2021-11-07 07:26:00 [facility] ([facility]) OB Antepartum Prog Note REPORT#:[id number] REPORT STATUS: Signed DATE:11/07/21 TIME: 725 PATIENT: DOMONIQUE MCCURDY UNIT #: [id number] ROOM/BED: [facility]- : 92 AGE: 31 SEX: F ATTEND: [...] on availability on for induction/TOLAC. at 0732 [facility] #:[id number] END OF REPORT [facility] 2021-11-06 16:57:00 [facility]) OB Antepartum Prog Note REPORT#:[id number] REPORT STATUS: Signed DATE:11/06/21 TIME: 165 PATIENT: DOMONIQUE MCCURDY UNIT #: [id number] ROOM/BED: [address] : 92 AGE: 31 SEX: F [...] spot on L D at 1659 RPT #:[id number] END OF REPORT [facility] 2021-11-05 14:40:00 [facility] ([facility]) OB Antepartum Prog Note REPORT#:[id number] REPORT STATUS: Signed DATE:11/05/21 TIME: 1440 PATIENT: DOMONIQUE MCCURDY UNIT #: [id number] ROOM/BED: [address] : 92 AGE: 31 SEX: F [...] of elevated bp discussed) at 1444 RPT #:[id number] END OF REPORT [facility] 2021-11-04 21:17:00 [facility] ([facility]) OB Admission / H P REPORT#:[id number] REPORT STATUS: Signed DATE:11/04/21 TIME: 2116 PATIENT: DOMONIQUE MCCURDY UNIT #: [id number] ROOM/BED: [facility] : 92 AGE: 31 SEX: F ATTEND: [...] % (Auto) (14.5 - 29.7 %) 25.[address] [place] % (Auto) (3.6 - 10.2 %) 6.2 Eos % (Auto) (0.0 - 3.0 %) 0.4 Baso % (Auto) (0.1 - 0.9 %) 0.1 Neut # (Auto) (K/mm3) 4.7 Lymph # (Auto) (K/mm3) 1.8 [place] # (Auto) (K/mm3) 0.4 Eos # (Auto) (K/mm3) 0.03 Baso # (Auto) (K/mm3) 0.0 Diagnosis, Assessment Plan Diagnosis, Assessment Plan Free Text A P: 36.5 wks, elevated BPs, GDM, contractions, prev C/S x1, prev x1. observation for BPs, ctx. start 24 hr urine collection. plan for if labors, possible need for C/S d/w pt, understands. at 2216 RPT #:[id number] END OF REPORT [facility] 2021-10-31 17:18:00 [facility] ([facility]) Clinical Note REPORT#:[id number] REPORT STATUS: Signed DATE:10/31/21 TIME: 1718 PATIENT: DOMONIQUE MCCURDY UNIT #: [id number] ROOM/BED: : 92 AGE: 31 SEX: F [...] home, has appt Fri with sono. 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 % (Auto) (3.6 - 10.2 %) 7.7 Eos % (Auto) (0.0 - 3.0 %) 0.3 Baso % (Auto) (0.1 - 0.9 %) 0.1 Neut # (Auto) (K/mm3) 5.3 Lymph # (Auto) (K/mm3) 1.3 [place] # (Auto) (K/mm3) 0.6 Eos # (Auto) (K/mm3) 0.02 Baso # (Auto) (K/mm3) 0.0 Urines Urine Color (YELLOW) YELLOW Urine Appearance (CLEAR) Slightly-Cloudy Urine pH (5 - 9) 6.0 Ur Specific [place] (1.001 - 1.035) 1.024 Urine Protein (NEG) [...] Impressions: ULTRASOUND - US FET BIO PH ID W/O NST 08/17 1230 Report Impression - [...] % (Auto) (14.5 - 29.7 %) [address] [place] % (Auto) (3.6 - 10.2 %) 7.7 Eos % (Auto) (0.0 - 3.0 %) 0.3 Baso % (Auto) (0.1 - 0.9 %) 0.1 Neut # (Auto) (K/mm3) 5.3 Lymph # (Auto) (K/mm3) 1.3 [place] # (Auto) (K/mm3) 0.6 Eos # (Auto) (K/mm3) 0.02 Baso # (Auto) (K/mm3) 0.0 Urines Urine Color (YELLOW) YELLOW Urine Appearance (CLEAR) Slightly-Cloudy Urine pH (5 - 9) 6.0 Ur Specific [place] (1.001 - 1.035) 1.024 Urine Protein (NEG) [...] Impressions: ULTRASOUND - US FET BIO PH ID W/O NST 08/17 1230 Report Impression - [...] IV zofran. Cleared for discharge to home. [place] diet for the next 24 hours. Labor precautions. F/U with Dr Cuadra in 4 days, Sunday. All questions answered. Urine culture ordered jr at 1440 RPT #:[id number] END OF REPORT [facility]
[2025-04-10] MEDS ORDERED: NA CHLORIDE 0.9% 1,000 ML ONE (01:10)
[2025-04-10 01:37] LABS: Specific Gravity 1.011 (1.005-1.030)
[2025-04-10 01:44] LABS: Absolute Eosinophils 0.1 K/uL (0-0.5); Absolute Lymphocytes (CBC) 3.2 K/uL (0.7-4.9); Absolute Monocytes 0.5 K/uL (0.1-1.3); Absolute Neutrophil 3.1 K/uL (1.8-8.0); Basophils % 0.4 % (0-1.3); Eosinophils % 1.2 % (0-4.4); Hematocrit 42.3 % (36.0-45.0); Hemoglobin 14.4 g/dL (12.0-15.0); Lymphocytes % 46.8 % (15.3-44.8); MCH 29.5 pg (27.0-35.0); MCHC 34.1 g/dL (32.0-36.0); MCV 86.5 fL (80-100); MPV 7.2 fL (7.6-11.3); Monocytes % 7.3 % (3.3-12.3); Neutrophils % 44.3 % (41.7-73.7); Nucleated Red Blood Cells % 0.1 % (0-0); Platelets 366 thou/uL (152-406); RBC Red Blood Cell Count 4.89 M/uL (3.86-4.86); Red Cell Distribution Width 12.7 % (12.1-15.2)
[2025-04-10 01:55] LABS: Albumin 4.6 g/dL (3.4-5.0); Anion Gap 7.3 mEq/L (5.0-15.0); Bilirubin Total 0.7 mg/dL (0.2-1.0); Globulin 4.8 g/dL (2.3-3.5); Potassium 3.3 mEq/L (3.5-5.1); Protein, Total 9.4 g/dL (6.4-8.2)
--- NOTE | 2025-04-10 02:39 | EDPHYS ---
Physician Documentation [facility] Name: Domonique Mccurdy Age: 34 yrs Sex: Female : 1990 Arrival Date: 04/09/2025 Time: 23:46 Bed 4 Private MD: ED Physician Lily Pope HPI: 04/10 02:35 This 34 yrs old Female presents to ER via Ambulatory with complaints of gb1 Abdominal Swelling. 02:35 34-year-old female took anabolic steroids for 30 days and then stopped taking them on gb1 March 27. She presents Emergency Department on a sick with a distended abdomen and cramping. She was prescribed Bentyl for pain but has not helped her. She has a history of kidney stones, ovarian cyst, discharge and and prediabetes. Patient denies any nausea vomiting or diarrhea she denies any fever or chills.. Historical: - Allergies: 00:05 No Known Allergies; kl - Home Meds: 00:05 Bentyl Oral [Active]; Pepcid Oral [Active]; kl - PMHx: 00:05 Kidney stones; Ovarian cysts (Cholecystectomy); Post depression; Pre Diabetes kl (Post depress); pre eclampsia; - PSHx: 00:05 section; Cholecystectomy; kl - Immunization history:: Adult Immunizations not immunized. - Infectious Disease History:: Denies. - Social history:: Smoking status: Patient denies any tobacco usage or history of. Exam: 02:37 Constitutional: This is a well developed, well nourished patient who is awake, alert, gb1 and in no acute distress. Head/Face: Normocephalic, atraumatic. Eyes: Pupils equal round and reactive to light, extra-ocular motions intact. Lids and lashes normal. Conjunctiva and sclera are non-icteric and not injected. Cornea within normal limits. Periorbital areas with no swelling, redness, or edema. ENT: Nares patent. No nasal discharge, no septal abnormalities noted. Tympanic membranes are normal and external auditory canals are clear. Oropharynx with no redness, swelling, or masses, exudates, or evidence of obstruction, uvula midline. Mucous membranes moist. Neck: Trachea midline, no thyromegaly or masses palpated, and no cervical lymphadenopathy. Supple, full range of motion without nuchal rigidity, or vertebral point tenderness. No Meningismus. Chest/axilla: Normal chest wall appearance and motion. Nontender with no deformity. No lesions are appreciated. Cardiovascular: Regular rate and rhythm with a normal S1 and S2. No gallops, murmurs, or rubs. Normal PMI, no JVD. No pulse deficits. Respiratory: Lungs have equal breath sounds bilaterally, clear to auscultation and percussion. No rales, rhonchi or wheezes noted. No increased work of breathing, no retractions or nasal flaring. Abdomen/GI: Soft, non-tender, with normal bowel sounds. No distension or tympany. No guarding or rebound. No evidence of tenderness throughout. Pelvic Exam: Normal external genitalia. Speculum exam with closed cervical os, no discharge or bleeding noted. Bimanual exam with normal adnexa, no adnexal or cervical motion tenderness. Normal uterus. Skin: Warm, dry with normal turgor. Normal color with no rashes, no lesions, and no evidence of cellulitis. MS/ Extremity: Pulses equal, no cyanosis. Neurovascular intact. Full, normal range of motion. Neuro: Awake and alert, GCS 15, oriented to person, place, time, and situation. Cranial nerves II-XII grossly intact. Motor strength 5/5 in all extremities. Sensory grossly intact. Cerebellar exam normal. Normal gait. Vital Signs: 04/09 23:56 BP 126 / 86; Pulse 62; Resp 16; Temp 97.7(O); Pulse Ox 100% on R/A; Weight 71.21 kg (R); Height 5 ft. 4 in. ; Pain 3/10; 04/10 01:26 BP 131 / 97; Pulse 62; Resp 17 S; Pulse Ox 100% on R/A; ha1 02:00 BP 125 / 78; Pulse 62; Resp 16; Pulse Ox 100% ; al5 02:30 BP 124 / 82; Pulse 63; Resp 16; Pulse Ox 100% ; al5 04/09 23:56 Body Mass Index 26.95 (71.21 kg, 162.56 cm) 04/09 23:56 Pain Scale: Adult kl MDM: 00:51 Medical Screening Exam initiated gb1 02:37 Data reviewed: vital signs, nurses notes. ED course: 34-year-old female with abdominal gb1 swelling. Her liver function tests are elevated the last time she was here last week but now they are starting to normalize they are much lower. She does not have any right upper quadrant pain I doubt acute cholecystitis or biliary colic I doubt any gallstones. I recommend follow-up with outpatient GI for possible evaluation as an outpatient. Patient is compliant with this plan of care discharge.. 04/10 00:54 Order name: CBC with Diff; Complete Time: :04/10 00:54 Order name: CMP; Complete Time: 04/10 00:54 Order name: Lipase; Complete Time: :04/10 00:54 Order name: Test, Urine; Complete Time: 04/10 00:54 Order name: IV Saline Lock; Complete Time: :20 04/10 00:54 Order name: Labs collected and sent; Complete Time: 01:20 gb Administered Medications: 01:20 Drug: NS 0.9% IV 1000 ml IV at 1 bolus Per protocol; to be given as a bolus over 60 ha1 minutes Route: IV; Rate: 1 bolus; Site: right forearm; 03:03 Follow up: Response: No adverse reaction; IV Status: Completed infusion; IV Intake: al5 1000ml Disposition Summary: 04/10/25 02:39 Discharge Ordered Notes: Location: Home gb1 Condition: Stable gb1 Diagnosis - Abdominal pain, unspecified gb1 Followup: gb1 - With: Arthur De Jesus MD - When: - Reason: Further diagnostic work-up Discharge Instructions: - Discharge Summary Sheet gb1 - Abdominal Pain, Adult gb1 Forms: - Medication Reconciliation Form gb1 - Antibiotic Education gb1 - Prescription Opioid Use gb1 - Patient Portal Instructions gb1 - Leadership Thank You Letter gb1 Signatures: Dispatcher [employer] Lizz Nicolas RN RN kl Ayala, Heidy, RN RN ha1 Blocker, Gina, MD MD gb1 Rupal Dawkins RN al5 Corrections: (The following items were deleted from the chart) 00:54 00:54 CBC+H.LAB.BRZ ordered. EDMS EDMS 00:54 00:54 COMPREHENSIVE METABOLIC PANEL+C.LAB.BRZ ordered. EDMS EDMS 00:54 00:54 LIPASE+C.LAB.BRZ ordered. EDMS EDMS 00:54 00:54 Test, Urine+UC.LAB.BRZ ordered. EDMS EDMS
--- NOTE | 2025-04-10 02:39 | ER ---
Nurse's Notes [facility] Name: Domonique Mccurdy Age: 34 yrs Sex: Female : 1990 Arrival Date: 04/09/2025 Time: 23:46 Bed 4 Private MD: Diagnosis: Abdominal pain, unspecified Presentation: 04/09 23:56 Chief complaint: Patient states: abdominal pain and swelling not improved with Bentyl kl seen last week without improvement denies constipation diarrhea nausea or vomiting. Coronavirus screen: Vaccine status: Patient reports being unvaccinated. Ebola Screen: Patient negative for fever greater than or equal to 101.5 degrees Fahrenheit, and additional compatible Ebola Virus Disease symptoms. Initial Sepsis Screen: Does the patient meet any 2 criteria? No. Patient's initial sepsis screen is negative. Does the patient have a suspected source of infection? No. Patient's initial sepsis screen is negative. Risk Assessment: Do you want to hurt yourself or someone else? Patient reports no desire to harm self or others. 23:56 Method Of Arrival: Ambulatory kl 23:56 Acuity: ALVINO 3 kl Triage Assessment: 04/10 00:05 General: Appears in no apparent distress. Behavior is calm, cooperative. Pain: kl Complains of pain in right upper quadrant and left upper quadrant Pain currently is 3 out of 10 on a pain scale. GI: Reports bloating, normal bowel habits, tolerance of fluids, tolerance of food. Historical: - Allergies: 00:05 No Known Allergies; kl - Home Meds: 00:05 Bentyl Oral [Active]; Pepcid Oral [Active]; kl - PMHx: 00:05 Kidney stones; Ovarian cysts (Cholecystectomy); Post depression; Pre Diabetes kl (Post depress); pre eclampsia; - PSHx: 00:05 section; Cholecystectomy; kl - Immunization history:: Adult Immunizations not immunized. - Infectious Disease History:: Denies. - Social history:: Smoking status: Patient denies any tobacco usage or history of. Screenin:23 [facility] ED Fall Risk Assessment (Adult) History of falling in the last 3 months, ha1 including since admission No falls in past 3 months (0 pts) Confusion or Disorientation No (0 pts) Intoxicated or Sedated No (0 pts) Impaired Gait No (0 pts) Mobility Assist Device Used No (0 pt) Altered Elimination No (0 pt) Score/Fall Risk Level 0 - 2 = Low Risk Oriented to surroundings, Maintained a safe environment, Educated pt \T\ family on fall prevention, incl call for assistance when getting out of bed, Hourly rounding (assess needs \T\ fall precautionary measures) done. Abuse screen: Denies threats or abuse. Denies injuries from another. Nutritional screening: No deficits noted. Tuberculosis screening: No symptoms or risk factors identified. Assessment: 01:07 General: Appears comfortable, Behavior is calm, cooperative. Pain: Denies pain. Neuro: ha1 Level of Consciousness is awake, alert, obeys commands, Oriented to person, place, time, situation. Cardiovascular: Capillary refill < 3 seconds Patient's skin is warm and dry. Respiratory: Airway is patent Respiratory effort is even, unlabored, Respiratory pattern is regular, symmetrical. GI: Abdomen is round non-distended, obese, Bowel sounds present X 4 quads. Abd is soft and non tender X 4 quads. Abd is non tender X 4 quads Reports abdomen distention. : No signs and/or symptoms were reported regarding the genitourinary system. Derm: Skin is pink, warm \T\ dry. Musculoskeletal: Circulation, motion, and sensation intact. Range of motion: intact in all extremities. Vital Signs: 04/09 23:56 BP 126 / 86; Pulse 62; Resp 16; Temp 97.7(O); Pulse Ox 100% on R/A; Weight 71.21 kg kl (R); Height 5 ft. 4 in. ; Pain 3/10; 04/10 01:26 BP 131 / 97; Pulse 62; Resp 17 S; Pulse Ox 100% on R/A; ha1 02:00 BP 125 / 78; Pulse 62; Resp 16; Pulse Ox 100% ; al5 02:30 BP 124 / 82; Pulse 63; Resp 16; Pulse Ox 100% ; al5 04/09 23:56 Body Mass Index 26.95 (71.21 kg, 162.56 cm) 04/09 23:56 Pain Scale: Adult ED Course: 04/09 23:51 Patient arrived in ED. gm2 04/10 00:05 Triage completed. kl 00:41 Lily Pope MD is Attending Physician. gb1 01:00 Patient has correct armband on for positive identification. Placed in gown. Bed in low ha1 position. Call light in reach. Side rails up X 1. 01:19 Inserted saline lock: 22 gauge in right forearm, using aseptic technique. Blood al5 collected. Flushed with 10 mL NS. 01:20 Zahida Sheriff RN is Primary Nurse. [id number] 01:21 CBC with Diff Sent. ha1 01:21 CMP Sent. ha1 01:21 Lipase Sent. ha1 01:21 Test, Urine Sent. ha1 02:38 Arthur De Jesus MD is Referral Physician. gb1 03:00 No provider procedures requiring assistance completed. IV discontinued, intact, al5 bleeding controlled, No redness/swelling at site. Pressure dressing applied. 03:00 Provided Education on: discharge follow up. al5 Administered Medications: 01:20 Drug: NS 0.9% IV 1000 ml IV at 1 bolus Per protocol; to be given as a bolus over 60 ha1 minutes Route: IV; Rate: 1 bolus; Site: right forearm; 03:03 Follow up: Response: No adverse reaction; IV Status: Completed infusion; IV Intake: al5 1000ml Medication: 01:24 VIS not applicable for this client. ha1 Intake: 03:03 IV: 1000ml; Total: 1000ml. al5 Outcome: 02:39 Discharge ordered by . gb1 02:59 Discharged to home ambulatory, al5 02:59 Condition: good 02:59 Discharge instructions given to patient, Instructed on discharge instructions, follow up and referral plans. Demonstrated understanding of instructions, follow-up care, 03:02 Patient left the ED. al5 Signatures: Lizz Pisano RN RN kl Ayala, Heidy, RN RN ha1 Lily Pope MD MD gb1 Ijeoma Rebollar 2 Rupal Dawkins RN RN al5 Zahida Sheriff, SHON RN [id number] Corrections: (The following items were deleted from the chart) 03:01 03:00 No provider procedures requiring assistance completed. al5 al5
[2025-04-10 03:21] VITALS: TEMP 97.7; O2SAT 100
[2025-04-10 03:24] VITALS: BP 124/82
== END 2025-04-10 03:02 | disposition home or self-care (01) ==
LOC: ER 23:46
DX: R10.9 Unspecified abdominal pain (principal)
CPT/HCPCS: 36415; 80053; 81025; 83690; 85025; 96360; 96361; 99284; J7030